=== PATIENT | female | born 1965 | race Caucasian/White ===

== ENCOUNTER 2021-02-13 07:34 | Outpatient (CLI) | payer OTHER, SELFPAY ==
--- NOTE | ~2021-02-13 | MM_ITS ---
EXAMINATION: MM screening aj BI w french HISTORY: Screening mammogram TECHNIQUE: Craniocaudal and mediolateral oblique 3-D tomosynthesis images were obtained and synthetic 2-D images were generated. CAD analysis was submitted and interpreted. COMPARISON: 10/18/2018, 02/07/2017, 06/25/2016 BREAST PARENCHYMAL COMPOSITION: The breasts are extremely dense, which lowers the sensitivity of mamm ography. FINDINGS: Scattered benign-appearing calcifications are present. There is no evidence of suspicious m ass, calcification, or architectural distortion to suggest malignancy in either breast. There has bee n no suspicious interval change. IMPRESSION: 1. No mammographic evidence of malignancy. 2. Recommend routine screening mammography in one year. BI-RADS Category 2: Benign finding(s). Reviewed, dictated and finalized at location A.
== END 2021-02-13 07:35 | disposition home or self-care (01) ==
LOC: ANHIMG 07:36
PROVIDERS: PCP Family Medicine Adolescent Medicine; Visit Provider Nurse Practitioner Obstetrics & Gynecology
DX: Z12.31 Encounter for screening mammogram for malignant neoplasm of breast (principal)
CPT/HCPCS: 77063; 77067

== ENCOUNTER → 2022-01-14 07:58 | Outpatient (CLI) | payer OTHER, SELFPAY ==
--- NOTE | ~2022-01-14 | US_ITS ---
US axilla RT 01/14/2022 08:16 Indication: Right axillary pain and swelling Procedure: High-resolution ultrasound of the right axillary soft tissues Comparison: No prior studies for comparison. Findings: Normal heterogeneous echotexture throughout the right axilla. No discrete mass or fluid col lection. Impression: 1: Normal right axillary ultrasound. BI-RADS CATEGORY 1 - NEGATIVE Reviewed, dictated and finalized at location L. Impression: 1: Normal right axillary ultrasound. BI-RADS CATEGORY 1 - NEGATIVE
== END ==
PROVIDERS: PCP Family Medicine Adolescent Medicine; Visit Provider Physician Assistant
DX: R22.31 Localized swelling, mass and lump, right upper limb (principal)
CPT/HCPCS: 76882

== ENCOUNTER 2022-05-08 10:44 | Emergency (ER) | payer OTHER, SELFPAY ==
[2022-05-08 10:51] VITALS: BP 147/93; PULSE 102; RESP 16; TEMP 36.6; O2SAT 99
--- NOTE | 2022-05-10 13:04 | ED.GENADULT ---
HPI - General Adult General Chief complaint: Ear Stated complaint: ear ache in both ears History of Present Illness HPI narrative: Patient is a 57 y/o female who presents to the [facility] via POV for an evaluation of bilateral ear pain, left worse than right that has been present for 2 days. She is accompanied by adult daughter. Additionally, she reports decreased hearing and subtle dry cough. Hx of AOM in childhood. No relief with day/nyquil. Does not identify alleviating/aggravating factors. Related Data Allergies Allergy/AdvReac Type Severity Reaction Status Date / Time No Known Allergies Allergy Verified 01/05/22 13:03 Review of Systems Review of Systems: Denies fever, chills, sweats, myalgias, fatigue, appetite changes, dizziness, vertigo, tinnitus, ear drainage, hearing loss, runny nose, sore throat, wheezing, cyanosis, sob, abd pain, nausea, vomiting, diarrhea, chest pain, and heart palpitations PMFSH Family History Family History Father Acute myocardial infarction Diabetes mellitus Heart disease Kidney disease Mother Acute myocardial infarction Asthma Heart disease Kidney disease Social History Social History Smoking status: Never smoker Second hand tobacco smoke exposure: No Alcohol intake: never Substance use: never Substance use type: does not use Gender identity (if verbalized by the patient): Female Sexual Orientation (if Verbalized by the Patient): Straight or Heterosexual Spiritual care concerns: No Agree to blood products: Yes Comments Reviewed past medical, surgical, family, and socia history and agree with nursing documentation. Exam Const: General: healthy appearing, no acute distress and alert Nutritional Appearance: well nourished Orientation/consciousness: patient oriented x3 HENMT: Head: normal to inspection Ears: external ears normal, EAC's normal and TM abnormal bulging on the right, dull on the right, erythematous (markedly) on the right and with fluid behind the TM (small amount) on the right Eyes: Conjunctivae: conjunctivae normal Pupils: Equal, round and reactive pupils present EOM: EOMs intact bilaterally Neck: Neck: normal visual inspection, no lymphadenopathy and no meningeal signs Resp: Effort & Inspection: normal respiratory effort Auscultation: clear to auscultation bilaterally Cardio: Rate: tachycardic (rate of 102) Rhythm: regular rhythm Heart sounds: Murmur heart sound present Other: no murmurs, rubs, or gallops auscultated Skin: General skin exam: normal color Rashes: no rashes Neuro: General: patient oriented x3, moves all extremities, no meningeal signs, no focal motor deficits and CN's II-XI intact bilaterally Speech: normal speech Gait exam (Neuro): Normal gait present Extrem: General: normal to inspection Psych: Mental Status: mental status grossly normal Affect: normal affect Attitude: cooperative Course Course Level of Care: Express Care Visit Vital Signs Vital signs: Vital Signs Temperature 97.9 F 05/08/22 10:51 Pulse Rate 102 H 05/08/22 10:51 Respiratory Rate 16 05/08/22 10:51 Blood Pressure 147/93 H 05/08/22 10:51 Pulse Oximetry 99 05/08/22 10:51 Temperature 97.9 F 05/08/22 10:51 Pulse Rate 102 H 05/08/22 10:51 Respiratory Rate 16 05/08/22 10:51 Blood Pressure 147/93 H 05/08/22 10:51 Pulse Oximetry 99 05/08/22 10:51 Medical Decision Making Differential Diagnosis Differential Diagnosis: otitis media, otitis externa, URI, sinusitis Vital Signs Vital Signs: Vital Signs Temperature 97.9 F 05/08/22 10:51 Pulse Rate 102 H 05/08/22 10:51 Respiratory Rate 16 05/08/22 10:51 Blood Pressure 147/93 H 05/08/22 10:51 Pulse Oximetry 99 05/08/22 10:51 Temperature 97.9 F 05/08/22 10:51 Pulse Rate 102 H 05/08/22 10:51 Respiratory
== END 2022-05-08 11:45 | disposition home or self-care (01) ==
PROVIDERS: Emergency Provider Nurse Practitioner Family; PCP Family Medicine Adolescent Medicine
DX: H66.92 Otitis media, unspecified, left ear (principal)
CPT/HCPCS: 99199; 99213; G0463

== ENCOUNTER 2022-07-29 07:21 | Outpatient (CLI) | payer OTHER, SELFPAY ==
--- NOTE | ~2022-07-29 | MM_ITS ---
EXAMINATION: MM screening aj BI w french HISTORY: Screening TECHNIQUE: Craniocaudal and mediolateral oblique 3-D tomosynthesis images were obtained and synthetic 2-D images were generated. CAD analysis was submitted and interpreted. COMPARISON: Comparison to multiple prior studies sequentially, with oldest reviewed study dated 05/28. BREAST PARENCHYMAL COMPOSITION: The breasts are heterogeneously dense, which may obscure small masses FINDINGS: Stable benign-appearing breast calcifications. There is no evidence of suspicious mass, leeanna cification, or architectural distortion to suggest malignancy in either breast. There has been no osvaldo picious interval change. IMPRESSION: 1. No mammographic evidence of malignancy. 2. Recommend routine screening mammography in one year. BI-RADS Category 2: Benign finding(s). Reviewed, dictated and finalized at location A. 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
== END 2022-07-29 07:22 | disposition home or self-care (01) ==
PROVIDERS: PCP Family Medicine Adolescent Medicine; Visit Provider Nurse Practitioner Obstetrics & Gynecology
DX: Z12.31 Encounter for screening mammogram for malignant neoplasm of breast (principal)
CPT/HCPCS: 77063; 77067

== ENCOUNTER → 2023-01-18 15:08 | Outpatient (CLI) | payer OTHER, SELFPAY ==
--- NOTE | ~2023-01-18 | US_ITS ---
Renal-Bladder ultrasound Clinical History: Cystitis, hematuria Technique: Real-time sonographic imaging of the kidneys and urinary bladder was performed. Findings: The right kidney measures 10.9 cm in length and the left kidney measures 11.3 cm. There is no hydronephrosis. There is a suspected 1.5 cm stone at the right renal pelvis. Probable 1.1 cm stone at the left upper renal pole. Renal cortical echogenicity is within normal limits. Probable 1.3 cm m inimally complex cyst at the right lower renal pole. The urinary bladder is moderately distended at the time of this exam. No intraluminal echoes are iden tified. No abnormal wall thickening is seen. Prevoid urinary bladder volume is 110 mL. 12.7 mL postvo id residual noted in the urinary bladder. Impression: 1.5 cm stone at the right renal pelvis. 1.1 cm left upper pole renal stone. No hydronephrosis. Small postvoid residual in the urinary bladder, as detailed above. Reviewed, dictated and finalized at location . Impression: 1.5 cm stone at the right renal pelvis. 1.1 cm left upper pole renal stone. No hydronephrosis. Small postvoid residual in the urinary bladder, as detailed above.
== END ==
PROVIDERS: PCP Family Medicine Adolescent Medicine; Visit Provider Family Medicine Adolescent Medicine
DX: N30.90 Cystitis, unspecified without hematuria (principal); N20.0 Calculus of kidney
CPT/HCPCS: 76775

== ENCOUNTER 2023-09-05 14:45 | Outpatient (CLI) | payer OTHER, SELFPAY ==
--- NOTE | ~2023-09-05 | MM_ITS ---
EXAMINATION: MM screening aj BI w french HISTORY: Screening mammogram TECHNIQUE: Craniocaudal and mediolateral oblique 3-D tomosynthesis images were obtained and synthetic 2-D images were generated. CAD analysis was submitted and interpreted. COMPARISON: No prior mammogram is available for comparison at this institution. BREAST PARENCHYMAL COMPOSITION: The breasts are heterogeneously dense, which may obscure small masses . FINDINGS: Scattered bilateral benign calcifications. There is no evidence of suspicious mass, calcifi cation, or architectural distortion to suggest malignancy in either breast. There has been no suspici ous interval change. IMPRESSION: 1. No mammographic evidence of malignancy. 2. Recommend routine screening mammography in one year. BI-RADS Category 2: Benign finding(s). Reviewed, dictated and finalized at location A.
== END 2023-09-05 14:46 | disposition home or self-care (01) ==
LOC: ANHIMG 14:47
PROVIDERS: PCP Family Medicine Adolescent Medicine; Visit Provider Nurse Practitioner Obstetrics & Gynecology
DX: Z12.31 Encounter for screening mammogram for malignant neoplasm of breast (principal)
CPT/HCPCS: 77063; 77067

== ENCOUNTER 2024-03-19 08:45 | Outpatient (CLI) | payer OTHER, SELFPAY ==
--- NOTE | ~2024-03-19 | CT_ITS ---
Non-contrast CT scan of the Abdomen and Pelvis Clinical indication: Renal cyst Technique: 2.5 mm axial scans were obtained through the abdomen and pelvis without intravenous or or al contrast. Dose reduction technique was used on this scan by utilizing automated exposure control a nd iterative reconstruction technique. The dose-length product (DLP) was 244.72 mGy-cm. Findings: Images through the lung bases reveal partially calcification is 6 mm right basilar pulmona ry nodule, likely benign granuloma. 8 mm ovoid nonobstructing left upper pole renal stone present. Additional punctate nonobstructing lef t renal stones are present. No left hydronephrosis. No left ureteral stone. There is a 1.8 x 1.4 cm ovoid stone at the right renal pelvis, with moderate right hydronephrosis. Ad ditional small nonobstructing right renal stones are present. Remainder of the right ureter is nondil ated. The liver, spleen, pancreas, and adrenals appear normal. Cholecystectomy clips are present. There is no aortic aneurysm. There is no evidence of bowel obstruction. Images through the pelvis were performed. There is no evidence of ascites or lymphadenopathy. Urinary bladder unremarkable. IUD in place. No pelvic mass evident. Impression: 1.8 x 1.4 cm stone at the right renal pelvis with moderate right hydronephrosis. Additional bilateral nonobstructing renal stones, as detailed above. No left hydronephrosis. IUD in place. Reviewed, dictated and finalized at [facility]. Impression: 1.8 x 1.4 cm stone at the right renal pelvis with moderate right hydronephrosis . Additional bilateral nonobstructing renal stones, as detailed above. No left hy dronephrosis. IUD in place.
== END 2024-03-19 08:46 | disposition home or self-care (01) ==
LOC: MICIMG 08:46
PROVIDERS: PCP Family Medicine Adolescent Medicine; Visit Provider Nurse Practitioner Family
DX: N13.2 Hydronephrosis with renal and ureteral calculous obstruction (principal); R31.9 Hematuria, unspecified; Z97.5 Presence of (intrauterine) contraceptive device; N28.1 Cyst of kidney, acquired
CPT/HCPCS: 74176

== ENCOUNTER 2024-07-17 09:59 | Outpatient (CLI) | payer OTHER, SELFPAY ==
--- NOTE | ~2024-07-17 | XR_ITS ---
EXAMINATION: XR abdomen/kub 1V DATE: 07/17/2024 10:15 INDICATION: Obstruction of right ureteropelvic junction. TECHNIQUE: A supine view of the abdomen on 2 radiographs was obtained. COMPARISON: CT abdomen and pelvis 03/19/2024 FINDINGS: There are no dilated loops of bowel. Surgical clips in the right upper quadrant are likely from cholecystectomy. There is an intrauterine device in expected position. There are phleboliths in the pelvis. There is an intrauterine device in expected position. There is a 6 mm stone in left kidne y. The kidneys are obscured by bowel. IMPRESSION: 1. Left kidney stone. Reviewed, dictated and finalized at location B. 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 Left kidney stone.
--- OUTSIDE RECORDS SUMMARY | 2024-07-19 17:10 | XMS_ITS | Clinical Summary ---
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 Name Role Phone Unavailable Primary Care Provider Unavailabl e Social History Tobacco Use Types Packs/Day Years Used Date Smoking Tobacco: Never Assessed Comments Unknown Sex and Gender Information Value Date Recorded Sex Assigned at Not on file Legal Sex Female 10:40 AM CDT Gender Identity Not on file Sexual Orientation Not on file Plan of Treatment Health Maintenance Due Date Last Done Comments DTAP/TDAP/TD VACCINES (1 - Tdap) 1986 HEPATITIS B VACCINES (1 of 3 - 19+ 3-dose series) 1986 CERVICAL CANCER SCREENING 1997 BREAST CANCER SCREENING 2007 COLORECTAL SCREENING 2012 Colorectal Cancer Screening 2012 FIT-DNA Q 3 years 2012 FIT/FOBT Q 1 year 2012 Flex Sig/CT Colonography Q 5 years 2012 ZOSTER VACCINE (1 of 2) 2017 INFLUENZA VACCINE (#1) 2024 PNEUMOCOCCAL VACCINE 0-64 YEARS Aged Out No longer eligible based on patient's age to complete this topic
--- OUTSIDE RECORDS SUMMARY | 2024-07-19 17:10 | XMS_ITS | Clinical Summary ---
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 Active levonorgestreL (MIRENA) IUD 1 each by intrauterine route once Active oxyBUTYnin XL (DITROPAN-XL) 5 mg 24 hr tablet Take 1 tablet (5 mg total) by mouth 3 (three) times a day as needed (bladder spasm) for up to 7 days 20 tablet Active Active Problems Problem Noted Date Diagnosed Date Calculus of ureter 05/02/2024 Encounters Date Type Department Care Team Description 06/07/2024 2:11 PM SALES TEAM MEMBER Anesthesia Event [facility] [address] [place] [phone] Bashir Sorensen MD Czajkowski, Lesly June, NP 06/07/2024 2:00 PM SALES TEAM MEMBER - 06/07/2024 4:30 PM SALES TEAM MEMBER Surgery [facility] [address] [place] [phone] Jt Stern MD Right Percutaneous Nephrolithotomy 06/07/2024 7:45 AM SALES TEAM MEMBER - 06/07/2024 11:59 PM SALES TEAM MEMBER Hospital Encounter [facility] - Interventional Radiology [address] [place] [phone] Right renal stone Discharge Disposition: Discharge to home or self care 06/07/2024 5:32 AM SALES TEAM MEMBER - 06/09/2024 3:51 PM SALES TEAM MEMBER Hospital Encounter [address] [phone] Jt Stern MD Calculus of ureter Discharge Disposition: Discharge to home or self care 06/07/2024 Orders Only [facility] - Interventional Radiology [address] [place] [phone] Shirin Sharma RN 06/06/2024 Orders Only [facility] - Interventional Radiology [address] [place] [phone] Montez Stacy RN 05/22/2024 10:15 AM SALES TEAM MEMBER Pre-Admission Testing [facility] Pre Anesthesia Testing [address] [place] [phone] Preop testing (Primary Dx) 05/08/2024 Telephone Radiology [address] [place] [address] Rajiv Dia MD from Last 3 Months Surgical History Surgery Date Site/Laterality Comments CHOLECYSTECTOMY NEPHROURETERAL STENT PLACEMENT NEW ACCESS RIGHT 2023 Right URETERAL STENT PLACEMENT VIA EXISTING TRACT RIGHT 05/27 Right Medical History Medical History Date Comments Hypothyroid Calculus of ureter Social History Tobacco Use Types Packs/Day Years Used Date Smoking Tobacco: Never Tobacco Cessation:Counseling Given: Not Answered [facility] Utilities Answer Date Recorded In the past 12 months has [employer], gas, oil, or water [employer] threatened to shut off services in your home? No 06/08/2024 Social Connection and Isolat ion Panel [NHANES] Answer Date Recorded In a typical week, how many times do you talk on the phone with family, friends, or neighbors? More than three times a week 06/08/2024 How often do you get togethe r with friends or relatives? More than three times a week 06/08/2024 How often do you attend chur ch or mosque services? Never 06/08/2024 Do you belong to any clubs o r organizations such as cheondoism groups, unions, fraternal or athletic groups, or school groups? No 06/08/2024 How often do you attend meet ings of the clubs or organizations you belong to? Never 06/08/2024 Are you , , di vorced, , never , or living with a partner? 06/08/2024 AUDIT-C Answer Date Recorded Q1: How often do you have a drink containing alc ohol? Monthly or less 05/22/2024 Q2: How many drinks containi ng alcohol do you have on a typical day when you are drinking? 1 or 2 05/22/2024 Q3: How often do you have si x or more drinks on one occasion? Never 05/22/2024 Overall Financial Resource Strain (CARDIA) Answe r Date Recorded How hard is it for you to pa y for the very basics like food, housing, medical care, and heating? Not very hard 06/08/2024 Hunger Vital Sign Answer Date Recorded Within the past 12 months, y ou worried that your food would run out before you got the money to buy more. Never true 06/08/20 24 Within the past 12 months, t he food you bought just didn't last and you didn't have money to get more. Never true 06/08/2024 PRAPARE - Transportation Answer Date Re corded In the past 12 months, has l ack of transportation kept you from medical appointments or from getting medications? No 05/27 In the past 12 months, has l ack of transportation kept you from meetings, work, or from getting things needed for daily living? No 06/08/2024 Housing Stability Vital Sign Answer Joon e Recorded In the last 12 months, was t here a time when you were not able to pay the mortgage or rent on time? No 06/08/2024 In the past 12 months, how m any times have you moved where you were living? 0 06/08/2024 At any time in the past 12 m [facility], were you homeless or living in a custodial (including now)? No 06/08/2024 Personal Safety Answer Date Recorded Have you ever been in or are you currently in a harmful physical or emotional relationship or is someone making you feel afraid or unsafe? Denies 06/07/2024 Comments No Sex and Gender Information Value Date Recorded Sex Assigned at Not on file Legal Sex Female 3:13 PM SALES TEAM MEMBER Gender Identity Not on file Sexual Orientation Not on file Obstetrics History Last Filed Vital Signs Vital Sign Reading Time Taken Comments Blood Pressure 140/72 06/09/2024 12:13 PM SALES TEAM MEMBER Pulse 82 06/09/2024 12:13 PM SALES TEAM MEMBER Temperature 37 ??C (98.6 ??F) 06/09/2024 12:13 PM SALES TEAM MEMBER Respiratory Rate 16 06/09/2024 12:13 PM SALES TEAM MEMBER Oxygen Saturation 97% 06/09/2024 12:13 PM SALES TEAM MEMBER Inhaled Oxygen Concentration - - Weight 59.2 kg (130 lb 8.2 oz) 06/07/2024 6:48 A M SALES TEAM MEMBER Height 160 cm (5' 3 ) 06/07/2024 6:48 AM SALES TEAM MEMBER Body Mass Index 23.12 06/07/2024 6:48 AM SALES TEAM MEMBER Plan of Treatment Health Maintenance Due Date Last Done Comments Breast Cancer Screening-Mammogram 1967 Cervical Cancer Screening 1967 Colon Cancer Screening-Colonoscopy 1967 Depression Screening 1967 Hepatitis C Screening 1967 DTaP/Tdap/Td Vaccine (1 - Tdap) 1978 Hepatitis B Screening 1985 Regular Well Visit/Exam 18-64 1985 Zoster Vaccine (1 of 2) 2017 Influenza Vaccine (#1) 2024 Pneumococcal vaccine <65 Aged Out No longer eligible based on patient's age to complete this topic Medical Devices Implanted Type Area Insole Rounder Device Identifier Shelf Expiration Date Model / Serial / Lot ReVera Amplatz 8.5fr 26cm 6 Sideport Introducer Catheter String [id number] - [id number] Implanted:Qty: 1 on 06/08/2024 at [facility] [employer] 02/19/2027 [id number] / / [id number] Procedures Procedure Name Priority Date/Time Associated Diagnosis Comments EGFR Routine 06/09/2024 4:57 AM SALES TEAM MEMBER CBC WITHOUT DIFFERENTIAL Routine 06/09/2024 4:57 AM SALES TEAM MEMBER BASIC METABOLIC PANEL Routine 06/09/2024 4:57 AM SALES TEAM MEMBER URETERAL STENT PLACEMENT VIA EXISTING TRACT RIGHT IP Routine 06/08/2024 4:09 PM [address]ES TEAM MEMBER CT KUB STONE WO CONTRAST IP Routine 06/08/2024 9:27 AM SALES TEAM MEMBER EGFR STAT 06/08/2024 6:21 AM SALES TEAM MEMBER BASIC METABOLIC PANEL STAT 06/08/2024 6:21 AM SALES TEAM MEMBER EGFR Routine 06/08/2024 4:33 AM SALES TEAM MEMBER CBC WITHOUT DIFFERENTIAL Routine 06/08/2024 4:33 AM SALES TEAM MEMBER BASIC METABOLIC PANEL Routine 06/08/2024 4:33 AM SALES TEAM MEMBER HEMOGLOBIN AND HEMATOCRIT STAT 06/07/2024 5:22 PM SALES TEAM MEMBER FL FLUOROSCOPY < 1 HOUR IP Routine 06/07/2024 3:53 PM SALES TEAM MEMBER STONE ANALYSIS Routine 06/07/2024 3:39 PM SALES TEAM MEMBER MT AN PROCEDURE PLACEHOLDER Routine 06/07/2024 2:53 PM SALES TEAM MEMBER MT AN ELECTIVE ENDOTRACHEAL AIRWAY Routine 06/07/2024 2:53 PM SALES TEAM MEMBER PERCUTANEOUS NEPHROLITHOTOMY 06/07/2024 2:10 PM SALES TEAM MEMBER Calculus of ureter NEPHROURETERAL STENT PLACEMENT NEW ACCESS RIGHT Schedule Routine, Read Routine (OP Routine) 06/07/2024 8:58 AM SALES TEAM MEMBER Right renal stone B CHECK SAMPLE STAT 06/07/2024 7:06 AM SALES TEAM MEMBER EGFR Routine 05/22/2024 11:09 AM SALES TEAM MEMBER Preop testing DIFFERENTIAL AUTO Routine 05/22/2024 11: 09 AM SALES TEAM MEMBER Preop testing BASIC METABOLIC PANEL Routine 05/22/2024 11:09 AM SALES TEAM MEMBER Preop testing CBC WITH AUTO DIFFERENTIAL Routine 05/22/2024 11:09 AM SALES TEAM MEMBER Preop testing PROTIME-INR Routine 05/22/2024 11:09 AM SALES TEAM MEMBER Preop testing APTT Routine 05/22/2024 11:09 AM SALES TEAM MEMBER Preop testing HEMOGLOBIN A1C Routine 05/22/2024 11:09 AM SALES TEAM MEMBER Preop testing TYPE AND SCREEN Routine 05/22/2024 10:48 AM SALES TEAM MEMBER Preop testing from Last 3 Months Results * eGFR (06/09/2024 4:57 AM SALES TEAM MEMBER) eGFR >90 >=60 mL/min/1. 73 m2 Comment: Interpretive Data Reference Interval Normal ?>/= 90 mL/min/1.73m2 Mildly decreased* ? 60 - 89 mL/min/1.73m2 Mildly to moderately decreased ?45 - 59 mL/min/1.73m2 Moderately to severely decreased ??30 - 44 mL/min/1.73m2 Severely decreased ?15 - 29 mL/min/1.73m2 Kidney Failure ?< 15 ??mL/min/1.73m2 *Relative to young adult level Estimated glomerular filtration rate is determined by the 2020 CKD-EPI equation recommended by the National Kidney Foundation (A Unifying Approach to GFR Estimation: Recommendations of the NKF-ASK Task Force on Reassessing the Inclusion of Race in Diagnosing Kidney Disease, JASN 2020). The CKD-EPI equation should not be used for patients with unstable renal function and has not been validated in children and those over 70. Current interpretive data was last reviewed 2021. Blood 06/09/2024 4:57 AM SALES TEAM MEMBER 06/09/2024 6:34 AM SALES TEAM MEMBER Jt Stern MD LAB BLOOD ORDERABLES Final Re sult Performing Organization Address City/[facility]/ZIP Co de Phone Number [facility] [address] [place] [address] * (ABNORMAL) CBC without differential (06/09/2024 4:57 AM SALES TEAM MEMBER) WBC 11.4(H) 3.8 - 9.9 K/cumm Hgb 11.0(L) 11.9 - 15.5 g/dL [facility] Hct 34.6(L) 35.6 - 45.5 % [facility] Plt 236 150 - 400 K/cumm [facility] MPV 10.1 9.1 - 12.3 fL [facility] RBC 3.59(L) 3.90 - 5.20 M/cumm [facility] MCV 96.4 81.3 - 96.4 fL [facility] MCH 30.6 27.1 - 33.3 pg [facility] MCHC 31.8(L) 32.3 - 35.7 g/dL [facility] RDW CV 12.9 11.1 - 14.9 % [facility] RDW SD 45.5 35.7 - 48.1 fL [facility] NRBC abs 0.00 0.00 - 0.01 K/cumm [facility] Blood 06/09/2024 4:57 AM SALES TEAM MEMBER 06/09/2024 6:35 AM SALES TEAM MEMBER us Jt Stern MD LAB BLOOD ORDERABLES Final Re sult Performing Organization Address [facility]/ZIP Co de Phone Number [facility] [employer] [address] [employer] [place], [place] [id number] * (ABNORMAL) Basic metabolic panel (06/09/2024 4:57 AM SALES TEAM MEMBER) Sodium 142 135 - 145 mmol/L Potassium, pl 3.4 3.3 - 4.9 mmol/L [facility] Chloride 106 97 - 110 mmol/L [facility] CO2 28 22 - 32 mmol/L [facility] Anion gap 8 2 - 15 mmol/L [facility] BUN 7 6 - 25 mg/dL [facility] Creatinine 0.60 0.60 - 1.10 mg/dL [facility] Glucose 137 70 - 199 mg/dL [facility] Comment: Interpretive Data Fasting glucose >/= 126 mg/dl is diagnostic for diabetes. ?? Fasting is defined as no caloric intake for at least 8 hours. Fasting glucose between 100 mg/dl to 125 mg/dl is diagnostic of prediabetes. In a patient with classic symptoms of hyperglycemia or hyperglycemic crisis, a random glucose >/= 200 mg/dl is diagnostic for diabetes. In the absence of unequivocal hyperglycemia, results should be confirmed by repeat testing. The classification and Diagnosis of Diabetes Diabetes Care 2021; 46: S19-S40. Current interpretive data was last revised 2022. Calcium 8.0(L) 8.5 - 10.3 mg/dL [facility] Blood 06/09/2024 4:57 AM SALES TEAM MEMBER 06/09/2024 6:34 AM SALES TEAM MEMBER us Jt Stern MD LAB BLOOD ORDERABLES Final Re sult [facility] [address] Department [place] [address] * IR Ureteral Stent Placement Via Existing Tract Right (06/08/2024 4:09 PM SALES TEAM MEMBER) Anatomical Region Laterality Modality Body Right X-Ray Angiograph y 06/08/2024 4:36 PM SALES TEAM MEMBER Impressions 06/08/2024 4:36 PM SALES TEAM MEMBER Successful conversion of the nephroureteral catheter to an internal ureteral stent. PLAN: Urology will follow the patient and eventually remove the internal stent. Electronically signed by: Miguel Epps M.D. Narrative 06/08/2024 4:36 PM SALES TEAM MEMBER EXAMINATION: ??RIGHT PCNU CONVERSION TO INTERNAL URETERAL STENT HISTORY/INDICATION: ??Right nephrolithiasis status post percutaneous nephrolithotomy. ??She presents for conversion of her nephroureteral catheter to an internal ureteral stent. ATTENDING PRESENCE: ??Miguel Epps M.D., the attending radiologist was present from the beginning to the end of the procedure. ?? SEDATION: Procedural sedation was administered under the attending physician's direction and continuous monitoring by a trained nurse specialist who was independent from those actually performing the procedure. ??Total monitored sedation time was 18 minutes. TECHNIQUE: ??The risks, benefits and alternatives were discussed and informed consent was obtained. Prior to beginning the procedure, [place] Protocol was performed to confirm the patient's identity and the planned procedure. ??For procedures that utilize fluoroscopy, the fluoroscopy time has been recorded in the electronic medical record. Maximum sterile barriers including cap, mask, hand hygiene, sterile gloves, sterile gown, large sterile drape and 2% chlorhexidine for cutaneous antisepsis were used. The skin surrounding the existing right percutaneous nephroureteral catheter was sterilely prepped and infiltrated with 1% lidocaine. The length from the right collecting system to the bladder was measured and 26 cm double-J ureteral stent selected. The existing nephroureteral catheter was exchanged over an Amplatz guidewire for the double-J ureteral stent. ??The distal loop was formed within the bladder and proximal loop formed within the collecting system. ??Access catheter was removed and a sterile dressing applied.. ESTIMATED BLOOD LOSS: Minimal. CONDITION: Stable DISCHARGED TO: 6 W. FINDINGS: Initial images show the nephroureteral catheter in place. Later images show contrast outlining the collecting system. ??Later images then show placement of the double-J ureteral stent with one loop formed within the bladder and the other within the collecting system. Procedure Note Miguel Epps MD PhD - 06/08/2024 EXAMINATION: RIGHT PCNU CONVERSION TO INTERNAL URETERAL STENT HISTORY/INDICATION: Right nephrolithiasis status post percutaneous nephrolithotomy. She presents for conversion of her nephroureteral catheter to an internal ureteral stent. ATTENDING PRESENCE: Miguel Epps M.D., the attending radiologist was present from the beginning to the end of the procedure. SEDATION: Procedural sedation was administered under the attending physician's direction and continuous monitoring by a trained nurse specialist who was independent from those actually performing the procedure. Total monitored sedation time was 18 minutes. TECHNIQUE: The risks, benefits and alternatives were discussed and informed consent was obtained. Prior to beginning the procedure, [place] Protocol was performed to confirm the patient's identity and the planned procedure. For procedures that utilize fluoroscopy, the fluoroscopy time has been recorded in the electronic medical record. Maximum sterile barriers including cap, mask, hand hygiene, sterile gloves, sterile gown, large sterile drape and 2% chlorhexidine for cutaneous antisepsis were used. The skin surrounding the existing right percutaneous nephroureteral catheter was sterilely prepped and infiltrated with 1% lidocaine. The length from the right collecting system to the bladder was measured and 26 cm double-J ureteral stent selected. The existing nephroureteral catheter was exchanged over an Amplatz guidewire for the double-J ureteral stent. The distal loop was formed within the bladder and proximal loop formed within the collecting system. Access catheter was removed and a sterile dressing applied.. ESTIMATED BLOOD LOSS: Minimal. CONDITION: Stable DISCHARGED TO: 6 W. FINDINGS: Initial images show the nephroureteral catheter in place. Later images show contrast outlining the collecting system. Later images then show placement of the double-J ureteral stent with one loop formed within the bladder and the other within the collecting system. IMPRESSION: Successful conversion of the nephroureteral catheter to an internal ureteral stent. PLAN: Urology will follow the patient and eventually remove the internal stent. Electronically signed by: Miguel Epps M.D. Kathy Lopez NP IMG IR PROCEDURES Final Result * CT KUB Stone WO Contrast (06/08/2024 9:27 AM SALES TEAM MEMBER) Anatomical Region Laterality Modality Abdomen N/A Computed Tomogra phy 06/08/2024 11:0 2 AM SALES TEAM MEMBER Impressions 06/08/2024 11:02 AM SALES TEAM MEMBER 1. ??Status post right percutaneous nephrolithotomy. 2. ??Small amount of gas in the right renal collecting system and hyperdense fluid in the adjacent soft tissue likely related to recent procedure. 3. ??Interval removal of large stone at the right renal pelvis seen on prior CT dated 03/19/2024. ??A tiny stone is present at the right ureteropelvic junction. 4. ??Right lower lobe 5 mm nodule, unchanged. Electronically signed by: Jorge Dee M.D. Narrative 06/08/2024 11:02 AM SALES TEAM MEMBER CT KUB STONE WO CONTRAST 06/08/2024 8:45 AM CLINICAL INDICATION: Urinary tract stone, symptomatic/complicated. ?? COMPARISON: CT abdomen pelvis dated 03/19/2024. TECHNIQUE: CT scan of the abdomen and pelvis was performed without contrast. ??Coronal and sagittal reformatted images were generated. FINDINGS: Bibasilar opacities likely represent atelectasis. ??A right lower lobe 5 mm nodule is unchanged compared with prior CT dated 03/19/2024. Evaluation of the intra-abdominal viscera is limited without intravenous contrast. There is mild hepatic steatosis. ??There is postsurgical change from cholecystectomy. ??The pancreas, spleen and adrenal glands are normal. The patient is status post right percutaneous nephrolithotomy. ??A right internal and external nephroureteral stent is present. ??The distal end of the stent terminates in the urinary bladder. ??Multiple foci of gas in the right renal collecting system and adjacent soft tissue are from recent procedure. ??Hyperdense fluid adjacent to the right kidney is also likely related to recent procedure. ??There has been interval removal of a large stone seen along the right renal pelvis compared with prior CT dated 03/19/2024. ??A small calcification along the superior pole of the right kidney is unchanged. ??There is a tiny stone at the right ureteropelvic junction that measures approximately 2 mm. ??There are multiple left kidney stones, largest measures 6 mm. ??There is no left hydroureteronephrosis. Evaluation of the intra-abdominal vasculature is limited without intravenous contrast. ??The abdominal aorta is normal in caliber. ?? There is no lymphadenopathy. There is no drainable fluid collection in the abdomen or pelvis. An IUD is present in the uterus. ??The ovaries are normal. ??A Child catheter is present in the urinary bladder. ??Evaluation is limited due to decompression. There is a small hiatal hernia. ??There are no acute findings in the stomach and duodenum. ??The small bowel is normal in caliber. ??There are no acute findings in the colon. ??There are small appendicoliths. There is no evidence for appendicitis. There is no inguinal lymphadenopathy. There is facet degenerative change at L4-L5 and L5-S1. ??There is no acute osseous abnormality. Procedure Note Jorge Dee MD - 06/08/2024 CT KUB STONE WO CONTRAST 06/08/2024 8:45 AM CLINICAL INDICATION: Urinary tract stone, symptomatic/complicated. COMPARISON: CT abdomen pelvis dated 03/19/2024. TECHNIQUE: CT scan of the abdomen and pelvis was performed without contrast. Coronal and sagittal reformatted images were generated. FINDINGS: Bibasilar opacities likely represent atelectasis. A right lower lobe 5 mm nodule is unchanged compared with prior CT dated 03/19/2024. Evaluation of the intra-abdominal viscera is limited without intravenous contrast. There is mild hepatic steatosis. There is postsurgical change from cholecystectomy. The pancreas, spleen and adrenal glands are normal. The patient is status post right percutaneous nephrolithotomy. A right internal and external nephroureteral stent is present. The distal end of the stent terminates in the urinary bladder. Multiple foci of gas in the right renal collecting system and adjacent soft tissue are from recent procedure. Hyperdense fluid adjacent to the right kidney is also likely related to recent procedure. There has been interval removal of a large stone seen along the right renal pelvis compared with prior CT dated 03/19/2024. A small calcification along the superior pole of the right kidney is unchanged. There is a tiny stone at the right ureteropelvic junction that measures approximately 2 mm. There are multiple left kidney stones, largest measures 6 mm. There is no left hydroureteronephrosis. Evaluation of the intra-abdominal vasculature is limited without intravenous contrast. The abdominal aorta is normal in caliber. There is no lymphadenopathy. There is no drainable fluid collection in the abdomen or pelvis. An IUD is present in the uterus. The ovaries are normal. A Child catheter is present in the urinary bladder. Evaluation is limited due to decompression. There is a small hiatal hernia. There are no acute findings in the stomach and duodenum. The small bowel is normal in caliber. There are no acute findings in the colon. There are small appendicoliths. There is no evidence for appendicitis. There is no inguinal lymphadenopathy. There is facet degenerative change at L4-L5 and L5-S1. There is no acute osseous abnormality. IMPRESSION: 1. Status post right percutaneous nephrolithotomy. 2. Small amount of gas in the right renal collecting system and hyperdense fluid in the adjacent soft tissue likely related to recent procedure. 3. Interval removal of large stone at the right renal pelvis seen on prior CT dated 03/19/2024. A tiny stone is present at the right ureteropelvic junction. 4. Right lower lobe 5 mm nodule, unchanged. Electronically signed by: Jorge Dee M.D. Jt Stern MD [facility] CT PROCEDURES Final Resul t * eGFR (06/08/2024 6:21 AM SALES TEAM MEMBER) eGFR >90 >=60 mL/min/1. 73 m2 Comment: Interpretive Data Reference Interval Normal ?>/= 90 mL/min/1.73m2 Mildly decreased* ? 60 - 89 mL/min/1.73m2 Mildly to moderately decreased ?45 - 59 mL/min/1.73m2 Moderately to severely decreased ??30 - 44 mL/min/1.73m2 Severely decreased ?15 - 29 mL/min/1.73m2 Kidney Failure ?< 15 ??mL/min/1.73m2 *Relative to young adult level Estimated glomerular filtration rate is determined by the 2020 CKD-EPI equation recommended by the National Kidney Foundation (A Unifying Approach to GFR Estimation: Recommendations of the NKF-ASK Task Force on Reassessing the Inclusion of Race in Diagnosing Kidney Disease, JASN 2020). The CKD-EPI equation should not be used for patients with unstable renal function and has not been validated in children and those over 70. Current interpretive data was last reviewed 2021. Blood 06/08/2024 6:21 AM SALES TEAM MEMBER 06/08/2024 6:29 AM SALES TEAM MEMBER Jt Stenr MD LAB BLOOD ORDERABLES Final Re sult Performing Organization Address City/[facility] [facility]/ZIP Co de Phone Number [facility] [address] [place] [address] * (ABNORMAL) Basic metabolic panel (06/08/2024 6:21 AM SALES TEAM MEMBER) [facility] Sodium 139 135 - 145 mmol/L Potassium, pl 3.7 3.3 - 4.9 mmol/L [facility] Chloride 105 97 - 110 mmol/L [facility] CO2 24 22 - 32 mmol/L [facility] Anion gap 10 2 - 15 mmol/L [facility] BUN 7 6 - 25 mg/dL [facility] Creatinine 0.66 0.60 - 1.10 mg/dL [facility] Glucose 126 70 - 199 mg/dL [facility] Comment: Interpretive Data Fasting glucose >/= 126 mg/dl is diagnostic for diabetes. ?? Fasting is defined as no caloric intake for at least 8 hours. Fasting glucose between 100 mg/dl to 125 mg/dl is diagnostic of prediabetes. In a patient with classic symptoms of hyperglycemia or hyperglycemic crisis, a random glucose >/= 200 mg/dl is diagnostic for diabetes. In the absence of unequivocal hyperglycemia, results should be confirmed by repeat testing. The classification and Diagnosis of Diabetes Diabetes Care 2021; 46: S19-S40. Current interpretive data was last revised 2022. Calcium 8.1(L) 8.5 - 10.3 mg/dL [facility] Blood 06/08/2024 6:21 AM SALES TEAM MEMBER 06/08/2024 6:29 AM SALES TEAM MEMBER Jt Stern MD LAB BLOOD ORDERABLES Final Re sult Performing Organization Address [facility] Co de Phone Number [facility] [address] Department [place] [address] * eGFR (06/08/2024 4:33 AM SALES TEAM MEMBER) Pathologist [facility] eGFR >90 >=60 mL/min/1. 73 m2 Comment: Interpretive Data Reference Interval Normal ?>/= 90 mL/min/1.73m2 Mildly decreased* ? 60 - 89 mL/min/1.73m2 Mildly to moderately decreased ?45 - 59 mL/min/1.73m2 Moderately to severely decreased ??30 - 44 mL/min/1.73m2 Severely decreased ?15 - 29 mL/min/1.73m2 Kidney Failure ?< 15 ??mL/min/1.73m2 *Relative to young adult level Estimated glomerular filtration rate is determined by the 2020 CKD-EPI equation recommended by the National Kidney Foundation (A Unifying Approach to GFR Estimation: Recommendations of the NKF-ASK Task Force on Reassessing the Inclusion of Race in Diagnosing Kidney Disease, JASN 2020). The CKD-EPI equation should not be used for patients with unstable renal function and has not been validated in children and those over 70. Current interpretive data was last reviewed 2021. Blood 06/08/2024 4:33 AM SALES TEAM MEMBER 06/08/2024 5:24 AM SALES TEAM MEMBER us Jt Stern MD LAB BLOOD ORDERABLES Final Re sult [facility] [address] Department [place] [address] * (ABNORMAL) CBC without differential (06/08/2024 4:33 AM SALES TEAM MEMBER) [facility] WBC 14.9(H) 3.8 - 9.9 K/cumm Hgb 10.2(L) 11.9 - 15.5 g/dL [facility] Hct 32.2(L) 35.6 - 45.5 % [facility] Plt 241 150 - 400 K/cumm [facility] MPV 10.5 9.1 - 12.3 fL [facility] RBC 3.34(L) 3.90 - 5.20 M/cumm [facility] MCV 96.4 81.3 - 96.4 fL [facility] MCH 30.5 27.1 - 33.3 pg [facility] MCHC 31.7(L) 32.3 - 35.7 g/dL [facility] RDW CV 12.9 11.1 - 14.9 % [facility] RDW SD 45.3 35.7 - 48.1 fL [facility] NRBC abs 0.00 0.00 - 0.01 K/cumm [facility] Blood 06/08/2024 4:33 AM SALES TEAM MEMBER 06/08/2024 5:23 AM SALES TEAM MEMBER us Jt Stern MD LAB BLOOD ORDERABLES Final Re sult [facility] [address] Department [place] [address] * (ABNORMAL) Basic metabolic panel (06/08/2024 4:33 AM SALES TEAM MEMBER) Sodium 139 135 - 145 mmol/L Potassium, pl 3.6 3.3 - 4.9 mmol/L [facility] Chloride 105 97 - 110 mmol/L [facility] CO2 22 22 - 32 mmol/L [facility] Anion gap 12 2 - 15 mmol/L [facility] BUN 7 6 - 25 mg/dL [facility] Creatinine 0.62 0.60 - 1.10 mg/dL [facility] Glucose 446(H) 70 - 199 mg/dL [facility] Comment: Interpretive Data Fasting glucose >/= 126 mg/dl is diagnostic for diabetes. ?? Fasting is defined as no caloric intake for at least 8 hours. Fasting glucose between 100 mg/dl to 125 mg/dl is diagnostic of prediabetes. In a patient with classic symptoms of hyperglycemia or hyperglycemic crisis, a random glucose >/= 200 mg/dl is diagnostic for diabetes. In the absence of unequivocal hyperglycemia, results should be confirmed by repeat testing. The classification and Diagnosis of Diabetes Diabetes Care 2021; 46: S19-S40. Current interpretive data was last revised 2022. Calcium 7.8(L) 8.5 - 10.3 mg/dL [facility] Blood 06/08/2024 4:33 AM SALES TEAM MEMBER 06/08/2024 5:24 AM SALES TEAM MEMBER Jt Stern MD LAB BLOOD ORDERABLES Final Re sult Performing Organization Address [facility] Co de Phone Number [facility] [address] Department [employer] [place], [place] [id number] * Hemoglobin and hematocrit (06/07/2024 5:22 PM SALES TEAM MEMBER) Hgb 12.6 11.9 - 15.5 g/dL Hct 38.4 35.6 - 45.5 % [facility] Blood 06/07/2024 5:22 PM SALES TEAM MEMBER 06/07/2024 5:37 PM SALES TEAM MEMBER Result [facility] Jt Stern MD LAB BLOOD ORDERABLES Final Re sult Performing Organization Address [facility] de Phone Number [facility] [address] [place], [place] [id number] * [place] Fluoroscopy < 1 Hour (06/07/2024 3:53 PM SALES TEAM MEMBER) Narrative [facility] - 06/07/2024 3:54 PM SALES TEAM MEMBER The images from this study are not interpreted by Radiology. ??Please refer to the physician's procedure / OR operative note. Result [facility] us Jt Stern MD IMG FLUOROSCOPY PROCEDURES Fi nal Result Performing Organization Address [facility] Co de Phone Number [facility] * Stone analysis (06/07/2024 3:39 PM SALES TEAM MEMBER) Stone analysis Not Reported [place] ref Lab Source, Kid Stone Kidney [facility] Interp, Kid stone analysis See Footnote [facility] [employer] Comment: 80% Calcium oxalate dihydrate. ??20% Calcium phosphate (apatite). COMMENT See Footnote [facility] [employer] Comment: For stones containing calcium oxalate, calcium phosphate, and/or uric acid, a 24 hr urinary supersaturation test may help detect underlying risk factors for this type of stone formation and provide guidance for a stone prevention strategy. ADDITIONAL INFORMATION This test was developed and its performance characteristics determined by [facility] in a manner consistent with CLIA requirements. This test has not been cleared or approved by the U.S. Food and Drug Administration. Test Performed by: [facility] - [place] [id number] Fitting Room Operator: Antonio Rosario Ph.D.; CLIA# [id number] Stone 06/07/2024 3:39 PM SALES TEAM MEMBER 06/07/2024 5:37 PM SALES TEAM MEMBER us Jt Stern MD LAB URINE ORDERABLES Final Re sult [facility] [address] Department [place] [address] [place] ref Lab * MT AN ELECTIVE ENDOTRACHEAL AIRWAY, MT AN PROCEDURE PLACEHOLDER (06/07/2024 2:53 PM SALES TEAM MEMBER) Narrative Alison Pearson CRNA - 06/07/2024 2:53 PM SALES TEAM MEMBER Alison Pearson CRNA ? 06/07/2024 ??2:54 PM Airway Patient location: OR Urgency: elective Indications for airway management: anesthesia Difficult airway: no Staff: Placed by: HEAD TEACHER: Alison Pearson CRNA Emergent airway documentation: Risks and benefits discussed: yes Consent obtained: yes Consent given by: patient Airway prep: Preoxygenated: yes Patient position: sniffing Mask difficulty assessment: 0 - not attempted Sedation level during airway: GA Final airway details: Final airway type: endotracheal airway Tube type: ETT ETT size: 7.0 mm Cuffed: yes Technique used for successful ETT placement: video laryngoscopy Insertion site: oral Video blade type: Bey Blade size: 3 Cormack-Lehane (video): grade I - full view of glottis Cuff volume: 8 mL Cuff inflated with: air ETT to lips: 21 cm Placement verified by: auscultation and CO2 detection Airway secured with: silk tape Number of attempts: 1 Bashir Sorensen MD ANESTHESIA ORDERABLES Final Result * IR Nephroureteral Stent Placement New Access Right (06/07/2024 8:58 AM SALES TEAM MEMBER) Anatomical Region Laterality Modality Body Right X-Ray Angiograph y 06/07/2024 12:1 5 PM SALES TEAM MEMBER Impressions 06/07/2024 12:15 PM SALES TEAM MEMBER Successful right percutaneous nephroureteral catheter placement. PLAN: ?? 1. OR today for lithotripsy. 2. Patient may return to IR tomorrow for internalization and placement of a double-J stent. Electronically signed by: Rajiv Dia M.D. 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 Presents for PCNU for same day surgery. ATTENDING PRESENCE: Rajiv Dia M.D., the attending radiologist was present from the beginning to the end of the procedure. ?? SEDATION: Moderate conscious sedation was administered under the attending physician's direction and continuous monitoring by a trained nurse specialist who was independent from those actually performing the procedure. The total monitored conscious time was 40minutes. ?? TECHNIQUE/FINDINGS: The risks, benefits and alternatives were discussed and informed consent was obtained. Prior to beginning the procedure, [place] Protocol was performed to confirm the patient's identity and the planned procedure. ??The fluoroscopy time has been recorded in the electronic medical record. Maximum sterile barriers including cap, mask, hand hygiene, sterile gloves, sterile gown, large sterile drape and 2% chlorhexidine for cutaneous antisepsis were used. Initial ultrasound imaging was done to localize the kidney and to assess the collecting system as well to identify a possible calyx for initial access. ??The overlying skin was then prepped and draped in the usual sterile manner and 1% Lidocaine was used to achieve local anesthesia. ?? A 22-gauge Chiba needle was then used to access the right renal collecting system under real-time ultrasound guidance with appropriate needle tip positioning documented by the aspiration of urine and by fluoroscopy following the injection of contrast. Limited contrast injection demonstrated moderate hydronephrosis and hydroureter. ??A microwire was advanced into the collecting system. Over the wire, an AccuStick system was used to upsize the access. The inner dilator and microwire were removed and an 0.035 wire was advanced. Over the wire, a 5 Belarusian glide catheter was placed and coiled into the bladder. Contrast was injected into the bladder to confirm position. The catheter was capped secured to the skin with tape. The patient will be going to the OR for same day lithotripsy. Final fluoroscopic spot images demonstrated right catheters well positioned within the renal pelvis and bladder. ESTIMATED BLOOD LOSS: Minimal. CONDITION: Stable DISCHARGED TO: patient care division. FINDINGS: ?? 1. 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 Presents for PCNU for same day surgery. ATTENDING PRESENCE: Rajiv Dia M.D., the attending radiologist was present from the beginning to the end of the procedure. SEDATION: Moderate conscious sedation was administered under the attending physician's direction and continuous monitoring by a trained nurse specialist who was independent from those actually performing the procedure. The total monitored conscious time was 40minutes. TECHNIQUE/FINDINGS: The risks, benefits and alternatives were discussed and informed consent was obtained. Prior to beginning the procedure, [place] Protocol was performed to confirm the patient's identity and the planned procedure. The fluoroscopy time has been recorded in the electronic medical record. Maximum sterile barriers including cap, mask, hand hygiene, sterile gloves, sterile gown, large sterile drape and 2% chlorhexidine for cutaneous antisepsis were used. Initial ultrasound imaging was done to localize the kidney and to assess the collecting system as well to identify a possible calyx for initial access. The overlying skin was then prepped and draped in the usual sterile manner and 1% Lidocaine was used to achieve local anesthesia. A 22-gauge Chiba needle was then used to access the right renal collecting system under real-time ultrasound guidance with appropriate needle tip positioning documented by the aspiration of urine and by fluoroscopy following the injection of contrast. Limited contrast injection demonstrated moderate hydronephrosis and hydroureter. A microwire was advanced into the collecting system. Over the wire, an AccuStick system was used to upsize the access. The inner dilator and microwire were removed and an 0.035 wire was advanced. Over the wire, a 5 Belarusian glide catheter was placed and coiled into the bladder. Contrast was injected into the bladder to confirm position. The catheter was capped secured to the skin with tape. The patient will be going to the OR for same day lithotripsy. Final fluoroscopic spot images demonstrated right catheters well positioned within the renal pelvis and bladder. ESTIMATED BLOOD LOSS: Minimal. CONDITION: Stable DISCHARGED TO: patient care division. FINDINGS: 1. Large right UPJ nephrolith IMPRESSION: Successful right percutaneous nephroureteral catheter placement. PLAN: 1. OR today for lithotripsy. 2. Patient may return to IR tomorrow for internalization and placement of a double-J stent. Electronically signed by: Rajiv Dia M.D. us Jt Stern MD [facility] IR PROCEDURES Final Resul t * Check Sample (06/07/2024 7:06 AM SALES TEAM MEMBER) Pathologist [facility] ABO Rh A Positive MBC HCLL OTHER 06/07/2024 7:06 AM SALES TEAM MEMBER 06/07/2024 7:33 AM SALES TEAM MEMBER us Kathy Lopez NP LAB BLOOD ORDERABLES Fi nal Result [facility] [address] Department [place] [address] MBC * eGFR (05/22/2024 11:09 AM SALES TEAM MEMBER) eGFR >90 >=60 mL/min/1. 73 m2 Comment: Interpretive Data Reference Interval Normal ?>/= 90 mL/min/1.73m2 Mildly decreased* ? 60 - 89 mL/min/1.73m2 Mildly to moderately decreased ?45 - 59 mL/min/1.73m2 Moderately to severely decreased ??30 - 44 mL/min/1.73m2 Severely decreased ?15 - 29 mL/min/1.73m2 Kidney Failure ?< 15 ??mL/min/1.73m2 *Relative to young adult level Estimated glomerular filtration rate is determined by the 2020 CKD-EPI equation recommended by the National Kidney Foundation (A Unifying Approach to GFR Estimation: Recommendations of the NKF-ASK Task Force on Reassessing the Inclusion of Race in Diagnosing Kidney Disease, JASN 2020). The CKD-EPI equation should not be used for patients with unstable renal function and has not been validated in children and those over 70. Current interpretive data was last reviewed 2021. Blood 05/22/2024 11:0 9 AM SALES TEAM MEMBER 05/22/2024 11:09 AM SALES TEAM MEMBER us Kathy Lopez NP LAB BLOOD ORDERABLES Fi nal Result [facility] [address] Department [place] [address] * Differential, auto (05/22/2024 11:09 AM SALES TEAM MEMBER) Neutrophil abs 4.3 1.5 - 6.5 K/cumm Imm gran abs 0.0 0.0 - 0.1 K/cumm [facility] Lymphocyte abs 1.9 0.8 - 3.3 K/cumm [facility] Monocyte abs 0.5 0.2 - 0.8 K/cumm [facility] Eosinophil abs 0.2 0.0 - 0.5 K/cumm [facility] Basophil abs 0.1 0.0 - 0.1 K/cumm [facility] Neutrophil pct 61.3 % [facility] Comment: Interpretive Data Percent cell count reference ranges are not reported, since discordance with absolute values may lead to misinterpretation of CBC data. Current Interpretive Data was last revised on 2017. Imm gran pct 0.3 % [facility] Comment: Interpretive Data Percent cell count reference ranges are not reported, since discordance with absolute values may lead to misinterpretation of CBC data. Current Interpretive Data was last revised on 2017. Lymphocyte pct 27.4 % [facility] Comment: Interpretive Data Percent cell count reference ranges are not reported, since discordance with absolute values may lead to misinterpretation of CBC data. Current Interpretive Data was last revised on 2017. Monocyte pct 7.0 % [facility] Comment: Interpretive Data Percent cell count reference ranges are not reported, since discordance with absolute values may lead to misinterpretation of CBC data. Current Interpretive Data was last revised on 2017. Eosinophil pct 2.3 % [facility] Comment: Interpretive Data Percent cell count reference ranges are not reported, since discordance with absolute values may lead to misinterpretation of CBC data. Current Interpretive Data was last revised on 2017. Basophil pct 1.7 % [facility] Comment: Interpretive Data Percent cell count reference ranges are not reported, since discordance with absolute values may lead to misinterpretation of CBC data. Current Interpretive Data was last revised on 2017. Blood 05/22/2024 11:0 9 AM SALES TEAM MEMBER 05/22/2024 11:09 AM SALES TEAM MEMBER us Kathy Lopez NP LAB BLOOD ORDERABLES Fi nal Result [facility] [address] Department [place] [address] * (ABNORMAL) CBC with auto differential (05/22/2024 11:09 AM SALES TEAM MEMBER) WBC 7.1 3.8 - 9.9 K/cumm Hgb 14.1 11.9 - 15.5 g/dL [facility] Hct 44.0 35.6 - 45.5 % [facility] Plt 323 150 - 400 K/cumm [facility] MPV 9.9 9.1 - 12.3 fL [facility] RBC 4.70 3.90 - 5.20 M/cumm [facility] MCV 93.6 81.3 - 96.4 fL [facility] MCH 30.0 27.1 - 33.3 pg [facility] MCHC 32.0(L) 32.3 - 35.7 g/dL [facility] RDW CV 12.4 11.1 - 14.9 % [facility] RDW SD 42.7 35.7 - 48.1 fL [facility] NRBC abs 0.00 0.00 - 0.01 K/cumm [facility] Blood 05/22/2024 11:0 9 AM SALES TEAM MEMBER 05/22/2024 11:09 AM SALES TEAM MEMBER [facility]Y [facility]NA[facility] LAB BLOOD ORDERABLES Fi nal Result Performing Organization Address [facility] Co de Phone Number [facility] [address] [place], [place] [id number] * aPTT (05/22/2024 11:09 AM SALES TEAM MEMBER) [facility] aPTT 34 28 - 38 sec Comment: Interpretive Data Heparin therapeutic range: 66.0 - 100.0 seconds. Range based on correlation with therapeutic heparin activity range of 0.3 - 0.7 Units/mL. Current interpretive data was last revised on 2023. Blood 05/22/2024 11:0 9 AM SALES TEAM MEMBER 05/22/2024 11:09 AM SALES TEAM MEMBER Kathy Lopez COPY MANAGER LAB BLOOD ORDERABLES Fi nal Result Performing Organization Address [facility] Co de Phone Number [facility] [address] [facility] [employer] [place], [place] [phone] * Protime-INR (05/22/2024 11:09 AM SALES TEAM MEMBER) PT 11.1 9.7 - 13.0 sec INR 1.03 0.90 - 1.20 [facility] Comment: Interpretive data Oral anticoagulant therapeutic ranges: Venous thromboembolism prophylaxis or treatment: 2.0-3.0 CARDIOLOGY Standard range: 2.0-3.0 High-intensity range: 2.5-3.5 Refer to indication-specific guidelines for appropriate target ranges for prosthetic heart valve replacement. Current interpretive data was last revised on 2019. Blood 05/22/2024 11:0 9 AM SALES TEAM MEMBER 05/22/2024 11:09 AM SALES TEAM MEMBER [facility] Suzie Lopez COPY MANAGER LAB BLOOD ORDERABLES Fi nal Result Performing Organization Address [facility] de Phone Number [facility] [address] [place] [address] * (ABNORMAL) Hemoglobin A1c (05/22/2024 11:09 AM SALES TEAM MEMBER) [facility] Hgb A1C 5.9(H) 4.0 - 5.6 % Estimated Average Glucose 123 mg/dL [facility] Comment: The ADA recommends reporting an estimated Average Glucose (eAG) with all Hemoglobin A1c results using the equation derived from a study of 507 normal and diabetic adults. ??Minority populations were underrepresented and children were not included. ?? (Diabetes Care 31:1009-4658, 2008). ??The eAG is not equivalent to a fasting glucose. Blood 05/22/2024 11:0 9 AM SALES TEAM MEMBER 05/22/2024 11:09 AM SALES TEAM MEMBER [facility] Suzie Lopez NP LAB BLOOD ORDERABLES Fi nal Result Performing Organization Address [facility] Co de Phone Number [facility] [address] [facility] [employer] [place] [address] * Basic metabolic panel (05/22/2024 11:09 AM SALES TEAM MEMBER) [facility] Sodium 140 135 - 145 mmol/L Potassium, pl 3.9 3.3 - 4.9 mmol/L [facility] Chloride 103 97 - 110 mmol/L [facility] CO2 25 22 - 32 mmol/L [facility] Anion gap 12 2 - 15 mmol/L [facility] BUN 10 6 - 25 mg/dL [facility] Creatinine 0.74 0.60 - 1.10 mg/dL [facility] Glucose 103 70 - 199 mg/dL [facility] Comment: Interpretive Data Fasting glucose >/= 126 mg/dl is diagnostic for diabetes. ?? Fasting is defined as no caloric intake for at least 8 hours. Fasting glucose between 100 mg/dl to 125 mg/dl is diagnostic of prediabetes. In a patient with classic symptoms of hyperglycemia or hyperglycemic crisis, a random glucose >/= 200 mg/dl is diagnostic for diabetes. In the absence of unequivocal hyperglycemia, results should be confirmed by repeat testing. The classification and Diagnosis of Diabetes Diabetes Care 202; 46: S19-S40. Current interpretive data was last revised 2022. Calcium 9.3 8.5 - 10.3 mg/dL [facility] Blood 05/22/2024 11:0 9 AM SALES TEAM MEMBER 05/22/2024 11:09 AM SALES TEAM MEMBER us Kathy Lopez NP LAB BLOOD ORDERABLES Fi nal Result [facility] [address] Department [place] [address] * Type and screen (05/22/2024 10:48 AM SALES TEAM MEMBER) Nathanael, indirect Negative ABO Rh A Positive [facility] Blood 05/22/2024 10:4 8 AM SALES TEAM MEMBER 05/22/2024 11:14 AM SALES TEAM MEMBER Narrative [facility] - 05/22/2024 12:35 PM SALES TEAM MEMBER Is this test being ordered in advance for a procedure?->Yes Expected date of procedure:->06/07/24 Has the patient been transfused in the past 3 months?->No Has the patient been in the past 3 months?->No Kathy Lopez NP LAB BLOOD BANK TEST ORD ERABLES Final Result [facility] [address]ly [address] [place] [address] from Last 3 Months Insurance [facility] [id number] [employer] Advance Directives For more information, please contact: [phone] * Full Code (Latest Code Status on File) Date Activated Date Inactivated Comments 06/07/2024 6:04 PM 06/09/2024 7:56 PM Care Teams It Instructor Relationship Specialty Start Date End Date Carter Sanders MD [address] [place] [address] PCP - General Family Medicine 05/22/24 Jt Stern MD [address] [facility] [address] [place] [address] Consulting Physician Urology 06/09/24
--- OUTSIDE RECORDS SUMMARY | 2024-07-19 17:10 | XMS_ITS | Data Portability ---
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 Patient will come back in a year unless there are new symptoms. Not available 05/25/2023 09:18:10 Plan of Treatment Reminders Order Date Submit Date Provider Last Modified By Organization Details Last Modified Time Details Appointments None recorded. Lab vitamin D, 25-hydroxy, total, serum 2022 023 [facility] (Lab), [address] , [place], [address], 3 03:19:45 HbA1c (hemoglobin A1c), blood 2022 023 [facility] (Lab), [address], [place], [address], 3 03:19:45 CBC w/ auto diff 2022 023 [facility] (Lab), [address], [place], [address], 3 03:19:44 lipid panel, blood 2022 023 [facility] (Lab), [address], [place], [address], 3 03:19:43 CMP, serum or plasma 2022 023 [facility] (Lab), [address], [place], [address], 3 03:19:44 TSH, serum or plasma 2022 023 [facility] (Lab), [address], [place], [address], 3 03:19:45 Referral None recorded. Procedures None recorded. Surgeries None recorded. Imaging US, transvagina l 2021 022 [place], [address], [address], [place], [address], 2 16:06:11 MAMMO, screening, bilateral [address] [facility], [address], [place], [address], 3 08:22:48 US, pelvis, complete [address], [address], [address], [place], [address], 4 12:50:49 US, pelvis [address], [address], [address], [place], [address], 3 18:28:01 US, transvagina l 2022 [address], [address], [place], [address], 3 18:28:01 Medication Orders metronidazo le 0.75 % (37.5 mg/5 gram) vaginal gel [address] [facility] [place], [address], 3 09:21:40 Diflucan 150 mg tablet [address] [facility], [address] [place], [address], 3 09:21:33 Pyridium 100 mg tablet 2022 023 [facility], [address] [place], [address], 3 09:22:04 triamcinolo ne acetonide 0.1 % topical cream 2022 023 [facility], [address] [place], [address], 3 09:40:03 Patient TargetsNo targets recorded. Patient InstructionsNo instructions recorded. Reason for Referral None Reported. Results Created Date Observation Date Name Description Value Unit Range Abnormal Flag Note LastModifiedBy Organization Detail LastModifiedTime 05/15/20 22 05/15/2022 CBC W/DIF F WBC 6.2 10'3/ uL 3.6-10 .2 Not Available [facility] (Lab) [address], [place], [address], 06/03/2022 06:06:56 05/15/20 22 05/15/2022 CBC W/DIF F RBC 4.81 10'6/ uL (based on docume nted legal sex) 4.10-5 .30 Not Available [facility] (Lab) [address], [place], [address], 06/03/2022 06:06:56 05/15/20 22 05/15/2022 CBC W/DIF F HGB 14.7 g/dL (based on docume nted legal sex) 11.9-1 5.8 Not Available [facility] (Lab) [address] , [place], [address], 06/03/2022 06:06:56 05/15/20 22 05/15/2022 CBC W/DIF F HCT 45.6 % (based on docume nted legal sex) 37.4-4 8.3 Not Available [facility] (Lab) [address], [place], [address], 06/03/2022 06:06:56 05/15/20 22 05/15/2022 CBC W/DIF F MCV 94.8 fL 82.0-9 9.0 Not Available [facility] (Lab) [address] , [place], [address], 06/03/2022 06:06:56 05/15/20 22 05/15/2022 CBC W/DIF F MCH 30.6 pg 27.0-3 3.0 Not Available [facility] (Lab) [address], [place], [address], 06/03/2022 06:06:56 05/15/20 22 05/15/2022 CBC W/DIF F MCHC 32.2 g/dL 32.0-3 6.0 Not Available [facility] (Lab) [address] , [place], [address], 06/03/2022 06:06:56 05/15/20 22 05/15/2022 CBC W/DIF F RDW 12.7 % 11.0-1 5.0 Not Available [facility] (Lab) [address], [place], [address], 06/03/2022 06:06:56 05/15/20 22 05/15/2022 CBC W/DIF F plt 324 10'3/ uL 150-45 0 Not Available [facility] (Lab) [address] [facility], [place], [address], 06/03/2022 06:06:56 05/15/20 22 05/15/2022 CBC W/DIF F MPV 10.5 fL 9.8-12 .7 Not Available [facility] (Lab) [address], [place], [address], 06/03/2022 06:06:56 05/15/20 22 05/15/2022 CBC W/DIF F NRBC's 0.0 % 0 Not Available [facility] (Lab) [address], [place], [address], 06/03/2022 06:06:56 05/15/20 22 05/15/2022 CBC W/DIF F absolute NRBCs 0.0 10'3/ uL 0 Not Available [facility] (Lab) [address] [facility], [place], [address], 06/03/2022 06:06:56 05/15/20 22 05/15/2022 CBC W/DIF F neutrophils 54.0 % 37.0-7 2.0 Not Available [facility] (Lab) [address] [facility], [place], [address], 06/03/2022 06:06:56 05/15/20 22 05/15/2022 CBC W/DIF F lymphocytes 32.4 % 16.0-4 8.0 Not Available [facility] (Lab) [address] [facility], [place], [address], 06/03/2022 06:06:56 05/15/20 22 05/15/2022 CBC W/DIF F monocytes 9.7 % 4.0-14 .0 Not Available [facility] (Lab) [address], [place], [address], 06/03/2022 06:06:56 05/15/20 22 05/15/2022 CBC W/DIF F eosinophils 2.3 % 0.0-9. 0 Not Available [facility] (Lab) [address] [facility], [place], [address], 06/03/2022 06:06:56 05/15/20 22 05/15/2022 CBC W/DIF F basophils 1.3 % 0.0-2. 0 Not Available [facility] (Lab) [address] [facility], [place], [address], 06/03/2022 06:06:56 05/15/20 22 05/15/2022 CBC W/DIF F immature granulocytes 0.3 % no define d refere nce range Not Available [facility] (Lab) [address] [facility], [place], [address], 06/03/2022 06:06:56 05/15/20 22 05/15/2022 CBC W/DIF F absolute neutrophils 3.4 10'3/ uL 1.1-6. 0 Not Available [facility] (Lab) [address] [facility], [place], [address], 06/03/2022 06:06:56 05/15/20 22 05/15/2022 CBC W/DIF F absolute lymphocytes 2.0 10'3/ uL 0.7-3. 4 Not Available [facility] (Lab) [address] [facility], [place], [address], 06/03/2022 06:06:56 05/15/20 22 05/15/2022 CBC W/DIF F absolute monocytes 0.6 10'3/ uL 0.3-1. 0 Not Available [facility] (Lab) [address] [facility], [place], [address], 06/03/2022 06:06:56 05/15/20 22 05/15/2022 CBC W/DIF F absolute eosinophils 0.1 10'3/ uL 0.0-0. 6 Not Available [facility] (Lab) [address] [facility], [place], [address], 06/03/2022 06:06:56 05/15/20 22 05/15/2022 CBC W/DIF F absolute basophils 0.1 10'3/ uL 0.0-0. 1 Not Available [facility] (Lab) [address], [place], [address], 06/03/2022 06:06:56 05/15/20 22 05/15/2022 CBC W/DIF F absolute immature granulocytes 0.0 10'3/ uL 0.00-0 .10 2021 4:13 AM: P indic ates parti al resul ts on a panel have been relea sed. Addit ional resul ts will follo w. 2021 4:14 AM: This resul t has been final verif ied. No addit ional or jaevd ed resul ts are expec juan. Not Available [facility] (Lab) [address], [place], [address], 06/03/2022 06:06:56 05/15/20 22 05/15/2022 HEMOG LOBIN A1C hemoglobin A1C 5.9 % 0-5.6 high The Ameri can Diabe jae Assoc iatio n recom mends that a prima ry goal of thera py ana d be a HBA1C of < 7% and that physi cians shoul d reeva luate the treat ment regim en in patie nts with HBA1C value s consi stent ly > 8%. <5.7% Radha l 5.7 - 6.4% Incre ased risk for diabe jae >=6.5 % Diagn ostic of diabe jae <7.0% Goal of thera py >8.0% Actio n sugge sted Not Available [facility] (Lab) [address], [place], [address], 06/03/2022 06:06:56 05/15/20 22 05/15/2022 LIPID PANEL ,AMA (LDL- CALC) total cholesterol 169 mg/dL 0-199 Not Available [facility] (Lab) [address], [place], [address], 06/03/2022 06:06:57 05/15/20 22 05/15/2022 LIPID PANEL ,AMA (LDL- CALC) triglyceride s 81 mg/dL 0.00-1 50.00 NCEP Refer ence Value s for Trigl yceri negin: Radha l: <150 mg/dL Borde rline High: 150 - 199 mg/dL High: 200 - 499 mg/dL Very High: >/= 500 mg/dL Not Available [facility] (Lab) [address] [facility], [place], [address], 06/03/2022 06:06:57 05/15/20 22 05/15/2022 LIPID PANEL ,AMA (LDL- CALC) HDL cholesterol 46 mg/dL >40 Not Available [facility] (Lab) [address] [place], [address], 06/03/2022 06:06:57 05/15/20 22 05/15/2022 LIPID PANEL ,AMA (LDL- CALC) LDL cholesterol 107 mg/dL 0-99 high Cutof f value s recom yeny d by the Natio nal Lacy stero l Educa tion Progr am: [place] ABLE: Lacy stero l <200 mg/dL LDL <100 mg/dL BORDE RLINE : Lacy stero l 200-2 39 mg/dL LDL 101-1 59 mg/dL HIGHE R RISK: Lacy stero l >240 mg/dL LDL >160 mg/dL , HDL <40 mg/dL Not Available [facility] (Lab) [address] [facility], [place], [address], 06/03/2022 06:06:57 05/15/20 22 05/15/2022 LIPID PANEL ,AMA (LDL- CALC) non-HDL cholesterol 123 mg/dL no refere nce range A reaso nable goal for non-H DL lacy stero l is one that is 30 mg/dL highe r than the LDL lacy stero l goal. Not Available [facility] (Lab) [address] [facility], [place], [address], 06/03/2022 06:06:57 05/15/20 22 05/15/2022 LIPID PANEL ,AMA (LDL- CALC) chol/HDL ratio 3.7 . 0.0-5. 0 Not Available [facility] (Lab) [address] [facility], [place], [address], 06/03/2022 06:06:57 05/15/20 22 05/15/2022 CMP(C OMPRE HENSI VE METAB OLIC PANEL ) sodium 140 mmol/ L 133-14 6 Not Available [facility] (Lab) [address] [facility], [place], [address], 06/03/2022 06:06:57 05/15/20 22 05/15/2022 CMP(C OMPRE HENSI VE METAB OLIC PANEL ) potassium 4.1 mmol/ L 3.5-5. 1 Not Available [facility] (Lab) [address] [facility], [place], [address], 06/03/2022 06:06:57 05/15/20 22 05/15/2022 CMP(C OMPRE HENSI VE METAB OLIC PANEL ) chloride 104 mmol/ L 98-107 Not Available [facility] (Lab) [address] [facility], [place], [address], 06/03/2022 06:06:57 05/15/20 22 05/15/2022 CMP(C OMPRE HENSI VE METAB OLIC PANEL ) carbon dioxide 28 mmol/ L 21-31 Not Available [facility] (Lab) [address] [facility], [place], [address], 06/03/2022 06:06:57 05/15/20 22 05/15/2022 CMP(C OMPRE HENSI VE METAB OLIC PANEL ) anion gap 8 mmol/ L 4-13 Not Available [facility] (Lab) [address] [place], [address], 06/03/2022 06:06:57 05/15/20 22 05/15/2022 CMP(C OMPRE HENSI VE METAB OLIC PANEL ) blood urea nitrogen 9 mg/dL 7-25 Not Available [facility] (Lab) [address] [facility], [place], [address], 06/03/2022 06:06:57 05/15/20 22 05/15/2022 CMP(C OMPRE HENSI VE METAB OLIC PANEL ) creatinine 0.75 mg/dL 0.60-1 .30 Not Available [facility] (Lab) [address] [facility], [place], [address], 06/03/2022 06:06:57 05/15/20 22 05/15/2022 CMP(C OMPRE HENSI VE METAB OLIC PANEL ) egfrcr (CKD-epi 2020) >90 mL/mi n/1.7 3_m2 >=60 Not Available [facility] (Lab) [address] [facility], [place], [address], 06/03/2022 06:06:57 05/15/20 22 05/15/2022 CMP(C OMPRE HENSI VE METAB OLIC PANEL ) calcium 8.7 mg/dL 8.3-10 .5 Not Available [facility] (Lab) [address] [facility], [place], [address], 06/03/2022 06:06:57 05/15/20 22 05/15/2022 CMP(C OMPRE HENSI VE METAB OLIC PANEL ) glucose 96 mg/dL 70-100 Not Available [facility] (Lab) [address] [place], [address], 06/03/2022 06:06:57 05/15/20 22 05/15/2022 CMP(C OMPRE HENSI VE METAB OLIC PANEL ) protein, total 7.1 g/dL 6.4-8. 3 Not Available [facility] (Lab) [address] [facility], [place], [address], 06/03/2022 06:06:57 05/15/20 22 05/15/2022 CMP(C OMPRE HENSI VE METAB OLIC PANEL ) albumin 4.2 g/dL 3.5-5. 0 Not Available [facility] (Lab) [address] [facility], [place], [address], 06/03/2022 06:06:57 05/15/20 22 05/15/2022 CMP(C OMPRE HENSI VE METAB OLIC PANEL ) ALT 29 units /L 9-43 Not Available [facility] (Lab) [address] [facility], [place], [address], 06/03/2022 06:06:57 05/15/20 22 05/15/2022 CMP(C OMPRE HENSI VE METAB OLIC PANEL ) alkaline phosphatase 43 units /L 34-104 Not Available [facility] (Lab) [address] [facility], [place], [address], 06/03/2022 06:06:57 05/15/20 22 05/15/2022 CMP(C OMPRE HENSI VE METAB OLIC PANEL ) AST 19 units /L 13-39 Not Available [facility] (Lab) [address] [facility], [place], [address], 06/03/2022 06:06:57 05/15/20 22 05/15/2022 CMP(C OMPRE HENSI VE METAB OLIC PANEL ) bilirubin, total 0.6 mg/dL 0.2-1. 2 Not Available [facility] (Lab) [address] [place], [address], 06/03/2022 06:06:57 05/15/20 22 05/15/2022 IRON, TRANS MICHELE N W/ CALCU LATED TIBC iron 69 ug/dL 40-170 Not Available [facility] (Lab) [address] [place], [address], 06/03/2022 06:06:58 05/15/20 22 05/15/2022 IRON, TRANS MICHELE N W/ CALCU LATED TIBC transferrin 247 mg/dL 200-36 0 Not Available [facility] (Lab) [address] [place], [address], 06/03/2022 06:06:58 05/15/20 22 05/15/2022 IRON, TRANS MICHELE N W/ CALCU LATED TIBC TIBC 346 ug/dL 250-45 0 Not Available [facility] (Lab) [address] [facility], [place], [address], 06/03/2022 06:06:58 05/15/20 22 05/15/2022 IRON, TRANS MICHELE N W/ CALCU LATED TIBC iron saturation 20 % 20-55 Not Available [facility] (Lab) [address] [facility], [place], [address], 06/03/2022 06:06:58 05/15/20 22 05/15/2022 TSH, REFLE X FREE T4 TSH 2.13 uIU/m L 0.30-5 .33 Not Available [facility] (Lab) [address] [facility], [place], [address], 06/03/2022 06:06:58 05/15/20 22 05/15/2022 VITAM IN D, 25-OH (TOTA L D2/D3 ) vitamin D, 25-hydroxy, total 22.2 NG/mL 30.0-1 00.0 low Sugge stive of Defic iency : <20 ng/mL Sugge stive of Insuf ficie ncy: 20-29 ng/mL Sugge stive of Suffi cienc y: 30-10 0 ng/mL Sugge stive of Toxic ity: >150 ng/mL Not Available [facility] (Lab) [address] [facility], [place], [address], 06/03/2022 06:06:58 05/15/20 22 05/15/2022 ESTRA DIOL estradiol 34.7 pg/mL This assay was perfo rmed using [employer] ratio n reage nts and test kits. Value s obtai kinza with other assay metho ds or kits canno t be used inter jaevd eably . Femal e Estra diol Range s: Folli cular phase 12.4- 233 pg/mL Ovula tion phase 41.0- 398 pg/mL Lutea l phase 22.3- 341 pg/mL Postm enopa usal< 5-138 pg/mL Healt hy Pregn ant Women 1st Trime ster1 54-32 43 pg/mL 2nd Trime ster1 561-2 1280 pg/mL 3rd Trime ster8 525-> 80047 pg/mL Not Available [facility] (Lab) [address] [place], [address], 06/03/2022 06:06:58 05/15/20 22 05/15/2022 LH (LUTE NIZIN G HORMO NE) LH 8.4 mIU/m L This assay was perfo rmed using [employer] n reage nts and test kits. Value s obtai kinza with other assay metho ds or kits canno t be used inter javed eably . Femal es Mid-F ollic ular: 2.4-1 2.6 mIU/m L Mid-C ycle: 14.0- 95.6 mIU/m L Mid-L uteal : 1.0-1 1.4 mIU/m L Postm enopa use: 7.7-5 8.5 mIU/m L Not Available [facility] (Lab) [address] [place], [address], 06/03/2022 06:06:59 05/15/20 22 05/15/2022 FSH FSH 28.1 mIU/m L This assay was perfo rmed using [employer] n reage nts and test kits. Value s obtai kinza with other assay metho ds or kits canno t be used inter javed eably . 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 Elect miya ruiz jolene d by Colt hernandez, [place], CT on 05/19 at 8:22 PM ----- ----- ----- ----- ----- ----- ----- ----- ----- ----- ----- ----- ----- ----- ----- ----- ----- ---- HPV RESUL TS: HPV mRNA E6/E7 : No HPV mRNA Detec juan NOTE: This high risk HPV mRNA assay detec ts fourt een high- risk HPV types (16, 18, 31, 33, 35, 39, 45, 51, 52, 56, 58, 59, 66, 68) witho ut diffe renti ation . COMME NT: Note: This speci men was revie wed by a Cytot echno logis t and/o r Patho logis t (as indic ated in this repor t) after evalu ation using the Thinp rep Imagi ng Syste m. CLINI AKILA INFOR MATIO N: Menst rual Statu s: LMP (if appli cable ): Clini akila Histo ry/Pr eviou s Pap: Type of Neopl danielle (if appli cable ): Signi fican t Clini akila Findi ngs: Other Histo ry: Hormo shawn (if appli cable ): PAP EDUCA HILDA L NOTE: The Pap Test is a scree nagi test with an inher ent false negat shirley rate. Liqui d-bas ed sampl ing may decre ase, but will not elimi randy, false negat shirley resul ts. A negat shirley resul t does not precl ude the prese nce and/o r devel opmen t of disea se, since the prese nce of abnor mal cells in the sampl e depen ds on the locat ion of the lesio n and sampl ing techn ique. Chayo nued regul ar scree nagi is the best metho d of cance r preve ntion . If repor juan cytol ogic findi ng do not corre late with physi akila and/o r histo rical findi ngs, furth er inves tigat ion is recom yeny d, as clini marcelo warra nted. Not Available [facility] (Lab) [address], [place], [address], 05/19/2022 21:24:18 05/25/2005/25/2023 LIPID PANEL ,AMA (LDL- CALC) total cholesterol 197 mg/dL 0-199 Not Available [facility] (Lab) [address], [place], [address], 05/26/2023 03:19:43 05/25/2005/25/2023 LIPID PANEL ,AMA (LDL- CALC) triglyceride s 139 mg/dL 0.00-1 50.00 NCEP Refer ence Value s for Trigl yceri negin: Radha l: <150 mg/dL Borde rline High: 150 - 199 mg/dL High: 200 - 499 mg/dL Very High: >/= 500 mg/dL Not Available [facility] (Lab) [address] [place], [address], 05/26/2023 03:19:43 05/25/20 23 05/25/2023 LIPID PANEL ,AMA (LDL- CALC) HDL cholesterol 59 mg/dL >40 Not Available [facility] (Lab) [address] [place], [address], 05/26/2023 03:19:43 05/25/20 23 05/25/2023 LIPID PANEL ,AMA (LDL- CALC) LDL cholesterol 113 mg/dL 0-99 high Cutof f value s recom yeny d by the Natio nal Lacy stero l Educa tion Progr am: VA ABLE: Lacy stero l <200 mg/dL LDL <100 mg/dL BORDE RLINE : Lacy stero l 200-2 39 mg/dL LDL 101-1 59 mg/dL HIGHE R RISK: Lacy stero l >240 mg/dL LDL >160 mg/dL , HDL <40 mg/dL Not Available [facility] (Lab) [address] [place], [address], 05/26/2023 03:19:43 05/25/20 23 05/25/2023 LIPID PANEL ,AMA (LDL- CALC) non-HDL cholesterol 138 mg/dL no refere nce range A reaso nable goal for non-H DL lacy stero l is one that is 30 mg/dL highe r than the LDL lacy stero l goal. Not Available [facility] (Lab) [address] [place], [address], 05/26/2023 03:19:43 05/25/2005/25/2023 LIPID PANEL ,AMA (LDL- CALC) chol/HDL ratio 3.3 . 0.0-5. 0 On October 19, 2022, [facility] labor atori luis javed ed the equat ion for calcu latin g estim ated low-d ensit y lipop rotei n-cho leste rol (LDL- C) from the Fried jonna equat ion to the Natalya n/[facility] equat ion. This new equat ion is only valid for lipid panel s with trigl yceri negin < 400 mg/dL . Trudyi es have demon strat ed that this new equat ion will impro ve the accur acy of LDL-C , espec ially in scena huizar when LDL-C sean ntrat ions are relat ively low (< 100 mg/dL ), trigl yceri negin are eleva juan, or patie nt is non-f astin g. Refer ences : - Natalya carrillo, Ruiz Beth, Prabhu Sosa , Roberto Carlos jeffrey, Prashanth Lea, [facility] , and Luis Worley . 2013. Comp ariso n of a Novel Metho d vs the Fried jonna Equat ion for Estim ating Low-D ensit y Lipop rotei n Lacy stero l Level s from the Stand duglas Lipid Profi le. NAYELY: The Journ al of the Ameri can Medic al Assoc iatio n 310 (19): 2060- . - Grey harrell V, Sharda J, Rodrick harrell A, Basilia M, Gabby yee R, Oskar harrell E, Elise [facility] RS, Meir SR, Natalya carrillo SS. Fast ing Versu s Nonfa sting and Low-D ensit y Lipop rotei n Lacy stero l Accur acy. Circu latio n. 2017Jun 28;137 (1):1 0-19. Not Available [facility] (Lab) [address] , [place], [address], 05/26/2023 03:19:43 05/25/20 23 05/25/2023 CMP(C OMPRE HENSI VE METAB OLIC PANEL ) sodium 143 mmol/ L 133-14 6 Not Available [facility] (Lab) [address] [place], [address], 05/26/2023 03:19:44 05/25/20 23 05/25/2023 CMP(C OMPRE HENSI VE METAB OLIC PANEL ) potassium 4.0 mmol/ L 3.5-5. 1 Not Available [facility] (Lab) [address], [place], [address], 05/26/2023 03:19:44 05/25/20 23 05/25/2023 CMP(C OMPRE HENSI VE METAB OLIC PANEL ) chloride 103 mmol/ L 98-107 Not Available [facility] (Lab) [address], [place], [address], 05/26/2023 03:19:44 05/25/20 23 05/25/2023 CMP(C OMPRE HENSI VE METAB OLIC PANEL ) carbon dioxide 29 mmol/ L 21-31 Not Available [facility] (Lab) [address], [place], [address], 05/26/2023 03:19:44 05/25/20 23 05/25/2023 CMP(C OMPRE HENSI VE METAB OLIC PANEL ) anion gap 11 mmol/ L 4-13 Not Available [facility] (Lab) [address], [place], [address], 05/26/2023 03:19:44 05/25/20 23 05/25/2023 CMP(C OMPRE HENSI VE METAB OLIC PANEL ) blood urea nitrogen 11 mg/dL 7-25 Not Available [facility] (Lab) [address], [place], [address], 05/26/2023 03:19:44 05/25/20 23 05/25/2023 CMP(C OMPRE HENSI VE METAB OLIC PANEL ) creatinine 0.81 mg/dL 0.60-1 .30 Not Available [facility] (Lab) [address], [place], [address], 05/26/2023 03:19:44 05/25/20 23 05/25/2023 CMP(C OMPRE HENSI VE METAB OLIC PANEL ) egfrcr (CKD-epi 2020) 85 mL/mi n/1.7 3_m2 >=60 Not Available [facility] (Lab) [address], [place], [address], 05/26/2023 03:19:44 05/25/20 23 05/25/2023 CMP(C OMPRE HENSI VE METAB OLIC PANEL ) calcium 9.8 mg/dL 8.3-10 .5 Not Available [facility] (Lab) [address] [facility], [place], [address], 05/26/2023 03:19:44 05/25/20 23 05/25/2023 CMP(C OMPRE HENSI VE METAB OLIC PANEL ) glucose 102 mg/dL 70-100 high Not Available [facility] (Lab) [address] [facility], [place], [address], 05/26/2023 03:19:44 05/25/20 23 05/25/2023 CMP(C OMPRE HENSI VE METAB OLIC PANEL ) protein, total 7.5 g/dL 6.4-8. 3 Not Available [facility] (Lab) [address] [facility], [place], [address], 05/26/2023 03:19:44 05/25/20 23 05/25/2023 CMP(C OMPRE HENSI VE METAB OLIC PANEL ) albumin 4.6 g/dL 3.5-5. 0 Not Available [facility] (Lab) [address], [place], [address], 05/26/2023 03:19:44 05/25/20 23 05/25/2023 CMP(C OMPRE HENSI VE METAB OLIC PANEL ) ALT 21 units /L 9-43 Not Available [facility] (Lab) [address], [place], [address], 05/26/2023 03:19:44 05/25/20 23 05/25/2023 CMP(C OMPRE HENSI VE METAB OLIC PANEL ) alkaline phosphatase 57 units /L 34-104 Not Available [facility] (Lab) [address], [place], [address], 05/26/2023 03:19:44 05/25/20 23 05/25/2023 CMP(C OMPRE HENSI VE METAB OLIC PANEL ) AST 16 units /L 13-39 Not Available [facility] (Lab) [address], [place], [address], 05/26/2023 03:19:44 05/25/20 23 05/25/2023 CMP(C OMPRE HENSI VE METAB OLIC PANEL ) bilirubin, total 0.7 mg/dL 0.2-1. 2 Not Available [facility] (Lab) [address], [place], [address], 05/26/2023 03:19:44 05/25/20 23 05/25/2023 CBC W/DIF F WBC 8.1 10'3/ uL 3.6-10 .2 Not Available [facility] (Lab) [address], [place], [address], 05/26/2023 03:19:44 05/25/20 23 05/25/2023 CBC W/DIF F RBC 4.61 10'6/ uL (based on docume nted legal sex) 4.10-5 .30 Not Available [facility] (Lab) [address], [place], [address], 05/26/2023 03:19:44 05/25/20 23 05/25/2023 CBC W/DIF F HGB 14.3 g/dL (based on docume nted legal sex) 11.9-1 5.8 Not Available [facility] (Lab) [address], [place], [address], 05/26/2023 03:19:44 05/25/20 23 05/25/2023 CBC W/DIF F HCT 43.9 % (based on docume nted legal sex) 37.4-4 8.3 Not Available [facility] (Lab) [address], [place], [address], 05/26/2023 03:19:44 05/25/20 23 05/25/2023 CBC W/DIF F MCV 95.2 fL 82.0-9 9.0 Not Available [facility] (Lab) [address], [place], [address], 05/26/2023 03:19:44 05/25/20 23 05/25/2023 CBC W/DIF F MCH 31.0 pg 27.0-3 3.0 Not Available [facility] (Lab) [address], [place], [address], 05/26/2023 03:19:44 05/25/20 23 05/25/2023 CBC W/DIF F MCHC 32.6 g/dL 32.0-3 6.0 Not Available [facility] (Lab) [address], [place], [address], 05/26/2023 03:19:44 05/25/20 23 05/25/2023 CBC W/DIF F RDW 12.2 % 11.0-1 5.0 Not Available [facility] (Lab) [address], [place], [address], 05/26/2023 03:19:44 05/25/20 23 05/25/2023 CBC W/DIF F plt 358 10'3/ uL 150-45 0 Not Available [facility] (Lab) [address], [place], [address], 05/26/2023 03:19:44 05/25/20 23 05/25/2023 CBC W/DIF F MPV 10.8 fL 9.8-12 .7 Not Available [facility] (Lab) [address], [place], [address], 05/26/2023 03:19:44 05/25/20 23 05/25/2023 CBC W/DIF F NRBC's 0.0 % 0 Not Available [facility] (Lab) [address], [place], [address], 05/26/2023 03:19:44 05/25/20 23 05/25/2023 CBC W/DIF F absolute NRBCs 0.0 10'3/ uL 0 Not Available [facility] (Lab) [address], [place], [address], 05/26/2023 03:19:44 05/25/20 23 05/25/2023 CBC W/DIF F neutrophils 58.4 % 37.0-7 2.0 Not Available [facility] (Lab) [address], [place], [address], 05/26/2023 03:19:44 05/25/20 23 05/25/2023 CBC W/DIF F lymphocytes 30.5 % 16.0-4 8.0 Not Available [facility] (Lab) [address], [place], [address], 05/26/2023 03:19:44 05/25/20 23 05/25/2023 CBC W/DIF F monocytes 6.9 % 4.0-14 .0 Not Available [facility] (Lab) [address], [place], [address], 05/26/2023 03:19:44 05/25/20 23 05/25/2023 CBC W/DIF F eosinophils 2.6 % 0.0-9. 0 Not Available [facility] (Lab) [address], [place], [address], 05/26/2023 03:19:44 05/25/20 23 05/25/2023 CBC W/DIF F basophils 1.4 % 0.0-2. 0 Not Available [facility] (Lab) [address], [place], [address], 05/26/2023 03:19:44 05/25/20 23 05/25/2023 CBC W/DIF F immature granulocytes 0.2 % no define d refere nce range Not Available [facility] (Lab) [address], [place], [address], 05/26/2023 03:19:44 05/25/20 23 05/25/2023 CBC W/DIF F absolute neutrophils 4.7 10'3/ uL 1.1-6. 0 Not Available [facility] (Lab) [address], [place], [address], 05/26/2023 03:19:44 05/25/20 23 05/25/2023 CBC W/DIF F absolute lymphocytes 2.5 10'3/ uL 0.7-3. 4 Not Available [facility] (Lab) [address], [place], [address], 05/26/2023 03:19:44 05/25/20 23 05/25/2023 CBC W/DIF F absolute monocytes 0.6 10'3/ uL 0.3-1. 0 Not Available [facility] (Lab) [address], [place], [address], 05/26/2023 03:19:44 05/25/20 23 05/25/2023 CBC W/DIF F absolute eosinophils 0.2 10'3/ uL 0.0-0. 6 Not Available [facility] (Lab) [address], [place], [address], 05/26/2023 03:19:44 05/25/20 23 05/25/2023 CBC W/DIF F absolute basophils 0.1 10'3/ uL 0.0-0. 1 Not Available [facility] (Lab) [address], [place], [address], 05/26/2023 03:19:44 05/25/20 23 05/25/2023 CBC W/DIF F absolute immature granulocytes 0.0 10'3/ uL 0.00-0 .10 05/26 1:56 AM: P indic ates parti al resul ts on a panel have been relea sed. Addit ional resul ts will follo w. 05/26 1:56 AM: This resul t has been final verif ied. No addit ional or javed ed resul ts are expec juan. Not Available [facility] (Lab) [address], [place], [address], 05/26/2023 03:19:44 05/25/20 23 05/25/2023 TSH, REFLE X FREE T4 TSH 2.85 uIU/m L 0.30-5 .33 Not Available [facility] (Lab) [address], [place], [address], 05/26/2023 03:19:45 05/25/20 23 05/25/2023 VITAM IN D, 25-OH (TOTA L D2/D3 ) vitamin D, 25-hydroxy, total 25.8 NG/mL 30.0-1 00.0 low Sugge stive of Defic iency : <20 ng/mL Sugge stive of Insuf ficie ncy: 20-29 ng/mL Sugge stive of Suffi cienc y: 30-10 0 ng/mL Sugge stive of Toxic ity: >150 ng/mL Not Available [facility] (Lab) [address], [place], [address], 05/26/2023 03:19:45 05/25/20 23 05/25/2023 HEMOG LOBIN A1C hemoglobin A1C 6.1 % 0-5.6 high The Ameri can Diabe jae [employer] iatio n recom mends that a prima ry goal of thera py shoul d be a HBA1C of < 7% and that physi cians shoul d reeva luate the treat ment regim en in patie nts with HBA1C value s consi stent ly > 8%. 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 Elect miya ruiz jolene d by Hannah Nesbitt, CT on 2022 at 3:23 PM ----- ----- ----- ----- ----- ----- ----- ----- ----- ----- ----- ----- ----- ----- ----- ----- ----- ---- HPV RESUL TS: HPV mRNA E6/E7 : No HPV mRNA Detec juan NOTE: This high risk HPV mRNA assay detec ts fourt een high- risk HPV types (16, 18, 31, 33, 35, 39, 45, 51, 52, 56, 58, 59, 66, 68) witho ut diffe renti ation . COMME NT: This speci men was revie wed by a Cytot echno logis t and/o r Patho logis t (as indic ated in this repor t) after evalu ation using the Thinp rep Imagi ng Syste m. CLINI AKILA INFOR MATIO N: Menst rual Statu s: LMP (if appli cable ): Clini akila Histo ry/Pr eviou s Pap: Type of Neopl danielle (if appli cable ): Signi fican t Clini akila Findi ngs: Other Histo ry: Hormo shawn (if appli cable ): PAP EDUCA HILDA L NOTE: The Pap Test is a scree nagi test with an inher ent false negat shirley rate. Liqui d-bas ed sampl ing may decre ase, but will not elimi randy, false negat shirley resul ts. A negat shirley resul t does not precl ude the prese nce and/o r devel opmen t of disea se, since the prese nce of abnor mal cells in the sampl e depen ds on the locat ion of the lesio n and sampl ing techn ique. Chayo nued regul ar scree nagi is the best metho d of cance r preve ntion . If repor juan cytol ogic findi ng do not corre late with physi akila and/o r histo rical findi ngs, furth er inves tigat ion is recom yeny d, as clini marcelo garduno nted. Not Available [facility] (Lab) [address], [place], [address], 05/27/2023 16:27:18 06/09/20 22 06/09/2022 US, trans vagin al No observ ation record ed. [email or web address] Adams [address], [place], [address], 06/09/2022 13:55:20 06/09/20 22 06/09/2022 US, trans vagin al No observ ation record ed. [facility] [address], [place], [address], 06/15/2022 16:50:58 07/30/19 23 07/29/2022 MAMMO , scree nagi, bilat eral No observ ation record ed. [facility] [address], [place], [address], 08/05/2022 07:32:59 06/01/20 23 06/01/2023 US, pelvi s No observ ation record ed. [email or web address] [address], [place], [address], 06/01/2023 13:34:06 06/01/20 23 06/01/2023 US, trans vagin al No observ ation record ed. [email or web address] [address], [place], [address], 06/01/2023 13:33:57 06/01/20 23 06/01/2023 US, pelvi s No observ ation record ed. ABDELRAHMAN An[facility] [address], [place], [address], 06/08/2023 16:49:00 Result Notes None recorded. Problems Name Problem SNOMED Code Status Onset Date Resolution Date Notes Provider Name and Address Organization Details Recorded Time Low grade squamous intraepi thelial lesion on cervical Papanico laou smear 4679517770 9105 Completed 201611/25/2020 Ivania John [facility], [facility] 13:41:32 Evaluati on finding Completed 201711/06/2020 Hematuri a, unspecif ied;Joao rded Elsewher e: No Locat ion: [facility] S ource: EHR Beauty Culturist sheryl: N Castro ce ID: 0001 Ezequiel lable Time: 08:15:00 AM Lamar Lopez [facility] 1 10:03:[address] Concept Completed 201911/06/2020 Encntr for general adult medical exam w/o abnormal findings ;Recorde d Elsewher e: No Locat ion: [facility] S ource: [employer]ist sheryl: N Shilati ce ID: 0001 Ezequiel lable Time: 08:45:00 AM Lamar [facility] 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 1 10:03:06 César lozano medical examinat ion Completed 201211/06/2020 Gynecolo gical Examinat ion;Joao rded Elsewher e: No Locat ion: [facility] S ource: [employer]ist sheryl: N Practi ce ID: 0001 Ezequiel lable Time: 08:45:00 AM Lamar ashley, [facility] 1 10:03:07 Screenin g for malignan t neoplasm of rectum Completed 201811/06/2020 Encounte r for screenin g for malignan t neoplasm of rectum;R ecorded Elsewher e: No Locat ion: [facility] S ource: [employer] sheryl: N Shilati ce ID: 0001 Ezequiel lable Time: 08:15:00 AM Lamar ashley, [facility] 1 10:03:01 Pain of breast [id number] Completed 201111/06/2020 Mastodyn ia;Recor ded Elsewher e: No Locat ion: [facility] S ource: [employer] sheryl: N Shilati ce ID: 0001 Ezequiel lable Time: 09:15:00 AM Lamar ashley, [facility] 1 10:03:09 Pregnanc y test negative [id number] Completed 201611/06/2020 Encounte r for pregnanc y test, result negative ;Recorde d Elsewher e: No Locat ion: [facility] S ource: EHR Beauty [employer]ist sheryl: N Shilati ce ID: 0001 Ezequiel lable Time: 09:30:00 AM Lamar ashley, [facility] 1 10:02:57 Screenin g for malignan t neoplasm of cervix Completed 201111/06/2020 Screenin g for malignan t neoplasm s of the cervix;R ecorded Elsewher e: No Locat ion: [facility] S ource: EHR Beauty Culturist sheryl: N Practi ce ID: 0001 Ezequiel lable Time: 11:15:00 AM Lamar ashley [facility] 1 10:02:55 Adult health examinat ion Completed 201411/06/2020 ROUTINE MEDICAL EXAM;Rec orded Elsewher e: No Locat ion: [facility] S ource: EHR Beauty Culturist sheryl: N Practi ce ID: 0001 Ezequiel lable Time: 10:30:00 [facility] Concept Completed 201711/06/2020 Encounte r for general adult medical exam w abnormal findings ;Practic e ID: 0001 [facility] 10:03:04 Intraute rine contrace ptive device in situ [id number] Active 2020 Mary Bailey MD [address], [place], [address], [facility] 12:49:33 Problem Notes None recorded. Procedures Surgical History Date Name Laterality Status Provider Name and Address Organization Details Recorded Time 023 Date of Last Mammogram completed Mya Ocasio [facility] 05/25/2023 09:09:07 022 Date of Last Pap Smear completed Ivania John [facility] 05/15/2022 10:14:45 021 completed Kylah Lyons [facility] 02/20/2021 12:01:30 021 IUD Insertion completed Mary Bailey MD [address], [place], [address], [place] [facility] 01/26/2021 09:48:35 021 Endometrial Biopsy completed Alysha Claros, [facility]- [address], [place], [address], [place] [facility] 11/25/2020 13:56:13 017 Colposcopy completed Lamar Lopez [facility] 11/06/2020 10:20:38 017 Colposcopy completed Ivania John [facility] 11/25/2020 13:43:51 009 cholecystectomy completed Lamar Lopez [facility] 11/06/2020 11:14:17 987 extraction of wisdom tooth completed Ivania John [facility] 05/15/2022 10:16:24 Imaging Results Imaging Date Name Status LastModified by Organization Details LastModified Time 06/09/2022 US, transvaginal completed [email or web address] Ying yee [address], [place], [address], 06/09/2022 13:55:20 06/09/2022 US, transvaginal completed [facility] [address], [place], [address], 06/15/2022 16:50:58 07/29/2022 MAMMO, screening, bilateral completed [facility] [address], [place], [address], 08/05/2022 07:32:59 06/01/2023 US, pelvis completed [email or web address] [facility] [address], [place], [address], 06/01/2023 13:34:06 06/01/2023 US, transvaginal completed [email or web address] Ying yee [address], [place], [address], 06/01/2023 13:33:57 06/01/2023 US, pelvis completed ABDELRAHMAN [facility] [address], [place], [address], 06/08/2023 16:49:00 Procedure Notes None recorded. Medical Equipment None Reported. Allergies No known drug allergies Medications Name Sig Start Date Stop Date Status Note LastModified by Organization Details LastModified Time Mirena 21 mcg/24 hr (up to 8 years) 52 mg intrauter ine device Take by intraute rine route. active lot#[id number] exp Not Available Not Available Not Available prednison e 10 mg tablet 11/26 completed Not Available Not Available Not Available fluconazo le 150 mg tablet TAKE ONE TABLET BY MOUTH A ONE-TIME DOSE; MAY REPEAT IN A WEEK 05/25 completed Not Available Not Available Not Available fluconazo le 200 mg tablet Take 1 tablet PO every other day x 3 doses. 11/26 completed Not Available Not Available Not Available metronida zole 0.75 % (37.5 mg/5 gram) vaginal gel INSERT 1 APPLICAT ORFUL VAGINALL Y ONCE DAILY AT BEDTIME FOR 5 DAYS 05/25 completed Not Available Not Available Not Available Pyridium 100 mg tablet Take 1 tablet 3 times a day by oral route as needed for 7 days. 05/25 completed Not Available Not Available Not Available penicilli n V potassium 500 mg tablet TAKE 1 TABLET BY MOUTH EVERY 6 HOURS UNTIL GONE 04/27 completed Not Available Not Available Not Available triamcino lone acetonide 0.1 % topical cream APPLY A THIN LAYER TO THE AFFECTED AREA(S) TWICE DAILY NEEDED active Not Available Not Available No t Available amoxicill in 875 mg tablet TAKE 1 TABLET BY MOUTH EVERY 12 HOURS FOR 10 DAYS 05/15 completed Not Available Not Available Not Available Synthroid 25 mcg tablet take 1 tablet by oral route every day 11/07 completed Not Available Not Available Not Available Levoxyl 50 mcg tablet TAKE 1 TABLET BY MOUTH ONCE DAILY active Not Available Not Available No t Available ergocalci ferol (vitamin D2) 1,250 mcg (50,000 unit) capsule TAKE 1 CAPSULE BY MOUTH ONCE A WEEK 11/26 completed Not Available Not Available Not Available methylpre dnisolone 4 mg tablets in a dose pack TAKE BY MOUTH DIRECTED ON INSIDE OF PACKAGE 04/27 completed Not Available Not Available Not Available amoxicill in 875 mg-potass ium clavulana te 125 mg tablet 11/26 completed Not Available Not Available Not Available nitrofura ntoin monohydra te/macroc rystals 100 mg capsule TAKE 1 CAPSULE BY MOUTH EVERY 12 HOURS WITH A MEAL/JULIUS D FOR 7 DAYS 05/25 completed Not Available Not Available Not Available levothyro xine 04/27 completed 50 mcg Not Available Not Available Not Available iron 04/27 completed Not Available Not Available Not Available Vitamin D 02/20 completed Not Available Not Available Not Available Lysteda 650 mg tablet take 2 tablet (1300MG) by oral route 3 times every day during menses 11/07 completed Not Available Not Available Not Available Gynazole- 1 2 % vaginal cream insert 1 applicat orful by vaginal route once 12/06 completed Prescrib ed Elsewher e: No Locat ion: [facility] odify By: sindhu fatima DateTime : 12/06/19 15 10:30:00 AM Not Available Not Available Not Available Multi Vitamin 9 mg iron/15 mL oral liquid 11/06 completed Prescrib ed Elsewher e: Yes Loca tion: [facility] odify By: lanre jon DateTime : 05/08/20 13 08:45:00 AM Not Available Not Available Not Available Slynd 4 mg (28) tablet Take 1 tablet every day by oral route. 02/20 completed Not Available Not Available Not Available Vitals Date Recorded Body height Body mass index (BMI) Body weight Systolic blood pressure Diastolic blood pressure Systolic blood pressure Diastolic blood pressure Provider Name and Address Organization Details Last Updated DateTime 2 154.94 cm 24.2 kg/m2 13430.8 2 g 157 mm[Hg] 88 mm[Hg] 160 mm[Hg] 88 mm[Hg] Kylah Mcaivana [facility] 16:08:30 Date Recorded Body height Body mass index (BMI) Body weight Provider Name and Address Organization Details Last Updated DateTime 11/26/2022 154.94 cm 23.8 kg/m2 96042.64 g Mya Ocasio [facility] 11/26/2022 12:42:42 Date Recorded Systolic blood pressure Diastolic blood pressure Provider Name and Address Organization Details Last Updated DateTime 11/26/2022 122 mm[Hg] 76 mm[Hg] Alysha Claros, [facility] [address], [place], [address], [facility] 11/26/2022 12:50:39 Date Recorded Body height Body mass index (BMI) Body weight Systolic blood pressure Diastolic blood pressure Provider Name and Address Organization Details Last Updated DateTime 05/25/2023 154.94 cm 24.4 kg/m2 40476.42 g 146 mm[Hg] 90 mm[Hg] Mya Ocasio [facility] 09:20:02 Date Recorded Systolic blood pressure Diastolic blood pressure Provider Name and Address Organization Details Last Updated DateTime 05/25/2023 124 mm[Hg] 70 mm[Hg] Alysha Claros, [facility] [address], [place], [address], [facility] 05/25/2023 09:41:29 Social History Question Answer Notes LastModified by Organizat ion Details LastModified Time Tobacco Smoking Status Never Smoker Mya Ocasio null, [facility] 05/25/2023 09:20:41 What Is Your Level Of Alcohol Consumption? Occasional [email or web address] Information not available 11/25/2020 Are You Blind Or Do You Have Difficulty Seeing? No [email or web address] Information n ot available 11/25/2020 What Is Your Level Of Caffeine Consumption? Occasional [email or web address] Information not available 11/25/2020 How Much Tobacco Do You Chew? None Information not available 05/25/2023 In The 14 Days Before Symptom Onset, Have You Had Close Contact With A Laboratory-confirm ed COVID-19 While That Case Was Ill? No [email or web address] Information n ot available 11/25/2020 In The 14 Days Before Symptom Onset, Have You Had Close Contact With A Person Who Is Under Investigation For COVID-19 While That Person Was Ill? No [email or web address] Information not available 11/25/2020 Have You Been To An Area Known To Be High Risk For COVID-19? No [email or web address] Information not available 11/25/2020 Are You Deaf Or Do You Have Serious Difficulty Hearing? No [email or web address] Information not available 11/25/2020 What Type Of Diet Are You Following? REGULAR Information n ot available 11/25/2020 What Is The Highest Grade Or Level Of School You Have Completed Or The Highest Degree You Have Received? [id number] Information not available 05/25/2023 What Is Your Occupation? Retired Information not available 05/25/2023 Have You Ever Been Counseled For Unhealthy Alcohol Use? No Information not available 05/25/2023 Do You Use Protection During Sex? No Information not available 05/25/2023 Do You Use Your Seat Belt Or Car Seat Routinely? Yes [email or web address] Information not available 11/25/2020 Do You Have Smoke And Carbon Monoxide Detectors In Your Home? Yes [email or web address] Information not available 11/25/2020 How Much Tobacco Do You Smoke? No Information not available 05/25/2023 Do You Feel Stressed (tense, Restless, Nervous, Or Anxious, Or Unable To Sleep At Night)? [id number] Information not available 05/25/2023 Do You Use Any Illicit Or Recreational Drugs? No [email or web address] Information not available 11/25/2020 Do You Use Sunscreen Routinely? Yes Information not available 11/25/2020 Has Tobacco Cessation Counseling Been Provided? No Information not available 05/25/2023 Have You Used IV Drugs? No Information not available 05/25/2023 Do You Or Have You Ever Used Any Other Forms Of Tobacco Or Nicotine? No Information not available 05/25/2023 Sex: Unknown Functional Status Question Answer Note LastModified by Organizat ion Details LastModified Time Do you have difficulty walking or climbing stairs? No Information not available 05/25/2023 Are you able to walk? YESWOREST [email or web address] Information not available 11/25/2020 Are you able to care for yourself? Yes Information not available 05/25/2023 Do you have difficulty dressing or bathing? No Information not available 05/25/2023 What is your exercise level? Occasional [email or web address] Information not available 11/25/2020 Mental Status None recorded. Family History Relationship Description Onset Age of this Age Resolved Age Notes LastModified by Organization Details LastModified Time Father Diabetes mellitus [email or web address] Not available 2020 13:52:21 Mother Myocardial infarction [email or web address] Not available 11/06 13:52:39 Medical History Condition Response Allergies (Food, seasonal, environmental ) Y Other Y Drug/Latex Allergies/Reactions N Blood Transfusion N Breast Cancer N Dermatologic Disorders N Lung Disease N Defects or Inherited Disease N Breast Problem N Gestational Diabetes N Hematologic disorders N Anesthesia Complications N History of STI N Deep Vein Thrombosis N Polycystic ovary syndrome N Anxiety Disorder N Autoimmune disease N Arthritis N Polyps N Infertility N Acid Reflux (GERD) N History of abnormal pap Y Cancer N Varicosities N Stroke N Neurologic/Epilepsy N Endometriosis N High Cholesterol Y Fibromyalgia N Headaches N Kidney Disease N Heart Problems N Thyroid Problems N Kidney or Bladder Problems N GI Problems N Eating Disorder N Anemia N Art (IVF or FET) N Psychiatric Illness N Ovarian Cancer N Diabetes N Pulmonary (TB, Asthma) N Hepatitis/Liver Disease N No Past Medical History N Eczema N Urinary Tract Infection N Abuse/Domestic Violence N Asthma N Trauma/Violence N Depression/ depression N Heart Disease N Pre-Eclampsia N Hypertension N Osteoporosis N Thrombophilias N Gynecological History Statement/Question Response Abnormal Pap Y Flow Light Date of Last Mammogram 07/29/2022 Date of LMP 01/13/2023 N On BCP's at Conception? N STIs/STDs N Was last menstrual period normal N HPV Vaccine N Colposcopy 07/09/2016 Current Control Method IUD 01/25/2021 Age at First Child 28 Are cycles usually normal N Date of Last Colonoscopy Sexually Active? Y Menses Monthly No Age of first menstrual cycle 16 Date of Last Pap Smear 05/15/2022 Sexual Problems? N LMP Approximate N Obstetrics History GPAL:G 2 P 2 0 0 2 Type Value Full Term 2 Living 2 Total 2 Past Encounters Encounter ID Performer Location Encounter Start Date Encounter Closed Date Diagnosis/Indication Diagnosis SNOMED-CT Code Diagnosis ICD10 Code Diagnosis Note [id number] Alysha Claros [facility] [address] [address] 11/07/2020 10:51:36 11/07/2020 11:47:09 Abnormal uterine bleeding [id number] 9100 N93.9 TVUS to be updated Labs to be updated Started on SLYND today to decrease menstrual flow. Discussed all control options in great detail. Pt would like to start POP. She is aware of the risks and benefits. She has contraindi cations to use of OCP or other estrogen containing hormonal therapy. Pt will start her pills on the first tuesday following the start of her period. She is aware it is not effective for control the first month. She is also aware of the importance of taking at the same time every day. Encouraged use of condoms as the pill does not protect against STD's. Will return in 3 months for med check. Consent was read and signed. Pt verbalized understand ing. Time spent in visit is a total of 30 mins with at least 50% of visit consisting of counseling and review of plan of care. Additional precaution ayleen measures were taken to minimize potential exposure to the Covid-19 virus during this patient? s visit, including available hand therapy administrative assistant upon arrive, temperatur e check and being asked a series of screening questions. All staff wore face coverings during this encounter, as well as provided additional cleaning and sanitizing of all surfaces, including counter-to ps, pens, chairs, door handles, light switches, etc, prior to and following the patient? s visit. Adult heal th examination 604916366 Z00.00 Elevated blood-pressure reading without diagnosis of hypertension 770189353 R03.0 Recommend making appt PCP to discuss possible HTN & monitor BP. Hx [facility]othyroi dism. [id number] [facility] [address],[place] [address] 11/13/2020 10:15:48 11/13/2020 10:59:41 Abnormal uterine bleeding [id number] 9100 N93.9 [id number] Alysha Claros [facility] [address],[place] [address] 11/25/2020 12:50:29 11/25/2020 14:02:22 Menorrhagia 063324255 N92.0 EMBx performed for thickened lining 27mm MD consult advised to ensure a Hyst D&C is/is not needed; or can discuss other recommenda tions etc. Stay on SLYND as this has helped stop her extended cycle bleeding. Elevated BP's prohibit use of estrogen containing products at this time (advised to see PCP). R/P CBC as H/H levels lower a month ago. Has been taking iron supps with multivitam in. Looking for new PCP in the area. Will call with EMBx results and let her know if any of our plan of care has changed. Patient is to contact office or go to nearest ED/Urgent care if fever >/= 100.1, pain, excessive bleeding, unusual drainage or swelling in area of concern; or experienci ng worsening sx's or new onset of concerning sx's. Understand ing verbalized . All questions answered to patient satisfacti on. Screening mammography 24 701974 Z12.31 Cyst of ovary 86788980 N 83.209 R/P TVUS x 6wks as precaution . Will call with lab results [id number] Alysha Claros [facility] [address],[place] [address] 11/29/2020 09:41:52 11/29/2020 10:31:54 Menorrhagia 683614512 N92.0 We reviewed her recent labs that were also reviewed with our triage team. EMBx results reviewed as well today. We again reviewed previous plan for MD consult to discuss if hyst D&C is required along with further evaluate recent US for menorrhagi a-extended cycle bleeding and two right hypoechoic foci right side; recent elevated CA-125. She would prefer to see a female MD & I have assisted patient with scheduling a consult to see Dr. Mary Bailey who can further review results & her recommenda tions for next steps in her plan of care. Will stay on SLYND which has helped resolve extended cycle bleeding until she see's MD. All quesitons answered & agreeable to plan of care. Time spent in visit is a total of 15 mins with at least 50% of visit consisting of counseling and review of plan of care. Additional precaution ayleen measures were taken to minimize potential exposure to the Covid-19 virus during this patient? s visit, including available hand therapy administrative assistant upon arrive, temperatur e check and being asked a series of screening questions. All staff wore face coverings during this encounter, as well as provided additional cleaning and sanitizing of all surfaces, including countertop s, pens, chairs, door handles, light switches, etc, prior to and following the patient? s visit. [id number] Mary Bailey [facility] [address],[place] [address] 12/17/2020 09:53:27 12/17/2020 14:09:38 Menorrhagia 515498355 N92.0 Cancer ant igen 125 above reference range 371719325 R97.1 Cyst of ovary 57409264 N 83.209 Surveillan ce of oral contraception 663621268 Z30.41 Perimenopausal state 663 6122252 61214 Z78.0 [id number] [facility] [address],[place] [address] 12/30/2020 09:59:39 12/30/2020 11:06:23 Abnormal uterine bleeding 2627850415 9100 N93.9 [id number] Mary Bailey MD [facility] [address] [place] [address] 01/06/2021 12:41:41 01/07/2021 16:56:29 Menometrorrhagia 196868892 N92.1 Surveillan ce of oral contraception 373544304 Z30.41 Cyst of ovary 33014905 N 83.209 [id number] Mary Bailey MD [facility] [address],[place] [address] 01/23/2021 15:48:41 01/24/2021 14:21:16 Contraception care management 121126817 Z30.9 Insertion of intrauterine contraceptive device 73932811 Z30.430 [id number] Mary Bailey MD [facility] [address],[place] [address] 02/20/2021 11:47:28 02/20/2021 14:50:46 Gynecologic examination 65022577 Z01.419 Intrauteri ne contraceptive device in situ 924605846 Z97.5 [id number] Alysha Claros [facility] [address],[place] [address] 04/27/2022 09:40:30 04/27/2022 10:37:54 Pain in pelvis 39904285 R10.2 This patient is a 57-year-ol d female with pelvic pain. We have agreed to complete the evaluation with pelvic ultrasound . The patient will return after the pelvic ultrasound to discuss those findings and to develop a treatment plan. A comprehens shirley history and physical exam was performed today. We spent over 25 minutes face-to-fa ce. The patient was given precaution s. She will contact clinic if pelvic pain increases in frequency or intensity. Also notify clinic of any new symptoms associated with pelvic pain. She does not appear to have an acute pelvic infection today, but was asked to contact us Immediatel y with nausea, vomiting, fever, chills. Urinary symptoms 2811157 08 R39.9 Will send for culture & treat due to subjective complaints and urine dip today.Susp ect UTI with prominent sx's but questionab le IUD placement. [id number] Lizbeth Aguayo [facility] [address],[place] [address] 04/28/2022 14:20:08 04/28/2022 15:02:13 Pain in pelvis 64424451 R10.2 [id number] Alysha Claros [facility] [address],[place] [address] 05/15/2022 09:54:23 05/17/2022 16:38:54 Gynecologic examination 01678878 Z01.419 Take Calcium with Vitamin D 12-1500mg daily. Do monthly self breast exams. It is advised to get annual flu shot in the fall and she [facility] or [facility] care clinic. If you haven't received the Tdap vaccine in the last 10 years you should obtain one as well. Have mammogram yearly, bone density every 2-3 years and colonoscop y every 5-10 years depending on findings and history. Engage in daily exercise of low impact aerobic exercise 45-60 minutes 4-5 times weekly. Avoid tobacco and illicit drugs as well as using moderation with alcohol intake less than 1-2 8 oz beverages daily. This lifestyle behavior pattern will lead to less health conditions and longer life span. If BMI greater than 25 weight watchers or dietary consult advised. Questions have been answered. Patient appears to understand instructio ns, but if you have any further questions call or respond to this email Pap/hpv sentSTD Screen declinedGe netic Screen discussedC olon Screen UTD PCPDexa Screen naRoutine Labs orderedMam mo ordered Vaginitis 00367263 N76.0 Currently on ab[facility] Adult heal th examination 619690077 Z00.00 Stop by during the week for blood work fasting Vitamin D deficiency 347 45154 E55.9 Perimenopausal state 291 8052216 94642 Z78.0 Check levels [id number] Lizbeth Aguayo [facility] [address] [address] 06/09/2022 11:53:36 06/09/2022 16:06:11 Cyst of right ovary 5069485025 8439854 N83.291 [id number] Mary Bailey MD [facility] [address] [address] 06/15/2022 15:52:38 06/23/2022 13:20:55 Intrauterine contraceptive device in situ 878114004 Z97.5 Cyst of ovary 39610035 N 83.209 Break-thro ugh bleeding 50212039 N92.1 [id number] [facility] [address] [address] 11/26/2022 12:34:04 11/26/2022 12:56:29 Vaginitis 47209622 N76.0 Suspect BV on examTxment sentSince already took abx for probably UTI that ended up being neg per her PCP we will send diflucan as a precaution . Dysuria 45442298 R30.0 Increase water & use pyridium prn [id number] [facility] [address] [address] 05/25/2023 09:13:47 05/25/2023 09:59:57 Gynecologic examination 73672859 Z01.419 Z11.51 Take Calcium with Vitamin D 12-1500mg daily. Do monthly self breast exams. It is advised to get annual flu shot in the fall and she could obtain at [facility] or [facility] clinic. If you haven't received the Tdap vaccine in the last 10 years you should obtain one as well. Have mammogram yearly, bone density every 2-3 years and colonoscop y every 5-10 years depending on findings and history. Engage in daily exercise of low impact aerobic exercise 45-60 minutes 4-5 times weekly. Avoid tobacco and illicit drugs as well as using moderation with alcohol intake less than 1-2 8 oz beverages daily. This lifestyle behavior pattern will lead to less health conditions and longer life span. If BMI greater than 25 weight watchers or dietary consult advised. Questions have been answered. Patient appears to understand instructio ns, but if you have any further questions call or respond to this email Pap/hpv sentSTD Screen declinedGe netic Screen discussedC olon Screen UTD PCPDexa Screen naRoutine Labs orderedMam mo ordered IUD check 119949306 Z30. 431 Today we agreed to updated US for IUD check b/c of significan t increase in dysmenorrh ea during cycles with IUD that was placed 2020. Will reach out with results & next steps if required. Screening mammography 24 381163 Z12.31 Adult heal th examination 525417093 Z00.00 Update labs.No f/u was completed last year & did not get PCP. Vitamin D deficiency 347 40132 E55.9 Pruritic rash 67566553 L 28.2 Rash upper chest noted on examItchyI f no resolution refer to derm Screening for malignant neoplasm of colon 485235514 Z12.11 [id number] Lizbeth Aguayo [facility] [address] [address] 06/01/2023 09:28:34 06/01/2023 10:11:08 Dysmenorrhea 926694540 N94.6 Health Concerns Section Related Observation LastModified by Organization Detai ls LastModified Time None Recorded Concern Status LastModified by Organization Details LastModified Time None Recorded Advance Directives Directive None Recorded Payers Encounter Date Sequence Insurance Name Policy Number Policy Montero Covered Member ID Montero Member ID Guarantor Name 06/09/2022 1 [facility] [employer] ([facility] [id number] Abbie Erasmo Rallo [id number] OI Abbie Erasmo Rallo 06/09/2022 2 [employer] [id number] [facility] [id number] 2 Abbie Erasmo Rallo 06/15/2022 1 [facility] [employer] ([facility]) [id number] Abbie K Rallo [id number] OI Abbie K Rallo 06/15/2022 2 [employer] [id number] [facility] [id number] 2 Abbie K Rallo 11/26/2022 2 [employer] [id number] [facility] [id number] 2 Abbie K Rallo 11/26/2022 1 [facility] [employer] Abbie K Rallo [id number] OI Abbie K Rallo 05/25/2023 2 [employer] [id number] [facility] [id number] 2 Abbie K Rallo 05/25/2023 1 [facility] [employer] Abbie K Rallo [id number] OI Abbie K Rallo 06/01/2023 2 [employer] [id number] [facility] [id number] 2 Abbie K Rallo 06/01/2023 1 [facility] [employer] Abbie K Rallo [id number] OI Abbie K Rallo Notes Date Note Type Note Provider Name and Address Organization Details Recorded Time 06/15/2022 text/html Abbie is here fo r follow up ovarian cysts. Had US on 06/09 that showed right ovarian cyst resolved and left with just a follicle. IUD correct fundal position. She states she has had spotting for 3w and cramping for 1.5w and has never had this before. Mirena inserted 01/2021. Mary Bailey MD [address], [place], [address], [facility] 06/18/2022 08:13:06 11/26/2022 text/html Here today with complaints of lower abd bloating and bladder irritation/dysuria .Treated for UTI by her PCP this past week but still with some sx's.Wanted to ensure IUD in place and no other issues.Some vag d/c that is out of norm for her. Neg pain of abd/pelvis/flankNe g GI sx'sNeg N/V/F/C/DNeg Vag , odor, irritation, itching [facility] [address], [place], [address], [facility] 11/26/2022 12:56:14 05/25/2023 text/html Annual GYNReport ed bypatient.Menstrua l cycle:Perimenopaus al Urinary symptoms:No hematuria; No incontinence Vulva:No genital lesion Vagina:Normal vaginal discharge Breast:No breast pain; No breast lump; No nipple discharge Current Contraception:Sati sfied with current contraception; Intrauterine device (iud) Sexual complaints:No sexual complaints; No pain during intercourse; Normal libido Menopausal Symptoms:No menopausal symptoms; Normal vaginal lubrication Psychological symptoms:No depression; No anxiety; No PMDD Preventive measures:Encourage self breast examination; Encourage regular exercise; Encourage no tobacco use; Encourage regular mammograms starting age 40; Followed with yearly pap smears; Needs to schedule mammogram; Needs to schedule colonoscopy CHIDI [facility] [address], [place], [address], [facility] 05/25/2023 09:44:04 OBGyn Episode Ob Episode Information Episode Created Date Number of Fetuses Patient Bloodtype Patient rh Status Prepregnancy Weight lbs Domestic Partner Domestic Partner Phone Father Name Rn Wellness Status 11/07/19 21 1 CLOSED Fetus Data First Name Last Name Admitted to NICU Weight (g) Sex Living Outcome Pediatric Complications Fetus ID Race Codes Race Delivery Type 2976.47 0704 M Full Term 9839 Vaginal Delivery Mike Calculation Initial Mike Date Initial Exam Date Initial Exam Provider Initial Ultrasound Date Last Menstrual Period Date Ultra Sound Weeks Gestation 0 Eighteen To Twenty Week Mike Update Ultra Sound Date Fundal Height At Umbil Quickening Date Ultra Sound Latest Weeks Gestation Final Mike Confirmed By Final Mike Confirmed Date Final Mike Date Ultra Sound Latest Days Gestation 0 0 Menstrual History Last Menstrual Date Menses Monthly On Bcp Conception Prior Menses Frequency Hcg Plus Date Menarche Onset Age Delivery Information Delivery Date Delivery Type Labor Anesthesia Weeks Gestation Incision Type Labor Labor Length Hrs Delivered By Post Complications Tubal Sterilization Discharge Date Comments 6 40 Discharge Information Feeding Method Contraceptive Method Maternal HG B and HCT Levels Ob Episode Information Episode Created Date Number of Fetuses Patient Bloodtype Patient rh Status Prepregnancy Weight lbs Domestic Partner Domestic Partner Phone Father Name Rn Wellness Status 11/07/19 21 1 CLOSED Fetus Data First Name Last Name Admitted to NICU Weight (g) Sex Living Outcome Pediatric Complications Fetus ID Race Codes Race Delivery Type 2636.27 6704 F Full Term 9840 Vaginal Delivery Mike Calculation Initial Mike Date Initial Exam Date Initial Exam Provider Initial Ultrasound Date Last Menstrual Period Date Ultra Sound Weeks Gestation 0 Eighteen To Twenty Week Mike Update Ultra Sound Date Fundal Height At Umbil Quickening Date Ultra Sound Latest Weeks Gestation Final Mike Confirmed By Final Mike Confirmed Date Final Mike Date Ultra Sound Latest Days Gestation 0 0 Menstrual History Last Menstrual Date Menses Monthly On Bcp Conception Prior Menses Frequency Hcg Plus Date Menarche Onset Age Delivery Information Delivery Date Delivery Type Labor Anesthesia Weeks Gestation Incision Type Labor Labor Length Hrs Delivered By Post Complications Tubal Sterilization Discharge Date Comments 3 40 Discharge Information Feeding Method Contraceptive Method Maternal HG B and HCT Levels
--- OUTSIDE RECORDS SUMMARY | 2024-07-19 17:10 | XMS_ITS | Referral Summary ---
Author Organization [facility] Address [address] [place] [address] Care Team Providers [facility] Director Name Role Phone Carter Sanders MD Primary Care Prov ider Jt Stern MD Unavailable Encounters Date Type Department Care Team Description 06/07/2024 5:32 AM PROGRAM AIDE - 06/09/2024 3:51 PM PROGRAM AIDE Hospital Encounter [address] [phone] Jt Stern MD Calculus of ureter Discharge Disposition: Discharge to home or self care 06/07/2024 Orders Only [facility] - Interventional Radiology [address] [place] [address] [phone] Shirin Sharma RN 06/07/2024 7:45 AM PROGRAM AIDE - 06/07/2024 11:59 PM PROGRAM AIDE Hospital Encounter [facility] - Interventional Radiology [address] [place] [address] [phone] Right renal stone Discharge Disposition: Discharge to home or self care 06/07/2024 2:00 PM PROGRAM AIDE - 06/07/2024 4:30 PM PROGRAM AIDE Surgery [facility] Operating Room [address] [place] [address] [phone] Jt Stern MD Right Percutaneous Nephrolithotomy 06/07/2024 2:11 PM PROGRAM AIDE Anesthesia Event [facility] Operating Room [address] [place] [phone] Bashir Sorensen MD Czajkowski, Lesly June, NP 06/06/2024 Orders Only [facility] - Interventional Radiology [address] [place] [phone] Montez Stacy RN 05/22/2024 10:15 AM PROGRAM AIDE Pre-Admission Testing [facility] Pre Anesthesia Testing [address] [place] [phone] Preop testing (Primary Dx) 05/08/2024 Telephone Radiology [address] [place] [address] Rajiv Dia MD from Last 3 Months Allergies No known active allergies Medications levothyroxine (SYNTHROID) 50 mcg tablet Take 1 tablet (50 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 total) 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 Active levonorgestreL (MIRENA) IUD 1 each by intrauterine route once Active oxyBUTYnin XL (DITROPAN-XL) 5 mg 24 hr tablet Take 1 tablet (5 mg total) by mouth 3 (three) times a day as needed (bladder spasm) for up to 7 days 20 tablet Active Active Problems Problem Noted Date Diagnosed Date Calculus of ureter 05/02/2024 Social History Tobacco Use Types Packs/Day Years Used Date Smoking Tobacco: Never Tobacco Cessation:Counseling Given: Not Answered [facility] Utilities Answer Date Recorded In the past 12 months has [employer], oil, or water [employer] threatened to shut off services in your [...] 06/08/2024 How often do you attend chur or mosque services? Never 06/08/2024 Do you belong to any clubs o r organizations such as yazdanism groups, unions, fraternal or athletic groups, or [...] any time in the past 12 m [facility], were you homeless or living in a half-way (including now)? No 06/08/2024 Personal Safety Answer Date Recorded Have you ever been in or are you currently in a harmful physical or emotional relationship or is someone making you feel afraid or unsafe? Denies 06/07/2024 Comments No Sex and Gender Information Value Date Recorded Sex Assigned at Not on file Legal Sex Female 3:13 PM PROGRAM AIDE Gender Identity Not on file Sexual Orientation Not on file Last Filed Vital Signs Vital Sign Reading Time Taken Comments Blood Pressure 140/72 06/09/2024 12:13 PM PROGRAM AIDE Pulse 82 06/09/2024 12:13 PM PROGRAM AIDE Temperature 37 ??C (98.6 ??F) 06/09/2024 12:13 PM PROGRAM AIDE Respiratory Rate 16 06/09/2024 12:13 PM PROGRAM AIDE Oxygen Saturation 97% 06/09/2024 12:13 PM PROGRAM AIDE Inhaled Oxygen Concentration - - Weight 59.2 kg (130 lb 8.2 oz) 06/07/2024 6:48 A M PROGRAM AIDE Height 160 cm (5' 3 ) 06/07/2024 6:48 AM PROGRAM AIDE Body Mass Index 23.12 06/07/2024 6:48 AM PROGRAM AIDE Plan of Treatment Not on file Medical Devices Implanted Type Area Barrel Assembly Inspector Device Identifier Shelf Expiration Date Model / Serial / Lot Wahanda Amplatz 8.5fr 26cm 6 Sideport Introducer Catheter String [id number] - [id number] Implanted:Qty: 1 on 06/08/2024 at [facility] [employer] 02/19/2027 [id number] / / [id number] Procedures Procedure Name Priority Date/Time Associated Diagnosis Comments EGFR Routine 06/09/2024 4:57 AM PROGRAM AIDE CBC WITHOUT DIFFERENTIAL Routine 06/09/2024 4:57 AM PROGRAM AIDE BASIC METABOLIC PANEL Routine 06/09/2024 4:57 AM PROGRAM AIDE URETERAL STENT PLACEMENT VIA EXISTING TRACT RIGHT IP Routine 06/08/2024 4:[address] KUB STONE WO CONTRAST IP Routine 06/08/2024 9:27 AM PROGRAM AIDE EGFR STAT 06/08/2024 6:21 AM PROGRAM AIDE BASIC METABOLIC PANEL STAT 06/08/2024 6:21 AM PROGRAM AIDE EGFR Routine 06/08/2024 4:33 AM PROGRAM AIDE CBC WITHOUT DIFFERENTIAL Routine 06/08/2024 4:33 AM PROGRAM AIDE BASIC METABOLIC PANEL Routine 06/08/2024 4:33 AM PROGRAM AIDE HEMOGLOBIN AND HEMATOCRIT STAT 06/07/2024 5:22 PM PROGRAM AIDE FL FLUOROSCOPY < 1 HOUR IP Routine 06/07/2024 3:53 PM PROGRAM AIDE STONE ANALYSIS Routine 06/07/2024 3:39 PM PROGRAM AIDE ID AN PROCEDURE PLACEHOLDER Routine 06/07/2024 2:53 PM PROGRAM AIDE ID AN ELECTIVE ENDOTRACHEAL AIRWAY Routine 06/07/2024 2:53 PM PROGRAM AIDE PERCUTANEOUS NEPHROLITHOTOMY 06/07/2024 2:10 PM PROGRAM AIDE Calculus of ureter NEPHROURETERAL STENT PLACEMENT NEW ACCESS RIGHT Schedule Routine, Read Routine (OP Routine) 06/07/2024 8:58 AM PROGRAM AIDE Right renal stone B CHECK SAMPLE STAT 06/07/2024 7:06 AM PROGRAM AIDE EGFR Routine 05/22/2024 11:09 AM PROGRAM AIDE Preop testing DIFFERENTIAL AUTO Routine 05/22/2024 11: 09 AM PROGRAM AIDE Preop testing BASIC METABOLIC PANEL Routine 05/22/2024 11:09 AM PROGRAM AIDE Preop testing CBC WITH AUTO DIFFERENTIAL Routine 05/22/2024 11:09 AM PROGRAM AIDE Preop testing PROTIME-INR Routine 05/22/2024 11:09 AM PROGRAM AIDE Preop testing APTT Routine 05/22/2024 11:09 AM PROGRAM AIDE Preop testing HEMOGLOBIN A1C Routine 05/22/2024 11:09 AM PROGRAM AIDE Preop testing TYPE AND SCREEN Routine 05/22/2024 10:48 AM PROGRAM AIDE Preop testing from Last 3 Months Results * eGFR (06/09/2024 4:57 AM PROGRAM AIDE) eGFR >90 >=60 mL/min/1. 73 m2 Comment: [...] last reviewed 2021. Blood 06/09/2024 4:57 AM PROGRAM AIDE 06/09/2024 6:34 AM PROGRAM AIDE us Jt Stern MD LAB BLOOD ORDERABLES Final Re sult [facility] [address] Department [place] [address] * (ABNORMAL) CBC without differential (06/09/2024 4:57 AM PROGRAM AIDE) Pathologist [facility] WBC 11.4(H) 3.8 - 9.9 K/cumm Hgb 11.0(L) 11.9 - 15.5 g/dL [facility] Hct 34.6(L) 35.6 - 45.5 % [facility] Plt 236 150 - 400 K/cumm [facility] MPV 10.1 9.1 - 12.3 fL [facility] RBC 3.59(L) 3.90 - 5.20 M/cumm [facility] MCV 96.4 81.3 - 96.4 fL [facility] MCH 30.6 27.1 - 33.3 pg [facility] MCHC 31.8(L) 32.3 - 35.7 g/dL [facility] RDW CV 12.9 11.1 - 14.9 % [facility] RDW SD 45.5 35.7 - 48.1 fL [facility] NRBC abs 0.00 0.00 - 0.01 K/cumm [facility] Blood 06/09/2024 4:57 AM PROGRAM AIDE 06/09/2024 6:35 AM PROGRAM AIDE us Jt Stern MD LAB BLOOD ORDERABLES Final Re sult [facility] [address] Department [place] [address] * (ABNORMAL) Basic metabolic panel (06/09/2024 4:57 AM PROGRAM AIDE) Sodium 142 135 - 145 mmol/L Potassium, pl 3.4 3.3 - 4.9 mmol/L [facility] Chloride 106 97 - 110 mmol/L [facility] CO2 28 22 - 32 mmol/L [facility] Anion gap 8 2 - 15 mmol/L [facility] BUN 7 6 - 25 mg/dL [facility] Creatinine 0.60 0.60 - 1.10 mg/dL [facility] Glucose 137 70 - 199 mg/dL [facility] Comment: Interpretive Data Fasting glucose >/= 126 [...] 2022. Calcium 8.0(L) 8.5 - 10.3 mg/dL [facility] Blood 06/09/2024 4:57 AM PROGRAM AIDE 06/09/2024 6:34 AM PROGRAM AIDE us Jt Stern MD LAB BLOOD ORDERABLES Final Re sult [facility] [address] Department [place] [address] * IR Ureteral Stent Placement Via Existing Tract Right (06/08/2024 4:09 PM PROGRAM AIDE) Anatomical Region Laterality Modality Body Right X-Ray Angiograph y 06/08/2024 4:36 PM PROGRAM AIDE Impressions 06/08/2024 4:36 PM PROGRAM AIDE Successful conversion of the nephroureteral catheter to an internal ureteral stent. PLAN: Urology will follow the patient and eventually remove the internal stent. Electronically signed by: Miguel Epps M.D. Narrative 06/08/2024 4:36 PM PROGRAM AIDE EXAMINATION: ??RIGHT PCNU CONVERSION TO INTERNAL URETERAL [...] was obtained. Prior to beginning the procedure, Troy Protocol was performed to confirm the patient's [...] was obtained. Prior to beginning the procedure, Troy Protocol was performed to confirm the patient's [...] stent. Electronically signed by: Miguel Epps M.D. us Kathy Lopez NP IMG IR PROCEDURES Final Result * CT KUB Stone WO Contrast (06/08/2024 9:27 AM PROGRAM AIDE) Anatomical Region Laterality Modality Abdomen N/A Computed Tomogra phy 06/08/2024 11:0 2 AM PROGRAM AIDE Impressions 06/08/2024 11:02 AM PROGRAM AIDE 1. ??Status post right percutaneous nephrolithotomy. 2. [...] Jorge Dee M.D. Narrative 06/08/2024 11:[address] KUB STONE WO CONTRAST 06/08/2024 8:45 [...] unchanged. Electronically signed by: Jorge Dee M.D. us Jt Stern MD [facility] [place] PROCEDURES Final Resul t * eGFR (06/08/2024 6:21 AM PROGRAM AIDE) Pathologist [facility] eGFR >90 >=60 mL/min/1. 73 m2 Comment: [...] last reviewed 2021. Blood 06/08/2024 6:21 AM PROGRAM AIDE 06/08/2024 6:29 AM PROGRAM AIDE us Jt Stern MD LAB BLOOD ORDERABLES Final Re sult [facility] [address] Department [place] [address] * (ABNORMAL) Basic metabolic panel (06/08/2024 6:21 AM PROGRAM AIDE) Pathologist [facility] Sodium 139 135 - 145 mmol/L Potassium, pl 3.7 3.3 - 4.9 mmol/L [facility] Chloride 105 97 - 110 mmol/L [facility] CO2 24 22 - 32 mmol/L [facility] Anion gap 10 2 - 15 mmol/L [facility] BUN 7 6 - 25 mg/dL [facility] Creatinine 0.66 0.60 - 1.10 mg/dL [facility] Glucose 126 70 - 199 mg/dL [facility] Comment: Interpretive Data Fasting glucose >/= 126 [...] 2022. Calcium 8.1(L) 8.5 - 10.3 mg/dL [facility] Blood 06/08/2024 6:21 AM PROGRAM AIDE 06/08/2024 6:29 AM PROGRAM AIDE us Jt Stern MD LAB BLOOD ORDERABLES Final Re sult [facility] [address] Department [place] [address] * eGFR (06/08/2024 4:33 AM PROGRAM AIDE) eGFR >90 >=60 mL/min/1. 73 m2 Comment: [...] last reviewed 2021. Blood 06/08/2024 4:33 AM PROGRAM AIDE 06/08/2024 5:24 AM PROGRAM AIDE us Jt Stern MD LAB BLOOD ORDERABLES Final Re sult [facility] [address] Department [place] [address] * (ABNORMAL) CBC without differential (06/08/2024 4:33 AM PROGRAM AIDE) WBC 14.9(H) 3.8 - 9.9 K/cumm Hgb 10.2(L) 11.9 - 15.5 g/dL [facility] Hct 32.2(L) 35.6 - 45.5 % [facility] Plt 241 150 - 400 K/cumm [facility] MPV 10.5 9.1 - 12.3 fL [facility] RBC 3.34(L) 3.90 - 5.20 M/cumm [facility] MCV 96.4 81.3 - 96.4 fL [facility] MCH 30.5 27.1 - 33.3 pg [facility] MCHC 31.7(L) 32.3 - 35.7 g/dL [facility] RDW CV 12.9 11.1 - 14.9 % [facility] RDW SD 45.3 35.7 - 48.1 fL [facility] NRBC abs 0.00 0.00 - 0.01 K/cumm [facility] Blood 06/08/2024 4:33 AM PROGRAM AIDE 06/08/2024 5:23 AM PROGRAM AIDE Jt Stern MD LAB BLOOD ORDERABLES Final Re sult Performing Organization Address City/[facility]/ZIP Co de Phone Number [facility] [address] [place] [address] * (ABNORMAL) Basic metabolic panel (06/08/2024 4:33 AM PROGRAM AIDE) [facility] Sodium 139 135 - 145 mmol/L Potassium, pl 3.6 3.3 - 4.9 mmol/L [facility] Chloride 105 97 - 110 mmol/L [facility] CO2 22 22 - 32 mmol/L [facility] Anion gap 12 2 - 15 mmol/L [facility] BUN 7 6 - 25 mg/dL [facility] Creatinine 0.62 0.60 - 1.10 mg/dL [facility] Glucose 446(H) 70 - 199 mg/dL [facility] Comment: Interpretive Data Fasting glucose >/= 126 [...] 2022. Calcium 7.8(L) 8.5 - 10.3 mg/dL [facility] Blood 06/08/2024 4:33 AM PROGRAM AIDE 06/08/2024 5:24 AM PROGRAM AIDE Jt Stern MD LAB BLOOD ORDERABLES Final Re sult Performing Organization Address [facility] Co de Phone Number [facility] [address] Department of [employer] [place] [address] * Hemoglobin and hematocrit (06/07/2024 5:22 PM PROGRAM AIDE) [facility] Hgb 12.6 11.9 - 15.5 g/dL Hct 38.4 35.6 - 45.5 % [facility] Blood 06/07/2024 5:22 PM PROGRAM AIDE 06/07/2024 5:37 PM PROGRAM AIDE Jt Stern MD LAB BLOOD ORDERABLES Final Re sult Performing Organization Address [facility]/ZIP Co de Phone Number [facility] [address] Department [place] [address] * FL Fluoroscopy < 1 Hour (06/07/2024 3:53 PM PROGRAM AIDE) Narrative [facility] - 06/07/2024 3:54 PM PROGRAM AIDE The images from this study are not interpreted by Radiology. ??Please refer to the physician's procedure / OR operative note. Jt Stern MD IMG FLUOROSCOPY PROCEDURES Fi nal Result Performing Organization Address [facility] Co de Phone Number [facility] * Stone analysis (06/07/2024 3:39 PM PROGRAM AIDE) [facility] Stone analysis Not Reported [facility] Lab Source, Kid Stone Kidney [facility] Interp, Kid stone analysis See Footnote [facility] Comment: 80% Calcium oxalate dihydrate. ??20% Calcium phosphate (apatite). COMMENT See Footnote [facility] Comment: For stones containing calcium oxalate, calcium phosphate, and/or uric acid, a 24 hr urinary supersaturation test may help detect underlying risk factors for this type of stone formation and provide guidance for a stone prevention strategy. ADDITIONAL INFORMATION This test was developed and its performance characteristics determined by [facility] in a manner consistent with CLIA requirements. This test has not been cleared or approved by the U.S. Food and Drug Administration. Test Performed by: [facility] [address] [place] [id number] Electric Meter Technician: Antonio Rosario Ph.D.; CLIA# [id number] Stone 06/07/2024 3:39 PM PROGRAM AIDE 06/07/2024 5:37 PM PROGRAM AIDE Jt Stern MD LAB URINE ORDERABLES Final Re sult [facility] [address] Department [place] [address] [facility] * ID AN ELECTIVE ENDOTRACHEAL AIRWAY, ID AN PROCEDURE PLACEHOLDER (06/07/2024 2:53 PM PROGRAM AIDE) Narrative Alison Pearson CRNA - 06/07/2024 2:53 PM PROGRAM AIDE Alison Pearson CRNA ? 06/07/2024 ??2:54 PM Airway Patient location: OR Urgency: elective Indications for airway management: anesthesia Difficult airway: no Staff: Placed by: MOBILE SALES CONSULTANT: Alison Pearson CRNA Emergent airway documentation: Risks [...] with: silk tape Number of attempts: 1 us Bashir Sorensen MD ANESTHESIA ORDERABLES Final Result * IR Nephroureteral Stent Placement New Access Right (06/07/2024 8:58 AM PROGRAM AIDE) Anatomical Region Laterality Modality Body Right X-Ray Angiograph y 06/07/2024 12:1 5 PM PROGRAM AIDE Impressions 06/07/2024 12:15 PM PROGRAM AIDE Successful right percutaneous nephroureteral catheter placement. PLAN: ?? 1. OR today for lithotripsy. 2. Patient may return to IR tomorrow for internalization and placement of a double-J stent. Electronically signed by: Rajiv Dia M.D. Narrative 06/07/2024 12:15 PM PROGRAM AIDE EXAMINATION : RIGHT PERCUTANEOUS NEPHROURETERAL CATHETER PLACEMENT [...] was obtained. Prior to beginning the procedure, Troy Protocol was performed to confirm the patient's [...] was advanced. Over the wire, a 5 Mauritian glide catheter was placed and coiled into [...] was obtained. Prior to beginning the procedure, Troy Protocol was performed to confirm the patient's [...] was advanced. Over the wire, a 5 Mauritian glide catheter was placed and coiled into [...] Rajiv Dia M.D. us Jt Stern MD IMG IR PROCEDURES Final Resul t * Check Sample (06/07/2024 7:06 AM PROGRAM AIDE) ABO Rh A Positive MBC HCLL OTHER 06/07/2024 7:06 AM PROGRAM AIDE 06/07/2024 7:33 AM PROGRAM AIDE us Kathy Lopez NP LAB BLOOD ORDERABLES Fi nal Result [facility] [address] Department [place] [address] MBC * eGFR (05/22/2024 11:09 AM PROGRAM AIDE) eGFR >90 >=60 mL/min/1. 73 m2 Comment: [...] of Race in Diagnosing Kidney Disease, JASN 202). The CKD-EPI equation should not be used for patients with unstable renal function and has not been validated in children and those over 70. Current interpretive data was last reviewed 2021. Blood 05/22/2024 11:0 9 AM PROGRAM AIDE 05/22/2024 11:09 AM PROGRAM AIDE us Kathy Lopez NP LAB BLOOD ORDERABLES Fi nal Result [facility] [address] Department [place] [address] * Differential, auto (05/22/2024 11:09 AM PROGRAM AIDE) Neutrophil abs 4.3 1.5 - 6.5 K/cumm Imm gran abs 0.0 0.0 - 0.1 K/cumm [facility] Lymphocyte abs 1.9 0.8 - 3.3 K/cumm [facility] Monocyte abs 0.5 0.2 - 0.8 K/cumm [facility] Eosinophil abs 0.2 0.0 - 0.5 K/cumm [facility] Basophil abs 0.1 0.0 - 0.1 K/cumm [facility] Neutrophil pct 61.3 % [facility] Comment: Interpretive Data Percent cell count reference ranges are not reported, since discordance with absolute values may lead to misinterpretation of CBC data. Current Interpretive Data was last revised on 2017. Imm gran pct 0.3 % [facility] Comment: Interpretive Data Percent cell count reference ranges are not reported, since discordance with absolute values may lead to misinterpretation of CBC data. Current Interpretive Data was last revised on 2017. Lymphocyte pct 27.4 % [facility] Comment: Interpretive Data Percent cell count reference ranges are not reported, since discordance with absolute values may lead to misinterpretation of CBC data. Current Interpretive Data was last revised on 2017. Monocyte pct 7.0 % [facility] Comment: Interpretive Data Percent cell count reference ranges are not reported, since discordance with absolute values may lead to misinterpretation of CBC data. Current Interpretive Data was last revised on 2017. Eosinophil pct 2.3 % [facility] Comment: Interpretive Data Percent cell count reference ranges are not reported, since discordance with absolute values may lead to misinterpretation of CBC data. Current Interpretive Data was last revised on 2017. Basophil pct 1.7 % [facility] Comment: Interpretive Data Percent cell count reference ranges are not reported, since discordance with absolute values may lead to misinterpretation of CBC data. Current Interpretive Data was last revised on 2017. Blood 05/22/2024 11:0 9 AM PROGRAM AIDE 05/22/2024 11:09 AM PROGRAM AIDE us Kathy Lopez NP LAB BLOOD ORDERABLES Fi nal Result [facility] [address] Department [place] [address] * (ABNORMAL) CBC with auto differential (05/22/2024 11:09 AM PROGRAM AIDE) WBC 7.1 3.8 - 9.9 K/cumm Hgb 14.1 11.9 - 15.5 g/dL [facility] Hct 44.0 35.6 - 45.5 % [facility] Plt 323 150 - 400 K/cumm [facility] MPV 9.9 9.1 - 12.3 fL [facility] RBC 4.70 3.90 - 5.20 M/cumm [facility] MCV 93.6 81.3 - 96.4 fL [facility] MCH 30.0 27.1 - 33.3 pg [facility] MCHC 32.0(L) 32.3 - 35.7 g/dL [facility] RDW CV 12.4 11.1 - 14.9 % [facility] RDW SD 42.7 35.7 - 48.1 fL [facility] NRBC abs 0.00 0.00 - 0.01 K/cumm [facility] Blood 05/22/2024 11:0 9 AM PROGRAM AIDE 05/22/2024 11:09 AM PROGRAM AIDE Kathy Lopez LEHR STRIPPER LAB BLOOD ORDERABLES Fi nal Result Performing Organization Address [facility] Co de Phone Number [facility] [address] [facility] [employer] [place] [address] * aPTT (05/22/2024 11:09 AM PROGRAM AIDE) aPTT 34 28 - 38 sec Comment: Interpretive Data Heparin therapeutic range: 66.0 - 100.0 seconds. Range based on correlation with therapeutic heparin activity range of 0.3 - 0.7 Units/mL. Current interpretive data was last revised on 2023. Blood 05/22/2024 11:0 9 AM PROGRAM AIDE 05/22/2024 11:09 AM PROGRAM AIDE Kathy Lopez NP LAB BLOOD ORDERABLES Fi nal Result Performing Organization Address [facility] de Phone Number [facility] [address] [facility] [employer] [place] [address] * Protime-INR (05/22/2024 11:09 AM PROGRAM AIDE) PT 11.1 9.7 - 13.0 sec INR 1.03 0.90 - 1.20 [facility] Comment: Interpretive data Oral anticoagulant therapeutic ranges: Venous thromboembolism prophylaxis or treatment: 2.0-3.0 CARDIOLOGY Standard range: 2.0-3.0 High-intensity range: 2.5-3.5 Refer to indication-specific guidelines for appropriate target ranges for prosthetic heart valve replacement. Current interpretive data was last revised on 2019. Blood 05/22/2024 11:0 9 AM PROGRAM AIDE 05/22/2024 11:09 AM PROGRAM AIDE Kathy Lopez NP LAB BLOOD ORDERABLES Fi nal Result Performing Organization Address [facility] Co de Phone Number [facility] [address] Department [place] [address] * (ABNORMAL) Hemoglobin A1c (05/22/2024 11:09 AM PROGRAM AIDE) [facility] Hgb A1C 5.9(H) 4.0 - 5.6 % Estimated Average Glucose 123 mg/dL [facility] Comment: The ADA recommends reporting an estimated Average Glucose (eAG) with all Hemoglobin A1c results using the equation derived from a study of 507 normal and diabetic adults. ??Minority populations were underrepresented and children were not included. ?? (Diabetes Care 31:8125-8663, 2008). ??The eAG is not equivalent to a fasting glucose. Blood 05/22/2024 11:0 9 AM PROGRAM AIDE 05/22/2024 11:09 AM PROGRAM AIDE Kathy Lopez NP LAB BLOOD ORDERABLES Fi nal Result [facility] [address] Department [place] [address] * Basic metabolic panel (05/22/2024 11:09 AM PROGRAM AIDE) [facility] Sodium 140 135 - 145 mmol/L Potassium, pl 3.9 3.3 - 4.9 mmol/L [facility] Chloride 103 97 - 110 mmol/L [facility] CO2 25 22 - 32 mmol/L [facility] Anion gap 12 2 - 15 mmol/L [facility] BUN 10 6 - 25 mg/dL [facility] Creatinine 0.74 0.60 - 1.10 mg/dL [facility] Glucose 103 70 - 199 mg/dL [facility] Comment: Interpretive Data Fasting glucose >/= 126 [...] 2022. Calcium 9.3 8.5 - 10.3 mg/dL [facility] Blood 05/22/2024 11:0 9 AM PROGRAM AIDE 05/22/2024 11:09 AM PROGRAM AIDE Kathy Suzie Lopez NP LAB BLOOD ORDERABLES Fi nal Result Performing Organization Address [facility] Co de Phone Number [facility] [address] Department [place] [address] * Type and screen (05/22/2024 10:48 AM PROGRAM AIDE) Nathanael, indirect Negative ABO Rh A Positive [facility] Blood 05/22/2024 10:4 8 AM PROGRAM AIDE 05/22/2024 11:14 AM PROGRAM AIDE Narrative [facility] - 05/22/2024 12:35 PM PROGRAM AIDE Is this test being ordered in advance for a procedure?->Yes Expected date of procedure:->06/07/24 Has the patient been transfused in the past 3 months?->No Has the patient been in the past 3 months?->No Kathy Lopez NP LAB BLOOD BANK TEST ORD ERABLES Final Result Performing Organization Address [facility] Co de Phone Number [facility] [address] Department [employer] [place] [address] from Last 3 Months Insurance [facility] [id number] CIGNA CIGNA Advance Directives For more information, please contact: [phone] * Full Code (Latest Code Status on File) Date Activated Date Inactivated Comments 06/07/2024 6:04 PM 06/09/2024 7:56 PM Care Teams Family Service Center Director Relationship Specialty Start Date End Date Carter Sanders MD [address] [place] [address] PCP - General Family Medicine 05/22/24 Jt Stern MD [address] [facility] [address] [place] [address] Consulting Physician Urology 06/09/24
--- OUTSIDE RECORDS SUMMARY | 2024-07-19 17:10 | XMS_ITS | Clinical Summary ---
Author Organization [facility] Address [address] [place] [address] Phone Care Team Providers Care Typer Name Role Phone Unavailable Primary Care Provider Unavailabl e Encounters Date Type Department Care Team Description 06/18/2024 Orders Only [facility] [address] [place] [address] Yudith Gonzalez PA Nephrolithiasis (Primary Dx) from Last 3 Months Social History Tobacco Use Types Packs/Day Years Used Date Smoking Tobacco: Never Assessed Sex and Gender Information Value Date Recorded Sex Assigned at Not on file Gender Identity Not on file Sexual Orientation Not on file Plan of Treatment Upcoming Encounters Date Type Department Care Team (Late st Contact Info) Description 10/08/2024 10:20 AM CDT Office Visit [facility] [address] [place] [address] Yudith Gonzalez PA [address] [place] [address] Health Maintenance Due Date Last Done Comments Pneumococcal PPSV23 Highest Risk Adult (1 of 3 - PCV13 ) 1986 Influenza Vaccine (#1) 2024
== END 2024-07-17 10:00 | disposition home or self-care (01) ==
PROVIDERS: PCP Family Medicine Adolescent Medicine; Visit Provider Urology
DX: N20.1 Calculus of ureter (principal)
CPT/HCPCS: 74018

== ENCOUNTER 2025-01-18 09:38 | Outpatient (CLI) | payer OTHER, SELFPAY ==
--- NOTE | ~2025-01-18 | CT_ITS ---
CT of the Abdomen and Pelvis: Indication: Right UPJ obstruction Technique: 2.5 mm axial scans were obtained through the abdomen and pelvis prior to and following in travenous administration of 130 cc of Omnipaque 350. Dose reduction technique was used on this scan b y utilizing automated exposure control and iterative reconstruction technique. The dose-length produc t (DLP) was 894.55 mGy-cm. COMPARISON: 03/19/2024 Findings: Scans through the lung bases are unremarkable. There is diffuse hepatic steatosis. The spleen, pancreas, and adrenal glands are within normal limits . 8 mm nonobstructing left renal stone is unchanged. 4 mm nonobstructing right renal stone is unchang ed. Additional punctate nonobstructing right renal stone present. No hydronephrosis on either side. N o ureteral stone. Cholecystectomy clips are present. No evidence of aortic aneurysm. No lymphadenopa thy. No bowel obstruction or bowel wall thickening. There is no evidence to suggest acute appendicitis. Images through the pelvis were performed. Urinary bladder unremarkable. IUD in place. No pelvic mass. No ascites. Impression: Bilateral nonobstructing renal stones. No hydronephrosis or evidence for UPJ obstruction. Diffuse hepatic steatosis. Reviewed, dictated and finalized at location . Impression: Bilateral nonobstructing renal stones. No hydronephrosis or evidence for UPJ ob struction. Diffuse hepatic steatosis.
== END 2025-01-18 09:39 | disposition home or self-care (01) ==
LOC: MICIMG 09:39
PROVIDERS: PCP Family Medicine Adolescent Medicine; Visit Provider Urology
DX: N20.1 Calculus of ureter (principal); K76.0 Fatty (change of) liver, not elsewhere classified; N20.0 Calculus of kidney
CPT/HCPCS: 74178; Q9967

== ENCOUNTER 2025-02-20 09:05 | Outpatient (CLI) | payer OTHER, SELFPAY ==
--- NOTE | ~2025-02-20 | MM_ITS ---
EXAMINATION: MM screening aj BI w french HISTORY: Screening TECHNIQUE: Craniocaudal and mediolateral oblique 3-D tomosynthesis images were obtained and synthetic 2-D images were generated. CAD analysis was submitted and interpreted. COMPARISON: Comparison to multiple prior studies sequentially, with oldest reviewed study dated 10/18/2018. BREAST PARENCHYMAL COMPOSITION: The breasts are heterogeneously dense, which may obscure small masses. FINDINGS: There is no evidence of suspicious mass, calcification, or architectural distortion to suggest malignancy in either breast. Scattered benign-appearing calcifications are present. Biopsy clip in the left breast. IMPRESSION: 1. No mammographic evidence of malignancy. 2. Recommend routine screening mammography in one year. BI-RADS Category 2: Benign finding(s). Reviewed, dictated and finalized at location B.
--- OUTSIDE RECORDS SUMMARY | 2025-02-20 09:13 | XMS_ITS | Clinical Summary ---
Author Organization [facility] Address [address] [place] [address] [place] [address] Care Team Providers Care Structural Test Engineer Name Role Phone Unavailable Primary Care Provider [...] (1 of 3 - 19+ 3-dose series) 02/26 HPV/Cotest (21-29) 1988 CERVICAL CANCER SCREENING 1997 HPV/Cotest (30-65) 1997 PAP SMEAR 1997 BREAST CANCER SCREENING 2007 COLORECTAL SCREENING 2012 Colorectal Cancer Screening 2012 FIT-DNA Q 3 years 2012 FIT/FOBT Q 1 year 2012 Flex Sig/CT Colonography Q 5 years 2012 ZOSTER VACCINE (1 of 2) 2017 INFLUENZA VACCINE (#1) 2025
--- OUTSIDE RECORDS SUMMARY | 2025-02-20 09:13 | XMS_ITS | Clinical Summary ---
Author Organization [facility] Address [address] [place] [address] Care Team Providers Care Diamond Sizer And Sorter Name Role Phone Carter Sanders MD Primary Care Prov ider Jt Stern MD Unavailable [phone] Allergies No known active allergies Medications levothyroxine (SYNTHROID) 50 mcg tablet Take 1 tablet (50 mcg total) by mouth screen examiner before breakfast Active levonorgestreL (MIRENA) IUD 1 each by intrauterine route once Active oxyBUTYnin XL (DITROPAN-XL) 5 mg 24 hr tablet Take 1 tablet (5 mg total) by mouth 3 (three) times a day as needed (bladder spasm) for up to 7 days 20 tablet 4 Active Active Problems Problem Noted Date Diagnosed Date Calculus of ureter 05/02/2024 Surgical History Surgery Date Site/Laterality Comments CHOLECYSTECTOMY NEPHROURETERAL STENT PLACEMENT NEW ACCESS RIGHT 2023 Right URETERAL STENT PLACEMENT VIA EXISTING TRACT RIGHT 05/27 Right Medical History Medical History Date Comments Hypothyroid Calculus of ureter Social History Tobacco Use Types Packs/Day Years Used Date Smoking Tobacco: Never Tobacco Cessation:Counseling Given: Not Answered [facility] Utilities Answer Date Recorded In the past 12 months has e electric, gas, oil, or water company threatened to shut off services in your home? No 06/08/2024 Social Connection and Isolation Panel Answer Date Recorded In a typical week, how many times do you talk on the phone with family, friends, or neighbors? More than three times a week 06/08/2024 How often do you get togethe r with friends or relatives? More than three times a week 06/08/2024 How often do you attend chur ch or holiness services? Never 06/08/2024 Do you belong to any clubs o r organizations such as roman catholic groups, unions, fraternal or athletic groups, or [...] any time in the past 12 m [facility], were you homeless or living in a fpc (including now)? No 06/08/2024 Personal Safety Answer Date Recorded Have you ever been in or are you currently in a harmful physical or emotional relationship or is someone making you feel afraid or unsafe? Denies 06/07/2024 Comments No Sex and Gender Information Value Date Recorded Sex Assigned at Not on file Legal Sex Female 3:13 PM STATE COMPTROLLER Gender Identity Not on file Sexual Orientation Not on file Obstetrics History Last Filed Vital Signs Vital Sign Reading Time Taken Comments Blood Pressure 140/72 06/09/2024 12:13 PM STATE COMPTROLLER Pulse 82 06/09/2024 12:13 PM STATE COMPTROLLER Temperature 37 C (98.6 F) 06/09/2024 12:13 PM STATE COMPTROLLER Respiratory Rate 16 06/09/2024 12:13 PM STATE COMPTROLLER Oxygen Saturation 97% 06/09/2024 12:13 PM STATE COMPTROLLER Inhaled Oxygen Concentration - - Weight 59.2 kg (130 lb 8.2 oz) 06/07/2024 6:48 A M STATE COMPTROLLER Height 160 cm (5' 3) 06/07/2024 6:48 AM STATE COMPTROLLER Body Mass Index 23.12 06/07/2024 6:48 AM STATE COMPTROLLER Plan of Treatment Health Maintenance Due Date Last Done Comments Breast Cancer Screening-Mammogram 1967 Cervical Cancer Screening 1967 Colon Cancer Screening-Colonoscopy 1967 Depression Screening 1967 Hepatitis C Screening 1967 DTaP/Tdap/Td Vaccine (1 - Tdap) 1978 Hepatitis B Screening 1985 Regular Well Visit/Exam 18-64 1985 Zoster Vaccine (1 of 2) 2017 Influenza Vaccine (#1) 2025 Pneumococcal vaccine <65 Aged Out No longer eligible based on patient's age to complete this topic Medical Devices Implanted Type Area Petroleum Blending Plant Operator Device Identifier Shelf Expiration Date Model / Serial / Lot [employer] Amplatz 8.5fr 26cm 6 Sideport Introducer Catheter String [id number] - [id number] Implanted:Qty: 1 on 06/08/2024 at [facility] [employer] 02/19/2027 [id number] 10 / / [id number] Insurance [facility] [id number] CIGNA CIGNA HEALTHLINK HMO Advance Directives For more information, please contact: [phone] * Full Code (Latest Code Status on File) Date Activated Date Inactivated Comments 06/07/2024 6:04 PM 06/09/2024 7:56 PM Care Teams Diamond Sizer And Sorter Relationship Specialty Start Date End Date Carter Sanders MD PCP - General Family Medicine 05/22/24 Jt Stern MD [address] [facility] [address] [place] [address] Consulting Physician Urology 06/09/24
--- OUTSIDE RECORDS SUMMARY | 2025-02-20 09:14 | XMS_ITS | Clinical Summary ---
Author Organization [facility] Address [address] [place] [address] Phone Care Team Providers Care Qa Reviewer Name Role Phone Carter Zamora MD Primary Care Provider [phone] Allergies No known active allergies Medications levothyroxine (Levoxyl) 50 MCG tablet Take 1 tablet by mouth 1 (one) time each day Active Active Problems Problem Noted Date Diagnosed Date Personal history of kidney stones 10/08/2024 Social History Tobacco Use Types Packs/Day Years Used Date Smoking Tobacco: Never Assessed Comments Unknown Sex and Gender Information Value Date Recorded Sex Assigned at Not on file Legal Sex Female 8:53 AM [facility] Gender Identity Not on file Sexual Orientation Not on file Last Filed Vital Signs Vital Sign Reading Time Taken Comments Blood Pressure 122/84 10/08/2024 10:27 AM CDT Pulse 94 10/08/2024 10:27 AM CDT Temperature - - Respiratory Rate - - Oxygen Saturation - - Inhaled Oxygen Concentration - - Weight 59.9 kg (132 lb) 10/08/2024 10:27 AM CDT Height 160 cm (5' 3) 10/08/2024 10:27 AM CDT Body Mass Index 23.38 10/08/2024 10:27 AM CDT Plan of Treatment Upcoming Encounters Date Type Department Care Team (Late st Contact Info) Description 04/09/2025 10:20 AM CDT Office Visit [facility] [address] [place] [address] Peyman Gtz MD [address] [place] [address] Health Maintenance Due Date Last Done Comments Pneumococcal PPSV23 Highest Risk Adult (1 of 3 - PCV13 ) 1986 Influenza Vaccine (#1) 2025 Insurance [employer] CIGNA Care Teams Qa Reviewer Relationship Specialty Start Date End Date Carter Zamora MD [address] [address] PCP - General Family Medicine 10/08/24
== END 2025-02-20 09:06 | disposition home or self-care (01) ==
LOC: ANHFOHIMG 09:06
PROVIDERS: PCP Family Medicine Adolescent Medicine; Visit Provider Student in an Organized Health Care Education/Training Program
DX: Z12.31 Encounter for screening mammogram for malignant neoplasm of breast (principal)
CPT/HCPCS: 77063; 77067

== ENCOUNTER 2025-02-28 10:42 | Day surgery (SDC) | payer OTHER, SELFPAY ==
[2025-02-28] VITALS (11 sets, daily range): BP systolic 118–142; BP diastolic 59–90; PULSE 68–113; RESP 12–22; TEMP 36.4–36.9; O2SAT 78–100
--- NOTE | ~2025-02-28 | XR_ITS ---
EXAMINATION: XR retrograde pyelo w/stent RT DATE: 02/28/2025 14:25 INDICATION: Right internal ureteral stent placement TECHNIQUE: Fluoroscopic images from a right internal ureteral stent placement are submitted for review. 8 seconds of fluoroscopy time. FINDINGS: There is a right double-J internal ureteral stent projecting in expected position, with proximal [place] loop at the level of the renal pelvis and distal loop in the pelvis within the bladder lumen. There is an IUD in the pelvis. IMPRESSION: 1. Right internal ureteral stent placement. Please refer to real-time procedural findings for details. Reviewed, dictated and finalized at location O. IMPRESSION: 1. Right internal ureteral stent placement. Please refer to real-time procedu ral findings for details.
--- NOTE | ~2025-02-28 | CT_ITS ---
EXAM: CT abdomen pelvis w con - 02/28/2025 11:48 CDT History: 59 years old Female with flank pain TECHNIQUE: Multidetector CT of the abdomen and pelvis with intravenous contrast. Coronal and sagittal reformats were also provided for review. Automatic exposure control was used for this study. CONTRAST: 100 cc of Optiray 350 was used for this study. COMPARISON: None Available. FINDINGS: VISUALIZED CHEST: Visualized lungs are clear. ABDOMEN and PELVIS: LIVER: Hepatic steatosis. GALLBLADDER: Postcholecystectomy. BILE DUCTS: No dilatation. SPLEEN: Within normal limits. PANCREAS: Within normal limits. ADRENAL GLANDS: Within normal limits. KIDNEYS and URETERS: Multiple bilateral renal cysts and subcentimeter hypodensities, too small to accurately characterize. 9 mm nonobstructive calculus in the upper pole of the left kidney. 0.5 cm calculus in the right ureteropelvic junction causing moderate to severe right hydronephrosis. Nonspecific fat stranding around the right ureter. URINARY BLADDER: Mild diffuse thickening of the urinary bladder wall. STOMACH and BOWEL: No abnormal bowel wall thickening. No obstruction. REPRODUCTIVE ORGANS: Within normal limits. IUD in place. MESENTERY/PERITONEAL CAVITY: No free fluid or pneumoperitoneum. LYMPH NODES: No abdominal or pelvic lymphadenopathy. ABDOMINAL WALL: Within normal limits. VASCULATURE: Within normal limits. MUSCULOSKELETAL: Multilevel degenerative changes of the spine. IMPRESSION: 1. 0.5 cm calculus in the right ureteropelvic junction causing moderate to severe right hydronephrosis. 2. Mild diffuse thickening of the urinary bladder wall. Nonspecific fat stranding around the right ureter. Correlate with urinalysis to rule out possible acute cystitis and UTI. Reviewed, dictated and finalized at location N. IMPRESSION: 1. 0.5 cm calculus in the right ureteropelvic junction causing moderate to sev ere right hydronephrosis. 2. Mild diffuse thickening of the urinary bladder wall. Nonspecific fat strand ing around the right ureter. Correlate with urinalysis to rule out possible acu te cystitis and UTI.
--- OUTSIDE RECORDS SUMMARY | 2025-02-28 11:10 | XMS_ITS | Clinical Summary ---
Author Organization [facility] Address [address] [place] [address] Care Team Providers Care Potato Chip Cooker Machine Name Role Phone Carter Sanders MD Primary Care Prov ider Jt Stern MD Unavailable [phone] Allergies No known active allergies Medications levothyroxine (SYNTHROID) 50 mcg tablet Take 1 tablet (50 mcg total) by mouth palliative care nurse before breakfast Active levonorgestreL (MIRENA) IUD 1 [...] Tobacco: Never Tobacco Cessation:Counseling Given: Not Answered [facility] Utilities Answer Date Recorded In the past [...] often do you attend chur ch or jewish services? Never 06/08/2024 Do you belong to [...] any time in the past 12 m [facility], were you homeless or living in a correction (including now)? No 06/08/2024 Personal Safety Answer Date Recorded Have you ever been in or are you currently in a harmful physical or emotional relationship or is someone making you feel afraid or unsafe? Denies 06/07/2024 Comments No Sex and Gender Information Value Date Recorded Sex Assigned at Not on file Legal Sex Female 3:13 PM NUMEROLOGIST Gender Identity Not on file Sexual Orientation Not on file Obstetrics History Last Filed Vital Signs Vital Sign Reading Time Taken Comments Blood Pressure 140/72 06/09/2024 12:13 PM NUMEROLOGIST Pulse 82 06/09/2024 12:13 PM NUMEROLOGIST Temperature 37 C (98.6 F) 06/09/2024 12:13 PM NUMEROLOGIST Respiratory Rate 16 06/09/2024 12:13 PM NUMEROLOGIST Oxygen Saturation 97% 06/09/2024 12:13 PM NUMEROLOGIST Inhaled Oxygen Concentration - - Weight 59.2 kg (130 lb 8.2 oz) 06/07/2024 6:48 A M NUMEROLOGIST Height 160 cm (5' 3) 06/07/2024 6:48 AM NUMEROLOGIST Body Mass Index 23.12 06/07/2024 6:48 AM NUMEROLOGIST Plan of Treatment Health Maintenance Due Date [...] this topic Medical Devices Implanted Type Area Deputy Director Device Identifier Shelf Expiration Date Model / Serial / Lot [employer] Amplatz 8.5fr 26cm 6 Sideport Introducer Catheter String [id number] - [id number] Implanted:Qty: 1 on 06/08/2024 at [facility] [employer] 02/19/2027 [id number] 10 / / [id number] Insurance [facility] [id number] CIGNA CIGNA HEALTHLINK HMO Advance Directives For more information, please contact: [phone] * Full Code (Latest Code Status on File) Date Activated Date Inactivated Comments 06/07/2024 6:04 PM 06/09/2024 7:56 PM Care Teams Potato Chip Cooker Machine Relationship Specialty Start Date End Date Carter Sanders MD PCP - General Family Medicine 05/22/24 Jt Stern MD [address] [facility] [address] [place] [address] Consulting Physician Urology 06/09/24
--- OUTSIDE RECORDS SUMMARY | 2025-02-28 11:10 | XMS_ITS | Clinical Summary ---
Author Organization [facility] Address [address] [place] [address] Phone Care Team Providers Care Air Box Tester Name Role Phone Carter Zamora MD Primary Care Provider [phone] Allergies No known active allergies Medications levothyroxine [...] on file Legal Sex Female 8:53 AM [facility] Gender Identity Not on file Sexual Orientation [...] Description 04/09/2025 10:20 AM CDT Office Visit [facility] [address] [place] [address] Peyman Gtz MD [address] [place] [address] Health Maintenance Due Date Last Done Comments Pneumococcal PPSV23 Highest Risk Adult (1 of 3 - PCV13 ) 1986 Influenza Vaccine (#1) 2025 Insurance [employer] CIGNA Care Teams Air Box Tester Relationship Specialty Start Date End Date Carter Zamora MD [address] [address] PCP - General Family Medicine 10/08/24
--- OUTSIDE RECORDS SUMMARY | 2025-02-28 11:10 | XMS_ITS | Clinical Summary ---
Author Organization [facility] Address [address] [place] [address] [place] [address] Care Team Providers Care Customer Service Advisor Name Role Phone Unavailable Primary Care Provider [...]
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
[2025-02-28 11:18] LABS: Hematocrit 40.5 % (37.0-47.0); Hemoglobin 13.5 g/dL (12.0-15.0); Immature Granulocyte Percent A 0.7 % (0-0.5); Lymphocytes Absolute Auto 1.17 K/mm3 (0.9-3.2); Mean Corpuscular HGB Conc 33.3 g/dl (32-36); Mean Corpuscular Hemoglobin 30.2 pg (26-34); Mean Corpuscular Volume 90.6 fl (80-100); Nucleated Red Blood Cells Absolute Auto 0.000 K/mm3 (0.0-0.012); Nucleated Red Blood Cells Perc 0.0 % (0.0-0.2); Platelet Count Result 282 k/mm3 (150-375); Red Blood Count 4.47 M/mm3 (4.2-5.4); White Blood Count 10.5 K/mm3 (4.5-10.0)
[2025-02-28] MEDS: MORPHINE SULFATE (*CRX) 4 MG/ML INJ IV PUSH ×2 (11:18→12:58)
[2025-02-28] MEDS: ONDANSETRON INJ 4 MG/2 ML VIAL IV PUSH (11:18)
[2025-02-28] MEDS: SODIUM CHLORIDE 0.9% IV 1,000 ML 999 ML IV CONT (11:18)
[2025-02-28] MEDS: KETOROLAC 30 MG/ML VIAL (*BKC) IV PUSH (11:19)
[2025-02-28 11:30] LABS: Alanine Aminotransferase 27 U/L (6-35); Albumin Level 4.4 g/dL (3.5-5.1); Alkaline Phosphatase 87 U/L (38-126); Anion Gap 12 mmol/L (4-12); Aspartate Amino Transferase 27 U/L (14-36); Bilirubin,Total 0.8 mg/dL (0.2-1.3); Blood Urea Nitrogen 10 mg/dL (7-17); Calcium 9.4 mg/dL (8.4-10.2); Carbon Dioxide 22 mmol/L (22-30); Chloride 104 mmol/L (98-107); Estimated CRCL calculation 56 ml/min; Estimated Glomerular Filt Rate > 60; Glucose 148 mg/dL (65-110); Potassium 3.6 mmol/L (3.4-5.0); Sodium 138 mmol/L (137-145); Total Protein 8.1 g/dL (6.3-8.2)
--- OUTSIDE RECORDS SUMMARY | 2025-02-28 12:27 | XMS_ITS | Clinical Summary ---
Author Organization [facility] Address [address] [place] [address] [place] [address] Care Team Providers Care Stunt Performer Name Role Phone Unavailable Primary Care Provider [...]
--- OUTSIDE RECORDS SUMMARY | 2025-02-28 12:27 | XMS_ITS | Clinical Summary ---
Author Organization [facility] Address [address] [place] [address] Care Team Providers Care Dog Control Officer Name Role Phone Carter Sanders MD Primary Care Prov ider Jt Stern MD Unavailable [phone] Allergies No known active allergies Medications levothyroxine (SYNTHROID) 50 mcg tablet Take 1 tablet (50 mcg total) by mouth associate professor computer science before breakfast Active levonorgestreL (MIRENA) IUD 1 [...] Tobacco: Never Tobacco Cessation:Counseling Given: Not Answered [facility] Utilities Answer Date Recorded In [...] often do you attend chur ch or mandaen services? Never 06/08/2024 Do you belong to any clubs o r organizations such as adventism groups, unions, fraternal or athletic groups, or [...] any time in the past 12 m [facility], were you homeless or living in a senior living (including now)? No 06/08/2024 Personal Safety Answer Date Recorded Have you ever been in or are you currently in a harmful physical or emotional relationship or is someone making you feel afraid or unsafe? Denies 06/07/2024 Comments No Sex and Gender Information Value Date Recorded Sex Assigned at Not on file Legal Sex Female 3:13 PM [employer] CH[employer] Gender Identity Not on file Sexual Orientation Not on file Obstetrics History Last Filed Vital Signs Vital Sign Reading Time Taken Comments Blood Pressure 140/72 06/09/2024 12:13 PM [employer] Pulse 82 06/09/2024 12:13 PM [employer] Temperature 37 C (98.6 F) 06/09/2024 12:13 PM [employer] Respiratory Rate 16 06/09/2024 12:13 PM [employer]SEHOLD CHORES Oxygen Saturation 97% 06/09/2024 12:13 PM [employer] Inhaled Oxygen Concentration - - Weight 59.2 kg (130 lb 8.2 oz) 06/07/2024 6:48 A M [employer] Height 160 cm (5' 3) 06/07/2024 6:48 AM [employer] Body Mass Index 23.12 06/07/2024 6:48 AM [employer] Plan of Treatment Health Maintenance Due Date [...] this topic Medical Devices Implanted Type Area Sandwich Artist Device Identifier Shelf Expiration Date Model / Serial / Lot [employer] Amplatz 8.5fr 26cm 6 Sideport Introducer Catheter String [id number] - [id number] Implanted:Qty: 1 on 06/08/2024 at [facility] [employer] 02/19/2027 [id number] 10 / / [id number] Insurance [facility] [id number] CIGNA CIGNA HEALTHLINK HMO Advance Directives For more information, please contact: [phone] * Full Code (Latest Code Status on File) Date Activated Date Inactivated Comments 06/07/2024 6:04 PM 06/09/2024 7:56 PM Care Teams Dog Control Officer Relationship Specialty Start Date End Date Carter Sanders MD PCP - General Family Medicine 05/22/24 Jt Stern MD [address] [facility] [address] [place] [address] Consulting Physician Urology 06/09/24
--- OUTSIDE RECORDS SUMMARY | 2025-02-28 12:27 | XMS_ITS | Clinical Summary ---
Author Organization [facility] Address [address] [place] [phone] Phone Care Team Providers Care Group Rooms Coordinator Name Role Phone Carter Zamora MD Primary Care Provider [phone] Allergies No known active allergies Medications levothyroxine [...] on file Legal Sex Female 8:53 AM [facility] Gender Identity Not on file Sexual Orientation [...] Description 04/09/2025 10:20 AM CDT Office Visit [facility] [address] [place] [address] Peyman Gtz MD [address] [place] [address] Health Maintenance Due Date Last Done Comments Pneumococcal PPSV23 Highest Risk Adult (1 of 3 - PCV13 ) 1984 Influenza Vaccine (#1) 2025 Insurance [employer] CIGNA Care Teams Group Rooms Coordinator Relationship Specialty Start Date End Date Carter Zamora MD [address] [address] PCP - General Family Medicine 10/08/24
[2025-02-28 12:28] LABS: Add Urine Microscopic? YES; Appearance Urine Cloudy (Clear); Glucose Urine UA Negative (Negative); Leukocyte Esterase Ur 2+ LEU/UL (Negative); Nitrate Urine Negative (Negative); Non Pathogenic Casts 0-2; Specific Grav Ur 1.041 (1.001-1.035)
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
--- OUTSIDE RECORDS SUMMARY | 2025-02-28 13:37 | XMS_ITS | Clinical Summary ---
Author Organization [facility] Address [address] [place] [address] Care Team Providers Care Dock Clerk Name Role Phone Carter Sanders MD Primary Care Prov ider Jt Stern MD Unavailable [phone] Allergies No known active allergies Medications levothyroxine (SYNTHROID) 50 mcg tablet Take 1 tablet (50 mcg total) by mouth pipe organ builder before breakfast Active levonorgestreL (MIRENA) IUD 1 [...] Tobacco: Never Tobacco Cessation:Counseling Given: Not Answered [facility] Utilities Answer Date Recorded In the past [...] often do you attend chur ch or presybeterian services? Never 06/08/2024 Do you belong to any clubs o r organizations such as quaker groups, unions, fraternal or athletic groups, or [...] any time in the past 12 m [facility], were you homeless or living in [...] on file Legal Sex Female 3:13 PM LAPPER Gender Identity Not on file Sexual Orientation Not on file Obstetrics History Last Filed Vital Signs Vital Sign Reading Time Taken Comments Blood Pressure 140/72 06/09/2024 12:13 PM LAPPER Pulse 82 06/09/2024 12:13 PM LAPPER Temperature 37 C (98.6 F) 06/09/2024 12:13 PM LAPPER Respiratory Rate 16 06/09/2024 12:13 PM LAPPER Oxygen Saturation 97% 06/09/2024 12:13 PM LAPPER Inhaled Oxygen Concentration - - Weight 59.2 kg (130 lb 8.2 oz) 06/07/2024 6:48 A M LAPPER Height 160 cm (5' 3) 06/07/2024 6:48 AM LAPPER Body Mass Index 23.12 06/07/2024 6:48 AM LAPPER Plan of Treatment Health Maintenance Due Date [...] this topic Medical Devices Implanted Type Area Smalltalk Developer Device Identifier Shelf Expiration Date Model / Serial / Lot [employer] Amplatz 8.5fr 26cm 6 Sideport Introducer Catheter String [id number] - [id number] Implanted:Qty: 1 on 06/08/2024 at [facility] [employer] 02/19/2027 [id number] 10 / / [id number] Insurance [facility] [id number] CIGNA CIGNA HEALTHLINK HMO Advance Directives For more information, please contact: [phone] * Full Code (Latest Code Status on File) Date Activated Date Inactivated Comments 06/07/2024 6:04 PM 06/09/2024 7:56 PM Care Teams Dock Clerk Relationship Specialty Start Date End Date Carter Sanders MD PCP - General Family Medicine 05/22/24 Jt Stern MD [address] [facility] [address] [place] [address] Consulting Physician Urology 06/09/24
--- OUTSIDE RECORDS SUMMARY | 2025-02-28 13:37 | XMS_ITS | Clinical Summary ---
Author Organization [facility] Address [address] [place] [phone] Phone Care Team Providers Care Online Content Editor Name Role Phone Carter Zamora MD Primary Care Provider [phone] Allergies No known active allergies Medications levothyroxine [...] on file Legal Sex Female 8:53 AM [facility] Gender Identity Not on file Sexual Orientation [...] Description 04/09/2025 10:20 AM CDT Office Visit [facility] [address] [place] [address] Peyman Gtz MD [address] [place] [address] Health Maintenance Due Date Last Done Comments Pneumococcal PPSV23 Highest Risk Adult (1 of 3 - PCV13 ) 1986 Influenza Vaccine (#1) 2025 Insurance [employer] CIGNA Care Teams Online Content Editor Relationship Specialty Start Date End Date Carter Zamora MD [address] [address] PCP - General Family Medicine 10/08/24
--- OUTSIDE RECORDS SUMMARY | 2025-02-28 13:37 | XMS_ITS | Clinical Summary ---
Author Organization [facility] Address [address] [place] [address] [place] [address] Care Team Providers Care Chassis Engineer Name Role Phone Unavailable Primary Care [...]
--- NOTE | 2025-02-28 13:54 | WPDHPUPDATE1 ---
History and Physical Update Update Date/Time: 02/28/25 13:54 History and Physical has been reviewed, including an updated exam of the patient. There are NO changes in the patient's condition. Risks, benefits, and alternatives have been discussed and questions answered. Patient agrees to proceed with procedure.
--- NOTE | 2025-02-28 13:56 | WPDANESEPPF ---
Anes - Initial Pre Proc Eval Procedure: Operation Date: 02/28/25 14:00 Proposed Procedures p Cystoscopy, Right Ureteroscopy, Possible Right Retrograde Pyelogram, Possible Right Stone Extraction, Possible Right Stent Placement, Possible Holmium Laser - Kevin Flores MD Date/Time: 02/28/25 13:56 Surgeon: Kevin Folres MD Pre Op Diagnosis: right ureteral stone, right hydronephrosis Pre Op Diagnosis: R flank pain Patient Data Age: 59 Gender: F Height: 1.6 m Weight: 59.1 kg Last Vital Signs Temp 98.3 F 02/28/25 13:30 Pulse 93 02/28/25 13:30 Resp 16 02/28/25 13:30 BP 138/74 02/28/25 13:30 Pulse Ox 95 02/28/25 13:30 O2 Del Method Room Air 02/28/25 13:30 O2 Flow Rate 2 02/28/25 11:30 Allergies Allergy/AdvReac Type Severity Reaction Status Date / Time No Known Allergies Allergy Verified 01/02/25 10:47 Home Medications ?Medication ?Instructions ?Recorded ?Confirmed ?Type Levoxyl 50 mcg tablet 50 mcg PO DAILY #90 tabs 12/24/24 02/28/25 Rx (levothyroxine) Laboratory Tests 02/28/25 02/28/25 11:07 12:16 WBC 10.5 H K/mm3 (4.5-10.0) RBC 4.47 M/mm3 (4.2-5.4) Hgb 13.5 g/dL (12.0-15.0) Hct 40.5 % (37.0-47.0) MCV 90.6 fl (80-100) MCH 30.2 pg (26-34) MCHC 33.3 g/dl (32-36) RDW 12.7 % (11.5-14.5) Plt Count 282 k/mm3 (150-375) MPV 9.9 fl (7.4-10.4) Immature Gran % (Auto) 0.7 H % (0-0.5) Neut % (Auto) 82.7 H % (45.5-73.1) Lymph % (Auto) 11.2 L % (18.3-44.2) [place] % (Auto) 4.6 % (2.6-8.5) Eos % (Auto) 0.1 % (0-4.4) Baso % (Auto) 0.7 % (0.2-1.2) Lymph # (Auto) 1.17 K/mm3 (0.9-3.2) [place] # (Auto) 0.5 K/mm3 (0.1-0.6) Eos # (Auto) 0.0 K/mm3 (0-0.3) Baso # (Auto) 0.1 K/mm3 (0.0-0.1) Abs Immat Gran (auto) 0.07 H K/mm3 (0.00-0.031) Absolute Neuts (auto) 8.7 H K/mm3 (1.3-6.7) Absolute Nucleated RBC 0.000 K/mm3 (0.0-0.012) Nucleated RBC % 0.0 % (0.0-0.2) Sodium 138 mmol/L (137-145) Potassium 3.6 mmol/L (3.4-5.0) Chloride 104 mmol/L (98-107) Carbon Dioxide 22 mmol/L (22-30) Anion Gap 12 mmol/L (4-12) BUN 10 mg/dL (7-17) Creatinine 0.80 mg/dL (0.7-1.0) Estim Creat Clear Calc 56 ml/min Estimated GFR > 60 (59 - ) Glucose 148 H mg/dL (65-110) Calcium 9.4 mg/dL (8.4-10.2) Total Bilirubin 0.8 mg/dL (0.2-1.3) AST 27 U/L (14-36) ALT 27 U/L (6-35) Alkaline Phosphatase 87 U/L (38-126) Total Protein 8.1 g/dL (6.3-8.2) Albumin 4.4 g/dL (3.5-5.1) Urine Color Yellow (Yellow) Urine Appearance Cloudy H (Clear) Urine pH 7.5 (5.0-9.0) Ur Specific [place] 1.041 H (1.001-1.035) Urine Protein Trace mg/dL (Negative) Urine Glucose (UA) Negative mg/dL (Negative) Urine Ketones 2+ H mg/dL (Negative) Ur Blood (Man) Trace (Negative) Urine Nitrate Negative (Negative) Urine Bilirubin Negative (Negative) Urine Urobilinogen 0.2 mg/dL (<2.0) Leukocyte Esterase Rfl 2+ H HITESH/UL (Negative) Urine RBC 3-5 H /hpf (0-2) Urine WBC >100 H /hpf (0-3) Ur Squamous Epith Cells None seen /hpf (Few) Urine Bacteria 1+ H /hpf Urine Casts 0-2 Patient hx anesthesia problems: none Family hx anesthesia problems: none Results Review: All pre-operative results and documents have been reviewed as part of the pre-operative evaluation. [facility] Past Medical History Medical History Hx of mumps (~05/03/72) Surgical History Surgical History (Updated 02/28/25 @ 13:58 by Tessa Herrera CRNA) H/O insertion of nephrostomy tube Family History Family History Father Acute myocardial infarction Diabetes mellitus Heart disease Kidney disease Mother Acute myocardial infarction Asthma Heart disease Kidney disease Social History Social History Smoking status: Never smoker Second hand tobacco smoke exposure: No Alcohol intake: never Substance use: never Substance use type: does not use Lack of Transportation: No Lack of Food: Never True Current Housing: I Have Housing Concerned About Future Housing: No Difficulty Paying Gas/Electric Bills: No Difficulty Paying for Meds: No Currently Unemployed: No Education: Master's Degree or Higher Difficulty w/ Childcare or Family Care: No Living arrangements: with family Occupation/Education: occupation Gender identity (if verbalized by the patient): Female Sexual Orientation (if Verbalized by the Patient): Straight or Heterosexual Spiritual care concerns: No Agree to blood products: Yes Anes - Eval Final PreProcedure Day of Procedure 02/28/25 13:56 Patient weight: normal Lungs: clear to auscultation Airway: Mallampati scale class II Neurological: alert and oriented Last oral intake: >/= 8 hours (solids 2000, liquids this am) ASA classification: II Emergent: no Anesthetic plan: proceed Anesthesia type and monitoring: general LMA Results Review: All pre-operative results and documents have been reviewed as part of the pre-operative evaluation. Informed Consent: The patient's anesthetic plan and its attendant risks and benefits were discussed with the patient/family/POA. Questions were solicited and answers provided to the satisfaction of the patient/family/POA.
[2025-02-28] MEDS: ceFAZolin 2 GM in SODIUM CHLORIDE 0.9% IV 50 ML 100 ML IVPB (14:00)
[2025-02-28] MEDS: LIDOCAINE 2% GEL UROJET 10 ML PKG MUCOUS MEM (14:14)
--- NOTE | 2025-02-28 14:19 | S_PTH ---
PATIENT: Abbie Coreas LOC: [facility] U#:[id number] AGE/SX: 59/F ROOM: RE02/28/[address]: Kevin Flores, : 1965 BED: DIS: 02/28/2025 SPEC #: [id number] RECD: 03/01/25 07:04 STATUS: ROBYN RECaitlin #: [id number] RICKY: 02/28/25 14:[address]: Sandra,Kevin Ascencio DEPT: [facility] Surgical RECD BY: Leigh Mark ENTERED: 03/01/25 07:04 SP TYPE: Surgical OTHR DR: Carter Sanders MD Tissues: A - Stone Procedures: Gross Exam Level 1 Crystalline Analysis
--- NOTE | 2025-02-28 14:27 | P.OP_ITS ---
Procedure Note - Detailed Date of Procedure 02/28/25 Pre-op Diagnosis R flank pain, Right ureteral calculus Post-op Diagnosis Same Procedure Performed cystoscopy, right ureteroscopy with stone extraction, right stent placement 4.8 [place] contour Surgeon Kevin Flores MD Anesthesia General Description of Procedure patient was taken to the operative suite correctly identified. Once anesthesia was obtained was placed in dorsal lithotomy position and prepped and draped usual sterile fashion. Twenty-two [place] scope was inserted into the urethra. There was no tumors in the bladder. The right ureteral orifice was cannulated the guidewire. It dilated easily with an 8/10 dilator. Rigid ureteral scope was inserted the stone was visualized immediately. Using escape basket it was a very easy extraction. This was sent for analysis. Pyelogram was not performed as there was still contrast in the kidney. 4.8 [place] contour stent was then placed with the proximal end coiled in the renal pelvis and the distal in the bladder. Patient was taken recovery stable condition. She will be discharged home she does well in recovery. Follow up in about a week for stent removal. She will call for that appointment. This completes dictation. Please send a copy of op note to my office Estimated Blood Loss 0 Drains Yes Packing No Pathology Yes Complications No immediate complications Condition Stable Disposition PACU
[2025-02-28] MEDS: LACTATED RINGERS 1,000 ML 30 ML IV CONT (14:29)
--- NOTE | 2025-02-28 14:32 | PM.IMHP ---
H&P: HPI History of Present Illness Date/Time: 02/28/25 14:32 Chief Complaint: Flank Pain Narrative: 59 y/o F with PMH of kidney stones presents here with flank pain. The patient presents here from home for further evaluation of a sudden onset of right flank pain. She reports the flank pain woke her up from sleep this morning. She described the pain as XX, radiation into her pelvic region, constant/intermittent, (duration), aggravated by XX, and alleviated by XX. She reports the flank pain is accompanied by nausea and vomiting. She denies XX. She has a past medical history significant for nonobstructing kidney stones. Initial VS at presentation: 97.6? F, HR 68, R 22, 141/90, and 100% on RA. ED workup showed: WBC 10.5, no anemia, no significant electrolyte derangements, renal function within normal limits, glucose 148, and UA suggestive of possible UTI. CT of the abdomen/pelvis showed a 0.5 cm calculus in the right ureteropelvic junction causing moderate to severe right hydronephrosis and mild diffuse thickening of the urinary bladder wall, nonspecific fat stranding around the right ureter. Review of Systems Review of Systems: All systems reviewed & are unremarkable except as noted in HPI and below PMFSH Past Medical History Medical History Hypothyroidism, unspecified Kidney stone Hx of mumps (~05/03/72) Surgical History Surgical History H/O insertion of nephrostomy tube Family History Family History Father Acute myocardial infarction Diabetes mellitus Heart disease Kidney disease Mother Acute myocardial infarction Asthma Heart disease Kidney disease Social History Social History Smoking status: Never smoker Second hand tobacco smoke exposure: No Alcohol intake: never Substance use: never Substance use type: does not use Lack of Transportation: No Lack of Food: Never True Current Housing: I Have Housing Concerned About Future Housing: No Difficulty Paying Gas/Electric Bills: No Difficulty Paying for Meds: No Currently Unemployed: No Education: Master's Degree or Higher Difficulty w/ Childcare or Family Care: No Living arrangements: with family Occupation/Education: occupation Gender identity (if verbalized by the patient): Female Sexual Orientation (if Verbalized by the Patient): Straight or Heterosexual Spiritual care concerns: No Agree to blood products: Yes Meds Home Medications and Allergies Home Medications ?Medication ?Instructions ?Recorded ?Confirmed ?Type Levoxyl 50 mcg tablet 50 mcg PO DAILY #90 tabs 12/24/24 02/28/25 Rx (levothyroxine) oxybutynin chloride 5 mg tablet 5 mg PO BID PRN bladder spasms #30 02/28/25 Rx tabs sulfamethoxazole 800 1 tablet PO Q12H #6 tabs 02/28/25 Rx mg-trimethoprim 160 mg tablet (Bactrim DS) tramadol 50 mg tablet 50 mg PO Q6H PRN pain #20 tabs 02/28/25 Rx Allergies Allergy/AdvReac Type Severity Reaction Status Date / Time No Known Allergies Allergy Verified 01/02/25 10:47 Vital Signs Vital Signs - 24 hr 02/28/25 10:50 02/28/25 11:30 02/28/25 11:30 Temperature 97.6 F Pulse Rate 68 Respiratory Rate 22 H Blood Pressure 141/90 H Pulse Oximetry 100 78 L 98 Oxygen Delivery Room Air Nasal Cannula Oxygen Flow Rate 2 02/28/25 12:24 02/28/25 12:24 02/28/25 13:30 Temperature 98.3 F Pulse Rate 91 93 Respiratory Rate 15 16 Blood Pressure 142/74 H 138/74 Pulse Oximetry 97 97 95 Oxygen Delivery Room Air Room Air Oxygen Flow Rate H&P: Results Labs Labs: Short CBC 02/28/25 Range/Units 11:07 WBC 10.5 H (4.5-10.0) K/mm3 Hgb 13.5 (12.0-15.0) g/dL Hct 40.5 (37.0-47.0) % Plt Count 282 (150-375) k/mm3 BMP 02/28/25 11:07 Sodium 138 Potassium 3.6 Chloride 104 Carbon Dioxide 22 BUN 10 Creatinine 0.80 Glucose 148 H Calcium 9.4 Liver Function 02/28/25 Range/Units 11:07 Total Bilirubin 0.8 (0.2-1.3) mg/dL AST 27 (14-36) U/L ALT 27 (6-35) U/L Alkaline Phosphatase 87 (38-126) U/L Albumin 4.4 (3.5-5.1) g/dL Urine 02/28/25 Range/Units 12:16 Urine Color Yellow (Yellow) Urine Appearance Cloudy H (Clear) Urine pH 7.5 (5.0-9.0) Ur Specific Pine 1.041 H (1.001-1.035) Urine Protein Trace (Negative) mg/dL Urine Glucose (UA) Negative (Negative) mg/dL Assessment and Plan Assessment and plan (1) Right ureteral calculus: Code(s): N20.1 - Calculus of ureter Status: Acute Assessment and Plan: - CT abdomen/pelvis: 1. 0.5 cm calculus in the right ureteropelvic junction causing moderate to severe right hydronephrosis. 2. Mild diffuse thickening of the urinary bladder wall. Nonspecific fat stranding around the right ureter. Correlate with urinalysis to rule out possible acute cystitis and UTI. - urology consulted, plan for cystoscopy this afternoon on 02/28 - antiemetics and analgesics p.r.n. - IV fluids: 1L bolus -> 125 mL/hr - trend renal function and WBC Upon admission renal function within normal limits and WBC 10.5 - currently complicated by an ascending UTI, see below (2) UTI (urinary tract infection): Qualifiers: Urinary tract infection type: acute pyelonephritis Qualified Code(s): N10 - Acute pyelonephritis Code(s): N39.0 - Urinary tract infection, site not specified Status: Acute Assessment and Plan: - UA: Cloudy, 1.041 specific gravity, 2+ ketones, 2+ leuk esterase, 3-5 RBC, greater than 100 WBC, no epithelial cells and 1+ bacteria - UC pending - previous micro reviewed, no previous resistances - started on Ceftriaxone on 02/28 (3) Hypothyroidism, unspecified: Qualifiers: Hypothyroidism type: unspecified Qualified Code(s): E03.9 - Hypothyroidism, unspecified Code(s): E03.9 - Hypothyroidism, unspecified Status: Acute Assessment and Plan: - continue Synthroid Plan Diet: NPO -> regular GI Prophylaxis: n/a DVT Prophylaxis: scds IV fluids: 1L bolus -> 125 mL/hr Lines/Tubes: peripheral IV Code Status: full code Quality VTE Prophylaxis VTE prophylaxis: mechanical ordered Hospitalist [facility] Advance Care Plan I have confirmed that the patient's Advanced Care Plan is present, code status is documented, or surrogate decision maker is listed in patient medical record.: Yes Medication Reconciliation I have utilized all available resources to obtain, update and review the patients current medications (includes all prescriptions, OTC, herbals, cannabis, and nutritional supplements).: Yes
== END 2025-02-28 16:05 | disposition home or self-care (01) ==
LOC: ANHED 13:03 → ANHSURGERY 13:29
PROVIDERS: Emergency Provider Nurse Practitioner Family; PCP Family Medicine Adolescent Medicine; Visit Provider Urology
PROC: (CPT 52352; principal; 2025-02-28 14:00)
DX: N13.2 Hydronephrosis with renal and ureteral calculous obstruction (principal); N30.91 Cystitis, unspecified with hematuria
CPT/HCPCS: 52332; 52352; 36415; 74177; 74420; 80053; 81001; 82365; 85025; 87077; 87086; 87186; 88300; 96361; 96374; 96375; 96376; 99285; J0690; C1769; C2617; J1100; J1885; J2003; J2250; J2270; J2405; J2704; J3010; J7030; J7120; Q9967

== ENCOUNTER 2025-05-07 00:56 | Day surgery (SDC) | payer OTHER, SELFPAY ==
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
[2025-04-23 14:50] VITALS: BMI 23.0
--- OUTSIDE RECORDS SUMMARY | 2025-05-07 00:59 | XMS_ITS | Clinical Summary ---
Author Organization [facility] Address [address] [place] [phone] Phone Care Team Providers Care Lending Activities Supervisor Name Role Phone Carter Zamora MD Primary Care Provider [phone] Allergies No known active allergies Medications levothyroxine (Levoxyl) 50 MCG tablet Take 1 tablet by mouth 1 (one) time each day Active Active Problems Problem Noted Date Diagnosed Date Personal history of kidney stones 10/08/2024 Encounters Date Type Department Care Team Description 04/05/2025 Orders Only [facility] [address] [place] [id number] Yudith Gonzalez PA Recurrent kidney stone (Primary Dx) 03/15/2025 Orders Only [facility] [address] [place] [address] Rita Devine MA Nephrolithiasis (Primary Dx) from Last 3 Months Social History Tobacco Use Types Packs/Day Years Used Date Smoking Tobacco: Never Assessed Comments Unknown Sex and Gender Information Value Date Recorded Sex Assigned at Not on file Legal Sex Female 8:53 AM [facility] Gender Identity Not on file Sexual Orientation [...] Care Team (Late st Contact Info) Description 06/04/2025 10:20 AM [employer] Office Visit [facility] [address] [place] [address] Peyman Gtz MD [address] [place] [address] Health Maintenance Due Date Last Done Comments Pneumococcal PPSV23 Highest Risk Adult (1 of 3 - PCV13 ) 1984 Influenza Vaccine (#1) 2025 Insurance [employer] Care Teams Lending Activities Supervisor Relationship Specialty Start Date End Date Carter Zamora MD [address] [facility] [address] [place] [id number] PCP - General Family Medicine 10/08/24
--- OUTSIDE RECORDS SUMMARY | 2025-05-07 00:59 | XMS_ITS | Data Portability ---
Author Organization [facility] Simpson Address [address] [place] [address] [place] [address] Care Team Providers Care Yard Brakeman Name Role Phone YULI SHAIKH Primary Care Provider Assessment Encounter Date Assessment Date Assessment LastModified by Organization Details LastModified Time 05/25/2023 05/25/2023 Annual gynecological exam performed. Patient will come back in a year unless there are new symptoms. Not available 05/25/2023 09:18:10 08/21/2024 08/21/2024 Annual gynecological exam performed. Patient will come back in a year unless there are new symptoms. [email or web address] Not available 08/18/2024 09:46:10 Plan of Treatment Reminders Order Date Submit Date Provider Last Modified By Organization Details Last Modified Time Details Appointments None recorded. Lab test, urine 2024 025 [email or web address] [address], [address], [place], [address], 09:46:48 CBC w/ auto diff 2024 025 [facility] (Lab), [address], [place], [address], 5 19:10:44 CMP, serum or plasma 2024 025 [facility] (Lab), [address], [place], [address], 5 19:10:44 lipid panel, blood 2024 025 [facility] (Lab), [address], [place], [address], 5 19:10:45 TSH, serum or plasma 2024 025 [facility] (Lab), [address], [place], [address], 5 19:10:45 HbA1c (hemoglobin A1c), blood 2024 025 [facility] (Lab), [address], [place], [address], 5 19:10:45 vitamin D, 25-hydroxy, total, serum 2022 023 [facility] (Lab), [address], [place], [address], 3 03:19:45 HbA1c (hemoglobin A1c), blood 2022 023 [facility] (Lab), [address], [place], [address], 3 03:19:45 CBC w/ auto diff 2022 023 [facility] (Lab), [address], [place], [address], 3 03:19:44 lipid panel, blood 2022 023 [facility] (Lab), [address] [place], [address], 3 03:19:43 CMP, serum or plasma 2022 023 [facility] (Lab), [address] [place], [address], 3 03:19:44 TSH, serum or plasma 2022 023 [facility] (Lab), [address], [place], [address], 3 03:19:45 Referral None recorded. Procedures None recorded. Surgeries None recorded. Imaging MAMMO, screening, digital, bilateral [address] [facility], [address], [place], [address], 5 12:39:57 US, pelvis [address], [address], [address], [place], [address], 3 18:28:01 US, transvagina l [address], [address], [address], [place], [address], 3 18:28:01 MAMMO, screening, bilateral [address] [facility], [address], [place], [address], 3 08:22:48 US, pelvis, complete 2022 [address], [address], [place], [address], 4 12:50:49 Medication Orders triamcinolo ne acetonide 0.1 % topical cream [email or web address] [place] [address] [facility] [place], [address], 5 10:04:54 metronidazo le 0.75 % (37.5 mg/5 gram) vaginal gel 2022 023 [facility], [address] [place], [address], 3 09:21:40 Diflucan 150 mg tablet [id number] [facility], [address] [place], [address], 3 09:21:33 Pyridium 100 mg tablet 2022 023 [facility], [address] [place], [address], 3 09:22:04 Patient TargetsNo targets recorded. Patient InstructionsNo instructions recorded. Reason for Referral None Reported. Results Created Date Observation Date Name Description Value Unit Range Abnormal Flag Note LastModifiedBy Organization Detail LastModifiedTime 05/25/2005/25/2023 LIPID PANEL ,AMA (LDL- CALC) total cholesterol 197 mg/dL 0-199 Not Available [facility] (Lab) [address], [place], [address], 05/26/2023 03:19:43 05/25/2005/25/2023 LIPID PANEL ,AMA (LDL- CALC) triglyceride s 139 mg/dL 0.00-1 50.00 NCEP Refer ence Value s for Trigl yceri negin: Radha l: <150 mg/dL Borde rline High: 150 - 199 mg/dL High: 200 - 499 mg/dL Very High: >/= 500 mg/dL Not Available [facility] (Lab) [address], [place], [address], 05/26/2023 03:19:43 05/25/2005/25/2023 LIPID PANEL ,AMA (LDL- CALC) HDL cholesterol 59 mg/dL >40 Not Available [facility] (Lab) [address], [place], [address], 05/26/2023 03:19:43 1105/25/2023 LIPID PANEL ,AMA (LDL- CALC) LDL cholesterol [...] mg/dL , HDL <40 mg/dL Not Available [facility] (Lab) [address] [facility], [place], [address], 05/26/2023 03:19:43 05/25/2005/25/2023 LIPID PANEL ,AMA (LDL- CALC) non-HDL cholesterol 138 mg/dL no refere nce range A reaso nable goal for non-H DL lacy stero l is one that is 30 mg/dL highe r than the LDL lacy stero l goal. Not Available [facility] (Lab) [address] [facility], [place], [address], 05/26/2023 03:19:43 05/25/2005/25/2023 LIPID PANEL ,AMA (LDL- CALC) chol/HDL ratio 3.3 . 0.0-5. 0 On October 19, 2022, [facility] labor atori luis javed ed the equat ion for calcu latin g estim ated low-d ensit y lipop rotei n-cho leste rol (LDL- C) from the Fried jonna equat ion to the Natalya carrillo/Ulices patterson equat ion. This new equat ion is [...] non-f astin g. Refer ences : - Ruiz oMntoya, Prabhu Sosa , Roberto Carlos jeffrey, Prashanth Lea, Jack Montoya , and Luis Worley . 2013. Comp ariso n of a Novel Metho d vs the Fried jonna Equat ion for Estim ating Low-D ensit y Lipop rotei n Lacy stero l Level s from the Stand duglas Lipid Profyang le. NAYELY: The Journ al of the Ameri can Medic al Assoc iatio n 310 (19): 2060- . - Grey harrell V, Sharda J, Rodrick ar A, Basilia M, Gabby yee R, Oskar harrell E, Elise courtney RS, Meir SR, Natalya carrillo SS. Fast ing Versu s Nonfa sting and Low-D ensit y Lipop rotei n Lacy stero l Accur acy. Circu latio n. 2017Jun 28;137 (1):1 0-19. Not Available [facility] (Lab) [address] [facility], [place], [address], 05/26/2023 03:19:43 05/25/20 23 05/25/2023 CMP(C OMPRE HENSI VE METAB OLIC PANEL ) sodium 143 mmol/ L 133-14 6 Not Available [facility] (Lab) [address] [place], [address], 05/26/2023 03:19:44 05/25/20 23 05/25/2023 CMP(C OMPRE HENSI VE METAB OLIC PANEL ) potassium 4.0 mmol/ L 3.5-5. 1 Not Available [facility] (Lab) [address] [place], [address], 05/26/2023 03:19:44 05/25/20 23 05/25/2023 CMP(C OMPRE HENSI VE METAB OLIC PANEL ) chloride 103 mmol/ L 98-107 Not Available [facility] (Lab) [address] [place], [address], 05/26/2023 03:19:44 05/25/20 23 05/25/2023 CMP(C OMPRE HENSI VE METAB OLIC PANEL ) carbon dioxide 29 mmol/ L 21-31 Not Available [facility] (Lab) [address], [place], [address], 05/26/2023 03:19:44 05/25/20 23 05/25/2023 CMP(C OMPRE HENSI VE METAB OLIC PANEL ) anion gap 11 mmol/ L 4-13 Not Available [facility] (Lab) [address], [place], [address], 05/26/2023 03:19:44 05/25/20 23 05/25/2023 CMP(C OMPRE HENSI VE METAB OLIC PANEL ) blood urea nitrogen 11 mg/dL 7-25 Not Available [facility] (Lab) [address], [place], [address], 05/26/2023 03:19:44 05/25/20 23 05/25/2023 CMP(C OMPRE HENSI VE METAB OLIC PANEL ) creatinine 0.81 mg/dL 0.60-1 .30 Not Available [facility] (Lab) [address], [place], [address], 05/26/2023 03:19:44 05/25/20 23 05/25/2023 CMP(C OMPRE HENSI VE METAB OLIC PANEL ) egfrcr (CKD-epi 2020) 85 mL/mi n/1.7 3_m2 >=60 Not Available [facility] (Lab) [address], [place], [address], 05/26/2023 03:19:44 05/25/20 23 05/25/2023 CMP(C OMPRE HENSI VE METAB OLIC PANEL ) calcium 9.8 mg/dL 8.3-10 .5 Not Available [facility] (Lab) [address], [place], [address], 05/26/2023 03:19:44 05/25/20 23 05/25/2023 CMP(C OMPRE HENSI VE METAB OLIC PANEL ) glucose 102 mg/dL 70-100 high Not Available [facility] (Lab) [address] [facility], [place], [address], 05/26/2023 03:19:44 05/25/20 23 05/25/2023 CMP(C OMPRE HENSI VE METAB OLIC PANEL ) protein, total 7.5 g/dL 6.4-8. 3 Not Available [facility] (Lab) [address] [facility], [place], [address], 05/26/2023 03:19:44 05/25/20 23 05/25/2023 CMP(C OMPRE HENSI VE METAB OLIC PANEL ) albumin 4.6 g/dL 3.5-5. 0 Not Available [facility] (Lab) [address] [facility], [place], [address], 05/26/2023 03:19:44 05/25/20 23 05/25/2023 CMP(C OMPRE HENSI VE METAB OLIC PANEL ) ALT 21 units /L 9-43 Not Available [facility] (Lab) [address] [facility], [place], [address], 05/26/2023 03:19:44 05/25/20 23 05/25/2023 CMP(C OMPRE HENSI VE METAB OLIC PANEL ) alkaline phosphatase 57 units /L 34-104 Not Available [facility] (Lab) [address] [facility], [place], [address], 05/26/2023 03:19:44 05/25/20 23 05/25/2023 CMP(C OMPRE HENSI VE METAB OLIC PANEL ) AST 16 units /L 13-39 Not Available [facility] (Lab) [address] [facility], [place], [address], 05/26/2023 03:19:44 05/25/20 23 05/25/2023 CMP(C OMPRE HENSI VE METAB OLIC PANEL ) bilirubin, total 0.7 mg/dL 0.2-1. 2 Not Available [facility] (Lab) [address], [place], [address], 05/26/2023 03:19:44 05/25/20 23 05/25/2023 CBC W/DIF F WBC 8.1 10'3/ uL 3.6-10 .2 Not Available [facility] (Lab) [address], [place], [address], 05/26/2023 03:19:44 05/25/20 23 05/25/2023 CBC W/DIF F RBC 4.61 10'6/ uL (based on docume nted legal sex) 4.10-5 .30 Not Available [facility] (Lab) [address], [place], [address], 05/26/2023 03:19:44 05/25/20 23 05/25/2023 CBC W/DIF F HGB 14.3 g/dL (based on docume nted legal sex) 11.9-1 5.8 Not Available [facility] (Lab) [address], [place], [address], 05/26/2023 03:19:44 05/25/20 23 05/25/2023 CBC W/DIF F HCT 43.9 % (based on docume nted legal sex) 37.4-4 8.3 Not Available [facility] (Lab) [address], [place], [address], 05/26/2023 03:19:44 05/25/20 23 05/25/2023 CBC W/DIF F MCV 95.2 fL 82.0-9 9.0 Not Available [facility] (Lab) [address], [place], [address], 05/26/2023 03:19:44 05/25/20 23 05/25/2023 CBC W/DIF F MCH 31.0 pg 27.0-3 3.0 Not Available [facility] (Lab) [address] [place], [address], 05/26/2023 03:19:44 05/25/20 23 05/25/2023 CBC W/DIF F MCHC 32.6 g/dL 32.0-3 6.0 Not Available [facility] (Lab) [address], [place], [address], 05/26/2023 03:19:44 05/25/20 23 05/25/2023 CBC W/DIF F RDW 12.2 % 11.0-1 5.0 Not Available [facility] (Lab) [address], [place], [address], 05/26/2023 03:19:44 05/25/20 23 05/25/2023 CBC W/DIF F plt 358 10'3/ uL 150-45 0 Not Available [facility] (Lab) [address], [place], [address], 05/26/2023 03:19:44 05/25/20 23 05/25/2023 CBC W/DIF F MPV 10.8 fL 9.8-12 .7 Not Available [facility] (Lab) [address], [place], [address], 05/26/2023 03:19:44 05/25/20 23 05/25/2023 CBC W/DIF F NRBC's 0.0 % 0 Not Available [facility] (Lab) [address], [place], [address], 05/26/2023 03:19:44 05/25/20 23 05/25/2023 CBC W/DIF F absolute NRBCs 0.0 10'3/ uL 0 Not Available [facility] (Lab) [address], [place], [address], 05/26/2023 03:19:44 05/25/20 23 05/25/2023 CBC W/DIF F neutrophils 58.4 % 37.0-7 2.0 Not Available [facility] (Lab) [address] [facility], [place], [address], 05/26/2023 03:19:44 05/25/20 23 05/25/2023 CBC W/DIF F lymphocytes 30.5 % 16.0-4 8.0 Not Available [facility] (Lab) [address] [facility], [place], [address], 05/26/2023 03:19:44 05/25/20 23 05/25/2023 CBC W/DIF F monocytes 6.9 % 4.0-14 .0 Not Available [facility] (Lab) [address] [facility], [place], [address], 05/26/2023 03:19:44 05/25/20 23 05/25/2023 CBC W/DIF F eosinophils 2.6 % 0.0-9. 0 Not Available [facility] (Lab) [address] [facility], [place], [address], 05/26/2023 03:19:44 05/25/20 23 05/25/2023 CBC W/DIF F basophils 1.4 % 0.0-2. 0 Not Available [facility] (Lab) [address] [facility], [place], [address], 05/26/2023 03:19:44 05/25/20 23 05/25/2023 CBC W/DIF F immature granulocytes 0.2 % no define d refere nce range Not Available [facility] (Lab) [address] [facility], [place], [address], 05/26/2023 03:19:44 05/25/20 23 05/25/2023 CBC W/DIF F absolute neutrophils 4.7 10'3/ uL 1.1-6. 0 Not Available [facility] (Lab) [address] [facility], [place], [address], 05/26/2023 03:19:44 05/25/20 23 05/25/2023 CBC W/DIF F absolute lymphocytes 2.5 10'3/ uL 0.7-3. 4 Not Available [facility] (Lab) [address] [facility], [place], [address], 05/26/2023 03:19:44 05/25/20 23 05/25/2023 CBC W/DIF F absolute monocytes 0.6 10'3/ uL 0.3-1. 0 Not Available [facility] (Lab) [address] [facility], [place], [address], 05/26/2023 03:19:44 05/25/20 23 05/25/2023 CBC W/DIF F absolute eosinophils 0.2 10'3/ uL 0.0-0. 6 Not Available [facility] (Lab) [address] [facility], [place], [address], 05/26/2023 03:19:44 05/25/20 23 05/25/2023 CBC W/DIF F absolute basophils 0.1 10'3/ uL 0.0-0. 1 Not Available [facility] (Lab) [address] [facility], [place], [address], 05/26/2023 03:19:44 05/25/20 23 05/25/2023 CBC W/DIF [...] resul ts are expec juan. Not Available [facility] (Lab) [address] [facility], [place], [address], 05/26/2023 03:19:44 05/25/20 23 05/25/2023 TSH, REFLE X FREE T4 TSH 2.85 uIU/m L 0.30-5 .33 Not Available [facility] (Lab) [address] [facility], [place], [address], 05/26/2023 03:19:45 05/25/20 23 05/25/2023 VITAM IN D, 25-OH (TOTA L D2/D3 ) vitamin D, 25-hydroxy, total 25.8 NG/mL 30.0-1 00.0 low Sugge stive of Defic iency : <20 ng/mL Sugge stive of Insuf ficie ncy: 20-29 ng/mL Sugge stive of Suffi cienc y: 30-10 0 ng/mL Sugge stive of Toxic ity: >150 ng/mL Not Available [facility] (Lab) [address], [place], [address], 05/26/2023 03:19:45 05/25/20 23 05/25/2023 HEMOG LOBIN [...] >8.0% Actio n sugge sted Not Available [facility] (Lab) [address], [place], [address], 05/26/2023 03:19:45 05/25/20 23 05/25/2023 IMAGE GUIDE D PAP AND HPV REGAR DLESS image guided Pap, HPV regardless of Pap result SEE RESULT S BELOW CASE REPOR T: Cytol ogy Gynec ologi akila Repor t Case: [id number] Autho ashlee g Provi ying: Alirio Reyna Colle cted: 05/25 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 Not Available [facility] (Lab) [address], [place], [address], 05/27/2023 16:27:18 08/21/19 25 08/21/2024 CBC W/DIF F WBC 6.8 10'3/ uL 3.5-10 .5 Not Available [facility] (Lab) [address], [place], [address], 08/22/2024 19:10:43 08/21/19 25 08/21/2024 CBC W/DIF F RBC 4.64 10'6/ uL (based on docume nted legal sex) 3.80-5 .20 Not Available [facility] (Lab) [address], [place], [address], 08/22/2024 19:10:43 08/21/19 25 08/21/2024 CBC W/DIF F HGB 13.8 g/dL (based on docume nted legal sex) 11.6-1 5.4 Not Available [facility] (Lab) [address], [place], [address], 08/22/2024 19:10:43 08/21/19 25 08/21/2024 CBC W/DIF F HCT 44.8 % (based on docume nted legal sex) 34.0-4 5.0 Not Available [facility] (Lab) [address], [place], [address], 08/22/2024 19:10:43 08/21/19 25 08/21/2024 CBC W/DIF F MCV 96.6 fL 80.0-9 9.0 Not Available [facility] (Lab) [address] [facility], [place], [address], 08/22/2024 19:10:43 08/21/19 25 08/21/2024 CBC W/DIF F MCH 29.7 pg 27.0-3 4.0 Not Available [facility] (Lab) [address] [facility], [place], [address], 08/22/2024 19:10:43 08/21/19 25 08/21/2024 CBC W/DIF F MCHC 30.8 g/dL 32.0-3 5.5 low Not Available [facility] (Lab) [address] [facility], [place], [address], 08/22/2024 19:10:43 08/21/19 25 08/21/2024 CBC W/DIF F RDW 12.6 % 11.0-1 5.0 Not Available [facility] (Lab) [address] [facility], [place], [address], 08/22/2024 19:10:43 08/21/19 25 08/21/2024 CBC W/DIF F plt 363 10'3/ uL 150-40 0 Not Available [facility] (Lab) [address] [facility], [place], [address], 08/22/2024 19:10:43 08/21/19 25 08/21/2024 CBC W/DIF F MPV 10.9 fL 8.8-12 .1 Not Available [facility] (Lab) [address] [facility], [place], [address], 08/22/2024 19:10:43 08/21/19 25 08/21/2024 CBC W/DIF F neutrophils 55.2 % 34.0-7 3.0 Not Available [facility] (Lab) [address] [facility], [place], [address], 08/22/2024 19:10:43 08/21/19 08/21/2024 CBC W/DIF F lymphocytes 33.0 % 15.0-5 0.0 Not Available [facility] (Lab) [address] [facility], [place], [address], 08/22/2024 19:10:43 08/21/1908/21/2024 CBC W/DIF F monocytes 7.8 % 1.0-15 .0 Not Available [facility] (Lab) [address] [facility], [place], [address], 08/22/2024 19:10:43 08/21/19 25 08/21/2024 CBC W/DIF F eosinophils 2.1 % 0.0-8. 0 Not Available [facility] (Lab) [address] [facility], [place], [address], 08/22/2024 19:10:43 08/21/1908/21/2024 CBC W/DIF F basophils 1.6 % 0.0-2. 0 Not Available [facility] (Lab) [address] [facility], [place], [address], 08/22/2024 19:10:43 08/21/1908/21/2024 CBC W/DIF F immature granulocytes 0.3 % no define d refere nce range Immat ure Granu locyt es (IG) repre sents autom ated enume ratio n of Metam yeloc ytes, Myelo cytes and Promy elocy jae when IG is < 5%. Blast s are not inclu ded in IG and repor juan separ ately if prese nt. Not Available [facility] (Lab) [address] [facility], [place], [address], 08/22/2024 19:10:43 08/21/1908/21/2024 CBC W/DIF F absolute neutrophils 3.8 10'3/ uL 1.5-8. 0 Not Available [facility] (Lab) [address] [facility], [place], [address], 08/22/2024 19:10:43 08/21/19 25 08/21/2024 CBC W/DIF F absolute lymphocytes 2.3 10'3/ uL 1.0-4. 0 Not Available [facility] (Lab) [address] [facility], [place], [address], 08/22/2024 19:10:43 08/21/19 25 08/21/2024 CBC W/DIF F absolute monocytes 0.5 10'3/ uL 0.2-1. 0 Not Available [facility] (Lab) [address] [facility], [place], [address], 08/22/2024 19:10:43 08/21/19 25 08/21/2024 CBC W/DIF F absolute eosinophils 0.1 10'3/ uL 0.0-0. 6 Not Available [facility] (Lab) [address] [facility], [place], [address], 08/22/2024 19:10:43 08/21/19 25 08/21/2024 CBC W/DIF F absolute basophils 0.1 10'3/ uL 0.0-0. 3 Not Available [facility] (Lab) [address] [facility], [place], [address], 08/22/2024 19:10:43 08/21/19 25 08/21/2024 CBC W/DIF F absolute immature granulocytes 0.0 10'3/ uL 0.00-0 .10 Refer ence range s for nonbi nary/ inter sex or unspe cifie d gende r patie nts have not been estab lishe d. Pleas e refer to the [facility] table for range s estab lishe d for cisge nder patie nts and evalu ate in the clini akila rashid xt of the indiv idual patie nt: https ://cora guerra book. nm.or g/gen derx Not Available [facility] (Lab) [address] [facility], [place], [address], 08/22/2024 19:10:43 08/21/19 25 08/21/2024 CMP(C OMPRE HENSI VE METAB OLIC PANEL ) sodium 140 mmol/ L 133-14 6 Not Available [facility] (Lab) [address] [facility], [place], [address], 08/22/2024 19:10:44 08/21/19 25 08/21/2024 CMP(C OMPRE HENSI VE METAB OLIC PANEL ) potassium 4.4 mmol/ L 3.5-5. 1 Not Available [facility] (Lab) [address] [facility], [place], [address], 08/22/2024 19:10:44 08/21/19 25 08/21/2024 CMP(C OMPRE HENSI VE METAB OLIC PANEL ) chloride 103 mmol/ L 98-107 Not Available [facility] (Lab) [address] [facility], [place], [address], 08/22/2024 19:10:44 08/21/19 25 08/21/2024 CMP(C OMPRE HENSI VE METAB OLIC PANEL ) carbon dioxide 29 mmol/ L 21-31 Not Available [facility] (Lab) [address] [facility], [place], [address], 08/22/2024 19:10:44 08/21/19 25 08/21/2024 CMP(C OMPRE HENSI VE METAB OLIC PANEL ) anion gap 8 mmol/ L 4-13 Not Available [facility] (Lab) [address] [place], [address], 08/22/2024 19:10:44 08/21/19 25 08/21/2024 CMP(C OMPRE HENSI VE METAB OLIC PANEL ) blood urea nitrogen 10 mg/dL 7-25 Not Available [facility] (Lab) [address] [place], [address], 08/22/2024 19:10:44 08/21/19 25 08/21/2024 CMP(C OMPRE HENSI VE METAB OLIC PANEL ) creatinine 0.80 mg/dL 0.60-1 .30 Not Available [facility] (Lab) [address] [place], [address], 08/22/2024 19:10:44 08/21/19 25 08/21/2024 CMP(C OMPRE HENSI VE METAB OLIC PANEL ) egfrcr (CKD-epi 2020) 86 mL/mi n/1.7 3_m2 >=60 Not Available [facility] (Lab) [address] [facility], [place], [address], 08/22/2024 19:10:44 08/21/19 25 08/21/2024 CMP(C OMPRE HENSI VE METAB OLIC PANEL ) calcium 9.4 mg/dL 8.3-10 .5 Not Available [facility] (Lab) [address] [facility], [place], [address], 08/22/2024 19:10:44 08/21/19 25 08/21/2024 CMP(C OMPRE HENSI VE METAB OLIC PANEL ) glucose 91 mg/dL 70-100 Not Available [facility] (Lab) [address] [facility], [place], [address], 08/22/2024 19:10:44 08/21/19 25 08/21/2024 CMP(C OMPRE HENSI VE METAB OLIC PANEL ) protein, total 7.4 g/dL 6.4-8. 3 Not Available [facility] (Lab) [address] [facility], [place], [address], 08/22/2024 19:10:44 08/21/19 25 08/21/2024 CMP(C OMPRE HENSI VE METAB OLIC PANEL ) albumin 4.6 g/dL 3.5-5. 0 Not Available [facility] (Lab) [address], [place], [address], 08/22/2024 19:10:44 08/21/19 25 08/21/2024 CMP(C OMPRE HENSI VE METAB OLIC PANEL ) ALT 20 units /L 9-43 Not Available [facility] (Lab) [address], [place], [address], 08/22/2024 19:10:44 08/21/19 25 08/21/2024 CMP(C OMPRE HENSI VE METAB OLIC PANEL ) alkaline phosphatase 61 units /L 34-104 Not Available [facility] (Lab) [address], [place], [address], 08/22/2024 19:10:44 08/21/19 25 08/21/2024 CMP(C OMPRE HENSI VE METAB OLIC PANEL ) AST 17 units /L 13-39 Not Available [facility] (Lab) [address], [place], [address], 08/22/2024 19:10:44 08/21/19 25 08/21/2024 CMP(C OMPRE HENSI VE METAB OLIC PANEL ) bilirubin, total 0.6 mg/dL 0.2-1. 2 Not Available [facility] (Lab) [address], [place], [address], 08/22/2024 19:10:44 08/21/19 25 08/21/2024 LIPID PANEL ,AMA (LDL- CALC) total cholesterol 201 mg/dL 0-199 high Not Available [facility] (Lab) [address], [place], [address], 08/22/2024 19:10:44 08/21/19 25 08/21/2024 LIPID PANEL ,AMA (LDL- CALC) triglyceride s 87 mg/dL 0-150 NCEP Refer ence Value s for Trigl yceri negin: Radha l: <150 mg/dL Borde rline High: 150 - 199 mg/dL High: 200 - 499 mg/dL Very High: >/= 500 mg/dL Not Available [facility] (Lab) [address], [place], [address], 08/22/2024 19:10:44 08/21/19 25 08/21/2024 LIPID PANEL ,AMA (LDL- CALC) HDL cholesterol 67 mg/dL >40 Not Available [facility] (Lab) [address], [place], [address], 08/22/2024 19:10:44 08/21/1908/21/2024 LIPID PANEL ,AMA (LDL- CALC) LDL cholesterol 115 mg/dL 0-99 high Cutof f value s recom yeny d by the Natio nal Lacy stero l Educa tion Progr am: [place] ABLE: Lacy stero l <200 mg/dL LDL <100 mg/dL BORDE RLINE : Lacy stero l 200-2 39 mg/dL LDL 101-1 59 mg/dL HIGHE R RISK: Lacy stero l >240 mg/dL LDL >160 mg/dL , HDL <40 mg/dL Not Available [facility] (Lab) [address], [place], [address], 08/22/2024 19:10:44 08/21/1908/21/2024 LIPID PANEL ,AMA (LDL- CALC) non-HDL cholesterol 134 mg/dL no refere nce range A reaso nable goal for non-H DL lacy stero l is one that is 30 mg/dL highe r than the LDL lacy stero l goal. Not Available [facility] (Lab) [address], [place], [address], 08/22/2024 19:10:44 08/21/1908/21/2024 LIPID PANEL ,AMA (LDL- CALC) chol/HDL ratio 3.0 . 0.0-5. 0 On October 19, 2022, [facility] labor atori es javed ed the equat ion for calcu latin g estim ated low-d ensit y lipop rotei n-cho leste rol (LDL- C) from the Jhonny coyle equat ion to the Natalya carrillo/Ulices patterson equat ion. This new equat ion is only valid for lipid panel s with trigl yceri negin < 400 mg/dL . Studi es have demon strat ed that this new equat ion will impro ve the accur acy of LDL-C , espec ially in scena huizar when LDL-C sean ntrat ions are relat ively low (< 100 mg/dL ), trigl yceri negin are eleva juan, or patie nt is non-f astin g. Refer ences : - Ntaalya carrillo, Ruiz Beth, Prabhu Sosa , Roberto Carlos jeffrey, Prashanth Lea, Prashanth clinton, Jack Bocanegra. Elise courtney , and Luis Worley . 2013. Comp ariso n of a Novel Metho d vs the Fried jonna Equat ion for Estim ating Low-D ensit y Lipop rotei n Lacy stero l Level s from the Stand duglas Lipid Profi le. NAYELY: The Journ al of the Ameri can Medic al Assoc iatio n 310 19): 2060- . - Grey harrell V, Sharda J, Rodrick harrell A, Basilia M, Gabby yee R, Oskar harrell E, Elise courtney RS, Meir SR, Natalya carrillo SS. Fast ing Versu s Nonfa sting and Low-D ensit y Lipop rotei n Lacy stero l Accur acy. Circu latio n. 2017Jun 28;137 (1):1 0-19. Not Available [facility] (Lab) [address], [place], [address], 08/22/2024 19:10:44 08/21/19 25 08/21/2024 TSH, REFLE X FREE T4 TSH 2.92 uIU/m L 0.30-5 .33 Not Available [facility] (Lab) [address] [place], [address], 08/22/2024 19:10:45 08/21/19 25 08/21/2024 HEMOG LOBIN A1C hemoglobin A1C 5.8 % 4.0-5. 6 high The Ameri can Diabe jae Assoc [...] >8.0% Actio n sugge sted Not Available [facility] (Lab) [address], [place], [address], 08/22/2024 19:10:45 03/25/2003/25/2025 pregn richard test, urine HCG negati ve Not Available [address], [place], [address], 03/25/2025 09:46:38 06/01/20 23 06/01/2023 US, pelvi s No observ ation record ed. [email or web address] [facility] [address], [place], [address], 06/01/2023 13:34:06 06/01/20 23 06/01/2023 US, trans vagin al No observ ation record ed. [email or web address] [facility] [address], [place], [address], 06/01/2023 13:33:57 06/01/20 23 06/01/2023 US, pelvi s No observ ation record ed. ABDELRAHMAN Julien [address] [address], [place], [address], 06/08/2023 16:49:00 Result Notes None recorded. Problems Name Problem SNOMED Code Status Onset Date Resolution Date Notes Provider Name and Address Organization Details Recorded Time Screenin g for malignan t neoplasm of cervix Completed 201111/06/2020 Screenin g for malignan t neoplasm s of the cervix;R ecorded Elsewher e: No Locat ion: [facility] S ource: EHR Dog Licenser sheryl: N Practi ce ID: 0001 Ezequiel lable Time: 11:15:00 AM TIMI Casanova - [facility] 05/13/202 1 10:02:55 Pain of breast [id number] Completed 201111/06/2020 Mastodyn ia;Recor ded Elsewher e: No Locat ion: [facility] S ource: EHR Dog Licenser sheryl: N Shilati ce ID: 0001 Ezequiel lable Time: 09:15:00 AM Lamar ashley, [facility] 1 10:03:09 Speciali zed medical examinat ion Completed 201211/06/2020 Gynecolo gical Examinat ion;Joao rded Elsewher e: No Locat ion: [facility] S ource: EHR Dog Licenser sheryl: N Shilati ce ID: 0001 Ezequiel lable Time: 08:45:00 AM Lamar ashley, [facility] 1 10:03:07 Adult health examinat ion Completed 201411/06/2020 ROUTINE MEDICAL EXAM;Rec orded Elsewher e: No Locat ion: [facility] S ource: EHR Dog Licenser sheryl: N Shilati ce ID: 0001 Ezequiel lable Time: 10:30:00 AM Lamar ashley, [facility] 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 1 10:03:06 Pregnanc y test negative [id number] Completed 201611/06/2020 Encounte r for pregnanc y test, result negative ;Recorde d Elsewher e: No Locat ion: [facility] S ource: EHR Dog Licenser sheryl: N Practi ce ID: 0001 Ezequiel lable Time: 09:30:00 [facility] 1 10:02:57 Low grade squamous intraepi thelial lesion on cervical Papanico laou smear [id number] 9105 Completed 201611/25/2020 Ivania ashley, [facility] 1 13:41:32 Evaluati on finding Completed 201711/06/2020 Hematuri a, unspecif ied;Joao rded Elsewher e: No Locat ion: [facility] S ource: EHR Dog Licenser sheryl: N Practi ce ID: [id number] Ezequiel lable Time: 08:15:00 AM Lamar Lopez [facility] 10:03:[address] Concept Completed 201711/06/2020 Encounte r for general adult medical exam w abnormal findings ;Practic e ID: 0001 [facility] 10:03:04 Screenin g for malignan t neoplasm of rectum Completed 201811/06/2020 Encounte r for screenin g for malignan t neoplasm of rectum;R ecorded Elsewher e: No Locat ion: [facility] S ource: EHR Dog Licenser sheryl: N Practi ce ID: 0001 Ezequiel lable Time: 08:15:00 AM Lamar ashley, [facility] [address] 10:03:[address] Concept Completed 201911/06/2020 Encntr for general adult medical exam w/o abnormal findings ;Recorde d Elsewher e: No Locat ion: [facility] S ource: EHR Dog Licenser sheryl: N Practi ce ID: 0001 Ezequiel lable Time: 08:45:00 AM [facility] 1 10:03:03 Intraute rine contrace ptive device in situ [id number] Active 2020 Mary Bailey MD [address], [place], [address], [facility] 12:49:33 Problem Notes None recorded. Procedures Surgical History Date Name Laterality Status Provider Name and Address Organization Details Recorded Time 025 IUD Removal completed DAKOTAH CARR NP [address], [place], [address], [facility] 03/25/2025 09:36:45 023 Date of Last Pap Smear completed Kamryn Baig [facility] 08/18/2024 09:47:30 023 Date of Last Mammogram completed Mya Ocasio [facility] 05/25/2023 09:09:07 021 completed Kylah Lyons [facility] 02/20/2021 12:01:30 021 IUD Insertion completed Mary Bailey MD [address], [place], [address], [facility] 01/26/2021 09:48:35 021 Endometrial Biopsy completed Alysha Claros [facility]- [address], [place], [address], [facility] 11/25/2020 13:56:13 017 Colposcopy completed Lamar Lopez [facility] 11/06/2020 10:20:38 017 Colposcopy completed Ivania John [facility] 11/25/2020 13:43:51 009 cholecystectomy completed Lamar Lopez [facility] 11/06/2020 11:14:17 987 extraction of wisdom tooth completed Ivania John [facility] 05/15/2022 10:16:24 Imaging Results None recorded. Procedure Notes None recorded. Medical Equipment None Reported. Allergies No known drug allergies Medications Name Sig Start Date Stop Date Status Note LastModified by Organization Details LastModified Time Mirena 21 mcg/24 hr (up to 8 years) 52 mg intrauter ine device Take by intraute rine route. 03/25 completed lot#[id number] exp Not Available Not Available [...] completed Not Available Not Available Not Available sulfameth oxazole 800 mg-trimet hoprim 160 mg tablet TAKE 1 TABLET BY MOUTH TWICE DAILY 03/20 completed Not Available Not Available Not Available tramadol 50 mg tablet TAKE 1 TABLET BY MOUTH EVERY 6 HOURS NEEDED FOR PAIN 03/25 completed Not Available Not Available Not Available triamcino lone acetonide 0.1 % topical cream APPLY A THIN LAYER TO THE AFFECTED AREA(S) TWICE DAILY NEEDED 08/21 completed Not Available Not Available Not Available oxycodone -acetamin ophen 5 mg-325 mg tablet 08/18 completed Not Available Not Available Not Available amoxicill in 875 mg tablet TAKE 1 TABLET BY MOUTH EVERY 12 HOURS FOR 10 DAYS 05/15 completed Not Available Not Available Not Available Synthroid 25 mcg tablet take 1 tablet by oral route every day 11/07 completed Not Available Not Available Not Available oxybutyni n chloride ER 5 mg tablet,ex tended release 24 hr TAKE 1 TABLET BY MOUTH THREE TIMES DAILY NEEDED FOR UP TO 7 DAYS 08/21 completed Not Available Not Available Not Available [...] completed Not Available Not Available Not Available oxybutyni n chloride 5 mg tablet TAKE 1 TABLET BY MOUTH TWICE DAILY NEEDED FOR BLADDER SPASMS 03/25 completed Not Available Not Available Not Available [...] Prescrib ed Elsewher e: No Locat ion: [facility] odify By: sindhu fatima DateTime : 12/06/19 10:30:00 AM Not Available Not Available Not Available Multi Vitamin 9 mg iron/15 mL oral liquid 11/06 completed Prescrib ed Elsewher e: Yes Loca tion: [facility] odify By: lanre jon DateTime : 05/08/20 08:45:00 AM Not Available Not Available Not Available Slynd 4 mg (28) tablet Take 1 tablet every day by oral route. 02/20 completed Not Available Not Available Not Available Vitals Date Recorded Body height Body mass index (BMI) Body weight Systolic And Diastolic Provider Name and Address Organization Details Last Updated DateTime 08/21/2024 154.94 cm 25 kg/m2 49122.91 g 150/92 mm[Hg] [facility] 08/21/2024 10:03:08 Date Recorded Systolic And Diastolic Provider Name and Address Organization Details Last Updated DateTime 11/26/2022 122/76 mm[Hg] Alysha Claros [facility] [address], [place], [address], [facility] 11/26/2022 12:50:39 Date Recorded Body height Body mass index (BMI) Body weight Provider Name and Address Organization Details Last Updated DateTime 11/26/2022 154.94 cm 23.8 kg/m2 20660.64 g Mya Ocasio [facility] 11/26/2022 12:42:42 Date Recorded Body height Body mass index (BMI) Body weight Systolic And Diastolic Provider Name and Address Organization Details Last Updated DateTime 03/25/2025 154.94 cm 24.8 kg/m2 84304.04 g 136/86 mm[Hg] [facility] 03/25/2025 09:35:05 Date Recorded Systolic And Diastolic Provider Name and Address Organization Details Last Updated DateTime 05/25/2023 124/70 mm[Hg] Alysha Claros [facility]- [address], [place], [address], [facility] 05/25/2023 09:41:29 Date Recorded Body height Body mass index (BMI) Body weight Systolic And Diastolic Provider Name and Address Organization Details Last Updated DateTime 05/25/2023 154.94 cm 24.4 kg/m2 69479.42 g 146/90 mm[Hg] Mya Ocasio [facility] 05/25/2023 09:20:02 Social History Question Answer Notes LastModified by Organizat ion Details LastModified Time Tobacco Smoking Status Never Smoker Mya Ocasio null, [facility] 05/25/2023 09:20:41 Are You Blind Or Do You Have Difficulty Seeing? No [email or web address] Information n ot available 11/25/2020 What Is Your Level Of Caffeine Consumption? Occasional [email or web address] Information not available 11/25/2020 How Much Tobacco Do You Chew? None Information not available 05/25/2023 In The 14 Days Before Symptom Onset, Have You Had Close Contact With A Laboratory-confirm ed COVID-19 While That Case Was Ill? No [email or web address] Information n ot available 11/25/2020 In The 14 Days Before Symptom Onset, Have You Had Close Contact With A Person Who Is Under Investigation For COVID-19 While That Person Was Ill? No [email or web address] Information not available 11/25/2020 Have You Been To An Area Known To Be High Risk For COVID-19? No [email or web address] Information not available 11/25/2020 Are You Deaf Or Do You Have Serious Difficulty Hearing? No [email or web address] Information not available 11/25/2020 What Type Of Diet Are You Following? REGULAR [email or web address] Information n ot available 11/25/2020 What Is The Highest Grade Or Level Of School You Have Completed Or The Highest Degree You Have Received? [id number] Information not available 05/25/2023 Have You Ever Been Counseled For Unhealthy Alcohol Use? No Information not available 05/25/2023 Do You Use Protection During Sex? No Information not available 05/25/2023 Do You Use Your Seat Belt Or Car Seat Routinely? Yes [email or web address] Information not available 11/25/2020 Do You Have Smoke And Carbon Monoxide Detectors In Your Home? Yes [email or web address] Information not available 11/25/2020 How Much Tobacco Do You Smoke? No Information not available 05/25/2023 Do You Use Sunscreen Routinely? Yes [email or web address] Information not available 11/25/2020 Has Tobacco Cessation Counseling Been Provided? No Information not available 05/25/2023 Have You Used IV Drugs? No Information not available 05/25/2023 Do You Have Difficulty Walking Or Climbing Stairs? No Information not available 05/25/2023 Sex: Unknown Functional Status Question Answer Note LastModified by Organizat ion Details LastModified Time Do you use any illicit or recreational drugs? No [email or web address] Information not available 11/25/2020 Do you or have you ever used any other forms of tobacco or nicotine? No Information not available 05/25/2023 What is your level of alcohol consumption? Occasional [email or web address] Information not available 11/25/2020 Are you able to walk independently without assistance or assistive devices? YESWOREST [email or web address] Information not available 11/25/2020 Are you able to care for yourself independently? Yes Information not available 05/25/2023 What is your occupation? Retired Information not available 05/25/2023 Do you have difficulty dressing, bathing, grooming, or toileting? No Information not available 05/25/2023 What is your exercise level? Occasional Information not available 11/25/2020 Mental Status Question Answer Note LastModified by Organization D etails LastModified Time Do you feel stressed (tense, restless, nervous, or anxious, or unable to sleep at night)? [id number] Information not available 05/25/2023 Family History Relationship Description Onset Age of this Age Resolved Age Notes LastModified by Organization Details LastModified Time Father Diabetes mellitus [email or web address] Not available 2020 13:52:21 Mother Myocardial infarction Not available 11/06 13:52:39 Medical History Condition [...] Vaccine N Colposcopy 07/09/2016 Current Control Method None 01/25/2021 Age at First Child 28 Are cycles usually normal N Date of Last Colonoscopy Sexually Active? Y Menses Monthly No Age of first menstrual cycle 16 Date of Last Pap Smear 05/22/2023 Sexual Problems? N LMP Approximate N Obstetrics History GPAL:G 2 P 2 0 0 2 Type Value Full Term 2 Living 2 Total 2 Past Encounters Encounter ID Performer Location Encounter Start Date Encounter Closed Date Diagnosis/Indication Diagnosis SNOMED-CT Code Diagnosis ICD10 Code Diagnosis IMO Codes Diagnosis Note [id number] Alysha Claros [facility] [address] [address] 11/07/2020 10:51:36 11/07/2020 11:47:09 Abnormal uterine bleeding 4379311865 9100 N93.9 TVUS to be updated Labs [...] exposure to the Covid-19 virus during this patient s visit, including available hand green 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 All staff wore face coverings during this encounter, as well as provided additional cleaning and sanitizing of all surfaces, including counter-to ps, pens, chairs, door handles, light switches, etc, prior to and following the patient s visit. Adult heal th examination 373524010 Z00.00 Elevated blood-pressure reading without diagnosis of hypertension 978589343 R03.0 Recommend making appt PCP to discuss possible HTN & monitor BP. Hx of hypothyroi dism. [id number] Elier Gonsalez MD [facility] [address] [address] 11/13/2020 10:15:48 11/13/2020 10:59:41 Abnormal uterine bleeding 7398406014 9100 N93.9 [id number] Alysha Claros [facility] [address] [address] 11/25/2020 12:50:29 11/25/2020 14:02:22 Menorrhagia 224117065 N92.0 EMBx performed for thickened lining 27mm consult advised to ensure a Hyst D&C [...] to patient satisfacti on. Screening mammography 24 340968 Z12.31 Cyst of ovary 67594110 N 83.209 R/P TVUS x 6wks as precaution . Will call with lab results [id number] 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 All staff wore face coverings during this encounter, as well as provided additional cleaning and sanitizing of all surfaces, including countertop s, pens, chairs, door handles, light switches, etc, prior to and following the patient s visit. [id number] Mary Bailey MD [facility] [address] [address] 12/17/2020 09:53:27 12/17/2020 14:09:38 Menorrhagia 803959806 N92.0 Cancer ant igen 125 above reference range 650973434 R97.1 Cyst of ovary 07216910 N 83.209 Surveillan ce of oral contraception 739845981 Z30.41 Perimenopausal state 210 5913711 71329 Z78.0 [id number] Mary Bailey MD [facility] [address] [address] 12/30/2020 09:59:39 12/30/2020 11:06:23 Abnormal uterine bleeding 5481211323 9100 N93.9 [id number] Mary Bailey MD [facility] [address] [address] 01/06/2021 12:41:41 01/07/2021 16:56:29 Menometrorrhagia 796836840 N92.1 Surveillan ce of oral contraception 361540283 Z30.41 Cyst of ovary 41003488 N 83.209 [id number] Mary Bailey MD [facility] [address] [address] 01/23/2021 15:48:41 01/24/2021 14:21:16 Contraception care management 754386875 Z30.9 Insertion of intrauterine contraceptive device 71398583 Z30.430 [id number] Mary Bailey MD [facility] [address] [address] 02/20/2021 11:47:28 02/20/2021 14:50:46 Gynecologic examination 26016408 Z01.419 Intrauteri ne contraceptive device in situ 094411023 Z97.5 [id number] DAKOTAH CARR NP [facility] [address] [address] 03/25/2025 09:23:54 03/25/2025 09:51:11 Removal of intrauterine contraceptive device 1367362655 Z30.786 [id number] Mirena IUD removed on 03/25/25 without difficulty .We discussed possible cramping and bleeding over the next few days.RTO for WWE, or sooner with any questions or concerns. [id number] [facility] [address] [address] 04/27/2022 09:40:30 04/27/2022 10:37:54 Pain in pelvis 53457245 R10.2 This patient is a 57-year-ol d [...] with nausea, vomiting, fever, chills. Urinary symptoms 1366811 08 R39.9 Will send for culture & treat due to subjective complaints and urine dip today.Susp ect UTI with prominent sx's but questionab le IUD placement. [id number] Elier Gonsalez MD [facility] [address],[place] [address] 04/28/2022 14:20:08 04/28/2022 15:02:13 Pain in pelvis 93953017 R10.2 [id number] Alysha Claros [facility] [address] [address] 05/15/2022 09:54:23 05/17/2022 16:38:54 Gynecologic examination 56083338 Z01.419 Take Calcium with Vitamin D 12-1500mg daily. Do monthly self breast exams. It is advised to get annual flu shot in the fall and she could obtain at [facility] or [facility] care clinic. If you haven't received [...] Screen naRoutine Labs orderedMam mo ordered Vaginitis 68985585 N76.0 [facility] abx[facility] examination 788349114 Z00.00 Stop by during the week for blood work fasting Vitamin D deficiency 347 76060 E55.9 Perimenopausal state 269 3081439 87855 Z78.0 Check levels [id number] Mary Bailey MD [facility] [address],[place] [address] 06/09/2022 11:53:36 06/09/2022 16:06:11 Cyst of right ovary 2960965658 7571172 N83.291 [id number] Mary Bailey MD [facility] [address] [address] 06/15/2022 15:52:38 06/23/2022 13:20:55 Intrauterine contraceptive device in situ 696721295 Z97.5 Cyst of ovary 00189131 N 83.209 Break-thro ugh bleeding 21419256 N92.1 [id number] Alysha Claros [address] [address] 11/26/2022 12:34:04 11/26/2022 12:56:29 Vaginitis 90816796 N76.0 Suspect BV on examTxment sentSince already took abx for probably UTI that ended up being neg per her PCP we will send diflucan as a precaution . Dysuria 90153581 R30.0 Increase water & use pyridium prn [id number] [facility] [address] [address] 05/25/2023 09:13:47 05/25/2023 09:59:57 Gynecologic examination 18489113 Z01.419 Z11.51 Take Calcium with Vitamin D 12-1500mg daily. Do monthly self breast exams. It is advised to get annual flu shot in the fall and she could obtain at [facility] or [facility] care clinic. If you haven't received [...] naRoutine Labs orderedMam mo ordered IUD check 940570617 Z30. 431 Today we agreed to updated US for IUD check b/c of significan t increase in dysmenorrh ea during cycles with IUD that was placed 2020. Will reach out with results & next steps if required. Screening mammography 24 796069 Z12.31 Adult heal th examination 315851058 Z00.00 Update labs.No f/u was completed last year & did not get PCP. Vitamin D deficiency 347 57142 E55.9 Pruritic rash 88016646 L 28.2 Rash upper chest noted on examItchyI f no resolution refer to derm Screening for malignant neoplasm of colon 078630218 Z12.11 [id number] Elier Gonsalez MD [facility] [address] [address] 06/01/2023 09:28:34 06/01/2023 10:11:08 Dysmenorrhea 245775041 N94.6 [id number] Elier Gonsalez MD [facility] [address] [address] 08/21/2024 09:57:45 08/21/2024 10:28:51 Gynecologic examination 01717731 Z01.419 Annual gynecologi akila exam performed. Patient will come back in a year unless there are new symptoms. Suggest Calcium with Vitamin D if not eating in diet. Patient advised to get annual flu shot. Recommend yearly physicals and perform monthly breast exams. Genetic testing is available for patients with family history of cancer. Engage in safe sexual practices, use condoms. Encouraged to have daily exercise. Avoid tobacco and illicit drugs, moderation of alcohol. If BMI greater than 25 dietary consult advised. If you have any questions please call or email. mammogram- due; order given, pt to schedule colon cancer screening - n/a DEXA scan- n/a Pap smear- UTD (2022- WN), will repeat in 3-5 years from last pap per [facility] guidelines laboratory evaluation - requested STI testing - declined Discussed that a Mirena IUD prevents for up to 8 years, and also helps with heavy periods for up to 5 years in women who choose an IUD for control.Val scussed that patient may choose to have IUD removed prior to expiration date (01/23/2029 ) if she desires and hormone labs can be drawn post-remov al to confirm post-menop ausal status. Patient to consider. Screening mammography [id number] Z12.31 Health Concerns Section Related Observation LastModified by Organization Detai ls LastModified Time None Recorded Concern Status LastModified by Organization Details LastModified Time None Recorded Advance Directives Directive None Recorded Payers Insurance Date Sequence Insurance Name Policy Number Policy Montero Covered Member ID Montero Member ID Guarantor Name 04/22/2022 2 [facility] [id number] Vinny Coreas [id number] Abbie Coreas 05/15/2022 1 [employer] Abbie Coreas [id number] Abbie Coreas 05/15/2022 1 [employer] - DOS PRIOR TO 20 - [facility] BENEFITS PLAN [id number] Abbie Arenaslo [id number] Abbie Coreas 11/26/2022 1 [employer] - [facility] BENEFITS PLAN (PPO) [id number] Abbie Arenaslo [id number] Abbie Coreas 03/22/2025 2 [employer] [id number] Vinny Coreas [id number] Abbie Coreas 03/22/2025 1 [employer] - [facility] BENEFITS PLAN [id number] Abbie Erasmo Arenaslo [id number] Abbie Arenaslo 11/26/2022 1 [employer] [id number] Abbie Arenaslo [id number] Abbie Coreas Notes Date Note Type Note Provider Name and Address Organization Details Recorded Time 11/27/19 23 text/ht ml ROS as noted in the HPI Here today with complaints of lower abd bloating and bladder irritation/dysuria.Treated for UTI by her PCP this past week but still with some sx's.Wanted to ensure IUD in place and no other issues.Some vag d/c that is out of norm for her. Neg pain of abd/pelvis/flankNeg GI sx'sNeg N/V/F/C/DNeg Vag , odor, irritation, itching Alysha Claros [facility] [address], [place], [address], [facility] 11/26/2022 12:56:14 05/25/20 23 text/ht ml Annual GYNReported by PatientGenitourinary symptomsFor menstrual cycle, patient reportsperimenopausal. For urinary symptoms, patient reportsno hematuriaandno incontinence. For vulva, patient reportsno genital lesion. For vagina, patient reportsnormal vaginal discharge.Breast symptomsFor breast, patient reportsno breast pain,no breast lump, andno nipple discharge.ContraceptionFor current contraception, patient reportssatisfied with current contraceptionandintrauterine device (iud).Endocrine symptomsFor sexual complaints, patient reportsno sexual complaints,no pain during intercourse, andnormal libido. For menopausal symptoms, patient reportsno menopausal symptomsandnormal vaginal lubrication.Psychological symptomsFor psychological symptoms, patient reportsno depression,no anxiety, andno pmdd.Preventative measuresFor preventive measures, patient reportsencourage self breast examination,encourage regular exercise,encourage no tobacco use,encourage regular mammograms starting age 40,followed with yearly pap smears,needs to schedule mammogram, andneeds to schedule colonoscopy. Alysha Claros [facility] [address], [place], [address], [facility] 05/25/2023 09:44:04 08/21/19 25 text/ht ml Annual GYNReported by PatientGenitourinary symptomsFor urinary symptoms, patient reportsno hematuriaandno incontinence. For vulva, patient reportsno genital lesion. For vagina, patient reportsnormal vaginal discharge.Breast symptomsFor breast, patient reportsno breast pain,no breast lump, andno nipple discharge.ContraceptionFor current contraception, patient reportsintrauterine device (iud).Endocrine symptomsFor sexual complaints, patient reportsno sexual complaints,no pain during intercourse, andnormal libido. For menopausal symptoms, patient reportsno menopausal symptomsandnormal vaginal lubrication.Psychological symptomsFor psychological symptoms, patient reportsno depression,no anxiety, andno pmdd.Preventative measuresFor preventive measures, patient reportsencourage self breast examination,encourage regular exercise,encourage no tobacco use, andencourage regular mammograms starting age 40. Patient presents for annual well woman exam. Patient denies concerns today.Patient states that she does not have any bleeding or pelvic pain since having kidney stones surgically removed in May 2024. Patient would like to discuss having her Mirena IUD removed. DAKOTAH CARR NP [address], [place], [address], [facility] 08/21/2024 10:28:10 03/25/20 25 text/ht ml Patient presents for Mirena IUD removal.Informed consent obtained. UPT negative. DAKOTAH CARR NP [address], [place], [address], [facility] 03/25/2025 09:48:36 OBGyn Episode Ob Episode Information Episode Created Date Number of Fetuses Patient Bloodtype Patient rh Status Prepregnancy Weight lbs Domestic Partner Domestic Partner Phone Father Name Automobile Body Repairer Helper Status 11/07/19 21 1 CLOSED Fetus Data [...] Domestic Partner Domestic Partner Phone Father Name Automobile Body Repairer Helper Status 11/07/19 21 1 CLOSED Fetus Data [...]
--- OUTSIDE RECORDS SUMMARY | 2025-05-07 00:59 | XMS_ITS | Clinical Summary ---
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
[2025-05-07 08:24] VITALS: BP 118/53; PULSE 121; RESP 16; TEMP 36.3; O2SAT 99
[2025-05-07] MEDS: LACTATED RINGERS 1,000 ML 150 ML IV CONT (08:35)
--- NOTE | 2025-05-07 09:17 | WPDANESEPP ---
Anes - Eval Pre Procedure Procedure: Operation Date: 05/07/25 09:30 Proposed Procedures p Screening Colonoscopy - Barry Banks DO Date/Time: 05/07/25 09:17 Pre Op Diagnosis: Neoplasm screening Patient Data Age: 60 Gender: F Height: 1.6 m Weight: 58.4 kg Last Vital Signs Temp 97.3 F L 05/07/25 08:24 Pulse 121 H 05/07/25 08:24 Resp 16 05/07/25 08:24 BP 118/53 L 05/07/25 08:24 Pulse Ox 99 05/07/25 08:24 O2 Del Method Room Air 05/07/25 08:24 Allergies Allergy/AdvReac Type Severity Reaction Status Date / Time No Known Allergies Allergy Verified 05/07/25 08:22 Home Medications ?Medication ?Instructions ?Recorded ?Confirmed ?Type Levoxyl 50 mcg tablet 50 mcg PO DAILY #90 tabs 12/24/24 05/07/25 Rx (levothyroxine) Patient hx anesthesia problems: none Family hx anesthesia problems: none Results Review: All pre-operative results and documents have been reviewed as part of the pre-operative evaluation. [facility] Past Medical History Medical History (Updated 05/07/25 @ 09:18 by Rafa Fisher Jr., CRNA) Iron deficiency anemia, unspecified Herpes zoster Hypothyroidism, unspecified Kidney stone Hx of mumps (~05/03/72) Surgical History Surgical History H/O insertion of nephrostomy tube Family History Family History Father Acute myocardial infarction Diabetes mellitus Heart disease Kidney disease Mother Acute myocardial infarction Asthma Heart disease Kidney disease Social History Social History Smoking status: Never smoker Second hand tobacco smoke exposure: No Alcohol intake: never Substance use: never Substance use type: does not use Lack of Transportation: No Lack of Food: Never True Current Housing: I Have Housing Concerned About Future Housing: No Difficulty Paying Gas/Electric Bills: No Difficulty Paying for Meds: No Currently Unemployed: No Education: Master's Degree or Higher Difficulty w/ Childcare or Family Care: No Living arrangements: with family Occupation/Education: occupation Gender identity (if verbalized by the patient): Female Sexual Orientation (if Verbalized by the Patient): Straight or Heterosexual Spiritual care concerns: No Agree to blood products: Yes Exam Day of Procedure 05/07/25 09:17 Patient weight: normal Heart: regular rate and rhythm Lungs: clear to auscultation
--- NOTE | 2025-05-07 09:32 | PM.IMHP ---
H&P: HPI History of Present Illness Date/Time: 05/07/25 09:32 Chief Complaint: Screening for colorectal cancer Narrative: This is a 60-year-old woman who presents for her 1st colonoscopy. She has done Cologuard test in the past which have been negative. She denies any hematochezia or melena. She denies family history of colon cancer. Review of Systems Review of Systems: All systems reviewed & are unremarkable except as noted in HPI and below Constitutional: Constitutional: Denies chills, Denies fever(s), Denies headache(s) and Denies weight loss Eyes: Eyes: Denies change in vision ENT: Denies dizziness, Denies headache(s), Denies neck mass and Denies throat swelling Cardiovascular: Cardiovascular: Denies chest pain, Denies lightheadedness and Denies dyspnea Respiratory: Respiratory: Denies cough, Denies dyspnea and Denies wheezing Gastrointestinal: Gastrointestinal: Denies abdominal pain, Denies change in bowel habits, Denies nausea and Denies vomiting Genitourinary: Genitourinary: Denies hematuria and Denies dysuria Musculoskeletal: Musculoskeletal: Reports as per HPI Integumentary/Breasts: Skin/Breast: Reports as per HPI Neurologic: Denies dizziness and Denies headache(s) Allergic/Immunologic: Allergic/Immunologic: Denies throat swelling and Denies wheezing PMFSH Past Medical History Medical History (Updated 05/07/25 @ 09:33 by Barry Banks DO) Iron deficiency anemia, unspecified Herpes zoster Hypothyroidism, unspecified Kidney stone Hx of mumps (~05/03/72) Surgical History Surgical History H/O insertion of nephrostomy tube Family History Family History Father Acute myocardial infarction Diabetes mellitus Heart disease Kidney disease Mother Acute myocardial infarction Asthma Heart disease Kidney disease Social History Social History Smoking status: Never smoker Second hand tobacco smoke exposure: No Alcohol intake: never Substance use: never Substance use type: does not use Lack of Transportation: No Lack of Food: Never True Current Housing: I Have Housing Concerned About Future Housing: No Difficulty Paying Gas/Electric Bills: No Difficulty Paying for Meds: No Currently Unemployed: No Education: Master's Degree or Higher Difficulty w/ Childcare or Family Care: No Living arrangements: with family Occupation/Education: occupation Gender identity (if verbalized by the patient): Female Sexual Orientation (if Verbalized by the Patient): Straight or Heterosexual Spiritual care concerns: No Agree to blood products: Yes Meds Home Medications and Allergies Home Medications ?Medication ?Instructions ?Recorded ?Confirmed ?Type Levoxyl 50 mcg tablet 50 mcg PO DAILY #90 tabs 12/24/24 05/07/25 Rx (levothyroxine) Allergies Allergy/AdvReac Type Severity Reaction Status Date / Time No Known Allergies Allergy Verified 05/07/25 08:22 Vital Signs Vital Signs - 24 hr 05/07/25 08:24 Temperature 97.3 F L Pulse Rate 121 H Respiratory Rate 16 Blood Pressure 118/53 L Pulse Oximetry 99 Oxygen Delivery Room Air Exam Const: General: no acute distress and alert Orientation/consciousness: patient oriented x3 HENMT: Head: normocephalic and atraumatic Ears: hearing grossly normal bilaterally Face/Nose/Sinus: Normal nares present Mouth: Yes Normal oral and palatal mucosa present Eyes: Periorbital: periorbital findings normal Sclera: sclerae normal EOM: EOMs intact bilaterally Neck: Neck: normal visual inspection, no lymphadenopathy and trachea midline Chest: Chest palpation & inspection: normal inspection of the chest Resp: Effort & Inspection: normal respiratory effort Auscultation: clear to auscultation bilaterally Cardio: Jugular venous distension: no JVD Rate: regular rate Rhythm: regular rhythm Heart sounds: S1 normal heart sound present and S2 normal heart sound present Peripheral pulses: Peripheral pulses 2+ throughout GI: Inspection: normal to inspection GI Palp: Yes Soft to palpation, No Tenderness to palpation present (GI), No Guarding due to palpation present (GI) and No Rebound tenderness present Percussion: Yes normal to percussion Auscultation: normal bowel sounds : General: Yes no CVA tenderness Back/Spine/Pelvis: Back: no CVA tenderness Neuro: General: patient oriented x3, no focal motor deficits and CN's II-XI intact bilaterally Cognition (Neuro): normal cognition Speech: normal speech Motor exam (neuro): 5/5 motor strength present throughout Extrem: General: capillary refill normal and no clubbing, cyanosis or edema Assessment and Plan Assessment and plan (1) Screening for colorectal cancer: Code(s): Z12.11 - Encounter for screening for malignant neoplasm of colon; Z12.12 - Encounter for screening for malignant neoplasm of rectum Status: Acute Assessment and Plan: I have recommended colonoscopy. I have discussed the procedure, risks, benefits, and alternatives. Questions were answered. Patient is agreeable to proceed.
--- NOTE | 2025-05-07 09:41 | P.PNAN_ITS ---
Anes - Eval Final PreProcedure Day of Procedure 05/07/25 09:41 Patient weight: normal Heart: regular rate and rhythm Lungs: clear to auscultation Airway: Mallampati scale class II Neurological: alert and oriented Last oral intake: >/= 8 hours ASA classification: II Emergent: no Anesthetic plan: proceed Anesthesia type and monitoring: general GIVS and standard monitoring Results Review: All pre-operative results and documents have been reviewed as part of the pre- operative evaluation. Informed Consent: The patient's anesthetic plan and its attendant risks and benefits were discussed with the patient/family/POA. Questions were solicited and answers provided to the satisfaction of the patient/family/POA.
--- NOTE | 2025-05-07 10:15 | S_PTH ---
PATIENT: Abbie Coresa LOC: [facility]#:[id number] AGE/SX: 60/F ROOM: RE05/07/[address]: Barry Banks DO : 1965 BED: DIS: 05/07/2025 SPEC #: [id number] RECD: 05/07/25 10:53 STATUS: ROBYN REQ #: [id number] RICKY: 05/07/25 10:[address]: Barry Banks DEPT: [facility] Surgical RECD BY: Maile Ott ENTERED: 05/07/25 10:54 SP TYPE: Surgical OTHR DR: Carter Sanders MD Tissues: A - Colon Polypectomy B - Colon Polypectomy Procedures: Hematoxylin and Eosin Stain Gross and Microscopic Level 4
[2025-05-07 10:18] VITALS: BP 98/66; PULSE 90; RESP 24; O2SAT 96
[2025-05-07 10:28] VITALS: BP 124/90; PULSE 93; RESP 18; O2SAT 100
[2025-05-07 10:38] VITALS: BP 136/90; PULSE 93; RESP 20; O2SAT 100
== END 2025-05-07 10:52 | disposition home or self-care (01) ==
PROVIDERS: PCP Family Medicine Adolescent Medicine; Visit Provider Surgery
PROC: 0DJD8ZZ Inspection of Lower Intestinal Tract, Via Natural or Artificial Opening Endoscopic (ICD-10-PCS; CPT 45378; principal; 2025-05-07 09:30)
DX: Z12.11 Encounter for screening for malignant neoplasm of colon (principal); K63.5 Polyp of colon
CPT/HCPCS: 45385; 88305; J2003; J2704; J7120

== ENCOUNTER 2025-05-10 17:28 | Emergency (ER) | payer OTHER, SELFPAY ==
--- NOTE | ~2025-05-10 | XR_ITS ---
XR chest 2V HOSTORY: chest pain X 1 DAY COMPARISON:[ None] FINDINGS: Frontal and lateral views of the chest were obtained. The lungs are clear. The heart size is normal in size. Pulmonary vasculature is unremarkable. Osseous structures are intact. IMPRESSION: No acute lung findings.] [ ] Reviewed, dictated and finalized at location S. [employer]
--- NOTE | 2025-05-10 17:33 | ECG_ITS ---
Test Date: 2025-05-10 17:33:[address] Rate: 111 P: 50 AK: 144 QRS: -1 QRSD: 96 T: 51 QT: 323 QTc: 439 Interpretive Statements SINUS TACHYCARDIA LEFT ATRIAL ENLARGEMENT SEPTAL MYOCARDIAL INFARCTION , PROBABLY OLD Electronically Signed On 05-12-2025 09:54:50 RADIOLOGIC TECHNOLOGIST by Tian Bob D.O
[2025-05-10 17:34] VITALS: BP 144/89; PULSE 109; RESP 13; TEMP 37.2; O2SAT 98
--- NOTE | 2025-05-10 17:34 | ECG_ITS ---
Test Date: 2025-05-10 19:39:47 Measurements Intervals [place] Rate: 89 P: 46 CO: 137 QRS: -9 QRSD: 84 T: 63 QT: 362 QTc: 441 Interpretive Statements SINUS RHYTHM No previous ECG available for comparison Electronically Signed On 05-11-2025 10:51:55 COMMUNICATIONS SPECIALIST by Tian Bob D.O
[2025-05-10] MEDS: ASPIRIN 81 MG CHEWABLE TABLET 324 MG PO (18:10)
[2025-05-10 18:12] LABS: Hematocrit 40.0 % (37.0-47.0); Hemoglobin 13.2 g/dL (12.0-15.0); Immature Granulocyte Percent A 0.4 % (0-0.5); Lymphocytes Absolute Auto 2.55 K/mm3 (0.9-3.2); Mean Corpuscular HGB Conc 33.0 g/dl (32-36); Mean Corpuscular Hemoglobin 30.3 pg (26-34); Mean Corpuscular Volume 92.0 fl (80-100); Nucleated Red Blood Cells Absolute Auto 0.000 K/mm3 (0.0-0.012); Nucleated Red Blood Cells Perc 0.0 % (0.0-0.2); Platelet Count Result 313 k/mm3 (150-375); Red Blood Count 4.35 M/mm3 (4.2-5.4); White Blood Count 8.5 K/mm3 (4.5-10.0)
[2025-05-10 18:28] LABS: INR 1.1; Prothrombin Time 13.9 Seconds (11.1-14.7)
[2025-05-10 18:29] LABS: Partial Thromboplastin Time 27.2 Seconds (22.3-36.8)
[2025-05-10 18:32] LABS: Alanine Aminotransferase 29 U/L (6-35); Albumin Level 4.6 g/dL (3.5-5.1); Alkaline Phosphatase 72 U/L (38-126); Anion Gap 8 mmol/L (4-12); Aspartate Amino Transferase 31 U/L (14-36); Bilirubin,Total 0.5 mg/dL (0.2-1.3); Blood Urea Nitrogen 8 mg/dL (7-17); Calcium 9.4 mg/dL (8.4-10.2); Carbon Dioxide 28 mmol/L (22-30); Chloride 104 mmol/L (98-107); Estimated CRCL calculation 64 ml/min; Estimated Glomerular Filt Rate > 60; Glucose 104 mg/dL (65-110); Lipase 146 U/L (23-300); Potassium 3.3 mmol/L (3.4-5.0); Sodium 140 mmol/L (137-145); Total Protein 8.0 g/dL (6.3-8.2)
[2025-05-10 18:40] LABS: Troponin I < 0.012 ng/mL (0.000-0.034)
--- OUTSIDE RECORDS SUMMARY | 2025-05-10 20:22 | XMS_ITS | Clinical Summary ---
Author Organization [facility] Address [address] [place] [address] Care Team Providers Care Cooking Show Host Name Role Phone Carter Sanders MD Primary Care Prov ider Jt Stern MD Unavailable [phone] Allergies No known active allergies Medications levothyroxine (SYNTHROID) 50 mcg tablet Take 1 tablet (50 mcg total) by mouth desk attendant before breakfast Active levonorgestreL (MIRENA) IUD 1 [...] Tobacco: Never Tobacco Cessation:Counseling Given: Not Answered [facility] Utilities Answer Date Recorded In the past [...] often do you attend chur ch or hoahaoism services? Never 06/08/2024 Do you belong to any clubs o r organizations such as protestant groups, unions, fraternal or athletic groups, or [...] any time in the past 12 m cox [place], were you homeless or living in a fdc (including now)? No 06/08/2024 Personal Safety Answer Date Recorded Have you ever been in or are you currently in a harmful physical or emotional relationship or is someone making you feel afraid or unsafe? Denies 06/07/2024 Comments No Sex and Gender Information Value Date Recorded Sex Assigned at Not on file Legal Sex Female 3:13 PM ENTRY TABLE OPERATOR Gender Identity Not on file Sexual Orientation Not on file Last Filed Vital Signs Vital Sign Reading Time Taken Comments Blood Pressure 140/72 06/09/2024 12:13 PM ENTRY TABLE OPERATOR Pulse 82 06/09/2024 12:13 PM ENTRY TABLE OPERATOR Temperature 37 C (98.6 F) 06/09/2024 12:13 PM ENTRY TABLE OPERATOR Respiratory Rate 16 06/09/2024 12:13 PM ENTRY TABLE OPERATOR Oxygen Saturation 97% 06/09/2024 12:13 PM ENTRY TABLE OPERATOR Inhaled Oxygen Concentration - - Weight 59.2 kg (130 lb 8.2 oz) 06/07/2024 6:48 A M ENTRY TABLE OPERATOR Height 160 cm (5' 3) 06/07/2024 6:48 AM ENTRY TABLE OPERATOR Body Mass Index 23.12 06/07/2024 6:48 AM ENTRY TABLE OPERATOR Plan of Treatment Health Maintenance Due Date [...] this topic Medical Devices Implanted Type Area Business Relations Manager Device Identifier Shelf Expiration Date Model / Serial / Lot [employer] Amplatz 8.5fr 26cm 6 Sideport Introducer Catheter String [id number] - [id number] Implanted:Qty: 1 on 06/08/2024 at [facility] [employer] 02/19/2027 [id number] / / [id number] [facility] [id number] [employer]IGNA [employer] HMO Advance Directives For more information, please contact: [phone] * Full Code (Latest Code Status on File) Date Activated Date Inactivated Comments 06/07/2024 6:04 PM 06/09/2024 7:56 PM Care Teams Cooking Show Host Relationship Specialty Start Date End Date Carter Sanders MD PCP - General Family Medicine 05/22/24 Jt Stern MD [address] [facility] [address] [place] [address] Consulting Physician Urology 06/09/24
--- OUTSIDE RECORDS SUMMARY | 2025-05-10 20:23 | XMS_ITS | Continuity of Care Document ---
Author Organization [facility] [place] Address [address] [place] [address] Care Team Providers Care Press Operator Printing Name Role Phone SHAIKHYULI GREENWOOD Primary Care Provider Assessment No assessment recorded. Plan of Treatment Reminders Order Date Submit Date Provider Last Modified By Organization Details Last Modified Time Details Appointments None recorded. Lab test, urine 2024 025 [email or web address], [address], [place], [address], 09:46:48 Referral None recorded. Procedures None recorded. Surgeries None recorded. Imaging None recorded. Medication Orders None recorded. Patient TargetsNo targets recorded. Patient InstructionsNo instructions recorded. Reason for Referral None Reported. Results Created Date Observation Date Name Description Value Unit Range Abnormal Flag Note LastModifiedBy Organization Detail LastModifiedTime 03/25/2003/25/2025 pregn richard test, urine HCG negati ve Not Available [facility] [address], [place], [address], 03/25/2025 09:46:38 Result Notes None recorded. Problems Name Problem SNOMED Code Status Onset Date Resolution Date Notes Provider Name and Address Organization Details Recorded Time Screenin g for malignan t neoplasm of cervix Completed 201111/06/2020 Screenin g for malignan t neoplasm s of the cervix;R ecorded Elsewher e: No Locat ion: [facility] S ource: EHR Aircraft Maintenance Technician sheryl: N Practi ce ID: 0001 Ezequiel lable Time: 11:15:00 AM Lamar ashley [facility] 1 10:02:55 Pain of breast [id number] Completed 201111/06/2020 Mastodyn ia;Recor ded Elsewher e: No Locat ion: [facility] S ource: EHR Aircraft Maintenance Technician sheryl: N Practi ce ID: 0001 Ezequiel lable Time: 09:15:00 AM Lamar ashley, [facility] 1 10:03:09 Speciali zed medical examinat ion Completed 201211/06/2020 Gynecolo gical Examinat ion;Joao rded Elsewher e: No Locat ion: [facility] S ource: EHR [facility] sheryl: N Practi ce ID: 0001 Ezequiel lable Time: 08:45:00 AM Lamar ashley, [facility] 1 10:03:07 Adult health examinat ion Completed 201411/06/2020 ROUTINE MEDICAL EXAM;Rec orded Elsewher e: No Locat ion: [facility] S ource: EHR [facility] sheryl: N Shilati ce ID: 0001 Ezequiel lable Time: 10:30:00 AM Lamar ashley [facility] [address] 10:02:[address] Concept Completed 201511/06/2020 Encntr for direct marketing intern exam (general ) (routine ) w/o abn findings ;Recorde d Elsewher e: No Locat ion: [facility] S ource: EHR [facility] sheryl: N Practi ce ID: 0001 Ezequiel lable Time: 10:30:00 AM Lamar ashley [facility] 1 10:03:06 Pregnanc y test negative [id number] Completed 201611/06/2020 Encounte r for pregnanc y test, result negative ;Recorde d Elsewher e: No [facility]at [facility] S ource: EHR Aircraft Maintenance Technician sheryl: N Shilati ce ID: 0001 Ezequiel lable Time: 09:30:00 AM Lamar ashley, [facility] 1 10:02:57 Low grade squamous intraepi thelial lesion on cervical Papanico laou smear [id number] 9105 Completed 201611/25/2020 Ivania John [facility], [facility] 13:41:32 Evaluati on finding Completed 201711/06/2020 Hematuri a, unspecif ied;Joao rded Elsewher e: No Locat ion: [facility] S ource: EHR Aircraft Maintenance Technician sheryl: N Shilati ce ID: 0001 Ezequiel lable Time: 08:15:00 AM Lamar Lopez [facility] [address] 10:03:[address] Concept Completed 201711/06/2020 Encounte r for general adult medical exam w abnormal findings ;Practic e ID: 0001 Lamar ashley, [facility] 10:03:04 Screenin g for malignan t neoplasm of rectum Completed 201811/06/2020 Encounte r for screenin g for malignan t neoplasm of rectum;R ecorded Elsewher e: No Locat ion: [facility] S ource: EHR Aircraft Maintenance Technician sheryl: N Shilati ce ID: 0001 Ezequiel lable Time: 08:15:00 [facility] 10:03[facility] Concept Completed 201911/06/2020 Encntr for general adult medical exam w/o abnormal findings ;Recorde d Elsewher e: No Locat ion: [facility] S ource: EHR Aircraft Maintenance Technician sheryl: N Shilati ce ID: 0001 Ezequiel lable Time: 08:45:00 AM Lamar ashley, [facility] 10:03:03 Intraute rine contrace ptive device in situ [id number] Active 2020 Mary Bailey MD [address], [place], [address], [facility] 12:49:33 Problem Notes None recorded. Procedures Surgical History Date Name Laterality Status Provider Name and Address Organization Details Recorded Time 025 IUD Removal completed DAKOTAH CARR NP [address], [place], [address], [facility] 03/25/2025 09:36:45 023 Date of Last Pap Smear completed Kamryn Baig [facility] 08/18/2024 09:47:30 023 Date of Last Mammogram completed Mya Ocasio [facility] 05/25/2023 09:09:07 021 completed Kylah Lyons [facility] 02/20/2021 12:01:30 021 IUD Insertion completed Mary Bailey MD [address], [place], [address], [facility] 01/26/2021 09:48:35 021 Endometrial Biopsy completed Alysha Claros PEGGY- [address], [place], [address], [facility] 11/25/2020 13:56:13 017 Colposcopy completed Lamar Lopez [facility] 11/06/2020 10:20:38 017 Colposcopy completed Ivania John [facility] 11/25/2020 13:43:51 009 cholecystectomy completed Lamar John [facility] 11/06/2020 11:14:17 987 extraction of wisdom tooth completed Ivania John [facility] 05/15/2022 10:16:24 Imaging Results None recorded. [...] by vaginal route once 12/06 completed Prescrib ervin Martinez e: No Locat ion: [facility] odify By: [email or web address] tz Encou nter DateTime : 12/06/19 10:30:00 AM Not Available Not Available Not Available Multi Vitamin 9 mg iron/15 mL oral liquid 11/06 completed Prescrib ed Elsewher e: Yes Loca tion: [facility] M odify By: lanre jon DateTime : 05/08/20 [...] Updated DateTime 03/25/2025 154.94 cm 24.8 kg/m2 22939.04 g 136/86 mm[Hg] Kamryn Baig [facility] 03/25/2025 09:35:05 Social History Question Answer Notes LastModified by Organizat ion Details LastModified Time Tobacco Smoking Status Never Smoker Mya ashley, [facility] 05/25/2023 09:20:41 Are You Blind Or Do You Have Difficulty Seeing? No [email or web address] Information n ot available 11/25/2020 What Is Your Level Of Caffeine Consumption? Occasional [email or web address] Information not available 11/25/2020 How Much Tobacco Do You Chew? None Information not available 05/25/2023 In The 14 Days Before Symptom Onset, Have You Had Close Contact With A Laboratory-confirm ed COVID-19 While That Case Was Ill? No [email or web address] Information n ot available 11/25/2020 In The 14 Days Before Symptom Onset, Have You Had Close Contact With A Person Who Is Under Investigation For COVID-19 While That Person Was Ill? No [email or web address] Information not available 11/25/2020 Have You Been To An Area Known To Be High Risk For COVID-19? No [email or web address] Information not available 11/25/2020 Are You Deaf Or Do You Have Serious Difficulty Hearing? No [email or web address] Information not available 11/25/2020 What Type Of Diet Are You Following? REGULAR [email or web address] Information n ot available 11/25/2020 What Is The Highest Grade Or Level Of School You Have Completed Or The Highest Degree You Have Received? [id number] Information not available 05/25/2023 Have You Ever Been Counseled For Unhealthy Alcohol Use? No Information not available 05/25/2023 Do You Use Protection During Sex? No Information not available 05/25/2023 Do You Use Your Seat Belt Or Car Seat Routinely? Yes [email or web address] Information not available 11/25/2020 Do You Have Smoke And Carbon Monoxide Detectors In Your Home? Yes [email or web address] Information not available 11/25/2020 How Much Tobacco Do You Smoke? No Information not available 05/25/2023 Do You Use Sunscreen Routinely? Yes [email or web address] Information not available 11/25/2020 Has Tobacco Cessation Counseling Been Provided? No Information not available 05/25/2023 Have You Used IV Drugs? No Information not available 05/25/2023 Do You Have Difficulty Walking Or Climbing Stairs? No Information not available 05/25/2023 Sex: Unknown Functional Status Question Answer Note LastModified by Organizat ion Details LastModified Time Do you use any illicit or recreational drugs? No [email or web address] Information not available 11/25/2020 Do you or have you ever used any other forms of tobacco or nicotine? No Information not available 05/25/2023 What is your level of alcohol consumption? Occasional [email or web address] Information not available 11/25/2020 Are you able to walk independently without assistance or assistive devices? YESWOREST [email or web address] Information not available 11/25/2020 Are you able to care for yourself independently? Yes Information not available 05/25/2023 What is your occupation? Retired Information not available 05/25/2023 Do you have difficulty dressing, bathing, grooming, or toileting? No Information not available 05/25/2023 What is your exercise level? Occasional [email or web address] Information not available 11/25/2020 Mental Status Question Answer Note LastModified by Organization D etails LastModified Time Do you feel stressed (tense, restless, nervous, or anxious, or unable to sleep at night)? [id number] Information not available 05/25/2023 Family History Relationship Description Onset Age of this Age Resolved Age Notes LastModified by Organization Details LastModified Time Father Diabetes mellitus [email or web address] Not available 2020 13:52:21 Mother Myocardial infarction [email or web address] Not available 11/06 13:52:39 Medical History Condition Response Allergies (Food, seasonal, environmental ) Y Other Y Breast Cancer N Drug/Latex Allergies/Reactions N Blood Transfusion N Dermatologic Disorders N Lung Disease N Defects or Inherited Disease N Breast Problem N Gestational Diabetes N Hematologic disorders N Anesthesia Complications N History of STI N Deep Vein Thrombosis N Polycystic ovary syndrome N Anxiety Disorder N Autoimmune disease N Arthritis N Infertility N Polyps N Acid Reflux (GERD) N History of abnormal pap Y Cancer N Stroke N Varicosities N Neurologic/Epilepsy N Endometriosis N High Cholesterol Y Headaches N Fibromyalgia N Kidney Disease N Heart Problems N Kidney or Bladder Problems N Thyroid Problems N GI Problems N Eating Disorder [...] ICD10 Code Diagnosis IMO Codes Diagnosis Note [id number] DAKOTAH CARR NP [facility] [address] [address] 03/25/2025 09:23:54 03/25/2025 09:51:11 Removal of intrauterine contraceptive device [id number] Z30.259 [id number] Mirena IUD removed on 03/25/25 without difficulty .We discussed possible cramping and bleeding over the next few days.RTO for WWE, or sooner with any questions or concerns. Health Concerns Section Related Observation LastModified by Organization Detai ls LastModified Time None Recorded Concern Status LastModified by Organization Details LastModified Time None Recorded Payers Encounter Date Sequence Insurance Name Policy Number Policy Montero Covered Member ID Montero Member ID Guarantor Name 03/25/2025 2 [id number] Vinny Coreas [id number] 2 Abbie Coreas 03/25/2025 1 [employer] [facility] [employer] [id number] Abbie Coreas [id number] OI Abbie Coreas Notes Date Note Type Note Provider Name a wy Address Organization Details Recorded Time 03/25/2025 text/html Patient presents for Mirena IUD removal.Informe d consent obtained. UPT negative. DAKOTAH CARR, [facility] [address], [place], [address], [facility] 03/25/2025 09:48:36 OBGyn Episode No OBEpisode recorded.
--- OUTSIDE RECORDS SUMMARY | 2025-05-10 20:23 | XMS_ITS | Clinical Summary ---
Author Organization [facility] [facility] Address [address] [place] [address] [place] [address] Care Team Providers Care Hot Mill Worker Name Role Phone Unavailable Primary Care Provider [...]
--- OUTSIDE RECORDS SUMMARY | 2025-05-10 20:23 | XMS_ITS | Clinical Summary ---
Author Organization [facility] Cierra utijordan Address [address] [place] [address] Phone Care Team Providers Care Automation Control Integrator Name Role Phone Carter Zamora MD Primary Care Provider [phone] Allergies No known active allergies Medications levothyroxine (Levoxyl) 50 MCG tablet Take 1 tablet by mouth 1 (one) time each day Active Active Problems Problem Noted Date Diagnosed Date Personal history of kidney stones 10/08/2024 Encounters Date Type Department Care Team Description 05/08/[address] [facility] [address] [place] [address] Josefina Cantor Nephrolithiasis (Primary Dx) 04/05/[address] [facility] [address] [place] [address] Yudith Gonzalez PA Recurrent kidney stone (Primary Dx) 03/15/[address] 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 [address] [place] [address] Peyman Gtz MD [address] [place] [address] Health Maintenance Due Date Last Done Comments Pneumococcal PPSV23 Highest Risk Adult (1 of 3 - PCV13 ) 1984 Influenza Vaccine (#1) 2025 [facility] Care Teams Automation Control Integrator Relationship Specialty Start Date End Date Carter Zamora MD [address] [place] [address] [address] [place] [address] PCP - General Family Medicine 10/08/24
--- OUTSIDE RECORDS SUMMARY | 2025-05-10 20:23 | XMS_ITS | Data Portability ---
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 Patient will come back in a year unless there are new symptoms. Not available 05/25/2023 09:18:10 08/21/2024 08/21/2024 Annual gynecological exam performed. Patient will come back in a year unless there are new symptoms. [email or web address] Not available 08/18/2024 09:46:10 Plan of Treatment Reminders Order Date Submit Date Provider Last Modified By Organization Details Last Modified Time Details Appointments None recorded. Lab test, urine 2024 025 [email or web address] [place], [address], [place], [address], 09:46:48 CBC w/ auto diff 2024 025 [facility] (Lab), [address], [place], [address], 5 19:10:44 CMP, serum or plasma 2024 025 [facility] (Lab), [address], [place], [address], 5 19:10:44 lipid panel, blood 2024 025 [facility] (Lab), [address], [place], [address], 5 19:10:45 TSH, serum or plasma 2024 025 [facility] (Lab), [address], [place], [address], 5 19:10:45 HbA1c (hemoglobin A1c), blood 2024 025 [facility] (Lab), [address], [place], [address], 5 19:10:45 vitamin D, 25-hydroxy, total, serum 2022 023 [facility] (Lab), [address], [place], [address], 3 03:19:45 HbA1c (hemoglobin A1c), blood 2022 023 [facility] (Lab), [address], [place], [address], 3 03:19:45 CBC w/ auto diff 2022 023 [facility] (Lab), [address], [place], [address], 3 03:19:44 lipid panel, blood 2022 023 [facility] (Lab), [address] [place], [address], 3 03:19:43 CMP, serum or plasma 2022 023 [facility] (Lab), [address] [place], [address], 3 03:19:44 TSH, serum or plasma 2022 023 [facility] (Lab), [address], [place], [address], 3 03:19:45 Referral None recorded. Procedures None recorded. Surgeries None recorded. Imaging MAMMO, screening, digital, bilateral [address] [facility], [address], [place], [address], 5 12:39:57 US, pelvis [address], [address], [address], [place], [address], 3 18:28:01 US, transvagina l [address], [address], [address], [place], [address], 3 18:28:01 MAMMO, screening, bilateral [address] [facility], [address], [place], [address], 3 08:22:48 US, pelvis, complete 2022 0[address], [address], [place], [address], 4 12:50:49 Medication Orders triamcinolo ne acetonide 0.1 % topical cream [id number] [place] [address] [facility] [place], [address], 5 10:04:54 metronidazo le 0.75 % (37.5 mg/5 gram) vaginal gel 2022 023 [facility], [address] [place], [address], 3 09:21:40 Diflucan 150 mg tablet [email or web address] [facility] [address], [address] [place], [address], 3 09:21:33 Pyridium 100 mg tablet 2022 023 [facility], [address] [place], [address], 3 09:22:04 Patient TargetsNo targets recorded. Patient InstructionsNo instructions recorded. Reason for Referral None Reported. Results Created Date Observation Date Name Description Value Unit Range Abnormal Flag Note LastModifiedBy Organization Detail LastModifiedTime 05/25/2005/25/2023 LIPID PANEL ,AMA (LDL- CALC) total cholesterol 197 mg/dL 0-199 Not Available [facility] (Lab) [address], [place], [address], 05/26/2023 03:19:43 05/25/2005/25/2023 LIPID PANEL ,AMA (LDL- CALC) triglyceride s 139 mg/dL 0.00-1 50.00 NCEP Refer ence Value s for Trigl yceri negin: Radha l: <150 mg/dL Borde rline High: 150 - 199 mg/dL High: 200 - 499 mg/dL Very High: >/= 500 mg/dL Not Available [facility] (Lab) [address], [place], [address], 05/26/2023 03:19:43 05/25/2005/25/2023 LIPID PANEL ,AMA (LDL- CALC) HDL cholesterol 59 mg/dL >40 Not Available [facility] (Lab) [address], [place], [address], 05/26/2023 03:19:43 1105/25/2023 LIPID PANEL ,AMA (LDL- [...] mg/dL , HDL <40 mg/dL Not Available [facility] (Lab) [address] [facility], [place], [address], 05/26/2023 03:19:43 05/25/2005/25/2023 LIPID PANEL ,AMA (LDL- CALC) non-HDL cholesterol 138 mg/dL no refere nce range A reaso nable goal for non-H DL lacy stero l is one that is 30 mg/dL highe r than the LDL lacy stero l goal. Not Available [facility] (Lab) [address] [facility], [place], [address], 05/26/2023 03:19:43 05/25/2005/25/2023 LIPID PANEL ,AMA (LDL- [...] astin g. Refer ences : - Ruiz Montoya, Prabhu Sosa , Roberto Carlos jeffrey, Prashanth [...] n. 2017Jun 28;137 (1):1 0-19. Not Available [facility] (Lab) [address] [facility], [place], [address], 05/26/2023 03:19:43 05/25/20 23 05/25/2023 CMP(C OMPRE HENSI VE METAB OLIC PANEL ) sodium 143 mmol/ L 133-14 6 Not Available [facility] (Lab) [address] [place], [address], 05/26/2023 03:19:44 05/25/20 23 05/25/2023 CMP(C OMPRE HENSI VE METAB OLIC PANEL ) potassium 4.0 mmol/ L 3.5-5. 1 Not Available [facility] (Lab) [address] [place], [address], 05/26/2023 03:19:44 05/25/20 23 05/25/2023 CMP(C OMPRE HENSI VE METAB OLIC PANEL ) chloride 103 mmol/ L 98-107 Not Available [facility] (Lab) [address] [place], [address], 05/26/2023 03:19:44 05/25/20 23 05/25/2023 CMP(C OMPRE HENSI VE METAB OLIC PANEL ) carbon dioxide 29 mmol/ L 21-31 Not Available [facility] (Lab) [address], [place], [address], 05/26/2023 03:19:44 05/25/20 23 05/25/2023 CMP(C OMPRE HENSI VE METAB OLIC PANEL ) anion gap 11 mmol/ L 4-13 Not Available [facility] (Lab) [address], [place], [address], 05/26/2023 03:19:44 05/25/20 23 05/25/2023 CMP(C OMPRE HENSI VE METAB OLIC PANEL ) blood urea nitrogen 11 mg/dL 7-25 Not Available [facility] (Lab) [address], [place], [address], 05/26/2023 03:19:44 05/25/20 23 05/25/2023 CMP(C OMPRE HENSI VE METAB OLIC PANEL ) creatinine 0.81 mg/dL 0.60-1 .30 Not Available [facility] (Lab) [address], [place], [address], 05/26/2023 03:19:44 05/25/20 23 05/25/2023 CMP(C OMPRE HENSI VE METAB OLIC PANEL ) egfrcr (CKD-epi 2020) 85 mL/mi n/1.7 3_m2 >=60 Not Available [facility] (Lab) [address], [place], [address], 05/26/2023 03:19:44 05/25/20 23 05/25/2023 CMP(C OMPRE HENSI VE METAB OLIC PANEL ) calcium 9.8 mg/dL 8.3-10 .5 Not Available [facility] (Lab) [address], [place], [address], 05/26/2023 03:19:44 05/25/20 23 05/25/2023 CMP(C OMPRE HENSI VE METAB OLIC PANEL ) glucose 102 mg/dL 70-100 high Not Available [facility] (Lab) [address] [facility], [place], [address], 05/26/2023 03:19:44 05/25/20 23 05/25/2023 CMP(C OMPRE HENSI VE METAB OLIC PANEL ) protein, total 7.5 g/dL 6.4-8. 3 Not Available [facility] (Lab) [address] [facility], [place], [address], 05/26/2023 03:19:44 05/25/20 23 05/25/2023 CMP(C OMPRE HENSI VE METAB OLIC PANEL ) albumin 4.6 g/dL 3.5-5. 0 Not Available [facility] (Lab) [address] [facility], [place], [address], 05/26/2023 03:19:44 05/25/20 23 05/25/2023 CMP(C OMPRE HENSI VE METAB OLIC PANEL ) ALT 21 units /L 9-43 Not Available [facility] (Lab) [address] [facility], [place], [address], 05/26/2023 03:19:44 05/25/20 23 05/25/2023 CMP(C OMPRE HENSI VE METAB OLIC PANEL ) alkaline phosphatase 57 units /L 34-104 Not Available [facility] (Lab) [address] [facility], [place], [address], 05/26/2023 03:19:44 05/25/20 23 05/25/2023 CMP(C OMPRE HENSI VE METAB OLIC PANEL ) AST 16 units /L 13-39 Not Available [facility] (Lab) [address] [facility], [place], [address], 05/26/2023 03:19:44 05/25/20 23 05/25/2023 CMP(C OMPRE HENSI VE METAB OLIC PANEL ) bilirubin, total 0.7 mg/dL 0.2-1. 2 Not Available [facility] (Lab) [address], [place], [address], 05/26/2023 03:19:44 05/25/20 23 05/25/2023 CBC W/DIF F WBC 8.1 10'3/ uL 3.6-10 .2 Not Available [facility] (Lab) [address], [place], [address], 05/26/2023 03:19:44 05/25/20 23 05/25/2023 CBC W/DIF F RBC 4.61 10'6/ uL (based on docume nted legal sex) 4.10-5 .30 Not Available [facility] (Lab) [address], [place], [address], 05/26/2023 03:19:44 05/25/20 23 05/25/2023 CBC W/DIF F HGB 14.3 g/dL (based on docume nted legal sex) 11.9-1 5.8 Not Available [facility] (Lab) [address], [place], [address], 05/26/2023 03:19:44 05/25/20 23 05/25/2023 CBC W/DIF F HCT 43.9 % (based on docume nted legal sex) 37.4-4 8.3 Not Available [facility] (Lab) [address], [place], [address], 05/26/2023 03:19:44 05/25/20 23 05/25/2023 CBC W/DIF F MCV 95.2 fL 82.0-9 9.0 Not Available [facility] (Lab) [address], [place], [address], 05/26/2023 03:19:44 05/25/20 23 05/25/2023 CBC W/DIF F MCH 31.0 pg 27.0-3 3.0 Not Available [facility] (Lab) [address] [place], [address], 05/26/2023 03:19:44 05/25/20 23 05/25/2023 CBC W/DIF F MCHC 32.6 g/dL 32.0-3 6.0 Not Available [facility] (Lab) [address], [place], [address], 05/26/2023 03:19:44 05/25/20 23 05/25/2023 CBC W/DIF F RDW 12.2 % 11.0-1 5.0 Not Available [facility] (Lab) [address], [place], [address], 05/26/2023 03:19:44 05/25/20 23 05/25/2023 CBC W/DIF F plt 358 10'3/ uL 150-45 0 Not Available [facility] (Lab) [address], [place], [address], 05/26/2023 03:19:44 05/25/20 23 05/25/2023 CBC W/DIF F MPV 10.8 fL 9.8-12 .7 Not Available [facility] (Lab) [address], [place], [address], 05/26/2023 03:19:44 05/25/20 23 05/25/2023 CBC W/DIF F NRBC's 0.0 % 0 Not Available [facility] (Lab) [address], [place], [address], 05/26/2023 03:19:44 05/25/20 23 05/25/2023 CBC W/DIF F absolute NRBCs 0.0 10'3/ uL 0 Not Available [facility] (Lab) [address], [place], [address], 05/26/2023 03:19:44 05/25/20 23 05/25/2023 CBC W/DIF F neutrophils 58.4 % 37.0-7 2.0 Not Available [facility] (Lab) [address] [facility], [place], [address], 05/26/2023 03:19:44 05/25/20 23 05/25/2023 CBC W/DIF F lymphocytes 30.5 % 16.0-4 8.0 Not Available [facility] (Lab) [address] [facility], [place], [address], 05/26/2023 03:19:44 05/25/20 23 05/25/2023 CBC W/DIF F monocytes 6.9 % 4.0-14 .0 Not Available [facility] (Lab) [address] [facility], [place], [address], 05/26/2023 03:19:44 05/25/20 23 05/25/2023 CBC W/DIF F eosinophils 2.6 % 0.0-9. 0 Not Available [facility] (Lab) [address] [facility], [place], [address], 05/26/2023 03:19:44 05/25/20 23 05/25/2023 CBC W/DIF F basophils 1.4 % 0.0-2. 0 Not Available [facility] (Lab) [address] [facility], [place], [address], 05/26/2023 03:19:44 05/25/20 23 05/25/2023 CBC W/DIF F immature granulocytes 0.2 % no define d refere nce range Not Available [facility] (Lab) [address] [facility], [place], [address], 05/26/2023 03:19:44 05/25/20 23 05/25/2023 CBC W/DIF F absolute neutrophils 4.7 10'3/ uL 1.1-6. 0 Not Available [facility] (Lab) [address] [facility], [place], [address], 05/26/2023 03:19:44 05/25/20 23 05/25/2023 CBC W/DIF F absolute lymphocytes 2.5 10'3/ uL 0.7-3. 4 Not Available [facility] (Lab) [address] [facility], [place], [address], 05/26/2023 03:19:44 05/25/20 23 05/25/2023 CBC W/DIF F absolute monocytes 0.6 10'3/ uL 0.3-1. 0 Not Available [facility] (Lab) [address] [facility], [place], [address], 05/26/2023 03:19:44 05/25/20 23 05/25/2023 CBC W/DIF F absolute eosinophils 0.2 10'3/ uL 0.0-0. 6 Not Available [facility] (Lab) [address] [facility], [place], [address], 05/26/2023 03:19:44 05/25/20 23 05/25/2023 CBC W/DIF F absolute basophils 0.1 10'3/ uL 0.0-0. 1 Not Available [facility] (Lab) [address] [facility], [place], [address], 05/26/2023 03:19:44 05/25/20 23 05/25/2023 CBC W/DIF [...] resul ts are expec juan. Not Available [facility] (Lab) [address] [facility], [place], [address], 05/26/2023 03:19:44 05/25/20 23 05/25/2023 TSH, REFLE X FREE T4 TSH 2.85 uIU/m L 0.30-5 .33 Not Available [facility] (Lab) [address] [facility], [place], [address], 05/26/2023 03:19:45 05/25/20 23 05/25/2023 VITAM IN D, 25-OH (TOTA L D2/D3 ) vitamin D, 25-hydroxy, total 25.8 NG/mL 30.0-1 00.0 low Sugge stive of Defic iency : <20 ng/mL Sugge stive of Insuf ficie ncy: 20-29 ng/mL Sugge stive of Suffi cienc y: 30-10 0 ng/mL Sugge stive of Toxic ity: >150 ng/mL Not Available [facility] (Lab) [address], [place], [address], 05/26/2023 03:19:45 05/25/20 23 05/25/2023 HEMOG LOBIN [...] >8.0% Actio n sugge sted Not Available [facility] (Lab) [address], [place], [address], 05/26/2023 03:19:45 05/25/20 23 05/25/2023 IMAGE GUIDE D PAP AND HPV REGAR DLESS image guided Pap, HPV regardless of Pap result SEE RESULT S BELOW CASE REPOR T: Cytol ogy Gynec ologi akila Repor t Case: [id number] Autho ashlee g Provi ying: Alirio Reyna Colle cted: 05/25 1741 [employer] Order ing Locat ion: [place] Path[facility] log[facility] [...] as clini marcelo garduno nted. Not Available [facility] (Lab) [address], [place], [address], 05/27/2023 16:27:18 08/21/19 25 08/21/2024 CBC W/DIF F WBC 6.8 10'3/ uL 3.5-10 .5 Not Available [facility] (Lab) [address], [place], [address], 08/22/2024 19:10:43 08/21/19 25 08/21/2024 CBC W/DIF F RBC 4.64 10'6/ uL (based on docume nted legal sex) 3.80-5 .20 Not Available [facility] (Lab) [address], [place], [address], 08/22/2024 19:10:43 08/21/19 25 08/21/2024 CBC W/DIF F HGB 13.8 g/dL (based on docume nted legal sex) 11.6-1 5.4 Not Available [facility] (Lab) [address], [place], [address], 08/22/2024 19:10:43 08/21/19 25 08/21/2024 CBC W/DIF F HCT 44.8 % (based on docume nted legal sex) 34.0-4 5.0 Not Available [facility] (Lab) [address], [place], [address], 08/22/2024 19:10:43 08/21/19 25 08/21/2024 CBC W/DIF F MCV 96.6 fL 80.0-9 9.0 Not Available [facility] (Lab) [address] [facility], [place], [address], 08/22/2024 19:10:43 08/21/19 25 08/21/2024 CBC W/DIF F MCH 29.7 pg 27.0-3 4.0 Not Available [facility] (Lab) [address] [facility], [place], [address], 08/22/2024 19:10:43 08/21/19 25 08/21/2024 CBC W/DIF F MCHC 30.8 g/dL 32.0-3 5.5 low Not Available [facility] (Lab) [address] [facility], [place], [address], 08/22/2024 19:10:43 08/21/19 25 08/21/2024 CBC W/DIF F RDW 12.6 % 11.0-1 5.0 Not Available [facility] (Lab) [address] [facility], [place], [address], 08/22/2024 19:10:43 08/21/19 25 08/21/2024 CBC W/DIF F plt 363 10'3/ uL 150-40 0 Not Available [facility] (Lab) [address] [facility], [place], [address], 08/22/2024 19:10:43 08/21/19 25 08/21/2024 CBC W/DIF F MPV 10.9 fL 8.8-12 .1 Not Available [facility] (Lab) [address] [facility], [place], [address], 08/22/2024 19:10:43 08/21/19 25 08/21/2024 CBC W/DIF F neutrophils 55.2 % 34.0-7 3.0 Not Available [facility] (Lab) [address] [facility], [place], [address], 08/22/2024 19:10:43 08/21/19 08/21/2024 CBC W/DIF F lymphocytes 33.0 % 15.0-5 0.0 Not Available [facility] (Lab) [address] [facility], [place], [address], 08/22/2024 19:10:43 08/21/1908/21/2024 CBC W/DIF F monocytes 7.8 % 1.0-15 .0 Not Available [facility] (Lab) [address] [facility], [place], [address], 08/22/2024 19:10:43 08/21/19 25 08/21/2024 CBC W/DIF F eosinophils 2.1 % 0.0-8. 0 Not Available [facility] (Lab) [address] [facility], [place], [address], 08/22/2024 19:10:43 08/21/1908/21/2024 CBC W/DIF F basophils 1.6 % 0.0-2. 0 Not Available [facility] (Lab) [address] [facility], [place], [address], 08/22/2024 19:10:43 08/21/1908/21/2024 CBC W/DIF F immature granulocytes 0.3 % no define d refere nce range Immat ure Granu locyt es (IG) repre sents autom ated enume ratio n of Metam yeloc ytes, Myelo cytes and Promy elocy jae when IG is < 5%. Blast s are not inclu ded in IG and repor juan separ ately if prese nt. Not Available [facility] (Lab) [address] [facility], [place], [address], 08/22/2024 19:10:43 08/21/1908/21/2024 CBC W/DIF F absolute neutrophils 3.8 10'3/ uL 1.5-8. 0 Not Available [facility] (Lab) [address] [facility], [place], [address], 08/22/2024 19:10:43 08/21/19 25 08/21/2024 CBC W/DIF F absolute lymphocytes 2.3 10'3/ uL 1.0-4. 0 Not Available [facility] (Lab) [address] [facility], [place], [address], 08/22/2024 19:10:43 08/21/19 25 08/21/2024 CBC W/DIF F absolute monocytes 0.5 10'3/ uL 0.2-1. 0 Not Available [facility] (Lab) [address] [facility], [place], [address], 08/22/2024 19:10:43 08/21/19 25 08/21/2024 CBC W/DIF F absolute eosinophils 0.1 10'3/ uL 0.0-0. 6 Not Available [facility] (Lab) [address] [facility], [place], [address], 08/22/2024 19:10:43 08/21/19 25 08/21/2024 CBC W/DIF F absolute basophils 0.1 10'3/ uL 0.0-0. 3 Not Available [facility] (Lab) [address] [facility], [place], [address], 08/22/2024 19:10:43 08/21/19 25 08/21/2024 CBC W/DIF F absolute immature granulocytes 0.0 10'3/ uL 0.00-0 .10 Refer ence range s for nonbi nary/ inter sex or unspe cifie d gende r patie nts have not been estab lishe d. [facility]as [facility] range s estab lishe d for cisge nder patie nts and evalu ate in the clini akila rashid xt of the indiv idual patie nt: https :[email or web address] guerra book. nm.or g/gen derx Not Available [facility] (Lab) [address] [facility], [place], [address], 08/22/2024 19:10:43 08/21/19 25 08/21/2024 CMP(C OMPRE HENSI VE METAB OLIC PANEL ) sodium 140 mmol/ L 133-14 6 Not Available [facility] (Lab) [address] [facility], [place], [address], 08/22/2024 19:10:44 08/21/19 25 08/21/2024 CMP(C OMPRE HENSI VE METAB OLIC PANEL ) potassium 4.4 mmol/ L 3.5-5. 1 Not Available [facility] (Lab) [address] [facility], [place], [address], 08/22/2024 19:10:44 08/21/19 25 08/21/2024 CMP(C OMPRE HENSI VE METAB OLIC PANEL ) chloride 103 mmol/ L 98-107 Not Available [facility] (Lab) [address] [facility], [place], [address], 08/22/2024 19:10:44 08/21/19 25 08/21/2024 CMP(C OMPRE HENSI VE METAB OLIC PANEL ) carbon dioxide 29 mmol/ L 21-31 Not Available [facility] (Lab) [address] [facility], [place], [address], 08/22/2024 19:10:44 08/21/19 25 08/21/2024 CMP(C OMPRE HENSI VE METAB OLIC PANEL ) anion gap 8 mmol/ L 4-13 Not Available [facility] (Lab) [address] [place], [address], 08/22/2024 19:10:44 08/21/19 25 08/21/2024 CMP(C OMPRE HENSI VE METAB OLIC PANEL ) blood urea nitrogen 10 mg/dL 7-25 Not Available [facility] (Lab) [address] [place], [address], 08/22/2024 19:10:44 08/21/19 25 08/21/2024 CMP(C OMPRE HENSI VE METAB OLIC PANEL ) creatinine 0.80 mg/dL 0.60-1 .30 Not Available [facility] (Lab) [address] [place] [facility] [place], [address], 08/22/2024 19:10:44 08/21/19 25 08/21/2024 CMP(C OMPRE HENSI VE METAB OLIC PANEL ) egfrcr (CKD-epi 2020) 86 mL/mi n/1.7 3_m2 >=60 Not Available [facility] (Lab) [address] [facility], [place], [address], 08/22/2024 19:10:44 08/21/19 25 08/21/2024 CMP(C OMPRE HENSI VE METAB OLIC PANEL ) calcium 9.4 mg/dL 8.3-10 .5 Not Available [facility] (Lab) [address] [facility], [place], [address], 08/22/2024 19:10:44 08/21/19 25 08/21/2024 CMP(C OMPRE HENSI VE METAB OLIC PANEL ) glucose 91 mg/dL 70-100 Not Available [facility] (Lab) [address] [facility], [place], [address], 08/22/2024 19:10:44 08/21/19 25 08/21/2024 CMP(C OMPRE HENSI VE METAB OLIC PANEL ) protein, total 7.4 g/dL 6.4-8. 3 Not Available [facility] (Lab) [address] [facility], [place], [address], 08/22/2024 19:10:44 08/21/19 25 08/21/2024 CMP(C OMPRE HENSI VE METAB OLIC PANEL ) albumin 4.6 g/dL 3.5-5. 0 Not Available [facility] (Lab) [address] [facility], [place], [address], 08/22/2024 19:10:44 08/21/19 25 08/21/2024 CMP(C OMPRE HENSI VE METAB OLIC PANEL ) ALT 20 units /L 9-43 Not Available [facility] (Lab) [address] [facility], [place], [address], 08/22/2024 19:10:44 08/21/19 25 08/21/2024 CMP(C OMPRE HENSI VE METAB OLIC PANEL ) alkaline phosphatase 61 units /L 34-104 Not Available [facility] (Lab) [address] [facility], [place], [address], 08/22/2024 19:10:44 08/21/19 25 08/21/2024 CMP(C OMPRE HENSI VE METAB OLIC PANEL ) AST 17 units /L 13-39 Not Available [facility] (Lab) [address] [facility], [place], [address], 08/22/2024 19:10:44 08/21/19 25 08/21/2024 CMP(C OMPRE HENSI VE METAB OLIC PANEL ) bilirubin, total 0.6 mg/dL 0.2-1. 2 Not Available [facility] (Lab) [address], [place], [address], 08/22/2024 19:10:44 08/21/19 25 08/21/2024 LIPID PANEL ,AMA (LDL- CALC) total cholesterol 201 mg/dL 0-199 high Not Available [facility] (Lab) [address], [place], [address], 08/22/2024 19:10:44 08/21/19 25 08/21/2024 LIPID PANEL ,AMA (LDL- CALC) triglyceride s 87 mg/dL 0-150 NCEP Refer ence Value s for Trigl yceri negin: Radha l: <150 mg/dL Borde rline High: 150 - 199 mg/dL High: 200 - 499 mg/dL Very High: >/= 500 mg/dL Not Available [facility] (Lab) [address], [place], [address], 08/22/2024 19:10:44 08/21/19 25 08/21/2024 LIPID PANEL ,AMA (LDL- CALC) HDL cholesterol 67 mg/dL >40 Not Available [facility] (Lab) [address], [place], [address], 08/22/2024 19:10:44 08/21/1908/21/2024 LIPID PANEL ,AMA (LDL- [...] mg/dL , HDL <40 mg/dL Not Available [facility] (Lab) [address], [place], [address], 08/22/2024 19:10:44 08/21/1908/21/2024 LIPID PANEL ,AMA (LDL- CALC) non-HDL cholesterol 134 mg/dL no refere nce range A reaso nable goal for non-H DL lacy stero l is one that is 30 mg/dL highe r than the LDL lacy stero l goal. Not Available [facility] (Lab) [address], [place], [address], 08/22/2024 19:10:44 08/21/1908/21/2024 LIPID PANEL ,AMA (LDL- CALC) chol/HDL ratio 3.0 . 0.0-5. 0 On October 19, 2022, [facility] labor atori es javed ed the [...] n. 2017Jun 28;137 (1):1 0-19. Not Available [facility] (Lab) [address], [place], [address], 08/22/2024 19:10:44 08/21/19 25 08/21/2024 TSH, REFLE X FREE T4 TSH 2.92 uIU/m L 0.30-5 .33 Not Available [facility] (Lab) [address] [place], [address], 08/22/2024 19:10:45 08/21/19 25 08/21/2024 HEMOG LOBIN [...] >8.0% Actio n sugge sted Not Available [facility] (Lab) [address], [place], [address], 08/22/2024 19:10:45 03/25/2003/25/2025 pregn richard test, urine HCG negati ve Not Available [address], [place], [address], 03/25/2025 09:46:38 06/01/20 23 06/01/2023 US, pelvi s No observ ation record ed. [email or web address] [place] [address], [place], [address], 06/01/2023 13:34:06 06/01/20 23 06/01/2023 US, trans vagin al No observ ation record ed. [email or web address] [place] [address], [place], [address], 06/01/2023 13:33:57 06/01/20 23 06/01/2023 US, pelvi s No observ ation record ed. ABDELRAHMAN Julien [address] [address], [place], [address], 06/08/2023 16:49:00 Result Notes None recorded. Problems Name Problem SNOMED Code Status Onset Date Resolution Date Notes Provider Name and Address Organization Details Recorded Time Screenin g for malignan t neoplasm of cervix Completed 201111/06/2020 Screenin g for malignan t neoplasm s of the cervix;R ecorded Elsewher e: No Locat ion: [facility] S ource: EHR Microbiology Manager sheryl: N Practi ce ID: 0001 Ezequiel lable Time: 11:15:00 AM TIMI Casanova - [facility] 05/13/202 1 10:02:55 Pain of breast 80218057 Completed 201111/06/2020 Mastodyn ia;Recor ded Elsewher e: No Locat ion: [facility] S ource: EHR Microbiology Manager sheryl: N Shilati ce ID: 0001 Ezequiel lable Time: 09:15:00 AM Lamar ashley, [facility] 1 10:03:09 Speciali zed medical examinat ion Completed 201211/06/2020 Gynecolo gical Examinat ion;Joao rded Elsewher e: No Locat ion: [facility] S ource: EHR Microbiology Manager sheryl: N Shilati ce ID: 0001 Ezequiel lable Time: 08:45:00 AM Lamar ashley, [facility] 1 10:03:07 Adult health examinat ion Completed 201411/06/2020 ROUTINE MEDICAL EXAM;Rec orded Elsewher e: No Locat ion: [facility] S ource: EHR Microbiology Manager sheryl: N Shilati ce ID: 0001 Ezequiel lable Time: 10:30:00 AM Lamar ashley, [facility] 1 10:02:[address] Concept Completed 201511/06/2020 Encntr for eligibility services representative exam (general ) (routine ) w/o abn findings ;Recorde d Elsewher e: No Locat ion: [facility] S ource: EHR Microbiology Manager sheryl: N Practi ce ID: 0001 Ezequiel lable Time: 10:30:00 AM Lamar ashley, [facility] 1 10:03:06 Pregnanc y test negative 101239525 Completed 201611/06/2020 Encounte r for pregnanc y test, result negative ;Recorde d Elsewher e: No Locat ion: [facility] S ource: EHR Microbiology Manager sheryl: N Practi ce ID: 0001 Ezequiel lable Time: 09:30:00 [facility] 1 10:02:57 Low grade squamous intraepi thelial lesion on cervical Papanico laou smear 1917520921 9105 Completed 201611/25/2020 Ivania ashley, [facility] 1 13:41:32 Evaluati on finding Completed 201711/06/2020 Hematuri a, unspecif ied;Joao rded Elsewher e: No Locat ion: [facility] S ource: EHR Microbiology Manager sheryl: N Practi ce ID: 0001 Ezequiel lable Time: 08:15:00 AM Lamar Lopez [facility] 10:03:[address] Concept Completed 201711/06/2020 Encounte r for general adult medical exam w abnormal findings ;Practic e ID: 0001 [facility] 10:03:04 Screenin g for malignan t neoplasm of rectum Completed 201811/06/2020 Encounte r for screenin g for malignan t neoplasm of rectum;R ecorded Elsewher e: No Locat ion: [facility] S ource: EHR Microbiology Manager sheryl: N Practi ce ID: 0001 Ezequiel lable Time: 08:15:00 AM Lamar ashley, [facility] [address] 10:03:[address] Concept Completed 201911/06/2020 Encntr for general adult medical exam w/o abnormal findings ;Recorde d Elsewher e: No Locat ion: [facility] S ource: EHR Microbiology Manager sheryl: N Practi ce ID: 0001 Ezequiel lable Time: 08:45:00 AM [facility] 1 10:03:03 Intraute rine contrace ptive device in situ [id number] Active 2020 Mary Bailey MD [address], [place], [address], [facility] 12:49:33 Problem Notes None recorded. Procedures Surgical History Date Name Laterality Status Provider Name and Address Organization Details Recorded Time 025 IUD Removal completed DAKOTAH CARR NP [address], [place], [address], [facility] 03/25/2025 09:36:45 023 Date of Last Pap Smear completed Kamryn Baig [facility] 08/18/2024 09:47:30 023 Date of Last Mammogram completed Mya Ocasio [facility] 05/25/2023 09:09:07 021 completed Kylah Lyons [facility] 02/20/2021 12:01:30 021 IUD Insertion completed Mary Bailey MD [address], [place], [address], [facility] 01/26/2021 09:48:35 021 Endometrial Biopsy completed Alysha Claros [facility]- [address], [place], [address], [facility] 11/25/2020 13:56:13 017 Colposcopy completed Lamar Lopez [facility] 11/06/2020 10:20:38 017 Colposcopy completed Ivania John [facility] 11/25/2020 13:43:51 009 cholecystectomy completed Lamar Lopez [facility] 11/06/2020 11:14:17 987 extraction of wisdom tooth completed Ivania John [facility] 05/15/2022 10:16:24 Imaging Results None recorded. [...] Elsewher e: Yes Loca tion: [facility]ing [facility] odify By: lanre jon DateTime : [...] Updated DateTime 08/21/2024 154.94 cm 25 kg/m2 47390.91 g 150/92 mm[Hg] [facility] 08/21/2024 10:03:08 Date Recorded Systolic And Diastolic Provider Name and Address Organization Details Last Updated DateTime 11/26/2022 122/76 mm[Hg] Alysha Claros [facility] [address], [place], [address], [facility] 11/26/2022 12:50:39 Date Recorded Body height Body mass index (BMI) Body weight Provider Name and Address Organization Details Last Updated DateTime 11/26/2022 154.94 cm 23.8 kg/m2 18156.64 g Mya Ocasio [facility] 11/26/2022 12:42:42 Date Recorded Body height Body mass index (BMI) Body weight Systolic And Diastolic Provider Name and Address Organization Details Last Updated DateTime 03/25/2025 154.94 cm 24.8 kg/m2 65428.04 g 136/86 mm[Hg] [facility] 03/25/2025 09:35:05 Date Recorded Systolic And Diastolic Provider Name and Address Organization Details Last Updated DateTime 05/25/2023 124/70 mm[Hg] Alysha Claros [facility]- [address], [place], [address], [facility] 05/25/2023 09:41:29 Date Recorded Body height Body mass index (BMI) Body weight Systolic And Diastolic Provider Name and Address Organization Details Last Updated DateTime 05/25/2023 154.94 cm 24.4 kg/m2 03936.42 g 146/90 mm[Hg] Mya Ocasio [facility] 05/25/2023 09:20:02 Social History Question Answer Notes LastModified by Organizat ion Details LastModified Time Tobacco Smoking Status Never Smoker Mya Ocasio null, [facility] 05/25/2023 09:20:41 Are You Blind Or Do You Have Difficulty Seeing? No [email or web address] Information n ot available 11/25/2020 What Is Your Level Of Caffeine Consumption? Occasional [email or web address] Information not available 11/25/2020 How Much Tobacco Do You Chew? None Information not available 05/25/2023 In The 14 Days Before Symptom Onset, Have You Had Close Contact With A Laboratory-confirm ed COVID-19 While That Case Was Ill? No [email or web address] Information n ot available 11/25/2020 In The 14 Days Before Symptom Onset, Have You Had Close Contact With A Person Who Is Under Investigation For COVID-19 While That Person Was Ill? No [email or web address] Information not available 11/25/2020 Have You Been To An Area Known To Be High Risk For COVID-19? No [email or web address] Information not available 11/25/2020 Are You Deaf Or Do You Have Serious Difficulty Hearing? No [email or web address] Information not available 11/25/2020 What Type Of Diet Are You Following? REGULAR [email or web address] Information n ot available 11/25/2020 What Is The Highest Grade Or Level Of School You Have Completed Or The Highest Degree You Have Received? [id number] Information not available 05/25/2023 Have You Ever Been Counseled For Unhealthy Alcohol Use? No Information not available 05/25/2023 Do You Use Protection During Sex? No Information not available 05/25/2023 Do You Use Your Seat Belt Or Car Seat Routinely? Yes [email or web address] Information not available 11/25/2020 Do You Have Smoke And Carbon Monoxide Detectors In Your Home? Yes [email or web address] Information not available 11/25/2020 How Much Tobacco Do You Smoke? No Information not available 05/25/2023 Do You Use Sunscreen Routinely? Yes [email or web address] Information not available 11/25/2020 Has Tobacco Cessation Counseling Been Provided? No Information not available 05/25/2023 Have You Used IV Drugs? No Information not available 05/25/2023 Do You Have Difficulty Walking Or Climbing Stairs? No Information not available 05/25/2023 Sex: Unknown Functional Status Question Answer Note LastModified by Organizat ion Details LastModified Time Do you use any illicit or recreational drugs? No [email or web address] Information not available 11/25/2020 Do you or have you ever used any other forms of tobacco or nicotine? No Information not available 05/25/2023 What is your level of alcohol consumption? Occasional [email or web address] Information not available 11/25/2020 Are you able to walk independently without assistance or assistive devices? YESWOREST [email or web address] Information not available 11/25/2020 Are you able to care for yourself independently? Yes Information not available 05/25/2023 What is your occupation? Retired Information not available 05/25/2023 Do you have difficulty dressing, bathing, grooming, or toileting? No Information not available 05/25/2023 What is your exercise level? Occasional [email or web address] Information not available 11/25/2020 Mental Status Question Answer Note LastModified by Organization D etails LastModified Time Do you feel stressed (tense, restless, nervous, or anxious, or unable to sleep at night)? [id number] Information not available 05/25/2023 Family History Relationship Description Onset Age of this Age Resolved Age Notes LastModified by Organization Details LastModified Time Father Diabetes mellitus [email or web address] Not available 2020 13:52:21 Mother Myocardial infarction Not available 11/06 13:52:39 Medical History Condition Response Allergies (Food, seasonal, environmental ) Y Other Y Breast Cancer N Drug/Latex Allergies/Reactions N Blood Transfusion N Lung Disease N Dermatologic Disorders N Defects or Inherited Disease N Breast Problem N Gestational Diabetes N Hematologic disorders N Anesthesia Complications N History of STI N Deep Vein Thrombosis N Polycystic ovary syndrome N Anxiety Disorder N Autoimmune disease N Arthritis N Polyps N Infertility N History of abnormal pap Y Acid Reflux (GERD) N Cancer N Varicosities N Stroke N Neurologic/Epilepsy [...] ICD10 Code Diagnosis IMO Codes Diagnosis Note [id number] Alysha Claros [facility] [address] [address] 11/07/2020 10:51:36 11/07/2020 11:47:09 Abnormal uterine bleeding 3693386647 9100 N93.9 TVUS to be updated Labs [...] this patient s visit, including available hand administrative director upon arrive, temperatur e check and being asked a series of screening questions. All staff wore face coverings during this encounter, as well as provided additional cleaning and sanitizing of all surfaces, including counter-to ps, pens, chairs, door handles, light switches, etc, prior to and following the patient s visit. Adult heal th examination 062753926 Z00.00 Elevated blood-pressure reading without diagnosis of hypertension 447017751 R03.0 Recommend making appt PCP to discuss possible HTN & monitor BP. Hx of hypothyroi dism. [id number] Elier Gonsalez MD [place] [address] [address] 11/13/2020 10:15:48 11/13/2020 10:59:41 Abnormal uterine bleeding 6951339311 9100 N93.9 26451 Alysha Claros [facility] [address] [address] 11/25/2020 12:50:29 11/25/2020 14:02:22 Menorrhagia 049105587 N92.0 EMBx performed for thickened lining 27mm [...] to patient satisfacti on. Screening mammography 24 254918 Z12.31 Cyst of ovary 34387401 N 83.209 R/P TVUS x 6wks as precaution . Will call with lab results [id number] [facility] [address] [address] 11/29/2020 09:41:52 11/29/2020 10:31:54 Menorrhagia 686587705 N92.0 We reviewed her recent labs that [...] this patient s visit, including available hand administrative director upon arrive, temperatur e check and being asked a series of screening questions. All staff wore face coverings during this encounter, as well as provided additional cleaning and sanitizing of all surfaces, including countertop s, pens, chairs, door handles, light switches, etc, prior to and following the patient s visit. [id number] Mary Bailey MD [place] [address] [address] 12/17/2020 09:53:27 12/17/2020 14:09:38 Menorrhagia 309246626 N92.0 Cancer ant igen 125 above reference range 475572094 R97.1 Cyst of ovary 60553599 N 83.209 Surveillan ce of oral contraception 092425593 Z30.41 Perimenopausal state 077 9627078 15891 Z78.0 [id number] Mary Bailey MD [place] [address],[place] [address] 12/30/2020 09:59:39 12/30/2020 11:06:23 Abnormal uterine bleeding 1019680552 9100 N93.9 70855 Mary Bailey MD [place] [address] [address] 01/06/2021 12:41:41 01/07/2021 16:56:29 Menometrorrhagia 938535727 N92.1 Surveillan ce of oral contraception 824634717 Z30.41 Cyst of ovary 08992322 N 83.209 26488 Mary Bailey MD [place] [address],[place] [address] 01/23/2021 15:48:41 01/24/2021 14:21:16 Contraception care management 926210586 Z30.9 Insertion of intrauterine contraceptive device 84976825 Z30.430 07141 Mary Bailey MD [place] [address] [address] 02/20/2021 11:47:28 02/20/2021 14:50:46 Gynecologic examination 25350749 Z01.419 Intrauteri ne contraceptive device in situ 223234912 Z97.5 [id number] DAKOTAH CARR NP [place] [address],[place] [address] 03/25/2025 09:23:54 03/25/2025 09:51:11 Removal of intrauterine contraceptive device 8890242047 Z30.801 [id number] Mirena IUD removed on 03/25/25 without difficulty .We discussed possible cramping and bleeding over the next few days.RTO for WWE, or sooner with any questions or concerns. [id number] [facility] [address] [address] 04/27/2022 09:40:30 04/27/2022 10:37:54 Pain in pelvis 88812845 R10.2 This patient is a 57-year-ol d [...] with nausea, vomiting, fever, chills. Urinary symptoms 7313040 08 R39.9 Will send for culture & treat due to subjective complaints and urine dip today.Susp ect UTI with prominent sx's but questionab le IUD placement. [id number] Elier Gonsalez MD [place] [address],[facility] [address] 04/28/2022 14:20:08 04/28/2022 15:02:13 Pain in pelvis 34809559 R10.2 [id number] Alysha Claros [facility] [address] [address] 05/15/2022 09:54:23 05/17/2022 16:38:54 Gynecologic examination 36540972 Z01.419 Take Calcium with Vitamin D 12-1500mg daily. Do monthly self breast exams. It is advised to get annual flu shot in the fall and she could obtain at [facility] or [facility] care clinic. If you haven't received the [...] Screen naRoutine Labs orderedMam mo ordered Vaginitis 86556547 N76.0 Currently on abx/steroi d pack for double ear infectionY [facility] sent Adult heal th examination 167857922 Z00.00 Stop by during the week for blood work fasting Vitamin D deficiency 347 51080 E55.9 Perimenopausal state 572 9203439 61979 Z78.0 Check levels [id number] Mary Bailey MD [place] [address],[place] [address] 06/09/2022 11:53:36 06/09/2022 16:06:11 Cyst of right ovary 1257914124 0928379 N83.291 [id number] Mary Bailey MD [place] [address],[place] [address] 06/15/2022 15:52:38 06/23/2022 13:20:55 Intrauterine contraceptive device in situ 280704289 Z97.5 Cyst of ovary 48430403 N 83.209 Break-thro ugh bleeding 38565786 N92.1 [id number] Alysha Claros [place] [address] [address] 11/26/2022 12:34:04 11/26/2022 12:56:29 Vaginitis 22112403 N76.0 Suspect BV on examTxment sentSince already took abx for probably UTI that ended up being neg per her PCP we will send diflucan as a precaution . Dysuria 54766825 R30.0 Increase water & use pyridium prn [id number] [facility] [address] [address] 05/25/2023 09:13:47 05/25/2023 09:59:57 Gynecologic examination 41777985 Z01.419 Z11.51 Take Calcium with Vitamin D 12-1500mg daily. Do monthly self breast exams. It is advised to get annual flu shot in the fall and she could obtain at [facility] or [facility] care clinic. If you haven't received the [...] naRoutine Labs orderedMam mo ordered IUD check 103419168 Z30. 431 Today we agreed to updated US for IUD check b/c of significan t increase in dysmenorrh ea during cycles with IUD that was placed 2020. Will reach out with results & next steps if required. Screening mammography 24 990828 Z12.31 Adult heal th examination 087172917 Z00.00 Update labs.No f/u was completed last year & did not get PCP. Vitamin D deficiency 347 57555 E55.9 Pruritic rash 68181623 L 28.2 Rash upper chest noted on examItchyI f no resolution refer to derm Screening for malignant neoplasm of colon 165341485 Z12.11 [id number] Elier Gonsalez MD [place] [address] [address] 06/01/2023 09:28:34 06/01/2023 10:11:08 Dysmenorrhea 337902522 N94.6 [id number] Elier Gonsalez MD [place] [address] [address] 08/21/2024 09:57:45 08/21/2024 10:28:51 Gynecologic examination 18436633 Z01.419 Annual gynecologi akila exam performed. Patient [...] status. Patient to consider. Screening mammography 24 337119 Z12.31 Health Concerns Section Related Observation LastModified by Organization Detai ls LastModified Time None Recorded Concern Status LastModified by Organization Details LastModified Time None Recorded Advance Directives Directive None Recorded Payers Insurance Date Sequence Insurance Name Policy Number Policy Montero Covered Member ID Montero Member ID Guarantor Name 04/22/2022 2 [facility] [id number] Vinny Coreas [id number] Abbie Coreas 05/15/2022 1 [employer] Abbie Coreas [id number] Abbie Coreas 05/15/2022 1 [employer] - DOS PRIOR TO 20 - [facility] BENEFITS PLAN [id number] Abbie Arenaslo [id number] Abbie Coreas 11/26/2022 1 [employer] - [facility] BENEFITS PLAN (PPO) [id number] Abbie Arenaslo [id number] Abbie Coreas 03/22/2025 2 [employer] [id number] Vinny Coreas [id number] Abbie Coreas 03/22/2025 1 [employer] - [facility] BENEFITS PLAN [id number] Abbie Erasmo Arenaslo [id number] Abbie Arenaslo 11/26/2022 1 [employer] [id number] Abbie Arenaslo [id number] Abbie Coreas Notes Date Note Type Note [...] Vag , odor, irritation, itching Alysha Claros [facility] [address], [place], [address], [facility] 11/26/2022 12:56:14 05/25/20 23 text/ht ml [...] mammogram, andneeds to schedule colonoscopy. Alysha Claros [facility] [address], [place], [address], [facility] 05/25/2023 09:44:04 08/21/19 25 text/ht ml [...] removed. DAKOTAH CARR NP [address], [place], [address], [facility] 08/21/2024 10:28:10 03/25/20 25 text/ht ml Patient presents for Mirena IUD removal.Informed consent obtained. UPT negative. DAKOTAH CARR NP [address], [place], [address], [facility] 03/25/2025 09:48:36 OBGyn Episode Ob Episode Information Episode Created Date Number of Fetuses Patient Bloodtype Patient rh Status Prepregnancy Weight lbs Domestic Partner Domestic Partner Phone Father Name Botanical Technical Officer Status 11/07/19 21 1 CLOSED Fetus Data [...] Domestic Partner Domestic Partner Phone Father Name Botanical Technical Officer Status 11/07/19 21 1 CLOSED Fetus Data [...]
[2025-05-10 20:50] LABS: Troponin I < 0.012 ng/mL (0.000-0.034)
--- NOTE | 2025-05-10 21:01 | ED_ITS ---
HPI - Chest Pain General Chief Complaint: Chest Pain Stated Complaint: chest pain, HTN Time Seen by Provider: 05/10/25 17:48 Source: patient Mode of arrival: ambulatory Limitations: no limitations History of Present Illness HPI narrative: 60-year-old was healthy here with a complaintof midepigastric pain radiating into her chest. denies any shortness of breath. Patient states that she had colonoscopy on Tuesday is bloated at times. She states the pain is much improved by the time she got to the ER no previous history of CAD. MD complaint: chest pain Onset (ago): day(s) (1) Related Data Allergies Allergy/AdvReac Type Severity Reaction Status Date / Time No Known Allergies Allergy Verified 05/07/25 08:22 Review of Systems 2 Constitutional: Constitutional: Reports no additional constitutional complaints Eyes: Eyes: Reports no additional eye complaints ENT: Reports system reviewed and no additional complaints, except as documented Cardiovascular: Cardiovascular: Reports as per HPI Respiratory: Respiratory: Reports no additional respiratory complaints Gastrointestinal: Gastrointestinal: Reports no additional gastrointestinal complaints Musculoskeletal: Musculoskeletal: Reports no additional musculoskeletal complaints Neurologic: Reports system reviewed and no additional complaints, except as documented Psychiatric: Psychiatric: Reports no additional psychiatric complaints PMFSH Past Medical History Medical History Iron deficiency anemia, unspecified Herpes zoster Hypothyroidism, unspecified Kidney stone Hx of mumps (~05/03/72) Surgical History Surgical History H/O insertion of nephrostomy tube Family History Family History Father Acute myocardial infarction Diabetes mellitus Heart disease Kidney disease Mother Acute myocardial infarction Asthma Heart disease Kidney disease Social History Social History Smoking status: Never smoker Second hand tobacco smoke exposure: No Alcohol intake: never Substance use: never Substance use type: does not use Lack of Transportation: No Lack of Food: Never True Current Housing: I Have Housing Concerned About Future Housing: No Difficulty Paying Gas/Electric Bills: No Difficulty Paying for Meds: No Currently Unemployed: No Education: Master's Degree or Higher Difficulty w/ Childcare or Family Care: No Living arrangements: with family Occupation/Education: occupation Gender identity (if verbalized by the patient): Female Sexual Orientation (if Verbalized by the Patient): Straight or Heterosexual Spiritual care concerns: No Agree to blood products: Yes Exam 2 Narrative: GENERAL: Well-appearing, well-nourished, and in no acute distress. HEAD: Normocephalic, atraumatic. EYES: PERRLA and EOMI. ENT: Nares clear, no rhinorrhea or epistaxis. Mucous membranes moist. NECK: Supple. CHEST: Clear to auscultation. No respiratory distress. HEART: Regular rate and rhythm. No murmur heard. Normal peripheral pulses. ABDOMEN: Soft, mild epigastric tenderness , nondistended, normal active bowel sounds. EXTREMITIES: Normal range of motion. No edema. SKIN: Warm, dry, no rash. NEURO: No focal deficits. Alert and oriented x3. PSYCH: Normal mood and affect. Course Course Emergency Course: patient had no further episodes of chest pain while she was here in the ER. Informed the work, EKG and chest x-ray findings cause of her pain most likely atypical pain. advised her to take Pepcid twice a day. Follow up with the primary doctor pain Vital Signs Vital signs: Vital Signs Temperature 37.2 C 05/10/25 17:34 Pulse Rate 109 H 05/10/25 17:34 Respiratory Rate 13 05/10/25 17:34 Blood Pressure 144/89 H 05/10/25 17:34 Pulse Oximetry 98 05/10/25 17:34 Oxygen Delivery Room Air 05/10/25 17:34 Temperature 37.2 C 05/10/25 17:34 Pulse Rate 109 H 05/10/25 17:34 Respiratory Rate 13 05/10/25 17:34 Blood Pressure 144/89 H 05/10/25 17:34 Pulse Oximetry 98 05/10/25 17:34 Oxygen Delivery Room Air 05/10/25 17:34 MDM - Chest Pain MDM Narrative Medical decision making narrative: 60-year-old relatively healthy here with the complaints of epigastric pain radiating into her chest exam , EKG is normal had colonoscopy few days ago will do cardiac workup Differential Diagnosis Differential diagnosis: Likely unstable angina pectoris, atypical chest pain and other (GERD , post procedure pain) Medical Records Data Attestation: I reviewed the patient's medical records. Lab Data Attestation: I reviewed the patient's lab results. 05/10/25 18:00 05/10/25 18:00 Labs: Lab Results 05/10/25 05/10/25 Range/Units 18:00 20:21 WBC 8.5 (4.5-10.0) K/mm3 RBC 4.35 (4.2-5.4) M/mm3 Hgb 13.2 (12.0-15.0) g/dL Hct 40.0 (37.0-47.0) % MCV 92.0 (80-100) fl MCH 30.3 (26-34) pg MCHC 33.0 (32-36) g/dl RDW 12.9 (11.5-14.5) % Plt Count 313 (150-375) k/mm3 MPV 9.8 (7.4-10.4) fl Immature Gran % (Auto) 0.4 (0-0.5) % Neut % (Auto) 59.1 (45.5-73.1) % Lymph % (Auto) 29.9 (18.3-44.2) % [place] % (Auto) 8.1 (2.6-8.5) % Eos % (Auto) 1.3 (0-4.4) % Baso % (Auto) 1.2 (0.2-1.2) % Lymph # (Auto) 2.55 (0.9-3.2) K/mm3 [place] # (Auto) 0.7 H (0.1-0.6) K/mm3 Eos # (Auto) 0.1 (0-0.3) K/mm3 Baso # (Auto) 0.1 (0.0-0.1) K/mm3 Abs Immat Gran (auto) 0.03 (0.00-0.031) K/mm3 Absolute Neuts (auto) 5.1 (1.3-6.7) K/mm3 Absolute Nucleated RBC 0.000 (0.0-0.012) K/mm3 Nucleated RBC % 0.0 (0.0-0.2) % PT 13.9 (11.1-14.7) Seconds INR 1.1 APTT 27.2 (22.3-36.8) Seconds Sodium 140 (137-145) mmol/L Potassium 3.3 L (3.4-5.0) mmol/L Chloride 104 (98-107) mmol/L Carbon Dioxide 28 (22-30) mmol/L Anion Gap 8 (4-12) mmol/L BUN 8 (7-17) mg/dL Creatinine 0.68 L (0.7-1.0) mg/dL Estim Creat Clear Calc 64 ml/min Estimated GFR > 60 (59 - ) Glucose 104 (65-110) mg/dL Calcium 9.4 (8.4-10.2) mg/dL Total Bilirubin 0.5 (0.2-1.3) mg/dL AST 31 (14-36) U/L ALT 29 (6-35) U/L Alkaline Phosphatase 72 (38-126) U/L Troponin I < 0.012 < 0.012 (0.000-0.034) ng/mL Total Protein 8.0 (6.3-8.2) g/dL Albumin 4.6 (3.5-5.1) g/dL Lipase 146 (23-300) U/L Imaging Data Radiologist's impression: ITS Impressions Chest X-Ray 05/10/25 18:42 IMPRESSION: No acute lung findings.] [ ] ECG Data EKG #1: ECG completion date: 05/10/25 ECG completion time: 17:33 EKG Interpretation: tachycardia (111), no ectopy, no ST changes, normal QRS and normal QT EKG #2: ECG completion date: 05/10/25 ECG completion time: 19:39 EKG Interpretation: normal rate (89), no ectopy, no ST changes, normal QRS, normal QT and NL axis Discharge Plan Discharge Clinical Impression: Chest pain Qualifiers: Chest pain type: unspecified Qualified Code(s): R07.9 - Chest pain, unspecified Patient Disposition: Home Condition: Stable Instructions: Chest Pain (ED) Additional Instructions: continue home meds , can take Pepcid twice a day. Patient Language: Pakistani Prescriptions: No Action levothyroxine [Levoxyl] 50 mcg tablet 50 mcg PO DAILY Qty: 90 3RF Follow-up/Referrals: Carter Sanders MD [Primary Care Provider, [facility]] Time of Disposition: 21:02
[2025-05-10 21:13] VITALS: BP 149/92; PULSE 87; RESP 12; O2SAT 96
== END 2025-05-10 21:15 | disposition home or self-care (01) ==
PROVIDERS: Emergency Provider Family Medicine; PCP Family Medicine Adolescent Medicine
DX: R07.9 Chest pain, unspecified (principal); D50.9 Iron deficiency anemia, unspecified; E03.9 Hypothyroidism, unspecified; Z87.442 Personal history of urinary calculi; R00.0 Tachycardia, unspecified; R94.31 Abnormal electrocardiogram [ECG] [EKG]
CPT/HCPCS: 36415; 71046; 80053; 83690; 84484; 85025; 85610; 85730; 93005; 99284; A9270

== ENCOUNTER 2025-06-19 08:57 | Outpatient (CLI) | payer OTHER, SELFPAY ==
--- OUTSIDE RECORDS SUMMARY | 2025-06-19 09:01 | XMS_ITS | Clinical Summary ---
Author Organization [facility] Address [address] [place] [address] Care Team Providers Care Director Of Student Life Name Role Phone Unavailable Primary Care Provider [...]
--- OUTSIDE RECORDS SUMMARY | 2025-06-19 09:01 | XMS_ITS | Data Portability ---
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 Patient will come back in a year unless there are new symptoms. Not available 05/25/2023 09:18:10 08/21/2024 08/21/2024 Annual gynecological exam performed. Patient will come back in a year unless there are new symptoms. [email or web address] Not available 08/18/2024 09:46:10 Plan of Treatment Reminders Order Date Submit Date Provider Last Modified By Organization Details Last Modified Time Details Appointments None recorded. Lab test, urine 2024 025 [email or web address] [place], [address], [place], [address], 09:46:48 CBC w/ auto diff 2024 025 [facility] (Lab), [address], [place], [address], 5 19:10:44 CMP, serum or plasma 2024 025 [facility] (Lab), [address], [place], [address], 5 19:10:44 lipid panel, blood 2024 025 [facility] (Lab), [address], [place], [address], 5 19:10:45 TSH, serum or plasma 2024 025 [facility] (Lab), [address], [place], [address], 5 19:10:45 HbA1c (hemoglobin A1c), blood 2024 025 [facility] (Lab), [address], [place], [address], 5 19:10:45 vitamin D, 25-hydroxy, total, serum 2022 023 [facility] (Lab), [address], [place], [address], 3 03:19:45 HbA1c (hemoglobin A1c), blood 2022 023 [facility] (Lab), [address], [place], [address], 3 03:19:45 CBC w/ auto diff 2022 023 [facility] (Lab), [address], [place], [address], 3 03:19:44 lipid panel, blood 2022 023 [facility] (Lab), [address] [place], [address], 3 03:19:43 CMP, serum or plasma 2022 023 [facility] (Lab), [address] [place], [address], 3 03:19:44 TSH, serum or plasma 2022 023 [facility] (Lab), [address], [place], [address], 3 03:19:45 Referral None recorded. Procedures None recorded. Surgeries None recorded. Imaging MAMMO, screening, digital, bilateral [address] [facility], [address], [place], [address], 5 12:39:57 US, pelvis [address], [address], [address], [place], [address], 3 18:28:01 US, transvagina l [address], [address], [address], [place], [address], 3 18:28:01 MAMMO, screening, bilateral [address] [facility], [address], [place], [address], 3 08:22:48 US, pelvis, complete 2022 [address]23 [address], [address], [place], [address], 4 12:50:49 Medication Orders triamcinolo ne acetonide 0.1 % topical cream [id number] [place] [address] Pharm[address] [place], [address], 5 10:04:54 metronidazo le 0.75 % (37.5 mg/5 gram) vaginal gel 2022 023 [facility], [address] [place], [address], 3 09:21:40 Diflucan 150 mg tablet [email or web address] [facility] [place], [address], 3 09:21:33 Pyridium 100 mg tablet 2022 023 [facility], [address] [place], [address], 3 09:22:04 Patient TargetsNo targets recorded. Patient InstructionsNo instructions recorded. Reason for Referral None Reported. Results Created Date Observation Date Name Description Value Unit Range Abnormal Flag Note LastModifiedBy Organization Detail LastModifiedTime 05/25/2005/25/2023 LIPID PANEL ,AMA (LDL- CALC) total cholesterol 197 mg/dL 0-199 Not Available [facility] (Lab) [address], [place], [address], 05/26/2023 03:19:43 05/25/2005/25/2023 LIPID PANEL ,AMA (LDL- CALC) triglyceride s 139 mg/dL 0.00-1 50.00 NCEP Refer ence Value s for Trigl yceri negin: Radha l: <150 mg/dL Borde rline High: 150 - 199 mg/dL High: 200 - 499 mg/dL Very High: >/= 500 mg/dL Not Available [facility] (Lab) [address], [place], [address], 05/26/2023 03:19:43 05/25/2005/25/2023 LIPID PANEL ,AMA (LDL- CALC) HDL cholesterol 59 mg/dL >40 Not Available [facility] (Lab) [address], [place], [address], 05/26/2023 03:19:43 1105/25/2023 LIPID PANEL ,AMA (LDL- [...] mg/dL , HDL <40 mg/dL Not Available [facility] (Lab) [address] [facility], [place], [address], 05/26/2023 03:19:43 05/25/2005/25/2023 LIPID PANEL ,AMA (LDL- CALC) non-HDL cholesterol 138 mg/dL no refere nce range A reaso nable goal for non-H DL lacy stero l is one that is 30 mg/dL highe r than the LDL lacy stero l goal. Not Available [facility] (Lab) [address] [facility], [place], [address], 05/26/2023 03:19:43 05/25/2005/25/2023 LIPID PANEL ,AMA (LDL- CALC) chol/HDL ratio 3.3 . 0.0-5. 0 On October 19, 2022, [facility] [place] labor atori luis javed ed the equat [...] n. 2017Jun 28;137 (1):1 0-19. Not Available [facility] (Lab) [address] [facility], [place], [address], 05/26/2023 03:19:43 05/25/20 23 05/25/2023 CMP(C OMPRE HENSI VE METAB OLIC PANEL ) sodium 143 mmol/ L 133-14 6 Not Available [facility] (Lab) [address] [place], [address], 05/26/2023 03:19:44 05/25/20 23 05/25/2023 CMP(C OMPRE HENSI VE METAB OLIC PANEL ) potassium 4.0 mmol/ L 3.5-5. 1 Not Available [facility] (Lab) [address] [place], [address], 05/26/2023 03:19:44 05/25/20 23 05/25/2023 CMP(C OMPRE HENSI VE METAB OLIC PANEL ) chloride 103 mmol/ L 98-107 Not Available [facility] (Lab) [address] [place], [address], 05/26/2023 03:19:44 05/25/20 23 05/25/2023 CMP(C OMPRE HENSI VE METAB OLIC PANEL ) carbon dioxide 29 mmol/ L 21-31 Not Available [facility] (Lab) [address], [place], [address], 05/26/2023 03:19:44 05/25/20 23 05/25/2023 CMP(C OMPRE HENSI VE METAB OLIC PANEL ) anion gap 11 mmol/ L 4-13 Not Available [facility] (Lab) [address], [place], [address], 05/26/2023 03:19:44 05/25/20 23 05/25/2023 CMP(C OMPRE HENSI VE METAB OLIC PANEL ) blood urea nitrogen 11 mg/dL 7-25 Not Available [facility] (Lab) [address], [place], [address], 05/26/2023 03:19:44 05/25/20 23 05/25/2023 CMP(C OMPRE HENSI VE METAB OLIC PANEL ) creatinine 0.81 mg/dL 0.60-1 .30 Not Available [facility] (Lab) [address], [place], [address], 05/26/2023 03:19:44 05/25/20 23 05/25/2023 CMP(C OMPRE HENSI VE METAB OLIC PANEL ) egfrcr (CKD-epi 2020) 85 mL/mi n/1.7 3_m2 >=60 Not Available [facility] (Lab) [address], [place], [address], 05/26/2023 03:19:44 05/25/20 23 05/25/2023 CMP(C OMPRE HENSI VE METAB OLIC PANEL ) calcium 9.8 mg/dL 8.3-10 .5 Not Available [facility] (Lab) [address], [place], [address], 05/26/2023 03:19:44 05/25/20 23 05/25/2023 CMP(C OMPRE HENSI VE METAB OLIC PANEL ) glucose 102 mg/dL 70-100 high Not Available [facility] (Lab) [address] [facility], [place], [address], 05/26/2023 03:19:44 05/25/20 23 05/25/2023 CMP(C OMPRE HENSI VE METAB OLIC PANEL ) protein, total 7.5 g/dL 6.4-8. 3 Not Available [facility] (Lab) [address] [facility], [place], [address], 05/26/2023 03:19:44 05/25/20 23 05/25/2023 CMP(C OMPRE HENSI VE METAB OLIC PANEL ) albumin 4.6 g/dL 3.5-5. 0 Not Available [facility] (Lab) [address] [facility], [place], [address], 05/26/2023 03:19:44 05/25/20 23 05/25/2023 CMP(C OMPRE HENSI VE METAB OLIC PANEL ) ALT 21 units /L 9-43 Not Available [facility] (Lab) [address] [facility], [place], [address], 05/26/2023 03:19:44 05/25/20 23 05/25/2023 CMP(C OMPRE HENSI VE METAB OLIC PANEL ) alkaline phosphatase 57 units /L 34-104 Not Available [facility] (Lab) [address] [facility], [place], [address], 05/26/2023 03:19:44 05/25/20 23 05/25/2023 CMP(C OMPRE HENSI VE METAB OLIC PANEL ) AST 16 units /L 13-39 Not Available [facility] (Lab) [address] [facility], [place], [address], 05/26/2023 03:19:44 05/25/20 23 05/25/2023 CMP(C OMPRE HENSI VE METAB OLIC PANEL ) bilirubin, total 0.7 mg/dL 0.2-1. 2 Not Available [facility] (Lab) [address], [place], [address], 05/26/2023 03:19:44 05/25/20 23 05/25/2023 CBC W/DIF F WBC 8.1 10'3/ uL 3.6-10 .2 Not Available [facility] (Lab) [address], [place], [address], 05/26/2023 03:19:44 05/25/20 23 05/25/2023 CBC W/DIF F RBC 4.61 10'6/ uL (based on docume nted legal sex) 4.10-5 .30 Not Available [facility] (Lab) [address], [place], [address], 05/26/2023 03:19:44 05/25/20 23 05/25/2023 CBC W/DIF F HGB 14.3 g/dL (based on docume nted legal sex) 11.9-1 5.8 Not Available [facility] (Lab) [address], [place], [address], 05/26/2023 03:19:44 05/25/20 23 05/25/2023 CBC W/DIF F HCT 43.9 % (based on docume nted legal sex) 37.4-4 8.3 Not Available [facility] (Lab) [address], [place], [address], 05/26/2023 03:19:44 05/25/20 23 05/25/2023 CBC W/DIF F MCV 95.2 fL 82.0-9 9.0 Not Available [facility] (Lab) [address], [place], [address], 05/26/2023 03:19:44 05/25/20 23 05/25/2023 CBC W/DIF F MCH 31.0 pg 27.0-3 3.0 Not Available [facility] (Lab) [address] [place], [address], 05/26/2023 03:19:44 05/25/20 23 05/25/2023 CBC W/DIF F MCHC 32.6 g/dL 32.0-3 6.0 Not Available [facility] (Lab) [address], [place], [address], 05/26/2023 03:19:44 05/25/20 23 05/25/2023 CBC W/DIF F RDW 12.2 % 11.0-1 5.0 Not Available [facility] (Lab) [address], [place], [address], 05/26/2023 03:19:44 05/25/20 23 05/25/2023 CBC W/DIF F plt 358 10'3/ uL 150-45 0 Not Available [facility] (Lab) [address], [place], [address], 05/26/2023 03:19:44 05/25/20 23 05/25/2023 CBC W/DIF F MPV 10.8 fL 9.8-12 .7 Not Available [facility] (Lab) [address], [place], [address], 05/26/2023 03:19:44 05/25/20 23 05/25/2023 CBC W/DIF F NRBC's 0.0 % 0 Not Available [facility] (Lab) [address], [place], [address], 05/26/2023 03:19:44 05/25/20 23 05/25/2023 CBC W/DIF F absolute NRBCs 0.0 10'3/ uL 0 Not Available [facility] (Lab) [address], [place], [address], 05/26/2023 03:19:44 05/25/20 23 05/25/2023 CBC W/DIF F neutrophils 58.4 % 37.0-7 2.0 Not Available [facility] (Lab) [address] [facility], [place], [address], 05/26/2023 03:19:44 05/25/20 23 05/25/2023 CBC W/DIF F lymphocytes 30.5 % 16.0-4 8.0 Not Available [facility] (Lab) [address] [facility], [place], [address], 05/26/2023 03:19:44 05/25/20 23 05/25/2023 CBC W/DIF F monocytes 6.9 % 4.0-14 .0 Not Available [facility] (Lab) [address] [facility], [place], [address], 05/26/2023 03:19:44 05/25/20 23 05/25/2023 CBC W/DIF F eosinophils 2.6 % 0.0-9. 0 Not Available [facility] (Lab) [address] [facility], [place], [address], 05/26/2023 03:19:44 05/25/20 23 05/25/2023 CBC W/DIF F basophils 1.4 % 0.0-2. 0 Not Available [facility] (Lab) [address] [facility], [place], [address], 05/26/2023 03:19:44 05/25/20 23 05/25/2023 CBC W/DIF F immature granulocytes 0.2 % no define d refere nce range Not Available [facility] (Lab) [address] [facility], [place], [address], 05/26/2023 03:19:44 05/25/20 23 05/25/2023 CBC W/DIF F absolute neutrophils 4.7 10'3/ uL 1.1-6. 0 Not Available [facility] (Lab) [address] [facility], [place], [address], 05/26/2023 03:19:44 05/25/20 23 05/25/2023 CBC W/DIF F absolute lymphocytes 2.5 10'3/ uL 0.7-3. 4 Not Available [facility] (Lab) [address] [facility], [place], [address], 05/26/2023 03:19:44 05/25/20 23 05/25/2023 CBC W/DIF F absolute monocytes 0.6 10'3/ uL 0.3-1. 0 Not Available [facility] (Lab) [address] [facility], [place], [address], 05/26/2023 03:19:44 05/25/20 23 05/25/2023 CBC W/DIF F absolute eosinophils 0.2 10'3/ uL 0.0-0. 6 Not Available [facility] (Lab) [address] [facility], [place], [address], 05/26/2023 03:19:44 05/25/20 23 05/25/2023 CBC W/DIF F absolute basophils 0.1 10'3/ uL 0.0-0. 1 Not Available [facility] (Lab) [address] [facility], [place], [address], 05/26/2023 03:19:44 05/25/20 23 05/25/2023 CBC W/DIF [...] resul ts are expec juan. Not Available [facility] (Lab) [address] [facility], [place], [address], 05/26/2023 03:19:44 05/25/20 23 05/25/2023 TSH, REFLE X FREE T4 TSH 2.85 uIU/m L 0.30-5 .33 Not Available [facility] (Lab) [address] [facility], [place], [address], 05/26/2023 03:19:45 05/25/20 23 05/25/2023 VITAM IN D, 25-OH (TOTA L D2/D3 ) vitamin D, 25-hydroxy, total 25.8 NG/mL 30.0-1 00.0 low Sugge stive of Defic iency : <20 ng/mL Sugge stive of Insuf ficie ncy: 20-29 ng/mL Sugge stive of Suffi cienc y: 30-10 0 ng/mL Sugge stive of Toxic ity: >150 ng/mL Not Available [facility] (Lab) [address], [place], [address], 05/26/2023 03:19:45 05/25/20 23 05/25/2023 HEMOG LOBIN [...] >8.0% Actio n sugge sted Not Available [facility] (Lab) [address], [place], [address], 05/26/2023 03:19:45 05/25/20 23 05/25/2023 IMAGE GUIDE D PAP AND HPV REGAR DLESS image guided Pap, HPV regardless of Pap result SEE RESULT S BELOW CASE REPOR T: Cytol ogy Gynec ologi akila Repor t Case: [id number] Autho ashlee g Provi ying: Alirio Reyna Colle cted: 05/25 1741 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 Not Available [facility] (Lab) [address], [place], [address], 05/27/2023 16:27:18 08/21/19 25 08/21/2024 CBC W/DIF F WBC 6.8 10'3/ uL 3.5-10 .5 Not Available [facility] (Lab) [address], [place], [address], 08/22/2024 19:10:43 08/21/19 25 08/21/2024 CBC W/DIF F RBC 4.64 10'6/ uL (based on docume nted legal sex) 3.80-5 .20 Not Available [facility] (Lab) [address], [place], [address], 08/22/2024 19:10:43 08/21/19 25 08/21/2024 CBC W/DIF F HGB 13.8 g/dL (based on docume nted legal sex) 11.6-1 5.4 Not Available [facility] (Lab) [address], [place], [address], 08/22/2024 19:10:43 08/21/19 25 08/21/2024 CBC W/DIF F HCT 44.8 % (based on docume nted legal sex) 34.0-4 5.0 Not Available [facility] (Lab) [address], [place], [address], 08/22/2024 19:10:43 08/21/19 25 08/21/2024 CBC W/DIF F MCV 96.6 fL 80.0-9 9.0 Not Available [facility] (Lab) [address] [facility], [place], [address], 08/22/2024 19:10:43 08/21/19 25 08/21/2024 CBC W/DIF F MCH 29.7 pg 27.0-3 4.0 Not Available [facility] (Lab) [address] [facility], [place], [address], 08/22/2024 19:10:43 08/21/19 25 08/21/2024 CBC W/DIF F MCHC 30.8 g/dL 32.0-3 5.5 low Not Available [facility] (Lab) [address] [facility], [place], [address], 08/22/2024 19:10:43 08/21/19 25 08/21/2024 CBC W/DIF F RDW 12.6 % 11.0-1 5.0 Not Available [facility] (Lab) [address] [facility], [place], [address], 08/22/2024 19:10:43 08/21/19 25 08/21/2024 CBC W/DIF F plt 363 10'3/ uL 150-40 0 Not Available [facility] (Lab) [address] [facility], [place], [address], 08/22/2024 19:10:43 08/21/19 25 08/21/2024 CBC W/DIF F MPV 10.9 fL 8.8-12 .1 Not Available [facility] (Lab) [address] [facility], [place], [address], 08/22/2024 19:10:43 08/21/19 25 08/21/2024 CBC W/DIF F neutrophils 55.2 % 34.0-7 3.0 Not Available [facility] (Lab) [address] [facility], [place], [address], 08/22/2024 19:10:43 08/21/19 08/21/2024 CBC W/DIF F lymphocytes 33.0 % 15.0-5 0.0 Not Available [facility] (Lab) [address] [facility], [place], [address], 08/22/2024 19:10:43 08/21/1908/21/2024 CBC W/DIF F monocytes 7.8 % 1.0-15 .0 Not Available [facility] (Lab) [address] [facility], [place], [address], 08/22/2024 19:10:43 08/21/19 25 08/21/2024 CBC W/DIF F eosinophils 2.1 % 0.0-8. 0 Not Available [facility] (Lab) [address] [facility], [place], [address], 08/22/2024 19:10:43 08/21/1908/21/2024 CBC W/DIF F basophils 1.6 % 0.0-2. 0 Not Available [facility] (Lab) [address] [facility], [place], [address], 08/22/2024 19:10:43 08/21/1908/21/2024 CBC W/DIF F immature granulocytes 0.3 % no define d refere nce range Immat ure Granu locyt es (IG) repre sents autom ated enume ratio n of Metam yeloc ytes, Myelo cytes and Promy elocy jae when IG is < 5%. Blast s are not inclu ded in IG and repor juan separ ately if prese nt. Not Available [facility] (Lab) [address] [facility], [place], [address], 08/22/2024 19:10:43 08/21/1908/21/2024 CBC W/DIF F absolute neutrophils 3.8 10'3/ uL 1.5-8. 0 Not Available [facility] (Lab) [address] [facility], [place], [address], 08/22/2024 19:10:43 08/21/19 25 08/21/2024 CBC W/DIF F absolute lymphocytes 2.3 10'3/ uL 1.0-4. 0 Not Available [facility] (Lab) [address] [facility], [place], [address], 08/22/2024 19:10:43 08/21/19 25 08/21/2024 CBC W/DIF F absolute monocytes 0.5 10'3/ uL 0.2-1. 0 Not Available [facility] (Lab) [address] [facility], [place], [address], 08/22/2024 19:10:43 08/21/19 25 08/21/2024 CBC W/DIF F absolute eosinophils 0.1 10'3/ uL 0.0-0. 6 Not Available [facility] (Lab) [address] [facility], [place], [address], 08/22/2024 19:10:43 08/21/19 25 08/21/2024 CBC W/DIF F absolute basophils 0.1 10'3/ uL 0.0-0. 3 Not Available [facility] (Lab) [address] [facility], [place], [address], 08/22/2024 19:10:43 08/21/19 25 08/21/2024 CBC W/DIF F absolute immature granulocytes 0.0 10'3/ uL 0.00-0 .10 Refer ence range s for nonbi nary/ inter sex or unspe cifie d gende r patie nts have not been estab lishe d. Pleas e [facility] for range s estab lishe d for cisge nder patie nts and evalu ate in the clini akila rashid xt of the indiv idual patie nt: https ://cora guerra book. nm.or g/gen derx Not Available [facility] (Lab) [address] [facility], [place], [address], 08/22/2024 19:10:43 08/21/19 25 08/21/2024 CMP(C OMPRE HENSI VE METAB OLIC PANEL ) sodium 140 mmol/ L 133-14 6 Not Available [facility] (Lab) [address] [facility], [place], [address], 08/22/2024 19:10:44 08/21/19 25 08/21/2024 CMP(C OMPRE HENSI VE METAB OLIC PANEL ) potassium 4.4 mmol/ L 3.5-5. 1 Not Available [facility] (Lab) [address] [facility], [place], [address], 08/22/2024 19:10:44 08/21/19 25 08/21/2024 CMP(C OMPRE HENSI VE METAB OLIC PANEL ) chloride 103 mmol/ L 98-107 Not Available [facility] (Lab) [address] [facility], [place], [address], 08/22/2024 19:10:44 08/21/19 25 08/21/2024 CMP(C OMPRE HENSI VE METAB OLIC PANEL ) carbon dioxide 29 mmol/ L 21-31 Not Available [facility] (Lab) [address] [facility], [place], [address], 08/22/2024 19:10:44 08/21/19 25 08/21/2024 CMP(C OMPRE HENSI VE METAB OLIC PANEL ) anion gap 8 mmol/ L 4-13 Not Available [facility] (Lab) [address] [place], [address], 08/22/2024 19:10:44 08/21/19 25 08/21/2024 CMP(C OMPRE HENSI VE METAB OLIC PANEL ) blood urea nitrogen 10 mg/dL 7-25 Not Available [facility] (Lab) [address] [place], [address], 08/22/2024 19:10:44 08/21/19 25 08/21/2024 CMP(C OMPRE HENSI VE METAB OLIC PANEL ) creatinine 0.80 mg/dL 0.60-1 .30 Not Available [facility] (Lab) [address] [place], [address], 08/22/2024 19:10:44 08/21/19 25 08/21/2024 CMP(C OMPRE HENSI VE METAB OLIC PANEL ) egfrcr (CKD-epi 2020) 86 mL/mi n/1.7 3_m2 >=60 Not Available [facility] (Lab) [address] [facility], [place], [address], 08/22/2024 19:10:44 08/21/19 25 08/21/2024 CMP(C OMPRE HENSI VE METAB OLIC PANEL ) calcium 9.4 mg/dL 8.3-10 .5 Not Available [facility] (Lab) [address] [facility], [place], [address], 08/22/2024 19:10:44 08/21/19 25 08/21/2024 CMP(C OMPRE HENSI VE METAB OLIC PANEL ) glucose 91 mg/dL 70-100 Not Available [facility] (Lab) [address] [facility], [place], [address], 08/22/2024 19:10:44 08/21/19 25 08/21/2024 CMP(C OMPRE HENSI VE METAB OLIC PANEL ) protein, total 7.4 g/dL 6.4-8. 3 Not Available [facility] (Lab) [address] [facility], [place], [address], 08/22/2024 19:10:44 08/21/19 25 08/21/2024 CMP(C OMPRE HENSI VE METAB OLIC PANEL ) albumin 4.6 g/dL 3.5-5. 0 Not Available [facility] (Lab) [address] [facility], [place], [address], 08/22/2024 19:10:44 08/21/19 25 08/21/2024 CMP(C OMPRE HENSI VE METAB OLIC PANEL ) ALT 20 units /L 9-43 Not Available [facility] (Lab) [address] [facility], [place], [address], 08/22/2024 19:10:44 08/21/19 25 08/21/2024 CMP(C OMPRE HENSI VE METAB OLIC PANEL ) alkaline phosphatase 61 units /L 34-104 Not Available [facility] (Lab) [address] [facility], [place], [address], 08/22/2024 19:10:44 08/21/19 25 08/21/2024 CMP(C OMPRE HENSI VE METAB OLIC PANEL ) AST 17 units /L 13-39 Not Available [facility] (Lab) [address], [place], [address], 08/22/2024 19:10:44 08/21/19 25 08/21/2024 CMP(C OMPRE HENSI VE METAB OLIC PANEL ) bilirubin, total 0.6 mg/dL 0.2-1. 2 Not Available [facility] (Lab) [address], [place], [address], 08/22/2024 19:10:44 08/21/19 25 08/21/2024 LIPID PANEL ,AMA (LDL- CALC) total cholesterol 201 mg/dL 0-199 high Not Available [facility] (Lab) [address] [facility], [place], [address], 08/22/2024 19:10:44 08/21/19 25 08/21/2024 LIPID PANEL ,AMA (LDL- CALC) triglyceride s 87 mg/dL 0-150 NCEP Refer ence Value s for Trigl yceri negin: Radha l: <150 mg/dL Borde rline High: 150 - 199 mg/dL High: 200 - 499 mg/dL Very High: >/= 500 mg/dL Not Available [facility] (Lab) [address] [facility], [place], [address], 08/22/2024 19:10:44 08/21/19 25 08/21/2024 LIPID PANEL ,AMA (LDL- CALC) HDL cholesterol 67 mg/dL >40 Not Available [facility] (Lab) [address] [facility], [place], [address], 08/22/2024 19:10:44 08/21/1908/21/2024 LIPID PANEL ,AMA (LDL- [...] mg/dL , HDL <40 mg/dL Not Available [facility] (Lab) [address] [facility], [place], [address], 08/22/2024 19:10:44 08/21/1908/21/2024 LIPID PANEL ,AMA (LDL- CALC) non-HDL cholesterol 134 mg/dL no refere nce range A reaso nable goal for non-H DL lacy stero l is one that is 30 mg/dL highe r than the LDL lacy stero l goal. Not Available [facility] (Lab) [address] [facility], [place], [address], 08/22/2024 19:10:44 08/21/1908/21/2024 LIPID PANEL ,AMA (LDL- CALC) chol/HDL ratio 3.0 . 0.0-5. 0 On October 19, 2022, [facility] [place] labor atori es javed ed the equat [...] n. 2017Jun 28;137 (1):1 0-19. Not Available [facility] (Lab) [address] [facility], [place], [address], 08/22/2024 19:10:44 08/21/19 25 08/21/2024 TSH, REFLE X FREE T4 TSH 2.92 uIU/m L 0.30-5 .33 Not Available [facility] (Lab) [address] [place], [address], 08/22/2024 19:10:45 08/21/19 25 08/21/2024 HEMOG LOBIN [...] >8.0% Actio n sugge sted Not Available [facility] (Lab) [address], [place], [address], 08/22/2024 19:10:45 03/25/2003/25/2025 pregn richard test, urine HCG negati ve Not Available [address], [place], [address], 03/25/2025 09:46:38 06/01/20 23 06/01/2023 US, pelvi s No observ ation record ed. [email or web address] [place] [address], [place], [address], 06/01/2023 13:34:06 06/01/20 23 06/01/2023 US, trans vagin al No observ ation record ed. [email or web address] [place] [address], [place], [address], 06/01/2023 13:33:57 06/01/20 23 06/01/2023 US, pelvi s No observ ation record ed. ABDELRAHMAN Julien [address] [address], [place], [address], 06/08/2023 16:49:00 Result Notes None recorded. Problems Name Problem SNOMED Code Status Onset Date Resolution Date Notes Provider Name and Address Organization Details Recorded Time Screenin g for malignan t neoplasm of cervix Completed 201111/06/2020 Screenin g for malignan t neoplasm s of the cervix;R ecorded Elsewher e: No Locat ion: [facility] S ource: EHR Wire Galvanizer sheryl: N Practi ce ID: 0001 Ezequiel lable Time: 11:15:00 AM TIMI Casanova - [facility] 05/13/202 1 10:02:55 Pain of breast 18922210 Completed 201111/06/2020 Mastodyn ia;Recor ded Elsewher e: No Locat ion: [facility] S ource: EHR Wire Galvanizer sheryl: N Shilati ce ID: 0001 Ezequiel lable Time: 09:15:00 AM Lamar ashley, [facility] 1 10:03:09 Speciali zed medical examinat ion Completed 201211/06/2020 Gynecolo gical Examinat ion;Joao rded Elsewher e: No Locat ion: [facility] S ource: EHR Wire Galvanizer sheryl: N Shilati ce ID: 0001 Ezequiel lable Time: 08:45:00 AM Lamar ashley, [facility] 1 10:03:07 Adult health examinat ion Completed 201411/06/2020 ROUTINE MEDICAL EXAM;Rec orded Elsewher e: No Locat ion: [facility] S ource: EHR Wire Galvanizer sheryl: N Shilati ce ID: 0001 Ezequiel lable Time: 10:30:00 AM Lamar ashley, [facility] 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 1 10:03:06 Pregnanc y test negative 303293632 Completed 201611/06/2020 Encounte r for pregnanc y test, result negative ;Recorde d Elsewher e: No Locat ion: [facility] S ource: EHR Wire Galvanizer sheryl: N Practi ce ID: 0001 Ezequiel lable Time: 09:30:00 AM [facility] 1 10:02:57 Low grade squamous intraepi thelial lesion on cervical Papanico laou smear [id number] 9105 Completed 201611/25/2020 Ivania ashley, [facility] 1 13:41:32 Evaluati on finding Completed 201711/06/2020 Hematuri a, unspecif ied;Joao rded Elsewher e: No Locat ion: [facility] S ource: EHR Wire Galvanizer sheryl: N Practi ce ID: 0001 Ezequiel lable Time: 08:15:00 AM Lamar Lopez [facility] 10:03:[address] Concept Completed 201711/06/2020 Encounte r for general adult medical exam w abnormal findings ;Practic e ID: 0001 [facility] 10:03:04 Screenin g for malignan t neoplasm of rectum Completed 201811/06/2020 Encounte r for screenin g for malignan t neoplasm of rectum;R ecorded Elsewher e: No Locat ion: [facility] S ource: EHR Wire Galvanizer sheryl: N Practi ce ID: 0001 Ezequiel lable Time: 08:15:00 AM Lamar ashley, [facility] [address] 10:03:[address] Concept Completed 201911/06/2020 Encntr for general adult medical exam w/o abnormal findings ;Recorde d Elsewher e: No Locat ion: [facility] S ource: EHR Wire Galvanizer sheryl: N Practi ce ID: 0001 Ezequiel lable Time: 08:45:00 AM [facility] 1 10:03:03 Intraute rine contrace ptive device in situ [id number] Active 2020 Mary Bailey MD [address], [place], [address], [facility] 12:49:33 Problem Notes None recorded. Procedures Surgical History Date Name Laterality Status Provider Name and Address Organization Details Recorded Time 025 IUD Removal completed DAKOTAH CARR NP [address], [place], [address], [facility] 03/25/2025 09:36:45 023 Date of Last Pap Smear completed Kamryn Baig [facility] 08/18/2024 09:47:30 023 Date of Last Mammogram completed Mya Ocasio [facility] 05/25/2023 09:09:07 021 completed Kylah Lyons [facility] 02/20/2021 12:01:30 021 IUD Insertion completed Mary Bailey MD [address], [place], [address], [facility] 01/26/2021 09:48:35 021 Endometrial Biopsy completed Alysha Claros [facility] [address], [place], [address], [facility] 11/25/2020 13:56:13 017 Colposcopy completed Lamar Lopez [facility] 11/06/2020 10:20:38 017 Colposcopy completed Ivania John [facility] 11/25/2020 13:43:51 009 cholecystectomy completed Lamar Lopez [facility] 11/06/2020 11:14:17 987 extraction of wisdom tooth completed Ivania John [facility] 05/15/2022 10:16:24 Imaging Results None recorded. [...] Elsewher e: No Locat ion: [facility] odify By: sindhu fatima DateTime : 12/06/19 10:30:00 AM Not Available Not Available Not Available Multi Vitamin 9 mg iron/15 mL oral liquid 11/06 completed Prescrib ed Elsewher e: Yes [facility] odify By: lanre jon DateTime : 05/08/20 [...] Updated DateTime 08/21/2024 154.94 cm 25 kg/m2 76714.91 g 150/92 mm[Hg] [facility] 08/21/2024 10:03:08 Date Recorded Systolic And Diastolic Provider Name and Address Organization Details Last Updated DateTime 11/26/2022 122/76 mm[Hg] Alysha Claros [facility] [address], [place], [address], [facility] 11/26/2022 12:50:39 Date Recorded Body height Body mass index (BMI) Body weight Provider Name and Address Organization Details Last Updated DateTime 11/26/2022 154.94 cm 23.8 kg/m2 71584.64 g Mya Ocasio [facility] 11/26/2022 12:42:42 Date Recorded Body height Body mass index (BMI) Body weight Systolic And Diastolic Provider Name and Address Organization Details Last Updated DateTime 03/25/2025 154.94 cm 24.8 kg/m2 94181.04 g 136/86 mm[Hg] [facility] 03/25/2025 09:35:05 Date Recorded Systolic And Diastolic Provider Name and Address Organization Details Last Updated DateTime 05/25/2023 124/70 mm[Hg] Alysha Claros [facility]- [address], [place], [address], [facility] 05/25/2023 09:41:29 Date Recorded Body height Body mass index (BMI) Body weight Systolic And Diastolic Provider Name and Address Organization Details Last Updated DateTime 05/25/2023 154.94 cm 24.4 kg/m2 73767.42 g 146/90 mm[Hg] Mya Ocasio [facility] 05/25/2023 09:20:02 Social History Question Answer Notes LastModified by Organizat ion Details LastModified Time Tobacco Smoking Status Never Smoker Mya Ocasio null, [facility] 05/25/2023 09:20:41 Are You Blind Or Do You Have Difficulty Seeing? No [email or web address] Information n ot available 11/25/2020 What Is Your Level Of Caffeine Consumption? Occasional [email or web address] Information not available 11/25/2020 How Much Tobacco Do You Chew? None Information not available 05/25/2023 In The 14 Days Before Symptom Onset, Have You Had Close Contact With A Laboratory-confirm ed COVID-19 While That Case Was Ill? No [email or web address] Information n ot available 11/25/2020 In The 14 Days Before Symptom Onset, Have You Had Close Contact With A Person Who Is Under Investigation For COVID-19 While That Person Was Ill? No [email or web address] Information not available 11/25/2020 Have You Been To An Area Known To Be High Risk For COVID-19? No [email or web address] Information not available 11/25/2020 Are You Deaf Or Do You Have Serious Difficulty Hearing? No [email or web address] Information not available 11/25/2020 What Type Of Diet Are You Following? REGULAR [email or web address] Information n ot available 11/25/2020 What Is The Highest Grade Or Level Of School You Have Completed Or The Highest Degree You Have Received? [id number] Information not available 05/25/2023 Have You Ever Been Counseled For Unhealthy Alcohol Use? No Information not available 05/25/2023 Do You Use Protection During Sex? No Information not available 05/25/2023 Do You Use Your Seat Belt Or Car Seat Routinely? Yes [email or web address] Information not available 11/25/2020 Do You Have Smoke And Carbon Monoxide Detectors In Your Home? Yes Information not available 11/25/2020 How Much Tobacco Do You Smoke? No Information not available 05/25/2023 Do You Use Sunscreen Routinely? Yes Information [...] use any illicit or recreational drugs? No [email or web address] Information not available 11/25/2020 Do you or have you ever used any other forms of tobacco or nicotine? No Information not available 05/25/2023 What is your level of alcohol consumption? Occasional [email or web address] Information not available 11/25/2020 Are you able to walk independently without assistance or assistive devices? YESWOREST [email or web address] Information not available 11/25/2020 Are you able to care for yourself independently? Yes Information not available 05/25/2023 What is your occupation? Retired Information not available 05/25/2023 Do you have difficulty dressing, bathing, grooming, or toileting? No Information not available 05/25/2023 What is your exercise level? Occasional [email or web address] Information not available 11/25/2020 Mental Status Question Answer Note LastModified by Organization D etails LastModified Time Do you feel stressed (tense, restless, nervous, or anxious, or unable to sleep at night)? [id number] Information not available 05/25/2023 Family History Relationship Description Onset Age of this Age Resolved Age Notes LastModified by Organization Details LastModified Time Father Diabetes mellitus Not available 2020 13:52:21 Mother Myocardial infarction [email or web address] Not available 11/06 13:52:39 Medical History Condition [...] ICD10 Code Diagnosis IMO Codes Diagnosis Note [id number] Alysha Claros [facility] [address] [address] 11/07/2020 10:51:36 11/07/2020 11:47:09 Abnormal uterine bleeding 3667238458 9100 N93.9 TVUS to be updated Labs [...] this patient s visit, including available hand twister in upon arrive, temperatur e check and being asked a series of screening questions. All staff wore face coverings during this encounter, as well as provided additional cleaning and sanitizing of all surfaces, including counter-to ps, pens, chairs, door handles, light switches, etc, prior to and following the patient s visit. Adult heal th examination 410671550 Z00.00 Elevated blood-pressure reading without diagnosis of hypertension 423211398 R03.0 Recommend making appt PCP to discuss possible HTN & monitor BP. Hx of hypothyroi dism. [id number] Elier Gonsalez MD [place] [address] [address] 11/13/2020 10:15:48 11/13/2020 10:59:41 Abnormal uterine bleeding 5931143776 9100 N93.9 [id number] Alysha Claros [facility] [address] [address] 11/25/2020 12:50:29 11/25/2020 14:02:22 Menorrhagia 568636109 N92.0 EMBx performed for thickened lining 27mm [...] to patient satisfacti on. Screening mammography 24 447576 Z12.31 Cyst of ovary 84220726 N 83.209 R/P TVUS x 6wks as precaution . Will call with lab results [id number] [facility] [address] [address] 11/29/2020 09:41:52 11/29/2020 10:31:54 Menorrhagia 978823122 N92.0 We reviewed her recent labs that [...] this patient s visit, including available hand twister in upon arrive, temperatur e check and being asked a series of screening questions. All staff wore face coverings during this encounter, as well as provided additional cleaning and sanitizing of all surfaces, including countertop s, pens, chairs, door handles, light switches, etc, prior to and following the patient s visit. [id number] Mary Bailey MD [place] [address] [address] 12/17/2020 09:53:27 12/17/2020 14:09:38 Menorrhagia 344994387 N92.0 Cancer ant igen 125 above reference range 192004668 R97.1 Cyst of ovary 38094301 N 83.209 Surveillan ce of oral contraception 777176591 Z30.41 Perimenopausal state 164 5521698 80429 Z78.0 [id number] Mary Bailey MD [place] [address],[place] [address] 12/30/2020 09:59:39 12/30/2020 11:06:23 Abnormal uterine bleeding 6297728434 9100 N93.9 [id number] Mary Bailey MD [place] [address],[place] [address] 01/06/2021 12:41:41 01/07/2021 16:56:29 Menometrorrhagia 905700308 N92.1 Surveillan ce of oral contraception 445297811 Z30.41 Cyst of ovary 63962772 N 83.209 [id number] Mary Bailey MD [place] [address],[place] [address] 01/23/2021 15:48:41 01/24/2021 14:21:16 Contraception care management 180358437 Z30.9 Insertion of intrauterine contraceptive device 43786840 Z30.430 [id number] Mary Bailey MD [place] [address],[place] [address] 02/20/2021 11:47:28 02/20/2021 14:50:46 Gynecologic examination 23098764 Z01.419 Intrauteri ne contraceptive device in situ 534269609 Z97.5 [id number] DAKOTAH CARR NP [place] [address],[place] [address] 03/25/2025 09:23:54 03/25/2025 09:51:11 Removal of intrauterine contraceptive device 8275936383 Z30.796 [id number] Mirena IUD removed on 03/25/25 without difficulty .We discussed possible cramping and bleeding over the next few days.RTO for WWE, or sooner with any questions or concerns. [id number] [facility] [address] [address] 04/27/2022 09:40:30 04/27/2022 10:37:54 Pain in pelvis 94611750 R10.2 This patient is a 57-year-ol d [...] with nausea, vomiting, fever, chills. Urinary symptoms 9849189 08 R39.9 Will send for culture & treat due to subjective complaints and urine dip today.Susp ect UTI with prominent sx's but questionab le IUD placement. [id number] Elier Gonsalez MD [place] [address],[facility] [place] [address] 04/28/2022 14:20:08 04/28/2022 15:02:13 Pain in pelvis 58462847 R10.2 [id number] Alysha Claros [facility] [address] [address] 05/15/2022 09:54:23 05/17/2022 16:38:54 Gynecologic examination 27683469 Z01.419 Take Calcium with Vitamin D 12-1500mg daily. Do monthly self breast exams. It is advised to get annual flu shot in the fall and she could obtain at [facility] or [facility] care clinic. If you haven't received [...] Screen naRoutine Labs orderedMam mo ordered Vaginitis 74266468 N76.0 Currently on abx/steroi d [facility] Adult heal th examination 544670196 Z00.00 Stop by during the week for blood work fasting Vitamin D deficiency 347 83924 E55.9 Perimenopausal state 886 4696704 90904 Z78.0 Check levels [id number] Mary Bailey MD [place] [address],[place] [address] 06/09/2022 11:53:36 06/09/2022 16:06:11 Cyst of right ovary 7539144489 1698486 N83.291 [id number] Mary Bailey MD [place] [address],[place] [address] 06/15/2022 15:52:38 06/23/2022 13:20:55 Intrauterine contraceptive device in situ 223656704 Z97.5 Cyst of ovary 66771067 N 83.209 Break-thro ugh bleeding 66358699 N92.1 [id number] Alysha Claros [address] [place] [address] [address] 11/26/2022 12:34:04 11/26/2022 12:56:29 Vaginitis 89781706 N76.0 Suspect BV on examTxment sentSince already took abx for probably UTI that ended up being neg per her PCP we will send diflucan as a precaution . Dysuria 91708590 R30.0 Increase water & use pyridium prn [id number] [facility] [address] [address] 05/25/2023 09:13:47 05/25/2023 09:59:57 Gynecologic examination 00554584 Z01.419 Z11.51 Take Calcium with Vitamin D 12-1500mg daily. Do monthly self breast exams. It is advised to get annual flu shot in the fall and she could obtain at [facility] or [facility] care clinic. If you haven't received [...] naRoutine Labs orderedMam mo ordered IUD check 851138891 Z30. 431 Today we agreed to updated US for IUD check b/c of significan t increase in dysmenorrh ea during cycles with IUD that was placed 2020. Will reach out with results & next steps if required. Screening mammography 24 033184 Z12.31 Adult heal th examination 587607593 Z00.00 Update labs.No f/u was completed last year & did not get PCP. Vitamin D deficiency 347 26108 E55.9 Pruritic rash 99222107 L 28.2 Rash upper chest noted on examItchyI f no resolution refer to derm Screening for malignant neoplasm of colon 158604420 Z12.11 [id number] Elier Gonsalez MD [place] [address] [address] 06/01/2023 09:28:34 06/01/2023 10:11:08 Dysmenorrhea 227469666 N94.6 [id number] Elier Gonsalez MD [place] [address] [address] 08/21/2024 09:57:45 08/21/2024 10:28:51 Gynecologic examination 05226167 Z01.419 Annual gynecologi akila exam performed. Patient [...] status. Patient to consider. Screening mammography 24 913044 Z12.31 Health Concerns Section Related Observation LastModified by Organization Detai ls LastModified Time None Recorded Concern Status LastModified by Organization Details LastModified Time None Recorded Advance Directives Directive None Recorded Payers Insurance Date Sequence Insurance Name Policy Number Policy Montero Covered Member ID Montero Member ID Guarantor Name 04/22/2022 2 [facility] [id number] Vinny Coreas [id number] Abbie Coreas 05/15/2022 1 [employer] Abbie Coreas [id number] Abbie Coreas 05/15/2022 1 [employer] - DOS PRIOR TO 20 - [facility] BENEFITS PLAN [id number] Abbie Arenaslo [id number] Abbie Coreas 11/26/2022 1 [employer] - [facility] BENEFITS PLAN (PPO) [id number] Abbie Arenaslo [id number] Abbie Coreas 03/22/2025 2 [employer] [id number] Vinny Coreas [id number] Abbie Coreas 03/22/2025 1 [employer] - [facility] BENEFITS PLAN [id number] Abbie Erasmo Arenaslo [id number] Abbie Arenaslo 11/26/2022 1 [employer] [id number] Abbie Arenaslo [id number] Abbie Coreas Notes Date Note Type Note [...] Vag , odor, irritation, itching Alysha Claros [facility] [address], [place], [address], [facility] 11/26/2022 12:56:14 05/25/20 23 text/ht ml [...] mammogram, andneeds to schedule colonoscopy. Alysha Claros [facility] [address], [place], [address], [facility] 05/25/2023 09:44:04 08/21/19 25 text/ht ml [...] removed. DAKOTAH CARR NP [address], [place], [address], [facility] 08/21/2024 10:28:10 03/25/20 25 text/ht ml Patient presents for Mirena IUD removal.Informed consent obtained. UPT negative. DAKOTAH CARR NP [address], [place], [address], [facility] 03/25/2025 09:48:36 OBGyn Episode Ob Episode Information Episode Created Date Number of Fetuses Patient Bloodtype Patient rh Status Prepregnancy Weight lbs Domestic Partner Domestic Partner Phone Father Name Route Delivery Supervisor Status 11/07/19 21 1 CLOSED Fetus Data First Name Last Name Admitted to NICU Weight (g) Sex Living Outcome Pediatric Complications Fetus ID Race Codes Race Delivery Type 2976.47 0704 M Full Term 9839 Vaginal Delivery Mike Calculation Initial Imke Date Initial Exam Date Initial Exam Provider [...] Domestic Partner Domestic Partner Phone Father Name Route Delivery Supervisor Status 11/07/19 21 1 CLOSED Fetus Data [...]
--- OUTSIDE RECORDS SUMMARY | 2025-06-19 09:01 | XMS_ITS | Continuity of Care Document ---
Author Organization [facility] [place] Address [address] [place] [address] [place] [address] Care Team Providers Care Bookkeeping Service Sales Agent Name Role Phone SHAIKHYULI GREENWOOD Primary Care Provider Assessment No assessment recorded. Plan of Treatment Reminders Order Date Submit Date Provider Last Modified By Organization Details Last Modified Time Details Appointments None recorded. Lab test, urine 2024 025 [id number] [facility], [address], [place], [address], 09:46:48 Referral None recorded. Procedures None recorded. Surgeries None recorded. Imaging None recorded. Medication Orders None recorded. Patient TargetsNo targets recorded. Patient InstructionsNo instructions recorded. Reason for Referral None Reported. Results Created Date Observation Date Name Description Value Unit Range Abnormal Flag Note LastModifiedBy Organization Detail LastModifiedTime 03/25/2003/25/2025 pregn richard test, urine HCG negati ve Not Available [facility] [address], [place], [address], 03/25/2025 09:46:38 Result Notes None recorded. Problems Name Problem SNOMED Code Status Onset Date Resolution Date Notes Provider Name and Address Organization Details Recorded Time Screenin g for malignan t neoplasm of cervix Completed 201111/06/2020 Screenin g for malignan t neoplasm s of the cervix;R ecorded Elsewher e: No Locat ion: [facility] S ource: EHR [employer] Machine Operator sheryl: N Practi ce ID: 0001 Ezequiel lable Time: 11:15:00 AM Lamar ashley [facility] 1 10:02:55 Pain of breast [id number] Completed 201111/06/2020 Mastodyn ia;Recor ded Elsewher e: No Locat ion: [facility] S ource: EHR [employer] Machine Operator sheryl: N Practi ce ID: 0001 Ezequiel lable Time: 09:15:00 AM Lamar ashley, [facility] 1 10:03:09 Speciali zed medical examinat ion Completed 201211/06/2020 Gynecolo gical Examinat ion;Joao rded Elsewher e: No Locat ion: [facility] S ource: EHR [facility] sheryl: N Practi ce ID: 0001 Ezequiel lable Time: 08:45:00 AM Lamar ashley, [facility] 1 10:03:07 Adult health examinat ion Completed 201411/06/2020 ROUTINE MEDICAL EXAM;Rec orded Elsewher e: No Locat ion: [facility] S ource: EHR [facility] sheryl: N Shilati ce ID: 0001 Ezequiel lable Time: 10:30:00 AM Lamar ashley [facility] 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 1 10:03:06 Pregnanc y test negative [id number] Completed 201611/06/2020 Encounte r for pregnanc y test, result negative ;Recorde d Elsewher e: No [facility]at [facility]: EHR [employer] Machine Operator sheryl: N Shilati ce ID: 0001 Ezequiel lable Time: 09:30:00 AM Lamar ashley, [facility] 1 10:02:57 Low grade squamous intraepi thelial lesion on cervical Papanico laou smear [id number] 9105 Completed 201611/25/2020 Ivania John [facility], [facility] 13:41:32 Evaluati on finding Completed 201711/06/2020 Hematuri a, unspecif ied;Joao rded Elsewher e: No Locat ion: [facility] S ource: EHR [employer] Machine Operator sheryl: N Shilati ce ID: 0001 Ezequiel lable Time: 08:15:00 AM Lamar Lopez [facility] [address] 10:03:[address] Concept Completed 201711/06/2020 Encounte r for general adult medical exam w abnormal findings ;Practic e ID: 0001 Lamar ashley, [facility] 10:03:04 Screenin g for malignan t neoplasm of rectum Completed 201811/06/2020 Encounte r for screenin g for malignan t neoplasm of rectum;R ecorded Elsewher e: No Locat ion: [facility] S ource: EHR [employer] Operator sheryl: N Shilati ce ID: 0001 Ezequiel lable Time: 08:15:00 AM [facility] 10:[facility] Concept Completed 201911/06/2020 Encntr for general adult medical exam w/o abnormal findings ;Recorde d Elsewher e: No Locat ion: [facility] S ource: EHR [employer] Operator sheryl: N Shilati ce ID: 0001 Ezequiel lable Time: 08:45:00 AM Lamar ashley, [facility] 10:03:03 Intraute rine contrace ptive device in situ [id number] Active 2020 Mary Bailey MD [address], [place], [address], [facility] 12:49:33 Problem Notes None recorded. Procedures Surgical History Date Name Laterality Status Provider Name and Address Organization Details Recorded Time 025 IUD Removal completed DAKOTAH CARR NP [address], [place], [address], [facility] 03/25/2025 09:36:45 023 Date of Last Pap Smear completed Kamryn Baig [facility] 08/18/2024 09:47:30 023 Date of Last Mammogram completed Mya Ocasio [facility] 05/25/2023 09:09:07 021 completed Kylah Lyons [facility] 02/20/2021 12:01:30 021 IUD Insertion completed Mary Bailey MD [address], [place], [address], [facility] 01/26/2021 09:48:35 021 Endometrial Biopsy completed Alysha Claros PEGGY- [address], [place], [address], [facility] 11/25/2020 13:56:13 017 Colposcopy completed Lamar Lopez [facility] 11/06/2020 10:20:38 017 Colposcopy completed Ivania John [facility] 11/25/2020 13:43:51 009 cholecystectomy completed Lamar John [facility] 11/06/2020 11:14:17 987 extraction of wisdom tooth completed Ivania John [facility] 05/15/2022 10:16:24 Imaging Results None recorded. [...] Martinez e: No Locat ion: [facility] odify By: [email or web address] tz Encou nter DateTime : 12/06/19 10:30:00 AM Not Available Not Available Not Available Multi Vitamin 9 mg iron/15 mL oral liquid 11/06 completed Prescrib ed Elsewher e: Yes Loca tion: [facility] M odify By: lanre jon DateTime : [...] Updated DateTime 03/25/2025 154.94 cm 24.8 kg/m2 33336.04 g 136/86 mm[Hg] Kamryn Baig [facility] 03/25/2025 09:35:05 Social History Question Answer Notes LastModified by Organizat ion Details LastModified Time Tobacco Smoking Status Never Smoker Mya ashley, [facility] 05/25/2023 09:20:41 Are You Blind Or Do You Have Difficulty Seeing? No [email or web address] Information n ot available 11/25/2020 What Is Your Level Of Caffeine Consumption? Occasional [email or web address] Information not available 11/25/2020 How Much Tobacco Do You Chew? None Information not available 05/25/2023 In The 14 Days Before Symptom Onset, Have You Had Close Contact With A Laboratory-confirm ed COVID-19 While That Case Was Ill? No [email or web address] Information n ot available 11/25/2020 In The 14 Days Before Symptom Onset, Have You Had Close Contact With A Person Who Is Under Investigation For COVID-19 While That Person Was Ill? No Information not available 11/25/2020 Have You Been To An Area Known To Be High Risk For COVID-19? No [email or web address] Information not available 11/25/2020 Are You Deaf Or Do You Have Serious Difficulty Hearing? No [email or web address] Information not available 11/25/2020 What Type Of Diet Are You Following? REGULAR [email or web address] Information n ot available 11/25/2020 What Is The Highest Grade Or Level Of School You Have Completed Or The Highest Degree You Have Received? NC17281-4 Information not available 05/25/2023 Have You Ever Been Counseled For Unhealthy Alcohol Use? No Information not available 05/25/2023 Do You Use Protection During Sex? No Information not available 05/25/2023 Do You Use Your Seat Belt Or Car Seat Routinely? Yes [email or web address] Information not available 11/25/2020 Do You Have Smoke And Carbon Monoxide Detectors In Your Home? Yes [email or web address] Information not available 11/25/2020 How Much Tobacco Do You Smoke? No Information not available 05/25/2023 Do You Use Sunscreen Routinely? Yes [email or web address] Information not available 11/25/2020 Has Tobacco Cessation Counseling Been Provided? No Information not available 05/25/2023 Have You Used IV Drugs? No Information not available 05/25/2023 Do You Have Difficulty Walking Or Climbing Stairs? No Information not available 05/25/2023 Sex: Unknown Functional Status Question Answer Note LastModified by Organizat ion Details LastModified Time Do you use any illicit or recreational drugs? No Information not available 11/25/2020 Do you or have you ever used any other forms of tobacco or nicotine? No Information not available 05/25/2023 What is your level of alcohol consumption? Occasional [email or web address] Information not available 11/25/2020 Are you able to walk independently without assistance or assistive devices? YESWOREST [email or web address] Information not available 11/25/2020 Are you able to care for yourself independently? Yes Information not available 05/25/2023 What is your occupation? Retired Information not available 05/25/2023 Do you have difficulty dressing, bathing, grooming, or toileting? No Information not available 05/25/2023 What is your exercise level? Occasional [email or web address] Information not available 11/25/2020 Mental Status Question Answer Note LastModified by Organization D etails LastModified Time Do you feel stressed (tense, restless, nervous, or anxious, or unable to sleep at night)? [id number] Information not available 05/25/2023 Family History Relationship Description Onset Age of this Age Resolved Age Notes LastModified by Organization Details LastModified Time Father Diabetes mellitus [email or web address] Not available 2020 13:52:21 Mother Myocardial infarction [...] ICD10 Code Diagnosis IMO Codes Diagnosis Note [id number] DAKOTAH CARR NP [facility] [address] [address] 03/25/2025 09:23:54 03/25/2025 09:51:11 Removal of intrauterine contraceptive device [id number] Z30.766 [id number] Mirena IUD removed on 03/25/25 without difficulty [...] Member ID Guarantor Name 03/25/2025 2 DAPHNE [id number] Vinny Coreas [id number] 2 Abbie Coreas 03/25/2025 1 [employer] [facility] [id number] Abbie Coreas [id number] OI Abbie Coreas Notes Date Note Type Note Provider Name a nv Address Organization Details Recorded Time 03/25/2025 text/html Patient presents for Mirena IUD removal.Informe d consent obtained. UPT negative. DAKOTAH CARR, PEGGY [address], [place], [address], [facility] 03/25/2025 09:48:36 OBGyn Episode No OBEpisode recorded.
--- OUTSIDE RECORDS SUMMARY | 2025-06-19 09:01 | XMS_ITS | Clinical Summary ---
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 Never 06/08/2024 Do you belong to any clubs o r organizations such as faith groups, unions, fraternal or athletic groups, or [...] any time in the past [address] [facility], were you homeless or living in a longterm (including now)? No 06/08/2024 Personal Safety Answer Date Recorded Have you ever been in or are you currently in a harmful physical or emotional relationship or is someone making you feel afraid or unsafe? Denies 06/07/2024 Comments No Sex and Gender Information Value Date Recorded Sex Assigned at Not on file Legal Sex Female 3:13 PM INVESTMENT SPECIALIST Gender Identity Not on file Sexual Orientation Not on file Last Filed Vital Signs Vital Sign Reading Time Taken Comments Blood Pressure 140/72 06/09/2024 12:13 PM INVESTMENT SPECIALIST Pulse 82 06/09/2024 12:13 PM INVESTMENT SPECIALIST Temperature 37 C (98.6 F) 06/09/2024 12:13 PM INVESTMENT SPECIALIST Respiratory Rate 16 06/09/2024 12:13 PM INVESTMENT SPECIALIST Oxygen Saturation 97% 06/09/2024 12:13 PM INVESTMENT SPECIALIST Inhaled Oxygen Concentration - - Weight 59.2 kg (130 lb 8.2 oz) 06/07/2024 6:48 A M INVESTMENT SPECIALIST Height 160 cm (5' 3) 06/07/2024 6:48 AM INVESTMENT SPECIALIST Body Mass Index 23.12 06/07/2024 6:48 AM INVESTMENT SPECIALIST Plan of Treatment Health Maintenance Due Date [...] this topic Medical Devices Implanted Type Area Ncqa Specialist Device Identifier Shelf Expiration Date Model / Serial / Lot [employer] Amplatz 8.5fr 26cm 6 Sideport Introducer Catheter String [id number] - [id number] Implanted:Qty: 1 on 06/08/2024 at [facility] [employer] 02/19/2027 [id number] / / [id number] Insurance [facility] [id number] [employer]IG[employer] HMO Advance Directives For more information, please contact: [phone] * Full Code (Latest Code Status on File) Date Activated Date Inactivated Comments 06/07/2024 6:04 PM 06/09/2024 7:56 PM Care Teams Manager Fiber Relationship Specialty Start Date End Date Carter Sanders MD PCP - General Family Medicine 05/22/24 Jt Stern MD [address] [facility] [address] [place] [address] Consulting Physician Urology 06/09/24
--- OUTSIDE RECORDS SUMMARY | 2025-06-19 09:01 | XMS_ITS | Clinical Summary ---
Author Organization [facility] Address [address] [facility] [place] [address] Care Team Providers Care Reporting Lead Name Role Phone No, Pcp SIX SIGMA BLACK TRAINER Primary Care Provider Unavailabl e Social History Tobacco Use Types Packs/Day Years Used Date Smoking Tobacco: Never Assessed Comments Unknown Sex and Gender Information Value Date Recorded Sex Assigned at Not on file Legal Sex Female 11:08 AM EST Gender Identity Not on file Sexual Orientation Not on file Plan of Treatment Not on file Medical Devices Not on file Insurance [employer] Care Teams Reporting Lead Relationship Specialty Start Date End Date No, Pcp, SIX SIGMA BLACK TRAINER N/A Do not use PCP - General Family Medicine 05/30/20
--- NOTE | 2025-06-19 09:14 | EST_ITS ---
Patient Info Name: Abbie Coreas Age: 60 years : 1965 Gender: Female Ht: 63 in Wt: 130 lbs BSA: 1.63 m2 HR: 92 bpm BP: 144 / 90 mmHg Exam Date: 06/19/2025 9:14 AM Patient Status: O Admit Date: 06/19/2025 Exam Type: CA stress test treadmill A treadmill exercise stress test was performed. Staff Attending Provider: Omer Miranda Exercise Technologist: Jaky Shanks Exercise Physician: Diomedes Lynne DO Summary 1. 1. Negative Marcio exercise stress test for ischemic ST changes by ECG criteria. 2. 2. Reduced functional capacity, achieving 6.5 METs of workload. 3. 3. Rapid HR response to exercise. 4. 4. Appropriate HR recovery at 1 minute post exercise. 5. 5. Baseline hypertension. 6. 6. No imaging with stress testing. 7. 7. Patient informed of the above results. Protocol: Marcio Stress ECG Details Stage: REST Duration (min): 0 min : 46 sec Speed (mph): 0.0 Grade (%): 0 HR (bpm): 92 SBP (mmHg): 144 DBP (mmHg): 90 METS: --- Stage: REST Duration (min): 7 min : 20 sec Speed (mph): 0.0 Grade (%): 0 HR (bpm): 120 SBP (mmHg): 144 DBP (mmHg): 90 METS: --- Stage: STAGE 1 Duration (min): 1 min : 0 sec Speed (mph): 1.7 Grade (%): 10 HR (bpm): 135 SBP (mmHg): 144 DBP (mmHg): 90 METS: --- Stage: STAGE 1 Duration (min): 2 min : 0 sec Speed (mph): 1.7 Grade (%): 10 HR (bpm): 148 SBP (mmHg): 144 DBP (mmHg): 90 METS: --- Stage: STAGE 1 Duration (min): 3 min : 0 sec Speed (mph): 1.7 Grade (%): 10 HR (bpm): 155 SBP (mmHg): 192 DBP (mmHg): 115 METS: --- Stage: STAGE 2 Duration (min): 1 min : 0 sec Speed (mph): 2.5 Grade (%): 12 HR (bpm): 158 SBP (mmHg): 192 DBP (mmHg): 115 METS: --- Stage: STAGE 2 Duration (min): 1 min : 0 sec Speed (mph): 2.5 Grade (%): 12 HR (bpm): 158 SBP (mmHg): 192 DBP (mmHg): 115 METS: --- Stage: RECOVERY Duration (min): 0 min : 59 sec Speed (mph): 0.0 Grade (%): 0 HR (bpm): 152 SBP (mmHg): 196 DBP (mmHg): 107 METS: --- Stage: RECOVERY Duration (min): 1 min : 59 sec Speed (mph): 0.0 Grade (%): 0 HR (bpm): 125 SBP (mmHg): 196 DBP (mmHg): 107 METS: --- Stage: RECOVERY Duration (min): 2 min : 59 sec Speed (mph): 0.0 Grade (%): 0 HR (bpm): 124 SBP (mmHg): 196 DBP (mmHg): 107 METS: --- Stage: RECOVERY Duration (min): 3 min : 59 sec Speed (mph): 0.0 Grade (%): 0 HR (bpm): 109 SBP (mmHg): 196 DBP (mmHg): 107 METS: --- Stage: RECOVERY Duration (min): 4 min : 59 sec Speed (mph): 0.0 Grade (%): 0 HR (bpm): 108 SBP (mmHg): 128 DBP (mmHg): 91 METS: --- Stage: RECOVERY Duration (min): 5 min : 36 sec Speed (mph): 0.0 Grade (%): 0 HR (bpm): 104 SBP (mmHg): 128 DBP (mmHg): 91 METS: --- Rest HR: 120 bpm Peak HR: 160 bpm Rest Sys BP: 144 mmHg Peak Sys BP: 196 mmHg Max Pred HR: 162 bpm % Max Pred HR: 99 % Target HR: 138 bpm Max RPP: 31,360 bpm*mmHg Rodriguez Score: -2 Termination Reason: Reached target heart rate or workload Cardiac Symptoms: Shortness of breath Max ST Seg Deviation: -1.20 mm Total Time: 4 min : 0 sec Rest [place] BP: 90 mmHg Peak [place] BP: 107 mmHg Angina Score: None Total METS: 6.5 Resting ECG Sinus tachycardia with borderline ST abnormality in diffuse leads. Stress ECG No ST changes. Arrhythmias None. Report Signatures
== END 2025-06-19 08:58 | disposition home or self-care (01) ==
LOC: ANHCARD 08:58
PROVIDERS: PCP Family Medicine; Visit Provider Family Medicine
DX: R07.9 Chest pain, unspecified (principal)
CPT/HCPCS: 93017